=== PATIENT | male | born 1955 | race African-American/Black ===

== ENCOUNTER 2016-11-29 01:31 | Emergency (ER) | payer SELFPAY ==
[~2016-11-29] VITALS: Ht 175.3 cm; Wt 59.0 kg
[2016-11-29 01:35] VITALS: BP 128/75; PULSE 72; RESP 14; TEMP 97.7; O2SAT 96
[2016-11-29] MEDS ORDERED: PRED-503 PO (02:37)
[2016-11-29] MEDS ORDERED: ALBU6.7H INH (02:37)
[2016-11-29] MEDS ORDERED: predniSONE 20 MG TAB PO ONE (02:45)
--- NOTE | 2016-11-29 02:49 | PD ---
HPI Chief Complaint: Respiratory Symptoms Time Seen by Provider: 02:43 Travel History International Travel<30 days: No Contact w/Intl Traveler<30days: No Traveled to known affect area: No History of Present Illness HPI 61-year-old black male presents to emergency Department with complaints of cough and shortness of breath. He states that he's had difficulty breathing for over a year now. He was given medication prior occasion but cannot recall what it was. He states that he also has arthritic pains in his hands. He is currently unemployed. He quit smoking 3 months ago. He drank alcohol tonight to help the pain. He denies any fever or chills. No sputum production. No chest pain. No nausea vomiting. Patient does admit to dyspnea with exertion. PFSH Past Medical History Narrative Medical [facility] COPD Tetanus Vaccination: > 5 Years Past Surgical History Surgical History: No Previous Surgery Social History Alcohol Use: Yes Tobacco Use: No (quit 3 months ago) Allergies-Medications (Allergen,Severity, Reaction): Coded Allergies: Maribel (Verified Allergy, Mild, HIVES, 11/29/16) Review of Systems Except as stated in HPI: all other systems reviewed are Neg Physical Exam Narrative GENERAL: Well-developed, well-nourished in no acute distress. Nontoxic appearing. HEAD: Normocephalic, atraumatic. EYES: Pupils equal round and reactive. Extraocular motions intact. No scleral icterus. No injection or drainage. ENT: TMs clear without erythema. The external auditory canals clear. Nose: clear . Posterior pharynx is pink and moist. No tonsillar edema or exudate. Uvula midline. Airway patent. NECK: Trachea midline.Supple, nontender, moves head freely. No central bony tenderness or spasm. CARDIOVASCULAR: Regular rate and rhythm without murmurs, gallops, or rubs. RESPIRATORY: Few faint wheezes. Prolonged expiratory phase. No Rales. No rhonchi. GASTROINTESTINAL: Abdomen soft, non-tender, nondistended. No hepato-splenomegaly , or palpable masses. No guarding. EXTREMITIES: No clubbing, cyanosis, or edema. No joint tenderness, effusion, or edema noted. Chronic arthritic appearing hands. BACK: Nontender without deformity or crepitance. No flank tenderness. Data Data Last Documented VS Vital Signs Date Time Temp Pulse Resp B/P Pulse Ox O2 Delivery O2 Flow Rate FiO2 3/2/17 01:35 97.7 72 14 128/75 96 Room Air Orders Prednisone (Deltasone) (11/29/16 02:45) MDM Medical Decision Making Medical Screen Exam Complete: Yes Emergency Medical Condition: Yes Medical Record Reviewed: Yes Differential Diagnosis MDM: High Differential diagnoses: Pneumonia, bronchitis, URI, asthma, COPD, arthritis Narrative Course Patient is given prednisone 40 mg by mouth. This is COPD, arthritis Diagnosis Primary Impression: COPD (chronic obstructive pulmonary disease) Qualified Code: J44.9 - Chronic obstructive pulmonary disease, unspecified COPD type Additional Impression: Arthritis Patient Instructions: General Instructions Additional Instructions: Rest. Increase fluids. 1 Aleve twice daily. prednisone, and albuterol. Followup with your Dr. in one week. Return to the ER for any problems. Med/Other Pt SpecificInfo: Prescription(s) given Scripts Albuterol 6.7 GM Inh (Proventil Hfa 6.7 GM Inh)90 Mcg/Act Aer2 Puff INH Q4-6H PRN (SHORTNESS OF BREATH) #1 INHALER Prov:Marylin Peña MD 11/29/16 Prednisone (Deltasone)20 Mg Tab20 Mg PO BID #10 TAB Prov:Marylin Peña MD 11/29/16 Disposition: 01 DISCHARGE HOME Condition: Stable Abel Garber Nov 29, 2016 02:49
== END 2016-11-29 03:10 | disposition home or self-care (01) ==
LOC: NEPB 01:31
DX: J44.9 Chronic obstructive pulmonary disease, unspecified (principal); M19.90 Unspecified osteoarthritis, unspecified site; R05 Cough
CPT/HCPCS: 99283; J7512

== ENCOUNTER 2017-09-02 12:06 | Emergency (ER) | payer SELFPAY ==
[~2017-09-02 12:06] MED LIST: ALBU6.7H INH; PRED-503 PO
[2017-09-02 12:07] VITALS: BP 152/80; PULSE 85; RESP 16; TEMP 98.9; O2SAT 100
[2017-09-02] MEDS ORDERED: RESP: ALBUTEROL 2.5 MG/3 ML NEB (SCH) NEB ONE (13:15)
--- NOTE | 2017-09-02 13:15 | PD ---
HPI . Right lower leg pain Chief Complaint: Skin Problem Time Seen by Provider: 12:53 Travel History International Travel<30 days: No Contact w/Intl Traveler<30days: No Traveled to known affect area: No History of Present Illness HPI 62 year old male patient presents to the emergency department for evaluation of right lower leg wound and ecchymosis. Patient states the symptoms have been present for 3 days and he is unsure how he injured it. Patient has been ambulatory since his symptoms have been present. Patient denies any fever, chills, malaise, chest pain, abdominal pain, nausea, vomiting, diarrhea. Patient states he gets short of breath with activity. Patient is a currently half pack smoker a day. Patient denies any history of diabetes. Patient denies any paresthesias or numbness and tingling in his right foot. PFSH Past Medical History Diminished Hearing: No Immunizations Current: Yes Social History Alcohol Use: Yes Tobacco Use: No (quit 3 months ago) Substance Use: No Allergies-Medications (Allergen,Severity, Reaction): Coded Allergies: poornima (Unverified Allergy, Mild, HIVES, 05/14/17) Reported Meds & Prescriptions Reported Meds & Active Scripts Active Proventil Hfa 6.7 GM Inh (Albuterol Sulfate) 90 Mcg/Act Aer 2 Puff INH Q4-6H PRN Proventil Hfa 6.7 GM Inh (Albuterol Sulfate) 90 Mcg/Act Aer 2 Puff INH Q4-6H PRN Deltasone (Prednisone) 20 Mg Tab 20 Mg PO BID Review of Systems Except as stated in HPI: all other systems reviewed are Neg Physical Exam Narrative GENERAL: Well-nourished, well-developed 62-year-old male patient in no acute distress. Nontoxic appearing. SKIN: 2cm in diameter wound to right lower leg over distal portion of raza draining serosanguineous fluid. Mild erythema and edema noted surround the wound. HEAD: Normocephalic. Atraumatic. EYES: No scleral icterus. No injection or drainage. NECK: Supple, trachea midline. No JVD or lymphadenopathy. CARDIOVASCULAR: Regular rate and rhythm without murmurs, gallops, or rubs. RESPIRATORY: Inspiratory and expiratory wheezing noted throughout. No accessory muscle use. GASTROINTESTINAL: Abdomen soft, non-tender, nondistended. MUSCULOSKELETAL: Right lower leg ecchymosis with wound draining serosanguineous fluid noted. No obvious deformity noted. Data Data Last Documented VS Vital Signs Date Time Temp Pulse Resp B/P (MAP) Pulse Ox O2 Delivery O2 Flow Rate FiO2 09/02/17 12:07 98.9 85 16 152/80 (104) 100 Orders Orders Ankle, Complete ([id number]) (09/02/17 ) Tibia/Fibula (Ap/Lat) (09/02/17 ) Albuterol Neb (Albuterol Neb) (09/02/17 13:15) Chest, Pa & Lat (09/02/17 13:00) Ed Discharge Order (09/02/17 14:01) Wound Care (09/02/17 14:01) Splint Or Brace Apply/Monitor (09/02/17 14:28) Crutches (09/02/17 14:28) MDM Medical Decision Making Medical Screen Exam Complete: Yes Emergency Medical Condition: Yes Differential Diagnosis Differential diagnoses include but not limited to cellulitis, contusion, fracture, COPD, wheezing Narrative Course 62-year-old male patient presents to emergency room for evaluation of right lower leg wound and ecchymosis. Patient states the symptoms of present for 3 days but is unsure of the mechanism of injury. X-ray of the right tib-fib and ankle ordered and pending. Upon assessment is noted that the patient has inspiratory and expiratory wheezing throughout. Patient is currently half a pack-a-day smoker. Chest x-ray ordered and pending. Albuterol nebulizer ordered. Chest x-ray shows findings consistent with COPD, nothing acute. X- ray of the right ankle shows diffuse soft tissue swelling with no fracture. X- ray of the tib-fib is negative. Patient is discharged home with prescription for bactrim, instructions to perform wound care, and rice therapy to the right lower leg into the symptoms resolve. Right lower leg Howie wrap and patient given crutches. Patient instructed to return the emergency Department with any worsening condition but otherwise follow up with primary care. Patient given a prescription for albuterol inhaler. Diagnosis Primary Impression: Contusion of right lower leg Qualified Codes: S80.11XA - Contusion of right lower leg, initial encounter Additional Impression: Wound of right lower extremity Qualified Codes: S81.801A - Unspecified open wound, right lower leg, initial encounter Referrals: Primary Care Physician Patient Instructions: Acute Wound Care (GEN), Acute Wounds (ED), Contusion in Adults (ED), General Instructions Additional Instructions: Please return to emergency department if your symptoms return or worsen. Follow up with your primary care provider. Take medications as prescribed. Perform daily wound care to the right lower extremity. May apply antibiotic ointment. Rice therapy to the right lower leg, rest, ice, elevated when resting Med/Other Pt SpecificInfo: Prescription(s) given Scripts Sulfamethoxazole-Trimethoprim (Bactrim DS) 800-160 Mg Tab 1 TAB PO BID for Infection for 10 Days, #20 TAB 0 Refills Prov: Cecy Dailey 09/02/17 Albuterol 6.7 GM Inh (Proventil Hfa 6.7 GM Inh) 90 Mcg/Act Aer 2 PUFF INH Q4-6H Y for SHORTNESS OF BREATH, #1 INHALER 0 Refills Prov: Cecy Dailey 09/02/17 Disposition: 01 DISCHARGE HOME Condition: Stable Cecy Dailey Sep 02, 2017 13:15
--- NOTE | 2017-09-02 13:35 | RADRPT ---
EXAM DATE/TIME: 09/02/2017 12:48 [facility] COMPARISON: No previous studies available for comparison. INDICATIONS : Pain and swelling with no known injury. MEDICAL HISTORY : None. SURGICAL HISTORY : None. ENCOUNTER: Initial ACUITY: 1 week PAIN SCORE: 10/10 LOCATION: Right Lower leg FINDINGS: Two view examination of the right tibia demonstrates no evidence of fracture or dislocation. Bony mi neralization is normal. The soft tissue structures are intact. A posterior calcaneal spur is present . CONCLUSION: Negative examination of the tibia and fibula. Trey Grubbs MD on September 02, 2017 at 13:32 Board Certified Radiologist. This report was verified electronically.
--- NOTE | 2017-09-02 13:36 | RADRPT ---
EXAM DATE/TIME: 09/02/2017 12:51 [facility] COMPARISON: No previous studies available for comparison. INDICATIONS : Pain and swelling with no known injury. MEDICAL HISTORY : None. SURGICAL HISTORY : None. ENCOUNTER: Initial ACUITY: 1 week PAIN SCORE: 10/10 LOCATION: Right Ankle FINDINGS: Soft tissue swelling is present in a diffuse fashion. The ankle mortise is intact. There is no eviden ce of acute fracture. Bony mineralization is normal. A posterior calcaneal spur is present. CONCLUSION: 1. Diffuse swelling without fracture Trey Grubbs MD on September 02, 2017 at 13:33 Board Certified Radiologist. This report was verified electronically.
--- NOTE | 2017-09-02 13:38 | RADRPT ---
EXAM DATE/TIME: 09/02/2017 13:08 [facility] COMPARISON: No previous studies available for comparison. INDICATIONS : Patient states cough. MEDICAL HISTORY : None. SURGICAL HISTORY : None. ENCOUNTER: Initial ACUITY: 1 year PAIN SCORE: 0/10 LOCATION: Bilateral chest FINDINGS: The cardiac silhouette is enlarged in transverse diameter. The lungs are hyperinflated but clear. No effusions are identified. There is mild multilevel degenerative change throughout the spine. CONCLUSION: 1. Findings of COPD. No acute cardiopulmonary disease. Trey Grubbs MD on September 02, 2017 at 13:35 Board Certified Radiologist. This report was verified electronically.
[2017-09-02] MEDS ORDERED: ALBU6.7H INH (14:00)
[2017-09-02] MEDS ORDERED: BACT800T5 PO (14:29)
== END 2017-09-02 14:41 | disposition home or self-care (01) ==
LOC: NEPK 12:06
DX: S80.11XA Contusion of right lower leg, initial encounter (principal); S81.801A Unspecified open wound, right lower leg, initial encounter; X58.XXXA Exposure to other specified factors, initial encounter; Z79.899 Other long term (current) drug therapy
CPT/HCPCS: 71020; 73590; 73610; 94664; 99285; E0113; J7613

== ENCOUNTER 2017-09-21 16:28 | Emergency (ER) | payer SELFPAY ==
[~2017-09-21] VITALS: Ht 175.3 cm; Wt 55.0 kg
[~2017-09-21 16:28] MED LIST changes: +BACT800T5 PO
[2017-09-21 16:31] VITALS: BP 133/70; PULSE 89; RESP 14; TEMP 98.1; O2SAT 98
[2017-09-21 17:39] VITALS: BP 132/78; PULSE 89; RESP 18; O2SAT 96
[2017-09-21] MEDS ORDERED: NYSTATIN SUSP 500,000 U/5 ML CUP SWISH-SWAL ONE (17:45)
[2017-09-21] MEDS ORDERED: SODIUM CHLORIDE 0.9% FLUSH 10 ML FLUSH IV FLUSH PRN (17:45)
--- NOTE | 2017-09-21 17:45 | PD ---
HPI Chief Complaint: ENT Complaint Time Seen by Provider: 17:38 Travel History International Travel<30 days: No Contact w/Intl Traveler<30days: No Traveled to known affect area: No History of Present Illness HPI 62-year-old male here for evaluation of tongue pain, throat pain, and difficulty swallowing. Symptoms have been going on for last 2 days. Pain is moderate to severe, constant. He denies fevers or chills. No respiratory difficulty. PFSH Past Medical History Asthma: Yes Diminished Hearing: No Hypertension: Yes Immunizations Current: Yes Tetanus Vaccination: Unknown Influenza Vaccination: No Past Surgical History Surgical History: No Previous Surgery Social History Alcohol Use: Yes ([facility]) Tobacco Use: Yes (ONCE OR TWICE A WEEK) Substance Use: Yes ([facility]) Allergies-Medications (Allergen,Severity, Reaction): Coded Allergies: poornima (Unverified Allergy, Mild, HIVES, 09/21/17) Reported Meds & Prescriptions Reported Meds & Active Scripts Active Bactrim DS (Sulfamethoxazole-Trimethoprim) 800-160 Mg Tab 1 Tab PO BID 10 Days Proventil Hfa 6.7 GM Inh (Albuterol Sulfate) 90 Mcg/Act Aer 2 Puff INH Q4-6H PRN Proventil Hfa 6.7 GM Inh (Albuterol Sulfate) 90 Mcg/Act Aer 2 Puff INH Q4-6H PRN Deltasone (Prednisone) 20 Mg Tab 20 Mg PO BID Review of Systems Except as stated in HPI: all other systems reviewed are Neg Physical Exam Narrative GENERAL: Well-developed, thin, awake, alert, comfortable, no apparent distress. SKIN: Focused skin assessment warm/dry. No rash. HEAD: Atraumatic. Normocephalic. EYES: Pupils equal and round. No scleral icterus. No injection or drainage. ENT: Mucous membranes pink and moist. White patches throughout entire tongue and pharynx consistent with candidiasis. There is also pharyngeal erythema without exudate. Normal phonation. No drooling or stridor. NECK: Trachea midline. No JVD. CARDIOVASCULAR: Regular rate and rhythm. RESPIRATORY: No accessory muscle use. Clear to auscultation. Breath sounds equal bilaterally. GASTROINTESTINAL: Abdomen soft, non-tender, nondistended. MUSCULOSKELETAL: No obvious deformities. No clubbing. No cyanosis. No edema. NEUROLOGICAL: Awake and alert. No obvious cranial nerve deficits. Motor grossly within normal limits. Normal speech. PSYCHIATRIC: Appropriate mood and affect; insight and judgment normal. Data Data Last Documented VS Vital Signs Date Time Temp Pulse Resp B/P (MAP) Pulse Ox O2 Delivery O2 Flow Rate FiO2 09/21/17 19:00 69 18 110/55 (73) 95 Room Air 09/21/17 16:31 98.1 Orders Orders Complete Blood Count With Diff (09/21/17 17:41) Comprehensive Metabolic Panel (09/21/17 17:41) Prothrombin Time / Inr (Pt) (09/21/17 17:41) Act Partial Throm Time (Ptt) (09/21/17 17:41) Iv Access Insert/Monitor (09/21/17 17:41) Ecg Monitoring (09/21/17 17:41) Oximetry (09/21/17 17:41) Sodium Chloride 0.9% Flush (Ns Flush) (09/21/17 17:45) Group A Rapid Strep Screen (09/21/17 17:41) Nystatin Liq (Mycostatin Liq) (09/21/17 17:45) Soft Tissue Neck (09/21/17 ) Ct Soft Tiss Neck W Iv Cont (09/21/17 ) Ketorolac Inj (Toradol Inj) (09/21/17 19:30) Penicillin G Benzathine Inj (Bicillin L- (09/21/17 19:30) Iohexol 350 Inj (Omnipaque 350 Inj) (09/21/17 19:50) Labs Laboratory Tests Test 09/21/17 17:45 White Blood Count 5.6 TH/MM3 Red Blood Count 3.57 MIL/MM3 Hemoglobin 10.5 GM/DL Hematocrit 31.5 % Mean Corpuscular Volume 88.1 FL Mean Corpuscular Hemoglobin 29.4 PG Mean Corpuscular Hemoglobin Concent 33.4 % Red Cell Distribution Width 14.4 % Platelet Count 186 TH/MM3 Mean Platelet Volume 8.0 FL Neutrophils (%) (Auto) 63.4 % Lymphocytes (%) (Auto) 13.4 % Monocytes (%) (Auto) 7.8 % Eosinophils (%) (Auto) 15.1 % Basophils (%) (Auto) 0.3 % Neutrophils # (Auto) 3.6 TH/MM3 Lymphocytes # (Auto) 0.8 TH/MM3 Monocytes # (Auto) 0.4 TH/MM3 Eosinophils # (Auto) 0.8 TH/MM3 Basophils # (Auto) 0.0 TH/MM3 CBC Comment DIFF FINAL Differential Comment Prothrombin Time 10.8 SEC Prothromb Time International Ratio 1.1 RATIO Activated Partial Thromboplast Time 29.2 SEC Blood Urea Nitrogen 26 MG/DL Creatinine 1.17 MG/DL Random Glucose 93 MG/DL Total Protein 8.6 GM/DL Albumin 3.0 GM/DL Calcium Level 8.3 MG/DL Alkaline Phosphatase 54 U/L Aspartate Amino Transf (AST/SGOT) 32 U/L Alanine Aminotransferase (ALT/SGPT) 29 U/L Total Bilirubin 0.4 MG/DL Sodium Level 140 MEQ/L Potassium Level 4.1 MEQ/L Chloride Level 108 MEQ/L Carbon Dioxide Level 24.6 MEQ/L Anion Gap 7 MEQ/L Estimat Glomerular Filtration Rate 77 ML/MIN [facility] Medical Decision Making Medical Screen Exam Complete: Yes Emergency Medical Condition: Yes Differential Diagnosis Thrush, candidal esophagitis, strep pharyngitis, mono, peritonsillar abscess, retropharyngeal abscess, epiglottitis Narrative Course Patient's physical exam is consistent with thrush and likely esophagitis. He denies known history of HIV. He does not have a primary care physician. Vital signs show heart rate 89, blood pressure 133/70, pulse ox 98% on room air , tympanic temp of 98.1F. CBC: WBC 5.6, hemoglobin 10.5, hematocrit 31.5, platelets 186. CMP is remarkable for albumin 3.0, BUN 26, creatinine 1.17, GFR 77. Throat swab is positive for group A strep. Soft tissue neck x-ray: CONCLUSION: 1. Epiglottic shadow is somewhat thickened. Maybe a tube motion or liquid he verses true epiglottic thickening. Airway is grossly patent. Prevertebral/ retropharyngeal soft tissues within normal limits. 2. Moderate severity bony degenerative findings of the cervical spine. Because of the above reading on the soft tissue neck x-ray, CT of the neck was ordered to rule out epiglottitis. CT soft tissue neck: CONCLUSION: 1. Mildly prominent jugular chain lymph nodes, likely reactive. 2. Mild bilateral maxillary sinus disease. 3. Epiglottis is within normal limits. 4. No evidence of abscess. Airway in the neck is within normal limits in diameter. The patient was given 1.2 million units of penicillin G IM for strep pharyngitis. He was also given nystatin swish and swallow for what appeared to be thrush. Patient has slight anemia which is likely chronic. Patient denies melena or hematochezia. No hematemesis or hematuria. Patient was made aware of all findings. He is tolerating clear liquids in the emergency department. Patient does have thrush and I highly recommended that he follow-up as an outpatient to be tested for HIV. He can either do this at the health department or with a primary care physician. Although he was given penicillin G for strep pharyngitis, he does have sinusitis as well given a prescription for Augmentin. I will give him a prescription for nystatin swish and swallow. He was advised to take Tylenol/ibuprofen for pain. He was informed on when to return to the emergency department. He verbalizes understanding and agreement with plan. Diagnosis Primary Impression: Strep pharyngitis Additional Impressions: Thrush Sinusitis Qualified Codes: J01.90 - Acute sinusitis, unspecified Referrals: [facility] 3 days Primary Care Physician 3 days Additional Instructions: Follow-up with a primary care physician this week. Take antibiotics as prescribed. Return to the emergency department for worsening symptoms or any other concerns. Scripts Nystatin Liq (Nystatin Liq) 100,000 unit/ml Susp 5 ML SWISH-SWAL QID for Infection for 5 Days, ML 0 Refills Prov: Willis Persaud MD 09/21/17 Amoxicillin-Clavulanate (Augmentin) 875-125 Mg Tab 1 TAB PO BID for Infection for 7 Days, #14 TAB 0 Refills Prov: Willis Persadu MD 09/21/17 Disposition: 01 DISCHARGE HOME Condition: Stable Willis Persaud MD Sep 21, 2017 17:45
[2017-09-21 17:57] VITALS: BP 132/78; PULSE 89; RESP 18; O2SAT 96
[2017-09-21 18:16] LABS: AUTOMATED NEUTROPHIL # 3.6 TH/MM3 (1.8-7.7); BASOPHIL % 0.3 % (0.0-2.0); EOSINOPHIL # 0.8 TH/MM3 (0-0.4); EOSINOPHIL % 15.1 % (0.0-4.0); HEMATOCRIT 31.5 % (39.0-51.0); HEMOGLOBIN 10.5 GM/DL (13.0-17.0); LYMPH % 13.4 % (9.0-44.0); LYMPHOCYTE # 0.8 TH/MM3 (1.0-4.8); MEAN CELL VOLUME 88.1 FL (80.0-100.0); MEAN CORPUSCULAR HEMOGLOBIN 29.4 PG (27.0-34.0); MEAN CORPUSCULAR HGB CONC 33.4 % (32.0-36.0); MONO % 7.8 % (0.0-8.0); MONOCYTE # 0.4 TH/MM3 (0-0.9); NEUT % 63.4 % (16.0-70.0); PLATELET COUNT 186 TH/MM3 (150-450); RED BLOOD COUNT 3.57 MIL/MM3 (4.50-5.90); RED CELL DISTRIBUTION WIDTH 14.4 % (11.6-17.2); WHITE BLOOD COUNT 5.6 TH/MM3 (4.0-11.0)
[2017-09-21 18:24] LABS: INTERNATIONAL NORMALIZED RATIO 1.1 RATIO; PROTHROMBIN TIME - PATIENT 10.8 SEC (9.8-11.6)
[2017-09-21 18:38] LABS: ALT (GPT) 29 U/L (12-78); AST (GOT) 32 U/L (15-37); BICARBONATE 24.6 MEQ/L (21.0-32.0); BLOOD UREA NITROGEN 26 MG/DL (7-18); CALCIUM 8.3 MG/DL (8.5-10.1); CHLORIDE 108 MEQ/L (98-107); CREATININE 1.17 MG/DL (0.60-1.30); GLOMERULAR FILTRATION RATE 77 ML/MIN (>89); GLUCOSE,RANDOM 93 MG/DL (74-106); SODIUM (NA) 140 MEQ/L (136-145)
[2017-09-21 18:39] LABS: ALKALINE PHOSPHATASE 54 U/L (45-117); TOTAL BILIRUBIN ADULT 0.4 MG/DL (0.2-1.0); TOTAL PROTEIN 8.6 GM/DL (6.4-8.2)
--- NOTE | 2017-09-21 18:54 | RADRPT ---
EXAM DATE/TIME: 09/21/2017 17:51 [facility] COMPARISON: No previous studies available for comparison. INDICATIONS : Throat pain and swelling. MEDICAL HISTORY : None. SURGICAL HISTORY : None. ENCOUNTER: Initial ACUITY: 2 days PAIN SCORE: 10/10 LOCATION: Neck. FINDINGS: 2 views soft tissue neck. Prevertebral soft tissues within normal limits. The epiglottis shadow appears somewhat prominent in t hickness. Airway is grossly patent. Large endplate osteophytes bridging anteriorly at C5-6 and C6-7. Alignment within normal limits. No e vidence of fracture. Moderate severity left-sided facet arthrosis at C3-4, C4-5, C5-6. CONCLUSION: 1. Epiglottic shadow is somewhat thickened. Maybe a tube motion or liquid he verses true epiglottic t hickening. Airway is grossly patent. Prevertebral/retropharyngeal soft tissues within normal limits. 2. Moderate severity bony degenerative findings of the cervical spine. Jean Sanchez MD on September 21, 2017 at 18:50 Board Certified Radiologist. This report was verified electronically.
[2017-09-21 19:00] VITALS: BP 110/55; PULSE 69; RESP 18; O2SAT 95
[2017-09-21] MEDS ORDERED: PENICILLIN G BENZATHINE 1,200,000 UNITS/2 ML SYRINGE IM ONE (19:30)
[2017-09-21] MEDS ORDERED: KETOROLAC TROMETHAMINE 30 MG/ML (IVP) VIAL IV PUSH ONE (19:30)
[2017-09-21] MEDS ORDERED: IOHEXOL 350 MG/ML 10 ML VIAL (for RAD DIAG) IVCONTRAST ONE (19:50)
--- NOTE | 2017-09-21 20:43 | RADRPT ---
EXAM DATE/TIME: 09/21/2017 19:42 [facility] COMPARISON: No previous studies available for comparison. INDICATIONS : Sore throat; difficulty swallowing. IV CONTRAST: 66 cc Omnipaque 350 (iohexol) IV RADIATION DOSE: 16.15 CTDIvol (mGy) MEDICAL HISTORY : Hypertension. SURGICAL HISTORY : None. ENCOUNTER: Initial ACUITY: 1 day PAIN SCALE: 7/10 LOCATION: neck TECHNIQUE: Volumetric scanning of the neck was performed. Using automated exposure control and adjustment of th e mA and/or kV according to patient size, radiation dose was kept as low as reasonably achievable to obtain optimal diagnostic quality images. DICOM format image data is available electronically for r eview and comparison. FINDINGS: NASOPHARYNX: The nasopharyngeal airway has a normal configuration. No mucosal thickening or mass is seen. OROPHARYNX: The intrinsic muscles of the tongue are symmetric. The tonsillar pillars are intact. The prevertebr al soft tissues are not thickened. LARYNX: The supraglottic, glottic, and infraglottic structures are intact. PARAPHARYNGEAL: The parapharyngeal space is intact. SALIVARY GLANDS: The parotid and submandibular glands are intact. LYMPH NODES: Multiple mildly prominent jugular chain lymph nodes bilaterally with the largest measuring 2.0 x 0.8 cm on the right on image #37. These findings are likely reactive. No new chronic lymph nodes identifi ed. THYROID: Homogeneous enhancement without evidence of nodule. BONES: Unremarkable. Mild mucosal thickening of the maxillary sinuses. Multilevel degenerative findings of t he cervical spine mild central canal narrowing at C4-5. CONCLUSION: 1. Mildly prominent jugular chain lymph nodes, likely reactive. 2. Mild bilateral maxillary sinus disease. 3. Epiglottis is within normal limits. 4. No evidence of abscess. Airway in the neck is within normal limits in diameter. Jean Sanchez MD on September 21, 2017 at 20:37 Board Certified Radiologist. This report was verified electronically.
[2017-09-21] MEDS ORDERED: NYST1000 SWISH-SWAL (20:53)
[2017-09-21] MEDS ORDERED: AUGM875T3 PO (20:53)
== END 2017-09-21 21:08 | disposition home or self-care (01) ==
LOC: NEPD 16:28
DX: J02.0 Streptococcal pharyngitis (principal); B37.9 Candidiasis, unspecified; J32.9 Chronic sinusitis, unspecified; D64.9 Anemia, unspecified; M50.30 Other cervical disc degeneration, unspecified cervical region; J45.909 Unspecified asthma, uncomplicated; I10 Essential (primary) hypertension; Z72.0 Tobacco use
CPT/HCPCS: 70360; 70491; 80053; 85025; 85610; 85730; 87880; 96372; 96374; 99285; J0561; J1885; Q9967

== ENCOUNTER 2018-01-13 11:58 | Emergency (ER) | payer SELFPAY ==
[~2018-01-13 11:58] MED LIST changes: +AUGM875T3 PO; +NYST1000 SWISH-SWAL
[2018-01-13 12:08] VITALS: BP 112/74; PULSE 83; RESP 16; TEMP 98.1; O2SAT 95
--- NOTE | 2018-01-13 12:32 | PD ---
HPI Chief Complaint: Skin Problem Time Seen by Provider: 12:29 Travel History International Travel<30 days: No Contact w/Intl Traveler<30days: No Traveled to known affect area: No History of Present Illness HPI 62-year-old homeless -[place] male presents to the emergency department with 1 month history of dry itchy rash to both forearms and dorsal hands, as well as around the perineum of the rectum, which garcia with defecation. He denies itching anywhere else. He denies exposure to anything new. Patient is unsure if he has any medical problems. He denies history of eczema. He states it has been worse over the past month. He denies fever, chills, open wounds, sores, or drainage. He is allergic to mangoes but no medication allergies. PFSH Past Medical History Asthma: Yes Diminished Hearing: No Hypertension: Yes Immunizations Current: Yes Social History Alcohol Use: Yes (OCC) Tobacco Use: Yes (ONCE OR TWICE A WEEK) Substance Use: Yes (OCC MARIJUANA) Allergies-Medications (Allergen,Severity, Reaction): Coded Allergies: poornima (Unverified Allergy, Mild, HIVES, 01/13/18) Reported Meds & Prescriptions Reported Meds & Active Scripts Active Nystatin Liq 100,000 unit/ml Susp 5 Ml SWISH-SWAL QID 5 Days Augmentin (Amoxicillin-Clavulanate) 875-125 Mg Tab 1 Tab PO BID 7 Days Bactrim DS (Sulfamethoxazole-Trimethoprim) 800-160 Mg Tab 1 Tab PO BID 10 Days Proventil Hfa 6.7 GM Inh (Albuterol Sulfate) 90 Mcg/Act Aer 2 Puff INH Q4-6H PRN Proventil Hfa 6.7 GM Inh (Albuterol Sulfate) 90 Mcg/Act Aer 2 Puff INH Q4-6H PRN Deltasone (Prednisone) 20 Mg Tab 20 Mg PO BID Review of Systems Except as stated in HPI: all other systems reviewed are Neg General / Constitutional: No: Fever Eyes: No: Visual changes HENT: No: Headaches Cardiovascular: No: Chest Pain or Discomfort Respiratory: No: Shortness of Breath Gastrointestinal: No: Abdominal Pain Genitourinary: No: Dysuria Musculoskeletal: No: Pain Skin: Positive Rash, Positive Itching, Positive Other Neurologic: No: Weakness Psychiatric: No: Depression Endocrine: No: Polydipsia Hematologic/Lymphatic: No: Easy Bruising Physical Exam Narrative GENERAL: Patient appears somewhat cachectic but otherwise in no obvious distress. SKIN: Warm and dry. Normal color. Decreased turgor throughout. Patient has plaque-like scaly rash to both dorsal forearms and hands, as well as a circumscribed plaque-like rash around the perineum of the rectum and buttocks. There is no increased warmth or erythema. Consistent with dermatophytosis,/ eczema/atrophic skin. There are no lesions suggestive of scabies or other skin condition. HEAD: Atraumatic. Normocephalic. EYES: Pupils equal and round. No scleral icterus. No injection or drainage. ENT: No nasal bleeding or discharge. Mucous membranes pink and moist. Pharynx is clear. Airways patent NECK: Trachea midline. Supple and nontender. CARDIOVASCULAR: Regular rate and rhythm. No murmurs gallops rubs per RESPIRATORY: No accessory muscle use. Clear to auscultation. Breath sounds equal bilaterally. MUSCULOSKELETAL: Extremities without clubbing, cyanosis, or edema. No obvious deformities. Full strength and range of motion throughout. NEUROLOGICAL: Awake and alert. No obvious cranial nerve deficits. Motor grossly within normal limits. Five out of 5 muscle strength in the arms and legs. Normal speech. PSYCHIATRIC: Appropriate mood and affect; insight and judgment normal. Data Data Last Documented VS Vital Signs Date Time Temp Pulse Resp B/P (MAP) Pulse Ox O2 Delivery O2 Flow Rate FiO2 01/13/18 12:08 98.1 83 16 112/74 (87) 95 Orders Orders Blood Glucose (01/13/18 12:32) [facility] Medical Decision Making Medical Screen Exam Complete: Yes Emergency Medical Condition: Yes Medical Record Reviewed: Yes Differential Diagnosis Rash. Dermatophytosis. Dermatitis. Narrative Course Fingerstick blood sugar is checked and found to be 76 Patient will be treated with Lotrisone ointment twice daily for 2 weeks. Patient to follow-up if symptoms do not improve in the next 2 weeks. Diagnosis Primary Impression: Dermatophytosis of body Additional Impression: Dermatophytosis of groin and perianal area Referrals: [facility] Patient Instructions: General Instructions, Jeremiah Dunaway (ED) Additional Instructions: Fingerstick blood sugar is checked and found to be 76 Patient will be treated with Lotrisone ointment twice daily for 2 weeks. Patient to follow-up if symptoms do not improve in the next 2 weeks. Med/Other Pt SpecificInfo: Prescription(s) given Disposition: 01 DISCHARGE HOME Condition: Joseph Espana Jan 13, 2018 12:32
[2018-01-13] MEDS ORDERED: LOTR15T TOPICAL (12:57)
== END 2018-01-13 13:35 | disposition home or self-care (01) ==
LOC: NEPK 11:58
DX: B35.4 Tinea corporis (principal); B35.6 Tinea cruris; J45.909 Unspecified asthma, uncomplicated; I10 Essential (primary) hypertension; F12.90 Cannabis use, unspecified, uncomplicated; Z72.0 Tobacco use; Z59.0 Homelessness
CPT/HCPCS: 99283

== ENCOUNTER 2018-03-12 17:32 | Observation (INO) | payer SELFPAY ==
[~2018-03-12] VITALS: Ht 175.3 cm; Wt 60.0 kg
[~2018-03-12 17:32] MED LIST changes: +LOTR15T TOPICAL
[2018-03-12 17:35] VITALS: BP 160/76; PULSE 80; RESP 16; TEMP 97.7; O2SAT 98
--- NOTE | 2018-03-12 17:42 | PD ---
HPI Chief Complaint: Pain: Acute or Chronic Time Seen by Provider: 17:41 Travel History International Travel<30 days: No Contact w/Intl Traveler<30days: No Traveled to known affect area: No History of Present Illness HPI 62-year-old male came to the emergency room with history of chest discomfort on and off for past 5 months. Patient points to his substernal area and describes the pain as burning sensation. Pain starts from the epigastric region and radiates up to the mid sternum. Patient is currently chest pain-free. No aggravating factors identified. Patient says by drinking cold water sometimes the pain is relieved. Patient used to be a smoker but quit 5 months ago. He also has history of hypertension but he does not have healthcare insurance or any money to buy any medications or fill prescriptions and hence he has not taken his medications for many months now. Patient also says that he has a generalized rash which is extremely itchy. He was seen in the emergency room couple months ago and was given a prescription but once again due to lack of having money patient was unable to fill the prescription. He also has history of COPD and occasionally suffers from COPD exacerbation. Once again he has not taken any of his inhalers since he does not have the medications or means to fill the prescription. No known coronary artery disease history. Patient has not been formally tested for coronary artery disease either. [facility] Past Medical History Narrative Medical List of his past medical, surgical, social and family history is reviewed from the nursing note. Asthma: Yes Diminished Hearing: No Hypertension: Yes Immunizations Current: Yes Social History Alcohol Use: Yes ([facility]) Tobacco Use: Yes (ONCE OR TWICE A WEEK) Substance Use: Yes ([facility] MARIJUANA) Allergies-Medications (Allergen,Severity, Reaction): Coded Allergies: poornima (Unverified Allergy, Mild, HIVES, 03/12/18) Comments List of his allergies reviewed from the nursing note. Reported Meds & Prescriptions Reported Meds & Active Scripts Active No Active Prescriptions or Reported Medications Narrative Medication List of his home medications reviewed from the nursing note. Review of Systems Except as stated in HPI: all other systems reviewed are Neg Cardiovascular: Positive: Chest Pain or Discomfort Skin: Positive Rash Physical Exam Narrative GENERAL: Awake, alert, mass seated, mild distress SKIN: Focused skin assessment warm/dry. Generalized dry skin that looks like eczema HEAD: Atraumatic. Normocephalic. EYES: Pupils equal and round. No scleral icterus. No injection or drainage. ENT: No nasal bleeding or discharge. Mucous membranes pink and moist. NECK: Trachea midline. No JVD. CARDIOVASCULAR: Regular rate and rhythm. No murmur appreciated. RESPIRATORY: No accessory muscle use. End expiratory wheeze bilateral GASTROINTESTINAL: Abdomen soft, non-tender, nondistended. Hepatic and splenic margins not palpable. MUSCULOSKELETAL: No obvious deformities. No clubbing. No cyanosis. No edema. NEUROLOGICAL: Awake and alert. No obvious cranial nerve deficits. Motor grossly within normal limits. Normal speech. PSYCHIATRIC: Appropriate mood and affect; insight and judgment normal. Data Data Last Documented VS Vital Signs Date Time Temp Pulse Resp B/P (MAP) Pulse Ox O2 Delivery O2 Flow Rate FiO2 03/12/18 19:23 96 21 03/12/18 19:23 84 16 114/64 (81) Room Air 03/12/18 17:35 97.7 Orders Orders Prednisone (Deltasone) (03/12/18 18:15) Albuterol-Ipratropium Neb (Duoneb Neb) (03/12/18 18:15) Electrocardiogram (03/12/18 18:19) Basic Metabolic Panel (Bmp) (03/12/18 18:19) Ckmb (Isoenzyme) Profile (03/12/18 18:19) Complete Blood Count With Diff (03/12/18 18:19) Magnesium (Mg) (03/12/18 18:19) Prothrombin Time / Inr (Pt) (03/12/18 18:19) Troponin I (03/12/18 18:19) Ecg Monitoring (03/12/18 18:19) Bilateral Bp Monitoring (03/12/18 18:19) Iv Access Insert/Monitor (03/12/18 18:19) Oximetry (03/12/18 18:19) Oxygen Administration (03/12/18 18:19) Sodium Chloride 0.9% Flush (Ns Flush) (03/12/18 18:30) Chest, Pa & Lat (03/12/18 18:19) Admit Order (Ed Use Only) (03/12/18 20:11) Activity Bed Rest With Brp (03/12/18 20:11) Vital Signs (Adult) Q4H (03/12/18 20:11) Cardiac Rhythm .As Directed (03/12/18 20:11) Notify Dr: Other .PRN (03/12/18 20:11) Notify . Parameters (03/12/18 20:11) Resp Oxygen Nasal Cannula (03/12/18 ) Ckmb (Isoenzyme) Profile (03/12/18 20:11) Ckmb (Isoenzyme) Profile (03/12/18 23:11) Troponin I (03/12/18 20:11) Troponin I (03/12/18 23:11) Electrocardiogram (03/12/18 20:11) Electrocardiogram (03/12/18 23:11) ^ Obtain (03/12/18 20:11) Sodium Chloride 0.9% Flush (Ns Flush) (03/12/18 20:15) Sodium Chloride 0.9% Flush (Ns Flush) (03/12/18 21:00) Acetaminophen (Tylenol) (03/12/18 20:15) Nitroglycerin Sl (Nitrostat Sl) (03/12/18 20:15) Film Washer / Telemetry TRISTAN.Q8H (03/12/18 20:11) Labs Laboratory Tests Test 03/12/18 18:45 White Blood Count 4.1 TH/MM3 Red Blood Count 3.80 MIL/MM3 Hemoglobin 10.5 GM/DL Hematocrit 32.7 % Mean Corpuscular Volume 86.1 FL Mean Corpuscular Hemoglobin 27.7 PG Mean Corpuscular Hemoglobin Concent 32.1 % Red Cell Distribution Width 16.2 % Platelet Count 249 TH/MM3 Mean Platelet Volume 7.8 FL Neutrophils (%) (Auto) 48.0 % Lymphocytes (%) (Auto) 11.3 % Monocytes (%) (Auto) 8.3 % Eosinophils (%) (Auto) 31.9 % Basophils (%) (Auto) 0.5 % Neutrophils # (Auto) 2.0 TH/MM3 Lymphocytes # (Auto) 0.5 TH/MM3 Monocytes # (Auto) 0.3 TH/MM3 Eosinophils # (Auto) 1.3 TH/MM3 Basophils # (Auto) 0.0 TH/MM3 CBC Comment AUTO DIFF Differential Comment AUTO DIFF CONFIRMED Platelet Estimate NORMAL Platelet Morphology Comment NORMAL Ovalocytes 1+ Prothrombin Time 10.3 SEC Prothromb Time International Ratio 1.0 RATIO Blood Urea Nitrogen 13 MG/DL Creatinine 0.78 MG/DL Random Glucose 70 MG/DL Calcium Level 8.7 MG/DL Magnesium Level 2.3 MG/DL Sodium Level 140 MEQ/L Potassium Level 3.6 MEQ/L Chloride Level 107 MEQ/L Carbon Dioxide Level 20.1 MEQ/L Anion Gap 13 MEQ/L Estimat Glomerular Filtration Rate 123 ML/MIN Total Creatine Kinase 65 U/L Troponin I LESS THAN 0.02 NG/ML MDM Medical Decision Making Medical Screen Exam Complete: Yes Emergency Medical Condition: Yes Medical Record Reviewed: Yes Interpretation(s) Twelve-lead EKG was reviewed by me. Normal sinus rhythm, normal axis, multiple PVCs. Heart rate of 66 bpm. Differential Diagnosis ACS, non-STEMI, GERD, COPD exacerbation, eczema Narrative Course 8:17 PM patient was given 2 DuoNeb's and p.o. prednisone which was meant for both COPD exacerbation as well as eczema. Blood test results are back and within acceptable limits. However given the fact that patient is - [place], 62 years old and noncompliant hypertensive with history of chest pain and no past workup done I would like to admit this patient to the chest pain center so that he can be ruled out for ACS. Patient has told me not to bother giving him any prescriptions since he will not be able to fill them. Procedures EKG Prior to Arrival: No Diagnosis Primary Impression: Chest pain Qualified Codes: R07.9 - Chest pain, unspecified Additional Impression: Eczema Qualified Codes: L30.9 - Dermatitis, unspecified Admitting Information Admitting Physician Requests: Observation Scripts No Active Prescriptions or Reported Meds Pilo Small MD Mar 12, 2018 17:42
[2018-03-12] MEDS: RESP: ALBUTEROL 2.5 MG/IPRATROPIUM 0.5 MG NEB (SCH) INH ×2 (18:14→18:15)
[2018-03-12] MEDS ORDERED: predniSONE 20 MG TAB PO ONE (18:15)
[2018-03-12] MEDS ORDERED: SODIUM CHLORIDE 0.9% FLUSH 10 ML FLUSH IVF PRN (18:30)
[2018-03-12 19:07] LABS: BASOPHIL % 0.5 % (0.0-2.0); EOSINOPHIL # 1.3 TH/MM3 (0-0.4); EOSINOPHIL % 31.9 % (0.0-4.0); HEMATOCRIT 32.7 % (39.0-51.0); HEMOGLOBIN 10.5 GM/DL (13.0-17.0); LYMPH % 11.3 % (9.0-44.0); LYMPHOCYTE # 0.5 TH/MM3 (1.0-4.8); MEAN CELL VOLUME 86.1 FL (80.0-100.0); MEAN CORPUSCULAR HEMOGLOBIN 27.7 PG (27.0-34.0); MEAN CORPUSCULAR HGB CONC 32.1 % (32.0-36.0); MEAN PLATELET VOLUME 7.8 FL (7.0-11.0); MONO % 8.3 % (0.0-8.0); MONOCYTE # 0.3 TH/MM3 (0-0.9); PLATELET COUNT 249 TH/MM3 (150-450); RED CELL DISTRIBUTION WIDTH 16.2 % (11.6-17.2); WHITE BLOOD COUNT 4.1 TH/MM3 (4.0-11.0)
--- NOTE | 2018-03-12 19:08 | RADRPT ---
EXAM DATE: 03/12/2018 6:54 PM EDT AGE/SEX: 62 years / Male INDICATIONS: Chest pain. CLINICAL DATA: This is the patient's initial encounter. Patient reports that signs and symptoms have been present for 2 days and indicates a pain score of 2/10. MEDICAL/SURGICAL HISTORY: None. None. COMPARISON: [facility] [place], CHEST PA & LAT, 09/02/2017. . FINDINGS: PA and lateral views of the chest demonstrate the lungs to be symmetrically aerated without evidence of mass, infiltrate or effusion. The cardiomediastinal contours are unremarkable. Osseous structures are intact. CONCLUSION: Negative examination. Electronically signed by: Jeremy Lara MD 03/12/2018 7:07 PM EDT
[2018-03-12 19:19] LABS: PROTHROMBIN TIME - PATIENT 10.3 SEC (9.8-11.6)
[2018-03-12 19:23] VITALS: BP 114/64; PULSE 84; RESP 16; O2SAT 96
[2018-03-12 19:37] LABS: BICARBONATE 20.1 MEQ/L (21.0-32.0); BLOOD UREA NITROGEN 13 MG/DL (7-18); CALCIUM 8.7 MG/DL (8.5-10.1); CHLORIDE 107 MEQ/L (98-107); CREATININE 0.78 MG/DL (0.60-1.30); GLOMERULAR FILTRATION RATE 123 ML/MIN (>89); GLUCOSE,RANDOM 70 MG/DL (74-106); MAGNESIUM 2.3 MG/DL (1.5-2.5); SODIUM (NA) 140 MEQ/L (136-145)
[2018-03-12 19:38] LABS: OVALOCYTES 1+ (NORMAL)
[2018-03-12 19:42] LABS: TROPONIN I LESS THAN 0.02 NG/ML (0.02-0.05)
[2018-03-12] MEDS ORDERED: NITROGLYCERIN 0.4 MG SL 25 TABS/BTL SL PRN (20:15)
[2018-03-12] MEDS ORDERED: ACETAMINOPHEN 500 MG CPLT PO PRN (20:15)
[2018-03-12] MEDS ORDERED: SODIUM CHLORIDE 0.9% FLUSH 10 ML FLUSH IV FLUSH PRN (20:15)
[2018-03-12] MEDS: SODIUM CHLORIDE 0.9% FLUSH 10 ML FLUSH IV FLUSH SCH (21:00)
[2018-03-12 21:42] VITALS: BP 126/64; PULSE 72; RESP 17; TEMP 98.1; O2SAT 95
[2018-03-12 22:00] LABS: TROPONIN I LESS THAN 0.02 NG/ML (0.02-0.05)
[2018-03-13 00:07] VITALS: BP 117/56; PULSE 51; RESP 16; TEMP 98.5; O2SAT 99
[2018-03-13 00:18] VITALS: PULSE 64
[2018-03-13 01:03] LABS: TROPONIN I LESS THAN 0.02 NG/ML (0.02-0.05)
[2018-03-13 04:15] VITALS: BP 102/58; PULSE 52; RESP 17; TEMP 98.6; O2SAT 98
[2018-03-13 07:52] VITALS: BP 103/56; PULSE 49; RESP 18; TEMP 97.8; O2SAT 97
[2018-03-13 08:05] VITALS: PULSE 50
[2018-03-13] MEDS: SODIUM CHLORIDE 0.9% FLUSH 10 ML FLUSH IV FLUSH SCH (08:57)
--- NOTE | 2018-03-13 09:24 | HHI.HP ---
HPI Primary Care Physician No Primary Care Physician Chief Complaint Chest pain History of Present Illness This is a 62-year-old male the presents to ED with a complaint of chest discomfort that has been intermittent for 5 months. States may happen a few times a month. Nothing in particular any different yesterday that brought him to the ED other than the fact he was tired of dealing with it. Describes as a burning discomfort and points to epigastric region to where it begins but that radiates up into the chest. Nothing in particular seems to bring on but states that sometimes drinking cold water will help. Is not tried [id number] knees. At times short of breath but states he has COPD and is not unusual for him. Denies nausea or diaphoresis. Also complains of a rash all over his body but when asked to point to where the rashes that he does not see at this time but states he is itching. Cannot recall prior stress testing. Review of Systems General: Patient denies fevers, chills, and recent travel. HEENT: Patient denies headache, sore throat, difficulty swallowing. Cardiovascular: Has the chest discomfort as mentioned above. Denies sensation of heart beating rapidly or irregularly. No syncope. Denies diaphoresis. Respiratory: He has been short of breath. Denies inspirational chest discomfort. Denies coughing wheezing or hemoptysis. GI: Patient denies nausea, vomiting, diarrhea, abdominal pain, bloody stools. Musculoskeletal: Patient denies joint pain or edema. Denies calf pain or edema. Neurovascular: Patient denies numbness, tingling, weakness in extremities. Denies headache. Endocrine: Denies polyuria and polydipsia. Hematologic: Denies easy bruising. Skin: Complains of a generalized rash with itching but cannot locate the rash at this time but states his arms are itching at this moment. Past Family Social History Allergies: Coded Allergies: poornima (Unverified Allergy, Mild, HIVES, 03/12/18) Past Medical History Hypertension without medication. COPD and continues to smoke cigarettes. Denies knowledge of hyperlipidemia diabetes or CAD. Past Surgical History Noncontributory. Reported Medications Reported Meds & Active Scripts Active Active Ordered Medications Current Medications Medications (Trade) Dose Ordered Sig/Sheldon Route Start Time Stop Time Status Last Admin (NS Flush) 2 ml UNSCH PRN IVF 03/12/18 18:30 (NS Flush) 2 ml UNSCH PRN IV FLUSH 03/12/18 20:15 (NS Flush) 2 ml BID IV FLUSH 03/12/18 21:00 03/12/18 21:00 (Tylenol) 500 mg Q4H PRN PO 03/12/18 20:15 (Nitrostat Sl) 0.4 mg Q5M PRN SL 03/12/18 20:15 Family History States there he has heard of family history of CAD but does not knowledge of any other specifics Social History Continues to smoke about a half pack of cigars per week. Occasional marijuana. Occasional alcohol. Physical Exam Vital Signs Vital Signs Date Time Temp Pulse Resp B/P (MAP) Pulse Ox O2 Delivery O2 Flow Rate FiO2 03/13/18 07:52 97.8 49 18 103/56 (72) 97 03/13/18 04:15 98.6 52 17 102/58 (73) 98 03/13/18 00:18 64 03/13/18 00:07 98.5 51 16 117/56 (76) 99 03/12/18 21:42 98.1 72 17 126/64 (84) 95 03/12/18 20:53 03/12/18 19:23 96 21 03/12/18 19:23 84 16 114/64 (81) 96 Room Air 03/12/18 18:32 99 Room Air 03/12/18 17:35 97.7 80 16 160/76 (104) 98 Physical Exam GENERAL: This is a well-nourished, well-developed patient, in no apparent distress. Patient speaks in clear complete sentences. Patient is pleasant. HEENT: Head is atraumatic and normocephalic. Neck is supple without lymphadenopathy and trachea is midline. No JVD or carotid bruits. CARDIOVASCULAR: Regular rate and rhythm without murmurs, gallops, or rubs. RESPIRATORY: Clear to auscultation. Breath sounds equal bilaterally. No wheezes , rales, or rhonchi. Chest wall is nontender. No use of accessory muscles. GASTROINTESTINAL: Abdomen is nontender, nondistended. Abdomen soft. No obvious pulsatile mass or bruit. No CVA tenderness. Strong femoral pulses bilaterally. Normal bowel sounds in all quadrants. MUSCULOSKELETAL: Patient is moving upper and lower extremities freely. No calf tenderness or edema, no Homans sign. Strong pulses in upper and lower extremities. NEUROLOGICAL: Patient is alert and oriented. Cranial nerves 2-12 are grossly intact. No focal deficits and speech is clear. SKIN: No rash and turgor is normal. Laboratory Laboratory Tests Test 03/12/18 18:45 03/12/18 21:24 03/13/18 00:05 White Blood Count 4.1 Red Blood Count 3.80 Hemoglobin 10.5 Hematocrit 32.7 Mean Corpuscular Volume 86.1 Mean Corpuscular Hemoglobin 27.7 Mean Corpuscular Hemoglobin Concent 32.1 Red Cell Distribution Width 16.2 Platelet Count 249 Mean Platelet Volume 7.8 Neutrophils (%) (Auto) 48.0 Lymphocytes (%) (Auto) 11.3 Monocytes (%) (Auto) 8.3 Eosinophils (%) (Auto) 31.9 Basophils (%) (Auto) 0.5 Neutrophils # (Auto) 2.0 Lymphocytes # (Auto) 0.5 Monocytes # (Auto) 0.3 Eosinophils # (Auto) 1.3 Basophils # (Auto) 0.0 CBC Comment AUTO DIFF Differential Comment AUTO DIFF CONFIRMED Platelet Estimate NORMAL Platelet Morphology Comment NORMAL Ovalocytes 1+ Prothrombin Time 10.3 Prothromb Time International Ratio 1.0 Blood Urea Nitrogen 13 Creatinine 0.78 Random Glucose 70 Calcium Level 8.7 Magnesium Level 2.3 Sodium Level 140 Potassium Level 3.6 Chloride Level 107 Carbon Dioxide Level 20.1 Anion Gap 13 Estimat Glomerular Filtration Rate 123 Total Creatine Kinase 65 100 57 Troponin I LESS THAN 0.02 LESS THAN 0.02 LESS THAN 0.02 Result Diagram: 03/12/18 1845 03/12/18 1845 Imaging Last 48 hours Impressions Chest X-Ray 03/12/18 1819 Signed Impressions: CONCLUSION: Negative examination. Course EKGs are sinus rhythm with frequent PVCs. Caprini VTE Risk Assessment Caprini VTE Risk Assessment: Mod/High Risk (score >= 2) Caprini Risk Assessment Model Point Value = 1 Point Value = 2 Point Value = 3 Point Value = 5 Age 41-60 Minor surgery BMI > 25 kg/m2 Swollen legs Varicose veins or History of unexplained or recurrent spontaneous Oral contraceptives or hormone replacement Sepsis (< 1 month) Serious lung disease, including pneumonia (< 1 month) Abnormal pulmonary function Acute myocardial infarction Congestive heart failure (< 1 month) History of inflammatory bowel disease Medical patient at bed rest Age 61-74 Arthroscopic surgery Major open surgery (> 45 min) Laparoscopic surgery (> 45 min) Malignancy Confined to bed (> 72 hours) Immobilizing plaster cast Central venous access Age >= 75 History of VTE Family history of VTE Factor V Leiden Prothrombin [id number] Lupus anticoagulant Anticardiolipin antibodies Elevated serum homocysteine Heparin-induced thrombocytopenia Other congenital or acquired thrombophilia Stroke (< 1 month) Elective arthroplasty Hip, pelvis, or leg fracture Acute spinal cord injury (< 1 month) Prophylaxis Regimen Total Risk Factor Score Risk Level Prophylaxis Regimen 0-1 Low Early ambulation 2 Moderate Order ONE of the following: *Sequential Compression Device (SCD) *Heparin 5000 units SQ BID 3-4 Higher Order ONE of the following medications: *Heparin 5000 units SQ TID *Enoxaparin/Lovenox 40 mg SQ daily (WT < 150 kg, CrCl > 30 mL/min) *Enoxaparin/Lovenox 30 mg SQ daily (WT < 150 kg, CrCl > 10-29 mL/min) *Enoxaparin/Lovenox 30 mg SQ BID (WT < 150 kg, CrCl > 30 mL/min) AND/OR *Sequential Compression Device (SCD) 5 or more Highest Order ONE of the following medications: *Heparin 5000 units SQ TID (Preferred with Epidurals) *Enoxaparin/Lovenox 40 mg SQ daily (WT < 150 kg, CrCl > 30 mL/min) *Enoxaparin/Lovenox 30 mg SQ daily (WT < 150 kg, CrCl > 10-29 mL/min) *Enoxaparin/Lovenox 30 mg SQ BID (WT < 150 kg, CrCl > 30 mL/min) AND *Sequential Compression Device (SCD) Assessment and Plan Assessment and Plan * Chest pain: Patient had serial cardiac enzymes and EKGs for ruling out purposes. He was seen by Dr. Rose of cardiology in the chest pain center and will undergo a Lexiscan. Patient will be discharged home with a stress test is nonischemic with instructions to follow-up with PCP. Return to ED for interval issues. * Anemia: Patient is found to be anemic in the admission labs. This was discussed with the patient. Importance of outpatient follow-up to determine the cause of his anemia including colonoscopy was discussed with the patient. He voiced understanding of the importance of this follow-up. * Tobacco abuse: Patient counseled on importance of smoking cessation. Patient is stable at this time. He is agreeable to this plan. Sebastián Londono Mar 13, 2018 09:24
[2018-03-13] MEDS ORDERED: REGADENOSON INJ 0.4 MG/5 ML SYR ONE (10:11)
--- NOTE | 2018-03-13 11:54 | RADRPT ---
EXAM DATE: 03/13/2018 11:45 AM EDT AGE/SEX: 62 years / Male INDICATIONS:Angina. . Mid chest pain for five months. CLINICAL DATA: This is the patient's initial encounter. Patient reports that signs and symptoms have been present for 4 - 6 months and indicates a pain score of 0/10. MEDICAL/SURGICAL HISTORY: Hypertension. Chronic obstructive pulmonary disease. Non-responsive. COMPARISON: No prior exams available for comparison. No external comparison. DOSE: 26.3 mCi Tc 99m Myoview at rest 8.4 mCi [id number] at stress 0.4 mg Lexiscan STRESS SYMPTOMS: None. EJECTION FRACTION: 49 % TECHNIQUE: The patient underwent pharmacologic stress with infusion of prescribed dose. Continuous ECG tracing was monitored during stress. Gated SPECT imaging was performed after stress and conventi onal SPECT imaging was performed at rest. The examination was performed on a SPECT/CT scanner, both attenuation and non-corrected datasets were reviewed. FINDINGS: Distribution: The maximum perfused segment at stress is in the anterolateral wall. Perfusion Study: The pattern of perfusion at stress is within normal limits. Gated Study: Mild generalized hypokinesia with 49% ejection fraction. Focal wall motion abnormality w as noted. RISK CATEGORY: Low (<1% Annual Motality Rate) CONCLUSION: 1. No evidence of stressed induced or resting perfusion abnormality. 2. Mild hypokinesia and decreased ejection fraction. Electronically signed by: Gurdeep Roman MD 03/13/2018 11:52 AM EDT
[2018-03-13 12:00] VITALS: BP 128/67; PULSE 48; RESP 16; TEMP 97.4; O2SAT 98
--- NOTE | 2018-03-13 12:00 | HHI.DCPOC ---
Discharge Care Plan Diagnosis: (1) Chest pain (2) Anemia (3) Eczema Goals to Promote Your Health YOU NEED TO HAVE YOUR ANEMIA FURTHER EVALUATED WITH LOCAL OUTPATIENT DOCTOR INCLUDING A COLONOSCOPY. * To prevent worsening of your condition and complications * To maintain your health at the optimal level Directions to Meet Your Goals Take your medications as prescribed Follow your dietary instruction Follow activity as directed Keep your appointments as scheduled Take your immunizations and boosters as scheduled If your symptoms worsen call your PCP, if no PCP go to Urgent Care Center or Emergency Room Smoking is Dangerous to Your Health. Avoid second hand smoke Call the 24-hour hour crisis hotline for domestic abuse at Sebastián Londono Mar 13, 2018 12:00
--- NOTE | 2018-03-13 12:19 | TR ---
Date Performed: 03/13/2018 Time Performed: 10:29:24 DOCTOR: Melody Rose DRUG LIST: CLINICAL HISTORY: REASON FOR TEST: REASON FOR ENDING: OBSERVATION: CONCLUSION: Lexiscan stress test was performed under standard four minute protocol. Radionuclid e was injected one minute prior to ending the test. No electrocardiographic abormalities were present to suggest ischemia. Nuclear imaging and interpretation are pending. COMMENTS: no ischemia
--- NOTE | 2018-03-13 12:21 | EKG ---
Date Performed: 03/12/2018 Time Performed: 18:09:17 PTAGE: 62 years EKG: Sinus rhythm WITH OCCASIONAL VENTRICULAR PREMATURE COMPLEXES SEPTAL MYOCARDIAL INFARCTION ABNORMAL ECG NO PREVIOUS TRACING DOCTOR: Melody Rose Interpretating Date/Time 03/13/2018 12:19:49
--- NOTE | 2018-03-13 12:22 | EKG ---
Date Performed: 03/12/2018 Time Performed: 21:47:20 PTAGE: 62 years EKG: Sinus rhythm WITH FREQUENT VENTRICULAR PREMATURE COMPLEXES ST DEVIATION AND MODERATE T-WAVE ABNORMALITY, CONSIDER LATERAL ISCHEMIA ABNORMAL ECG Artifact Since PREVIOUS TRACING , no significant change noted PREVIOUS TRACIN03/12/2018 18.09 DOCTOR: Melody Rose Interpretating Date/Time 03/13/2018 12:20:24
--- NOTE | 2018-03-13 12:27 | EKG ---
Date Performed: 03/13/2018 Time Performed: 00:10:18 PTAGE: 62 years EKG: Sinus rhythm WITH FREQUENT VENTRICULAR PREMATURE COMPLEXES ABNORMAL RHYTHM ECG Since PREVIOUS TRACING , no significant change noted PREVIOUS TRACIN03/12/2018 21.47 DOCTOR: Melody Rose Interpretating Date/Time 03/13/2018 12:26:25
== END 2018-03-13 17:15 | disposition home or self-care (01) ==
LOC: NEPD 17:32 → NEDA 20:13 → NEPGCP 20:58
PROVIDERS: ADMIT Internal Medicine Cardiovascular Disease; ATTEND Internal Medicine Cardiovascular Disease
DX: R07.89 Other chest pain (principal); I10 Essential (primary) hypertension; D64.9 Anemia, unspecified; F12.90 Cannabis use, unspecified, uncomplicated; J44.1 Chronic obstructive pulmonary disease with (acute) exacerbation; R94.31 Abnormal electrocardiogram [ECG] [EKG]; L30.9 Dermatitis, unspecified; F17.200 Nicotine dependence, unspecified, uncomplicated; Z82.49 Family history of ischemic heart disease and other diseases of the circulatory system
CPT/HCPCS: 71046; 78452; 80048; 82550; 83735; 84484; 85025; 85610; 93005; 93017; 94640; 94664; 99285; A9502; G0378; J2785; J7512

== ENCOUNTER 2018-04-19 11:40 | Inpatient (IN) ==
--- NOTE | 2018-04-19 12:18 | ED ---
HPI General Chief complaint: Weakness Stated complaint: weakness Time Seen by Provider: 04/19/18 11:50 Source: EMS History of Present Illness HPI narrative: Patient presents to the emergency department via [facility] secondary to generalized weakness for 9 month. Apparently his neighbor's called EMS for transport to the ER. Difficult to get history from patient as he states that there is nothing wrong/altered mental status. Related Data Allergies Allergy/AdvReac Type Severity Reaction Status Date / Time poornima Allergy Mild HIVES Unverified 03/12/18 18:11 Review of Systems ROS Unobtainable unobtainable due to mental status [facility] Medical History Medical History Patient denies medical problems (Acute) Surgical history unknown (Acute) Social History Social History Smoking Status: Current every day smoker Tobacco Type: Cigarettes How Often Do You Have a Drink Containing Alcohol: Never Recent Travel in [facility] within the Last 8 Weeks: No Recent Out of Country Travel within the Last 8 Weeks: No Immunization History Tetanus Immunization: Unsure Hx Influenza Vaccine This Season: Unable to Assess Exam Narrative Exam Narrative: GENERAL: No acute distress. Thin appearing. SKIN: Focused skin assessment warm/dry. Diffusely ashen scan. HEAD: Atraumatic. Normocephalic. EYES: Pupils equal and round. No scleral icterus. No injection or drainage. ENT: No nasal bleeding or discharge. Mucous membranes pink and moist. NECK: Trachea midline. No JVD. CARDIOVASCULAR: Regular rate and rhythm. No murmur appreciated. RESPIRATORY: No accessory muscle use. Clear to auscultation. Breath sounds equal bilaterally. GASTROINTESTINAL: Abdomen soft, non-tender, nondistended. Hepatic and splenic margins not palpable. MUSCULOSKELETAL: No obvious deformities. No clubbing. No cyanosis. No edema. NEUROLOGICAL: Awake and alert. No obvious cranial nerve deficits. Motor grossly within normal limits. Normal speech. PSYCHIATRIC: Appropriate mood and affect; insight and judgment normal. Course Initial Documented Vital Signs Temperature 98.5 F 04/19/18 11:57 Pulse Rate 86 04/19/18 11:57 Respiratory Rate 14 04/19/18 11:57 Blood Pressure 117/82 04/19/18 11:57 Pulse Oximetry 96 04/19/18 11:57 Last Documented Vital Signs Temperature 98.5 F 04/19/18 11:57 Pulse Rate 78 04/19/18 15:05 Respiratory Rate 16 04/19/18 15:05 Blood Pressure 154/78 H 04/19/18 15:05 Pulse Oximetry 95 04/19/18 15:05 Medical Decision Making MDM Narrative Medical decision making narrative: Patient presents to the emergency department for generalized weakness 9 months. Patient placed on a front desk monitor, continuous pulse ox, and IV access obtained. Chest x-ray, head CT, EKG, and labs ordered. Slight decrease in hemoglobin hematocrit, normal coags, UA positive for proteins, chest x-ray shows no acute process. Head CT: CONCLUSION: 1. 2 cm low-density masslike lesion in the left frontal region causing obscuration of the frontal horn and with less than 2 mm midline shift towards the right. Recommend further characterization of this abnormality with MRI of the brain with and without contrast.. CXR-No acute process. Slight decrease in Hgb/ HCT; chem-no acute process. 1345: MRI ordered. [facility] consulted (Dr. Bell): keppra 500mg BID, decadron 4 mg IV q6hrs, needs metastatic workup. Keppra and decadron ordered in ER. MRI pending at time of admission, admit MD will followup on results. Differential Diagnosis Differential Diagnosis: ACS, UTI, electrolyte imbalance, anemia, pneumonia, Lab Data Result diagrams: 04/19/18 12:00 04/19/18 12:00 Lab Results 04/19/18 04/19/18 04/19/18 Range/Units 12:00 12:00 12:00 WBC 4.7 (4.0-11.0) th/mm3 RBC 4.13 L (4.50-5.90) mil/mm3 Hgb 11.7 L (13.0-17.0) gm/dL Hct 35.8 L (39.0-51.0) % MCV 86.7 (80.0-100.0) fL MCH 28.5 (27.0-34.0) pg MCHC 32.8 (32.0-36.0) % RDW 16.7 (11.6-17.2) % Plt Count 284 (150-450) th/mm3 MPV 8.4 (7.0-11.0) fL Prelim Diff (Auto) Manual diff required WBC Differential Manual diff final Seg Neuts % (Manual) 36 (16-70) % Band Neuts % (Manual) 2 (0-6) % Lymphocytes % (Manual) 15 (9-44) % Monocytes % (Manual) 7 (0-8) % Eosinophils % (Manual) 39 H (0-4) % Myelocytes % (Man) 1 H (0-0) % Abs Neuts (Manual) 1.8 (1.8-7.7) th/mm3 Differential Comment . Platelet Estimate Normal (Normal) Platelet Morphology Normal (Normal) Ovalocytes 1+ H (None) Acanthocytes (Spur) Occ H (None) PT 10.3 (9.8-11.6) sec INR 1.0 Ratio APTT 27.8 (24.3-30.1) sec Sodium 140 (136-145) meq/L Potassium 3.8 (3.5-5.1) meq/L Chloride 105 (98-107) meq/L Carbon Dioxide 28.1 (21.0-32.0) meq/L Anion Gap 7 (5-15) meq/L BUN 12 (7-18) mg/dL Creatinine 0.89 (0.60-1.30) mg/dL Estimated GFR Greater than 89 (>89) mL/min Random Glucose 83 (74-106) mg/dL Calcium 8.8 (8.5-10.1) mg/dL Magnesium 2.2 (1.5-2.5) mg/dL Total Bilirubin 0.6 (0.2-1.0) mg/dL AST 28 (15-37) U/L ALT 27 (12-78) U/L Alkaline Phosphatase 101 (45-117) U/L Total Creatine Kinase (39-308) U/L Troponin I (0.02-0.05) ng/mL Total Protein 8.5 H (6.4-8.2) g/dL Albumin 3.3 L (3.4-5.0) g/dL Urine Color (Yellw/Straw) Urine Clarity (Clear) Urine pH (5.0-8.5) Ur Specific [place] (1.002-1.035) Urine Protein (Neg-Trace) mg/dL Urine Glucose (UA) (Negative) mg/dL Urine Ketones (Negative) mg/dL Urine Occult Blood (Negative) Urine Nitrate (Negative) Urine Bilirubin (Negative) Urine Urobilinogen (Less than 2) mg/dL Ur Leukocyte Esterase (Negative) Urine RBC (0-3) /hpf Urine WBC (0-5) /hpf Ur Squamous Epith Cells (0-5) /hpf Amorphous Sediment (None) /hpf Hyaline Casts (0-3) /lpf Urine Mucus (Occasional) /lpf Micro UA Comment Urine Culture Comments 04/19/18 04/19/18 Range/Units 12:00 12:00 WBC (4.0-11.0) th/mm3 RBC (4.50-5.90) mil/mm3 Hgb (13.0-17.0) gm/dL Hct (39.0-51.0) % MCV (80.0-100.0) fL MCH (27.0-34.0) pg MCHC (32.0-36.0) % RDW (11.6-17.2) % Plt Count (150-450) th/mm3 MPV (7.0-11.0) fL Prelim Diff (Auto) WBC Differential Seg Neuts % (Manual) (16-70) % Band Neuts % (Manual) (0-6) % Lymphocytes % (Manual) (9-44) % Monocytes % (Manual) (0-8) % Eosinophils % (Manual) (0-4) % Myelocytes % (Man) (0-0) % Abs Neuts (Manual) (1.8-7.7) th/mm3 Differential Comment Platelet Estimate (Normal) Platelet Morphology (Normal) Ovalocytes (None) Acanthocytes (Spur) (None) PT (9.8-11.6) sec INR Ratio APTT (24.3-30.1) sec Sodium (136-145) meq/L Potassium (3.5-5.1) meq/L Chloride (98-107) meq/L Carbon Dioxide (21.0-32.0) meq/L Anion Gap (5-15) meq/L BUN (7-18) mg/dL Creatinine (0.60-1.30) mg/dL Estimated GFR (>89) mL/min Random Glucose (74-106) mg/dL Calcium (8.5-10.1) mg/dL Magnesium (1.5-2.5) mg/dL Total Bilirubin (0.2-1.0) mg/dL AST (15-37) U/L ALT (12-78) U/L Alkaline Phosphatase (45-117) U/L Total Creatine Kinase 33 L (39-308) U/L Troponin I Less than 0.02 L (0.02-0.05) ng/mL Total Protein (6.4-8.2) g/dL Albumin (3.4-5.0) g/dL Urine Color Laura (Yellw/Straw) Urine Clarity Cloudy H (Clear) Urine pH 5.0 (5.0-8.5) Ur Specific [place] 1.024 (1.002-1.035) Urine Protein 100 H (Neg-Trace) mg/dL Urine Glucose (UA) Negative (Negative) mg/dL Urine Ketones Negative (Negative) mg/dL Urine Occult Blood Negative (Negative) Urine Nitrate Negative (Negative) Urine Bilirubin Negative (Negative) Urine Urobilinogen 4 or greater (Less than 2) mg/dL Ur Leukocyte Esterase Negative (Negative) Urine RBC 1 (0-3) /hpf Urine WBC 5 (0-5) /hpf Ur Squamous Epith Cells 1 (0-5) /hpf Amorphous Sediment Rare H (None) /hpf Hyaline Casts 1 (0-3) /lpf Urine Mucus Many H (Occasional) /lpf Micro UA Comment Culture not ind Urine Culture Comments Culture not ind Imaging Data Radiologist's impression: Chest X-Ray 04/19/18 11:56 CONCLUSION: No acute cardiopulmonary disease Head CT 04/19/18 11:56 CONCLUSION: 1. 2 cm low-density masslike lesion in the left frontal region causing obscuration of the frontal horn and with less than 2 mm midline shift towards the right. Recommend further characterization of this abnormality with MRI of the brain with and without contrast. . ECG Data Attestation: I personally reviewed and interpreted this ECG as follows: Discharge Plan Discharge Disposition Patient Disposition: 30 Still Patient Discharge Condition Condition: Stable Discharge Details Diagnosis: Brain mass Physicians Team ED Provider: Amanda Lyon Primary Care Provider: Primary Care Shakeel,Kallie Status ED Status: With Doctor
--- NOTE | 2018-04-19 12:25 | XR ---
EXAM DATE: 04/19/2018 12:21 PM EDT AGE/SEX: 62 years / Male INDICATIONS: Cough and shortness of breath. CLINICAL DATA: This is the patient's initial encounter. Patient reports that signs and symptoms have been present for 1 day and indicates a pain score of 0/10. MEDICAL/SURGICAL HISTORY: None. None. COMPARISON: [facility] – [place], CHEST PA & LAT, 03/12/2018. . FINDINGS: A single AP view of the chest demonstrates the lungs to be symmetrically aerated without evidence of mass, infiltrate or effusion. The cardiomediastinal contours are unremarkable. Osseous structures a re intact. CONCLUSION: No acute cardiopulmonary disease Electronically signed by: Marcus Pierson MD 04/19/2018 12:23 PM EDT
[2018-04-19 12:45] LABS: Hematocrit 35.8 % (39.0-51.0); Hemoglobin 11.7 gm/dL (13.0-17.0); Mean Corpuscular HGB Conc 32.8 % (32.0-36.0); Mean Corpuscular Hemoglobin 28.5 pg (27.0-34.0); Mean Corpuscular Volume 86.7 fL (80.0-100.0); Mean Platelet Volume 8.4 fL (7.0-11.0); Platelet Count 284 th/mm3 (150-450); Red Blood Count 4.13 mil/mm3 (4.50-5.90); Red Cell Distribution Width 16.7 % (11.6-17.2); White Blood Count 4.7 th/mm3 (4.0-11.0)
[2018-04-19 12:54] LABS: Amorphous Sediment,Urine Rare /hpf; Bilirubin,Urine Negative (Negative); Clarity,Urine Cloudy (Clear); Color,Urine Amber (Yellw/Straw); Glucose,Urine (UA) Negative (Negative); Hyaline Casts,Urine 1 /lpf (0-3); Leukocyte Esterase,Urine Negative (Negative); Mucus,Urine Many /lpf (Occasional); Nitrite,Urine Negative (Negative); Specific Gravity,Urine 1.024 (1.002-1.035); Squamous Epithelial Cell,Urine 1 /hpf (0-5); Urobilinogen,Urine 4 or Greater mg/dL (Less than 2)
[2018-04-19 12:57] LABS: Activated Partial Thrombo Time 27.8 sec (24.3-30.1); Prothrombin Time 10.3 sec (9.8-11.6)
[2018-04-19 13:19] LABS: Alanine Aminotransferase 27 U/L (12-78); Albumin 3.3 g/dL (3.4-5.0); Anion Gap 7 meq/L (5-15); Aspartate Aminotransferase 28 U/L (15-37); Blood Urea Nitrogen 12 mg/dL (7-18); Calcium 8.8 mg/dL (8.5-10.1); Carbon Dioxide 28.1 meq/L (21.0-32.0); Chloride 105 meq/L (98-107); Glomerular Filtration Rate Greater Than 89 mL/min (>89); Glucose,Random 83 mg/dL (74-106); Magnesium 2.2 mg/dL (1.5-2.5); Potassium 3.8 meq/L (3.5-5.1); Sodium 140 meq/L (136-145)
--- NOTE | 2018-04-19 13:20 | CT ---
EXAM DATE: 04/19/2018 1:11 PM EDT AGE/SEX: 62 years / Male INDICATIONS: General weakness for nine months. CLINICAL DATA: This is the patient's initial encounter. Patient reports that signs and symptoms have been present for 1 day and indicates a pain score of Nonresponsive. MEDICAL/SURGICAL HISTORY: Non-responsive. Non-responsive. RADIATION DOSE: 33.10 CTDI (mGy) COMPARISON: No prior exams available for comparison. TECHNIQUE: CT of the head without contrast. Using automated exposure control and adjustment of the mA and/or kV according to patient size, radiation dose was kept as low as reasonably achievable to ob tain optimal diagnostic quality images. DICOM format image data is available electronically for revi ew and comparison. FINDINGS: Cerebrum: Abnormal. There is a 2.1 cm low-density masslike lesion which causes effacement of the lef t frontal horn and less than 2 mm midline shift towards the right in the anterior subfalcine region. No evidence of blood products. The third ventricle is midline. There is good ramirez-white matter differ entiation throughout the remainder of the supratentorial brain. Posterior Fossa: The cerebellum and brainstem are intact. The 4th ventricle is midline. The cerebe llopontine angle is unremarkable. Extracranial: The visualized portion of the orbits is intact. Skull: The calvaria is intact. No evidence of skull fracture. CONCLUSION: 1. 2 cm low-density masslike lesion in the left frontal region causing obscuration of the frontal ho rn and with less than 2 mm midline shift towards the right. Recommend further characterization of thi s abnormality with MRI of the brain with and without contrast. . Electronically signed by: Wojciech Santo MD 04/19/2018 1:18 PM EDT
[2018-04-19 13:22] LABS: Alkaline Phosphatase 101 U/L (45-117); Total Protein 8.5 g/dL (6.4-8.2)
[2018-04-19 13:41] LABS: Creatine Kinase 33 U/L (39-308)
[2018-04-19 14:12] LABS: Eosinophils 39 % (0-4); Lymphocytes 15 % (9-44); Monocytes 7 % (0-8); Myelocytes 1 % (0-0)
[2018-04-19 14:13] LABS: Acanthocytes Occ; Ovalocytes 1+; Platelet Estimate Normal (Normal); Platelet Morphology Normal (Normal)
[2018-04-19] MEDS ORDERED: levETIRAcetam 500 MG Tablet PO ONE (14:43)
[2018-04-19] MEDS ORDERED: Acetaminophen 325 MG Tablet PO PRN (15:23)
[2018-04-19] MEDS ORDERED: Bisacodyl 10 MG Supp RECTAL PRN (15:23)
[2018-04-19] MEDS: Sod Chloride 0.9% Inj 1,000 ML IV.CONT SCH (15:32)
[2018-04-19] MEDS ORDERED: Morphine Sulfate Inj 2 MG/ML Vial IV.PUSH PRN (15:36)
[2018-04-19] MEDS ORDERED: Naloxone Inj 0.4 MG/ML Vial IV.PUSH PRN (15:36)
[2018-04-19] MEDS ORDERED: Morphine Inj 4 MG/ML Vial IV.PUSH PRN ×2 (15:36)
[2018-04-19] MEDS ORDERED: oxyCODONE/Acetaminophen 10/325 Tablet PO PRN (15:36)
[2018-04-19] MEDS ORDERED: Gadobutrol PF 7.5 MMOL/7.5 ML Vial (for RAD) IV.SIG ONE (16:17)
[2018-04-19] MEDS ORDERED: Diatrizoate Meglum/Diatrizoate Sod Liq 9 ML UDC PO ONE (16:50)
--- NOTE | 2018-04-19 16:52 | MR ---
EXAM DATE: 04/19/2018 4:18 PM EDT AGE/SEX: 62 years / Male INDICATIONS: Altered mental status. Abnormal CT. CLINICAL DATA: This is the patient's initial encounter. Patient reports that signs and symptoms have been present for 1 day and indicates a pain score of 0/10. MEDICAL/SURGICAL HISTORY: None. None. COMPARISON: [facility] [place], CT HEAD W/O CONTRAST, 04/19/2018. . TECHNIQUE: Multiplanar, multisequence examination of the brain was performed without and with 5cc ml Gadavist (gadobutrol) contrast as a single exam dose. FINDINGS: Cerebrum: Abnormal. There is a mass in the body of the caudate nucleus which measures 2.7 x 2.8 cm c ausing mass effect and effacement on the frontal horn of the lateral ventricle and less than 2 mm mid line shift towards the right. There is some peripheral and heterogeneous enhancement within the mass. Moderate surrounding edema. No additional enhancing lesions in the supratentorial brain stop White Matter: No significant signal abnormalities are seen in the white matter. Posterior Fossa: The cerebellum and brainstem are intact. The 4th ventricle is midline. The cerebel lopontine angle is unremarkable. The cerebellar tonsils are normal in position. Diffusion Imaging: No focal areas of restricted diffusion are seen. No evidence of acute infarction . Extracranial: The visualized portions of the orbits and paranasal sinuses are unremarkable. Post Contrast: No abnormal areas of parenchymal or dural enhancement. No evidence of blood-brain ba rrier breakdown. CONCLUSION: 1. Irregularly enhancing mass with epicenter in the head of the left caudate nucleus causing mild mi dline shift and with mild surrounding edema. Malignant tumors and neuroepithelial tumors are differen tial considerations. Electronically signed by: Wojciech Santo MD 04/19/2018 4:50 PM EDT
--- NOTE | 2018-04-19 17:44 | P.HPIM ---
History of Present Illness Service: [facility] Primary Care Physician: No Primary Care Physician Chief Complaint: WEAKNESS History of Present Illness: Patient is a 62-year-old -[place] gentleman. Who presented to the emergency room unsure how he got here but he did come by [facility]. For weakness and questionable altered mental status. Supposedly some neighbors called EMS for transport to the ER. Patient states he is homeless at this time and sometimes lives in shelters. Per chart review has an history of tobacco/COPD and high blood pressure. Patient states that this time he is not taking any medications at all. Patient denies any other medical issues that he knows about Had a CAT scan which shows a tumor/Mass in his brain therefore will be admitted will get MRIs will consult neurosurgery will start on [facility] Inpatient Certification: I certify that the inpatient services were ordered in accordance with Medicare regulations governing the order. This includes certification that hospital inpatient services are reasonable and necessary and in the case of services not specified as inpatient-only under 42 CFR 419.22(n), that they are appropriately provided as inpatient services in accordance to with the 2-midnight benchmark under 43 CFR 412.3(e) Estimated Total Length of Stay (Days): 4 Plans for Post Hospital Care: Not yet determined Review of Systems All other systems reviewed negative except as stated in HPI, unobtainable due to mental status Constitutional: Reports lack of energy, Reports weakness, Reports weight loss Eyes: Denies blind spots, Denies discharge, Denies pain, Denies requires corrective lenses Ears, Nose, Mouth, and Throat: Denies abnormal hearing, Denies ringing in the ears, Denies throat swelling Cardiovascular: Denies chest pain, Denies excessive sweating, Denies generalized swelling Respiratory: Denies change in phlegm color, Denies excessive phlegm production, Denies shortness of breath, Denies wheezing Gastrointestinal: Denies abdominal pain, Denies bright, red blood in stools, Denies constant urge to pass stool, Denies constipation, Denies feeling full early Genitourinary: Denies urinary urgency Musculoskeletal: Reports muscle weakness, Denies deformity, Denies loss of height Skin/Breast: Reports dry skin Neurologic: Reports localized weakness, Reports unsteadiness, Reports weakness, Denies abnormal hearing, Denies abnormal walking Psychiatric: Denies seeing things others do not see, Denies tactile hallucinations Endocrine: Denies cold intolerance, Denies increased hunger, Denies rapid, pounding, or irregular heartbeat Hematologic/Lymphatic: Denies easy bleeding Allergic/Immunologic: Denies GI upset with certain foods, Denies seasonal runny nose PMFSH - History History Provided By: Patient (Limited history and chart review), Hospice Rn / EMT - Medical History Medical History: Medical History (Last Updated 04/19/18 @ 17:37 by Gilmer Batres DO) Homeless Hypertension Patient denies medical problems Surgical history unknown Tobacco abuse Weakness Weight loss - Tobacco History Tobacco Use In Past 30 Days: Yes Smoking Status: Current every day smoker Tobacco Type: Cigarettes - Alcohol History How Often Do You Have a Drink Containing Alcohol: Never - Travel History Recent Travel in the [place] Within the Last 8 Weeks: No Recent Travel Out of the Country Within the Last 8 Weeks: No - Immunization History Tetanus Immunization: Unsure Hx Influenza Vaccine This Season: Unable to Assess Medications and Allergies Active Medications: Active Medications Acetaminophen (Tylenol) 650 mg PO Q4H PRN PRN Reason: Temp > 100.4 Al Hydroxide/Mg Hydroxide (Milk Of Magnesia Liq) 30 ml PO Q12H PRN PRN Reason: Mild Constipation Bisacodyl (Dulcolax Supp) 10 mg RECTAL DAILY PRN PRN Reason: SEVERE CONSITIPATION Clonidine HCl (Catapres) 0.1 mg PO Q6H PRN PRN Reason: HYPERTENSION Dexamethasone Sodium Phosphate (Decadron Inj) 4 mg IV.PUSH Q6HR HAN Famotidine (Pepcid Pf Inj) 20 mg IV.PUSH Q12HR HAN Sodium Chloride (Ns Inj) 1,000 mls @ 100 mls/hr IV.CONT .Q10H HAN Last Admin: 04/19/18 15:32 Dose: 100 mls/hr Levetiracetam (Keppra 500 Mg/100 Ml Premix) 100 mls @ 400 mls/hr IV.SIG Q12H HAN Lactulose (Lactulose Liq) 30 ml PO DAILY PRN PRN Reason: SEVERE CONSITIPATION Morphine Sulfate (Morphine Inj) 4 mg IV.PUSH Q3H PRN PRN Reason: PAIN 6-10;IF UNABLE TO TAKE PO Morphine Sulfate (Morphine Inj) 2 mg IV.PUSH Q3H PRN PRN Reason: PAIN 3-5; IF UABLE TO TAKE PO Morphine Sulfate (Morphine Inj) 4 mg IV.PUSH Q3H PRN PRN Reason: BREAKTHROUGH PAIN Naloxone HCl (Narcan Inj) 0.4 mg IV.PUSH UNSCH PRN PRN Reason: SEE LABEL COMMENTS Ondansetron HCl (Zofran Inj) 4 mg IV.PUSH Q6H PRN PRN Reason: NAUSEA OR VOMITING Oxycodone/Acetaminophen (Percocet 10/325 Mg) 1 tab PO Q6H PRN PRN Reason: PAIN SCALE 6 TO 10 Oxycodone/Acetaminophen (Percocet 5/325 Mg) 1 tab PO Q6H PRN PRN Reason: PAIN SCALE 3 TO 5 Senna/Docusate Sodium (Cheyenne-Colace) 1 tab PO BID HAN Sennosides (Senokot) 17.2 mg PO Q12H PRN PRN Reason: Moderate Constipation Allergies Allergy/AdvReac Type Severity Reaction Status Date / Time poornima Allergy Mild HIVES Verified 04/19/18 15:26 Exam Vital signs: Vital Signs 04/19/18 11:57 04/19/18 15:05 Temperature 98.5 F Pulse Rate 86 78 Respiratory Rate 14 16 Blood Pressure 117/82 154/78 H Pulse Oximetry 96 95 Intake & Output 04/18/18 04/19/18 04/19/18 18:59 06:59 18:59 Weight 50 kg Narrative: GENERAL: Awake alert and talkative and cooperative oriented 2-3 very thin appearing male almost cachectic and very pale appearing SKIN: Warm and dry. Has very ashy skin all HEAD: Atraumatic. Normocephalic. EYES: Pupils equal and round. No scleral icterus. No injection or drainage. Extraocular muscles are intact ENT: No nasal bleeding or discharge. Mucous membranes pink and moist. Tongue is midline NECK: Trachea midline. No JVD. Supple CARDIOVASCULAR: Regular rate and rhythm. S1-S2 no S3 or S4 RESPIRATORY: No accessory muscle use. Clear to auscultation. Breath sounds equal bilaterally. GASTROINTESTINAL: Abdomen soft, non-tender, nondistended. Hepatic and splenic margins not palpable. MUSCULOSKELETAL: Extremities without clubbing, cyanosis, or edema. No obvious deformities. NEUROLOGICAL: Awake and alert. No obvious cranial nerve deficits. Motor grossly within normal limits. 4 out of 5 muscle strength in the arms and legs. Normal speech. PSYCHIATRIC: INAppropriate mood and affect; insight and judgment ABnormal. Results - Labs CBC & Chem 7: 04/19/18 12:00 04/19/18 12:00 Labs: Short CBC 04/19/18 Range/Units 12:00 WBC 4.7 (4.0-11.0) th/mm3 Hgb 11.7 L (13.0-17.0) gm/dL Hct 35.8 L (39.0-51.0) % Plt Count 284 (150-450) th/mm3 BMP 04/19/18 12:00 Sodium 140 Potassium 3.8 Chloride 105 Carbon Dioxide 28.1 BUN 12 Creatinine 0.89 Calcium 8.8 Cardiac Enzymes 04/19/18 Range/Units 12:00 Total Creatine Kinase 33 L (39-308) U/L Troponin I Less than 0.02 L (0.02-0.05) ng/mL Liver Function 04/19/18 Range/Units 12:00 Total Bilirubin 0.6 (0.2-1.0) mg/dL AST 28 (15-37) U/L ALT 27 (12-78) U/L Alkaline Phosphatase 101 (45-117) U/L Albumin 3.3 L (3.4-5.0) g/dL Urine 04/19/18 Range/Units 12:00 Urine Color Laura (Yellw/Straw) Urine Clarity Cloudy H (Clear) Urine pH 5.0 (5.0-8.5) Ur Specific [place] 1.024 (1.002-1.035) Urine Protein 100 H (Neg-Trace) mg/dL Urine Glucose (UA) Negative (Negative) mg/dL - Imaging Impressions Chest X-Ray 04/19/18 11:56 CONCLUSION: No acute cardiopulmonary disease Head CT 04/19/18 11:56 CONCLUSION: 1. 2 cm low-density masslike lesion in the left frontal region causing obscuration of the frontal horn and with less than 2 mm midline shift towards the right. Recommend further characterization of this abnormality with MRI of the brain with and without contrast. . Head MRI 04/19/18 13:41 CONCLUSION: 1. Irregularly enhancing mass with epicenter in the head of the left caudate nucleus causing mild midline shift and with mild surrounding edema. Malignant tumors and neuroepithelial tumors are differential considerations. Caprini VTE Risk Assessment Caprini VTE Risk Assessment: Moderate/High Risk (score >= 2) Caprini Risk Assessment Model: Point Value = 1 Point Value = 2 Point Value = 3 Point Value = 5 Age 41-60 Minor surgery BMI > 25 kg/m2 Swollen legs Varicose veins or History of unexplained or recurrent spontaneous Oral contraceptives or hormone replacement Sepsis (< 1 month) Serious lung disease, including pneumonia (< 1 month) Abnormal pulmonary function Acute myocardial infarction Congestive heart failure (< 1 month) History of inflammatory bowel disease Medical patient at bed rest Age 61-74 Arthroscopic surgery Major open surgery (> 45 min) Laparoscopic surgery (> 45 min) Malignancy Confined to bed (> 72 hours) Immobilizing plaster cast Central venous access Age >= 75 History of VTE Family history of VTE Factor V Leiden Prothrombin [id number] Lupus anticoagulant Anticardiolipin antibodies Elevated serum homocysteine Heparin-induced thrombocytopenia Other congenital or acquired thrombophilia Stroke (< 1 month) Elective arthroplasty Hip, pelvis, or leg fracture Acute spinal cord injury (< 1 month) Prophylaxis Regimen: Total Risk Factor Score Risk Level Prophylaxis Regimen 0-1 Low Early ambulation 2 Moderate Order ONE of the following: *Sequential Compression Device (SCD) *Heparin 5000 units SQ BID 3-4 Higher Order ONE of the following medications: *Heparin 5000 units SQ TID *Enoxaparin/Lovenox 40 mg SQ daily (WT < 150 kg, CrCl > 30 mL/min) *Enoxaparin/Lovenox 30 mg SQ daily (WT < 150 kg, CrCl > 10-29 mL/min) *Enoxaparin/Lovenox 30 mg SQ BID (WT < 150 kg, CrCl > 30 mL/min) AND/OR *Sequential Compression Device (SCD) 5 or more Highest Order ONE of the following medications: *Heparin 5000 units SQ TID (Preferred with Epidurals) *Enoxaparin/Lovenox 40 mg SQ daily (WT < 150 kg, CrCl > 30 mL/min) *Enoxaparin/Lovenox 30 mg SQ daily (WT < 150 kg, CrCl > 10-29 mL/min) *Enoxaparin/Lovenox 30 mg SQ BID (WT < 150 kg, CrCl > 30 mL/min) AND *Sequential Compression Device (SCD) Assessment and Plan - Plan Patient is noted to have a masslike density in the left frontal region of the brain with 2 mm midline shift Neurosurgery has been consulted. We will get MRIs and CAT scans of the chest and abdomen Has been started on Keppra 500 mg IV every 12 Started on Decadron 4 mg IV every 6 We will make Catapres available for blood pressure We will get a.m. labs We will need to see what the CAT scans of the abdomen and chest come back as Await evaluation by neurosurgery We will ask physical therapy and occupational therapy to eval and treat Continue on GI prophylaxis and DVT prophylaxis with SCDs and RAZA hose no heparin due to the brain mass Has mild anemia but this may be chronic Has protein calorie malnourishment but this may be secondary to chronically being homeless Urinalysis was negative at this time Nehemias for tobacco abuse Code Status: Full code at this time Discussed Condition With: RN and patient and emergency room physician Discharge Planning: Will probably need palliative care and possibly oncology input depending on what the CAT scan show
[2018-04-19] MEDS: Famotidine PF Inj 20 MG/2 ML Vial IV.PUSH SCH (21:27)
[2018-04-19] MEDS: Senna/Docusate Sodium 8.6/50 MG Tablet PO SCH (21:28)
--- NOTE | 2018-04-20 00:50 | CT ---
EXAM DATE: 04/20/2018 12:39 AM EDT AGE/SEX: 62 years / Male INDICATIONS: Evaluate for metastatic disease. Brain mass. CLINICAL DATA: This is the patient's initial encounter. Patient reports that signs and symptoms have been present for 1 day and indicates a pain score of 0/10. MEDICAL/SURGICAL HISTORY: Hypertension. None. RADIATION DOSE: 5.10 CTDI (mGy) ; Combined studies COMPARISON: No prior exams available for comparison. TECHNIQUE: Multiple contiguous axial images were obtained through the chest during bolus infusion of 95 ml Omnipaque 350 (iohexol) nonionic water-soluble contrast as a cumulative dose for multiple exa ms. Images were obtained in suspended respiration using multiple row detector helical technique. U sing automated exposure control and adjustment of the mA and/or kV according to patient size, radiati on dose was kept as low as reasonably achievable to obtain optimal diagnostic quality images. DICOM format image data is available electronically for review and comparison. FINDINGS: Lungs: Tree-in-bud opacity is identified in the posterior right lower lobe. Mild associated bronchie ctasis of the posterior right lower lobe along with bronchial plugging. The lungs are otherwise clear . No focal masses identified. Mediastinum: No enlarged lymph nodes. Aorta within normal limits. Pleurae: No evidence of pleural effusion or pneumothorax. Axillae: Surgical clips in the right axilla. Enlarged right axillary lymph node measuring 2.0 x 1.0 cm and 2.3 x 1.2 cm. Enlarged left axillary lymph nodes with the largest measuring 3.0 x 1.1 cm.. Bony Structures: Unremarkable. Miscellaneous: Upper abdomen will be fully described on abdomen CT report. CONCLUSION: 1. Tree in bud opacity in the left lower lobe along with bronchiectasis and bronchial plugging likel y representing inflammatory process such as atypical mycobacterial infection. 2. Enlarged bilateral axillary lymph nodes. Right axillary surgical clips. Electronically signed by: Jean Sanchez MD 04/20/2018 12:48 AM EDT
--- NOTE | 2018-04-20 00:55 | CT ---
EXAM DATE: 04/20/2018 12:39 AM EDT AGE/SEX: 62 years / Male INDICATIONS: Evaluate for metastatic disease. Brain mass. CLINICAL DATA: This is the patient's initial encounter. Patient reports that signs and symptoms have been present for 1 day and indicates a pain score of 0/10. MEDICAL/SURGICAL HISTORY: Hypertension. None. ORAL CONTRAST: Partial prescribed oral contrast ingested. RADIATION DOSE: 5.10 CTDI (mGy) ; Combined studies COMPARISON: [facility] [place], CT CHEST W CONTRAST, 04/20/2018. . TECHNIQUE: Multiple contiguous axial images were obtained through the abdomen and pelvis following b olus infusion of 95 ml Omnipaque 350 (iohexol) nonionic water-soluble contrast as a cumulative dose for multiple exams. Partial prescribed oral contrast ingested. Using automated exposure control and adjustment of the mA and/or kV according to patient size, radiation dose was kept as low as reasonab ly achievable to obtain optimal diagnostic quality images. DICOM format image data is available elec tronically for review and comparison. FINDINGS: Lower Lungs: Fully described on chest CT report. Liver: 2.4 cm rounded hypodensity in the posterior segment of the right lobe of the liver on image #1 7. There is some discontinuous peripheral nodular enhancement. Finding likely represents a hemangioma . Nonspecific 1.1 cm rounded hypodensity in the central left lobe of the liver on image #12. Liver is otherwise within normal limits. Gallbladder is within normal limits. Spleen: Homogeneous density without enlargement. Pancreas: Unremarkable without mass or calcification. Kidneys: Normal in size and shape. No evidence of mass or hydronephrosis. Adrenal Glands: Unremarkable. Aorta: The aorta and proximal iliac vessels are grossly unremarkable without aneurysmal dilation. Bowel/Mesentery: No evidence of bowel dilatation or focal bowel wall thickening. Appendix within nor mal limits. Small amount of free fluid in the dependent portion of the pelvis. No evidence of free ai r. Abdominal Wall: Intact. Retroperitoneum: No enlarged lymph nodes. Bladder: Contours are smooth. Reproductive Organs: No abnormal masses or calcifications seen. Inguinal: Multiple lymph nodes identified bilaterally, all measuring less than 1 cm in short axis di mension. Bony Structures: Degenerative findings of lower lumbar spine facet joints. Bridging osteophytes at t he sacroiliac joints. CONCLUSION: 1. 2 rounded hypodensities in the liver. The largest hypodensity likely represents a hemangioma. The second is too small to definitively characterize but is most likely to represent a cyst or hemangiom a.. 2. Degenerative findings of the lower lumbar spine and sacroiliac joints. 3. Small amount of free fluid in the pelvis. 4. No enlarged lymph nodes in the abdomen and pelvis. Electronically signed by: Jean Sanchez MD 04/20/2018 12:54 AM EDT
[2018-04-20] MEDS ORDERED: levETIRAcetam 500mg/100mL Inj 100 ML IV.SIG SCH (03:00)
[2018-04-20] MEDS: Sod Chloride 0.9% Inj 1,000 ML IV.CONT SCH ×2 (08:37→23:07)
[2018-04-20] MEDS: Famotidine PF Inj 20 MG/2 ML Vial IV.PUSH SCH ×2 (08:37→23:04)
[2018-04-20] MEDS: Senna/Docusate Sodium 8.6/50 MG Tablet PO SCH ×2 (08:39→23:05)
--- NOTE | 2018-04-20 08:45 | P.PN ---
Subjective Interval history: Follow up for acute encephalopathy, brain mass. Patient was not talking much in the morning. However, per RN, later in the morning he became more conversational. No fever, chills. Denies any chest pain, SOB. Physical Exam Vital signs: Vital Signs 04/19/18 11:57 04/19/18 15:05 04/19/18 16:00 Temperature 98.5 F 97.2 F L Pulse Rate 86 78 63 Respiratory Rate 14 16 14 Blood Pressure 117/82 154/78 H 137/71 Pulse Oximetry 96 95 97 04/19/18 20:00 04/19/18 23:56 04/20/18 04:00 Temperature 98.2 F 98.1 F 97.6 F Pulse Rate 65 63 49 L Respiratory Rate 19 17 14 Blood Pressure 96/78 L 100/76 124/69 Pulse Oximetry 96 96 98 Intake & Output 04/19/18 04/20/18 04/20/18 18:59 06:59 18:59 Intake Total 1000 / 1000 Balance 1000 / 1000 Weight 50 kg 49.9 kg Intake: IV 1000 / 1000 NS Inj 1,000 ML @ 100 mls/hr IV 1000 / 1000 .CONT .Q10H HAN Rx#:[id number] Narrative: GENERAL: Alert, NAD. SKIN: Warm and dry. HEAD: Normocephalic. EYES: No scleral icterus. No injection or drainage. NECK: Supple, trachea midline. No JVD or lymphadenopathy. CARDIOVASCULAR: Regular rate and rhythm without murmurs, gallops, or rubs. RESPIRATORY: Breath sounds equal bilaterally. No accessory muscle use. GASTROINTESTINAL: Abdomen soft, non-tender, nondistended. MUSCULOSKELETAL: No cyanosis, or edema. BACK: Nontender without obvious deformity. No CVA tenderness. Results - Labs CBC & Chem 7: 04/20/18 08:41 04/20/18 08:41 Laboratory Results - last 24 hr 04/19/18 04/19/18 04/19/18 12:00 12:00 12:00 WBC 4.7 RBC 4.13 L Hgb 11.7 L Hct 35.8 L MCV 86.7 MCH 28.5 MCHC 32.8 RDW 16.7 Plt Count 284 MPV 8.4 Prelim Diff (Auto) Manual diff required WBC Differential Manual diff final Seg Neuts % (Manual) 36 Band Neuts % (Manual) 2 Lymphocytes % (Manual) 15 Monocytes % (Manual) 7 Eosinophils % (Manual) 39 H Myelocytes % (Man) 1 H Abs Neuts (Manual) 1.8 Differential Comment . Platelet Estimate Normal Platelet Morphology Normal Ovalocytes 1+ H Acanthocytes (Spur) Occ H PT 10.3 INR 1.0 APTT 27.8 Sodium 140 Potassium 3.8 Chloride 105 Carbon Dioxide 28.1 Anion Gap 7 BUN 12 Creatinine 0.89 Estimated GFR Greater than 89 Random Glucose 83 Calcium 8.8 Magnesium 2.2 Total Bilirubin 0.6 AST 28 ALT 27 Alkaline Phosphatase 101 Total Creatine Kinase Troponin I Total Protein 8.5 H Albumin 3.3 L Urine Color Urine Clarity Urine pH Ur Specific [place] Urine Protein Urine Glucose (UA) Urine Ketones Urine Occult Blood Urine Nitrate Urine Bilirubin Urine Urobilinogen Ur Leukocyte Esterase Urine RBC Urine WBC Ur Squamous Epith Cells Amorphous Sediment Hyaline Casts Urine Mucus Micro UA Comment Urine Culture Comments 04/19/18 04/19/18 12:00 12:00 WBC RBC Hgb Hct MCV MCH MCHC RDW Plt Count MPV Prelim Diff (Auto) WBC Differential Seg Neuts % (Manual) Band Neuts % (Manual) Lymphocytes % (Manual) Monocytes % (Manual) Eosinophils % (Manual) Myelocytes % (Man) Abs Neuts (Manual) Differential Comment Platelet Estimate Platelet Morphology Ovalocytes Acanthocytes (Spur) PT INR APTT Sodium Potassium Chloride Carbon Dioxide Anion Gap BUN Creatinine Estimated GFR Random Glucose Calcium Magnesium Total Bilirubin AST ALT Alkaline Phosphatase Total Creatine Kinase 33 L Troponin I Less than 0.02 L Total Protein Albumin Urine Color Laura Urine Clarity Cloudy H Urine pH 5.0 Ur Specific [place] 1.024 Urine Protein 100 H Urine Glucose (UA) Negative Urine Ketones Negative Urine Occult Blood Negative Urine Nitrate Negative Urine Bilirubin Negative Urine Urobilinogen 4 or greater Ur Leukocyte Esterase Negative Urine RBC 1 Urine WBC 5 Ur Squamous Epith Cells 1 Amorphous Sediment Rare H Hyaline Casts 1 Urine Mucus Many H Micro UA Comment Culture not ind Urine Culture Comments Culture not ind - Imaging Impressions Chest X-Ray 04/19/18 11:56 CONCLUSION: No acute cardiopulmonary disease Head CT 04/19/18 11:56 CONCLUSION: 1. 2 cm low-density masslike lesion in the left frontal region causing obscuration of the frontal horn and with less than 2 mm midline shift towards the right. Recommend further characterization of this abnormality with MRI of the brain with and without contrast. . Head MRI 04/19/18 13:41 CONCLUSION: 1. Irregularly enhancing mass with epicenter in the head of the left caudate nucleus causing mild midline shift and with mild surrounding edema. Malignant tumors and neuroepithelial tumors are differential considerations. Abdomen/Pelvis CT 04/20/18 00:00 CONCLUSION: 1. 2 rounded hypodensities in the liver. The largest hypodensity likely represents a hemangioma. The second is too small to definitively characterize but is most likely to represent a cyst or hemangioma.. 2. Degenerative findings of the lower lumbar spine and sacroiliac joints. 3. Small amount of free fluid in the pelvis. 4. No enlarged lymph nodes in the abdomen and pelvis. Chest CT 04/20/18 00:00 CONCLUSION: 1. Tree in bud opacity in the left lower lobe along with bronchiectasis and bronchial plugging likely representing inflammatory process such as atypical mycobacterial infection. 2. Enlarged bilateral axillary lymph nodes. Right axillary surgical clips. Assessment and Plan - Plan Mr. Yancey is a 82-year-old -[place] male who was admitted to the hospital on 04/19/2018 due to altered mental status as well as generalized weakness. ED workup indicated a left frontal mass. Left frontal brain mass -Reviewed MRI images on 04/20/2018. Irregular mass with mild midline shift as well as mild surrounding edema. -Neurosurgery consulted. Patient is currently on Decadron 4 mg IV every 6 hours. -Continue Keppra 500 mg every 12 hours Possible atypical pneumonia -CT chest indicated possibility of atypical mycobacterial infection. -We will start patient on Levaquin 750 mg p.o. daily. D/C Telemetry. Full code. SCDs.
[2018-04-20 09:32] LABS: Hematocrit 32.3 % (39.0-51.0); Hemoglobin 10.5 gm/dL (13.0-17.0); Mean Corpuscular HGB Conc 32.4 % (32.0-36.0); Mean Corpuscular Hemoglobin 28.2 pg (27.0-34.0); Platelet Count 254 th/mm3 (150-450); Red Blood Count 3.71 mil/mm3 (4.50-5.90); Red Cell Distribution Width 16.7 % (11.6-17.2); White Blood Count 3.4 th/mm3 (4.0-11.0)
[2018-04-20 09:36] LABS: Prothrombin Time 10.4 sec (9.8-11.6)
[2018-04-20 09:57] LABS: Albumin 2.7 g/dL (3.4-5.0); Anion Gap 7 meq/L (5-15); Aspartate Aminotransferase 24 U/L (15-37); Blood Urea Nitrogen 12 mg/dL (7-18); Calcium 8.4 mg/dL (8.5-10.1); Carbon Dioxide 26.6 meq/L (21.0-32.0); Chloride 105 meq/L (98-107); Glomerular Filtration Rate Greater Than 89 mL/min (>89); Glucose,Random 94 mg/dL (74-106); Potassium 4.5 meq/L (3.5-5.1); Sodium 139 meq/L (136-145)
[2018-04-20 09:59] LABS: Alanine Aminotransferase 22 U/L (12-78)
[2018-04-20 10:01] LABS: Alkaline Phosphatase 88 U/L (45-117); Total Protein 7.4 g/dL (6.4-8.2)
[2018-04-20 11:23] LABS: Eosinophils 11 % (0-4); Lymphocytes 9 % (9-44); Monocytes 5 % (0-8)
[2018-04-20 11:24] LABS: Ovalocytes 1+; Platelet Estimate Normal (Normal); Platelet Morphology Normal (Normal); Toxic Granulation 2+
[2018-04-20] MEDS: levoFLOXacin 750 MG Tablet PO SCH (12:16)
--- NOTE | 2018-04-20 14:07 | P.CON ---
History of Present Illness Service: Neurosurgery Consult date: 04/20/18 Reason for Consult: Left frontal caudate mass Primary Care Provider: No Primary Care Physician Chief Complaint: WEAKNESS History of Present Illness: 62-year-old -[place] gentleman who is a very disheveled and cachectic appearance admitted to [facility] generalized weakness and change in mental status. Patient denies any headaches or any numbness or paresthesias and complains of weakness and unsteadiness for the past week or so. He is not a very good historian. His main complaint is just generalized weakness and complains of pruritus in the upper extremities forearm. Workup included CT scan of the head and subsequent MRI scan of the brain which shows a partially necrotic and enhancing with mass with irregular margins in the left frontal subcortical caudate area adjacent to the ventricle measuring about 2.7 cm. There is no associated hydrocephalus. Systemic workup with CT of the chest and abdomen is also been undertaken. He denies any history of cancer or tumors. Denies any recent infections or pneumonia and according to the medical records reportedly is homeless also. Review of Systems All other systems reviewed negative except as stated in HPI Constitutional: Reports anorexia, Reports fatigue, Reports lack of energy, Reports weakness, Reports weight loss, Denies body ache(s), Denies chills, Denies daytime sleepiness, Denies excessive sweating, Denies fever(s), Denies headache(s), Denies increased appetite, Denies malaise, Denies night sweats, Denies weight gain, Denies other Eyes: Denies blind spots, Denies blurry vision, Denies bulging eyes, Denies change in vision, Denies double vision, Denies discharge, Denies dry eyes, Denies floaters, Denies irritation, Denies itchy eyes, Denies loss of vision, Denies pain, Denies requires corrective lenses, Denies sensitivity to light, Denies other Ears, Nose, Mouth, and Throat: Denies abnormal hearing, Denies bleeding gums, Denies bad breath, Denies change in voice, Denies dental pain, Denies difficulty swallowing, Denies dizziness, Denies dry mouth, Denies ear discharge , Denies ear pain, Denies facial pain, Denies headache(s), Denies hearing loss, Denies hoarseness, Denies lip swelling, Denies nosebleed, Denies mouth lesions, Denies mouth pain, Denies nasal congestion, Denies nasal discharge, Denies nasal obstruction, Denies nasal trauma, Denies neck lump, Denies neck pain, Denies nose pain, Denies pain with swallowing, Denies poor balance, Denies post nasal drip, Denies ringing in the ears, Denies sinus pain, Denies sinus pressure , Denies sore throat, Denies throat swelling, Denies tongue swelling, Denies other Cardiovascular: Denies chest pain, Denies chest pain at rest, Denies chest pain with activity, Denies excessive sweating, Denies fainting, Denies fast heart rate, Denies foot swelling, Denies generalized swelling, Denies irregular heart rhythm, Denies leg pain with activity, Denies leg sores, Denies leg swelling, Denies lightheadedness, Denies radiating jaw, neck or arm pain, Denies rapid, pounding, or irregular heartbeat, Denies shortness of breath, Denies shortness of breath with activity, Denies shortness of breath when lying down, Denies shortness of breath causing sudden awakening, Denies slow heart rate, Denies other Respiratory: Denies change in phlegm color, Denies chest congestion, Denies cough, Denies coughing up blood, Denies excessive phlegm production, Denies pain on inspiration, Denies pain with cough, Denies shortness of breath, Denies shortness of breath with activity, Denies snoring, Denies stridor, Denies wheezing, Denies other Gastrointestinal: Denies abdominal pain, Denies belching, Denies black, tarry stools, Denies bloating, Denies bright, red blood in stools, Denies change in bowel habits, Denies constant urge to pass stool, Denies change in stools, Denies coffee ground vomit, Denies constipation, Denies cramping, Denies difficulty swallowing, Denies excessive passing of gas, Denies feeling full early, Denies heartburn, Denies incontinent of stools, Denies loose stools, Denies nausea, Denies pain with swallowing, Denies vomiting, Denies vomiting blood, Denies other Genitourinary: Denies blood in semen, Denies blood in urine, Denies decreased urination, Denies difficulty urinating, Denies difficulty with ejaculations, Denies erectile dysfunction, Denies genital lesions, Denies genital pain, Denies painful urination, Denies side pain, Denies frequent nighttime urination , Denies painful ejaculations, Denies penile discharge, Denies scrotal swelling , Denies testicle lump, Denies testicle pain, Denies urinary frequency, Denies urinary hesitancy, Denies urinary incontinence, Denies urinary urgency, Denies other Musculoskeletal: Reports muscle weakness, Denies abnormal walking, Denies back pain, Denies body aches, Denies decreased muscle mass, Denies deformity, Denies joint pain, Denies joint swelling, Denies limited joint movement, Denies loss of height, Denies muscle cramps, Denies neck pain, Denies numbness, Denies radiating pain into limb, Denies stiffness, Denies tingling, Denies other Skin/Breast: Reports dry skin, Reports itching, Denies acne, Denies bleeding lesions, Denies boil, Denies breast swelling, Denies breast skin changes, Denies breast pain, Denies breast lump, Denies change in breast shape, Denies change in hair, Denies change in skin color, Denies changing lesions, Denies excessive hair growth, Denies hair loss, Denies lesions, Denies nail changes, Denies new lesions, Denies nipple discharge, Denies non-healing lesions, Denies redness, Denies sensitivity to light, Denies rash, Denies skin pain, Denies skin ulcer, Denies sores, Denies stretch mcwilliams, Denies unusual bruising, Denies wounds, Denies yellowing of the skin, Denies other Neurologic: Reports unsteadiness, Reports weakness, Denies abnormal hearing, Denies abnormal movements, Denies abnormal speech, Denies abnormal walking, Denies behavioral changes, Denies burning sensations, Denies confusion, Denies dizziness, Denies fainting, Denies frequent falls, Denies headache(s), Denies lack of coordination, Denies localized weakness, Denies loss of vision, Denies memory loss, Denies numbness, Denies other visual disturbances, Denies radiating pain, Denies restless legs, Denies convulsions, Denies seizure-like activity, Denies sensory deficit, Denies tingling, Denies tingling/numbness/ burning sensations, Denies tremor(s), Denies other Psychiatric: Denies abnormal sleep pattern, Denies anxiety, Denies behavioral changes, Denies change in appetite, Denies change in sex drive, Denies confusion , Denies depression, Denies difficulty concentrating, Denies hearing things others do not hear, Denies hopelessness, Denies irritability, Denies lack of enjoyment, Denies memory loss, Denies mood swings, Denies panic attacks, Denies paranoia, Denies seeing things others do not see, Denies sensing things others do not sense, Denies tactile hallucinations, Denies thoughts of hurting/killing others, Denies thoughts of hurting/killing yourself, Denies other Endocrine: Denies cold intolerance, Denies excessive sweating, Denies flushing, Denies heat intolerance, Denies increased hunger, Denies increased thirst, Denies increased urination, Denies rapid, pounding, or irregular heartbeat, Denies other Hematologic/Lymphatic: Denies easy bleeding, Denies easy bruising, Denies enlarged lymph nodes, Denies other Allergic/Immunologic: Denies GI upset with certain foods, Denies hives, Denies itchy eyes, Denies lip swelling, Denies seasonal runny nose, Denies throat swelling, Denies tongue swelling, Denies wheezing, Denies other PMFSH - History History Provided By: Medical Record - Medical History Medical History: Medical History (Last Reviewed 04/20/18 @ 08:50 by Jaimie Cardenas) Homeless Hypertension Patient denies medical problems Surgical history unknown Tobacco abuse Weakness Weight loss - Tobacco History Tobacco Use In Past 30 Days: Yes Smoking Status: Current every day smoker Tobacco Type: Cigarettes - Alcohol History How Often Do You Have a Drink Containing Alcohol: Unable to Obtain - Substance Use History Substance History: Unable to Obtain - Travel History Recent Travel in the [facility] Within the Last 8 Weeks: No Recent Travel Out of the Country Within the Last 8 Weeks: No - Immunization History Tetanus Immunization: Unsure Hx Influenza Vaccine This Season: Unable to Assess Medications and Allergies Active Medications: Active Medications Acetaminophen (Tylenol) 650 mg PO Q4H PRN PRN Reason: Temp > 100.4 Al Hydroxide/Mg Hydroxide (Milk Of Magnesia Liq) 30 ml PO Q12H PRN PRN Reason: Mild Constipation Albuterol (Duoneb Neb (Prn)) 1 ampul NEB Q6HR NEB PRN PRN Reason: DYSPNEA Artificial Tears (Eucerin Cream) 1 applicatio TOPICAL QID PRN PRN Reason: Dry skin. Bisacodyl (Dulcolax Supp) 10 mg RECTAL DAILY PRN PRN Reason: SEVERE CONSITIPATION Clonidine HCl (Catapres) 0.1 mg PO Q6H PRN PRN Reason: HYPERTENSION Dexamethasone Sodium Phosphate (Decadron Inj) 4 mg IV.PUSH Q6HR [facility] Last Admin: 04/20/18 12:16 Dose: 4 mg Famotidine (Pepcid Pf Inj) 20 mg IV.PUSH Q12HR [facility] Last Admin: 04/20/18 08:37 Dose: 20 mg Sodium Chloride (Ns Inj) 1,000 mls @ 100 mls/hr IV.CONT .Q10H [facility] Last Admin: 04/20/18 08:37 Dose: 100 mls/hr Levetiracetam 500 mg/ Sodium (Chloride) 105 mls @ 420 mls/hr IV.SIG Q12H [facility] Lactulose (Lactulose Liq) 30 ml PO DAILY PRN PRN Reason: SEVERE CONSITIPATION Levofloxacin (Levaquin) 750 mg PO DAILY [facility] Stop: 04/27/18 08:59 Last Admin: 04/20/18 12:16 Dose: 750 mg Morphine Sulfate (Morphine Inj) 4 mg IV.PUSH Q3H PRN PRN Reason: PAIN 6-10;IF UNABLE TO TAKE PO Morphine Sulfate (Morphine Inj) 2 mg IV.PUSH Q3H PRN PRN Reason: PAIN 3-5; IF UABLE TO TAKE PO Morphine Sulfate (Morphine Inj) 4 mg IV.PUSH Q3H PRN PRN Reason: BREAKTHROUGH PAIN Naloxone HCl (Narcan Inj) 0.4 mg IV.PUSH UNSCH PRN PRN Reason: SEE LABEL COMMENTS Nicotine (Habitrol 14 Mg Patch.24 Hr) 1 patch T-DERMAL DAILY [facility] Last Admin: 04/20/18 08:37 Dose: 1 patch Ondansetron HCl (Zofran Inj) 4 mg IV.PUSH Q6H PRN PRN Reason: NAUSEA OR VOMITING Oxycodone/Acetaminophen (Percocet 10/325 Mg) 1 tab PO Q6H PRN PRN Reason: PAIN SCALE 6 TO 10 Oxycodone/Acetaminophen (Percocet 5/325 Mg) 1 tab PO Q6H PRN PRN Reason: PAIN SCALE 3 TO 5 Patch Removal (Remove Old Patch) 1 each T-DERMAL DAILY [facility] Last Admin: 04/20/18 08:40 Dose: Not Given Senna/Docusate Sodium ([place]-Colace) 1 tab PO BID [facility] Last Admin: 04/20/18 08:39 Dose: Not Given Sennosides (Senokot) 17.2 mg PO Q12H PRN PRN Reason: Moderate Constipation Allergies Allergy/AdvReac Type Severity Reaction Status Date / Time poornima Allergy Mild HIVES Verified 04/19/18 15:26 Physical Exam Vital signs: Vital Signs 04/19/18 15:05 04/19/18 16:00 04/19/18 20:00 Temperature 97.2 F L 98.2 F Pulse Rate 78 63 65 Respiratory Rate 16 14 19 Blood Pressure 154/78 H 137/71 96/78 L Pulse Oximetry 95 97 96 04/19/18 23:56 04/20/18 04:00 04/20/18 08:00 Temperature 98.1 F 97.6 F 97.8 F Pulse Rate 63 49 L 53 L Respiratory Rate 17 14 16 Blood Pressure 100/76 124/69 122/69 Pulse Oximetry 96 98 94 L Intake & Output 04/19/18 04/20/18 04/20/18 18:59 06:59 18:59 Intake Total 1000 / 1000 Balance 1000 / 1000 Weight 50 kg 49.9 kg Intake: IV 1000 / 1000 NS Inj 1,000 ML @ 100 mls/hr IV 1000 / 1000 .CONT .Q10H [facility] Rx#:[id number] Other: # Voids 1 - Constitutional no acute distress, thin, cachectic - Routine HEENT Exam Head: Present: normocephalic, atraumatic Eye: Present: EOMI, PERRL ENT: Present: mucous membranes moist, nares patent, external ear normal - Routine Neck Exam Present: supple, full ROM - Routine Respiratory Exam Present: CTA bilaterally - Routine Cardiovascular Exam Present: RRR, S1, S2 - Routine Abdominal Exam Present: soft, normoactive bowel sounds - Routine Extremities Exam Present: full ROM, normal capillary refill - Routine Skin Exam Present: dry, cracked - Routine Neurological Exam Present: alert, CN II-XII intact, normal speech - Detailed Neurological Exam Comments: He is awake and alert but not fully oriented, face is symmetric, extraocular muscles are intact, tongue is midline with poor dentition, moves upper and lower extremities although with generalized weakness, appreciates light touch sensation, negative Babinski, speech is fluent although not a very good historian Assessment and Plan - Assessment (1) Brain mass Code(s): G93.9 - Disorder of brain, unspecified Status: Acute - Plan 62-year-old gentleman with 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 Differential diagnosis includes a primary brain mass including high-grade glioma, metastasis, infection/abscess as well as other possibilities. We will review systemic metastatic workup with CT of the chest and abdomen pelvis. If no obvious masses are found on extracranially then we may need to entertain stereotactic brain mass biopsy. Resection of this subcortical deep mass will not be feasible and if malignancy is confirmed and would recommend radiation/chemotherapy although given his very cachectic appearance and malnourishment I am not sure how well he will be able to tolerate any adjuvant treatment. Continue with Decadron for the cerebral swelling and Keppra for seizure prophylaxis. He will need a healthcare proxy also to help with medical decision process during his hospitalization and treatment.
--- NOTE | 2018-04-20 15:28 | ECG ---
Date Performed: 04/19/2018 Time Performed: 12:01:21 PTAGE: 62 years EKG: Sinus rhythm SLIGHT RIGHT VENTRICULAR CONDUCTION DELAY POOR INITIAL ANTERIOR FORCES, WHICH MAY BE NORMAL VARIANT Compared to previous tracing, PVCs have resolved. The R force was slightly better in lead V3 on previ ous tracing, but poor initial anterior forces also present on that tracing. ABNORMAL ECG PREVIOUS TRACING : 03/13/2018 00.10 DOCTOR: Jayden Campos Interpretating Date/Time 04/20/2018 15:26:33
[2018-04-21] MEDS: levoFLOXacin 750 MG Tablet PO SCH (10:12)
[2018-04-21] MEDS: Sod Chloride 0.9% Inj 1,000 ML IV.CONT SCH ×4 (10:12→20:56)
[2018-04-21] MEDS: Senna/Docusate Sodium 8.6/50 MG Tablet PO SCH ×2 (10:12→21:13)
[2018-04-21] MEDS: Famotidine PF Inj 20 MG/2 ML Vial IV.PUSH SCH ×2 (10:12→21:13)
--- NOTE | 2018-04-21 12:39 | P.PNIM ---
Subjective Interval history: No acute distress today. Patient complains of no headaches. No nausea or vomiting. Physical Exam Vital signs: Vital Signs 04/20/18 16:00 04/20/18 20:00 04/21/18 00:00 Temperature 98.0 F 97.6 F 97.6 F Pulse Rate 59 L 72 51 L Respiratory Rate 16 15 15 Blood Pressure 113/69 128/70 134/76 Pulse Oximetry 98 98 98 04/21/18 04:00 04/21/18 07:49 04/21/18 09:45 Temperature 98.2 F 97.8 F Pulse Rate 70 59 L Respiratory Rate 15 16 Blood Pressure 159/88 H 102/58 L Pulse Oximetry 98 100 100 Intake & Output 04/20/18 04/21/18 04/21/18 18:59 06:59 18:59 Intake Total 1825 / 1825 1000 / 1000 Output Total 300 / 300 50 / 50 Balance 1825 / 1825 -300 / -300 950 / 950 Weight 50 kg Intake: IV 1105 / 1105 1000 / 1000 NS Inj 1,000 ML @ 100 mls/hr IV 1000 / 1000 1000 / 1000 .CONT .Q10H [facility] Rx#:[id number] Keppra Inj 500 MG In NS Inj 100 105 / 105 ML @ 420 mls/hr IV.SIG Q12H [facility] Rx#:[id number] Oral 720 / 720 Output: Urine 300 / 300 50 / 50 Other: # Voids 0 Narrative: GENERAL: NAD, A&Ox3 HEAD: Normocephalic. NECK: Supple, trachea midline. No lymphadenopathy. EYES: No scleral icterus. No injection or drainage. CARDIOVASCULAR: Regular rate and rhythm without murmurs, gallops, or rubs. RESPIRATORY: Breath sounds equal bilaterally. No accessory muscle use. GASTROINTESTINAL: Abdomen soft, non-tender, nondistended. MUSCULOSKELETAL: No cyanosis, or edema. SKIN: Warm and dry. NEURO: No focal neurological deficits. Results - Labs CBC & Chem 7: 04/20/18 08:41 04/20/18 08:41 Assessment and Plan - Plan 82-year-old -Citizen Of [place] male who was admitted to the hospital on 04/19/2018 due to altered mental status as well as generalized weakness. ED workup indicated a left frontal mass. Left frontal brain mass Neurosurgery following Continue Decadron Continue Keppra Atypical chest mass, possible pneumonia Continue Levaquin No clinical signs of pneumonia No leukocytosis DVT prophylaxis SCDs
--- NOTE | 2018-04-21 12:46 | P.CONPAL ---
Consult Service: Palliative Care Requesting Physician: Yael Chamorro Reason for Consult: a. To assist with evaluation and management of symptoms including: b. To assist medical decision maker(s) with: better understanding of current medical conditions; weighing benefits/burdens of medical treatment options; making medical treatment decisions. Primary Care Provider: No Primary Care Physician History of Present Illness History of Present Illness: This 62-year-old man presented to the ED on 04/19/18 with reports of generalized weakness for 9 months. Apparently neighbors called EMS to have patient evaluated. Patient did not provide any additional history reported nothing was wrong, + questionable altered mental status/poor historian . Patient apparently reporting homeless at times at times lives in shelters. Per chart review history of tobacco use, COPD, hypertension. Patient at presentation reports not taking any medications. * CXR: No acute process. Head CT:1. 2 cm low-density masslike lesion in the left frontal region causing obscuration of the frontal horn and with less than 2 mm midline shift towards the right. Recommend further characterization of this abnormality with MRI of the brain with and without contrast. Neurosurgery consulted started patient on Keppra, Decadron, requested metastatic workup. MRI ordered, pending. UA positive for protein. Troponin negative. Patient admitted for further evaluation and management * MRI:. Irregularly enhancing mass with epicenter in the head of the left caudate nucleus causing mild midline shift and with mild surrounding edema. Malignant tumors and neuroepithelial tumors are differential considerations. ------- further imaging ordered to rule out metastatic process ------- * CT abdomen pelvis: 1. 2 rounded hypodensities in the liver. The largest hypodensity likely represents a hemangioma. The second is too small to definitively characterize but is most likely to represent a cyst or hemangioma. 2. Degenerative findings of the lower lumbar spine and sacroiliac joints. 3. Small amount of free fluid in the pelvis. 4. No enlarged lymph nodes in the abdomen and pelvis. * Chest CT:1. Tree in bud opacity in the left lower lobe along with bronchiectasis and bronchial plugging likely representing inflammatory process such as atypical mycobacterial infection.2. Enlarged bilateral axillary lymph nodes. Right axillary surgical clips. -------- started on Levaquin 750 mg p.o. daily.------- * ST evaluated: Patient noted with moderate to severe cognitive impairments. No dysphasia recommended for regular diet with thin liquids. * PT evaluation: Requires minimum assistance for sitting to standing however moderate assistance due to gait unsteadiness and impaired balance. 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 * 04/20 neurosurgery consultation:Differential diagnosis includes a primary brain mass including high-grade glioma, metastasis, infection/abscess as well as other possibilities. We will review systemic metastatic workup with CT of the chest and abdomen pelvis. If no obvious masses are found on extracranially then we may need to entertain stereotactic brain mass biopsy. Resection of this subcortical deep mass will not be feasible and if malignancy is confirmed and would recommend radiation/chemotherapy although given his very cachectic appearance and malnourishment I am not sure how well he will be able to tolerate any adjuvant treatment. Continue with Decadron for the cerebral swelling and Keppra for seizure prophylaxis. He will need a healthcare proxy also to help with medical decision process during his hospitalization and treatment. Patient seen in room no visitors present. He is initially walking around the room without any clothing on his IV is very stretched guided patient back to bedside and notified nursing that patient may need assistance. Nursing arrived we assisted patient back to bed and back into appropriate linens. IV site secured by nursing. Nursing informs that patient has been mildly confused and impulsive, with no safety awareness. He has been generally cooperative, not agitated. To my exam patient is alert, partially oriented, quite forgetful at times. Able to state the year is 2018 or 2019. Knows he is in [facility] in [place]. Tells me he is here because he was having speech problems. Names the president as Dallin. Tells me he has lived in [place] all of his life. He is able to tell me his birthdate and informs that he is 52 (he is 62). He is cooperative, he follows commands. He tells me he quit smoking 5 8 months ago. He formerly smoked 1 PPD. He tells me he drinks a little alcohol who cannot further quantify. Tells me he uses a little bit of marijuana but cannot further quantify. He denies any other substances. When asked to identify family he tells me he has 1 daughter, 3 boys. He also tells me he has a brother. States not . Asked me to call his brother Taj he provides me with a #[phone]. (This does not match the number listed for brother in the chart) Following exam call to patient brother Taj per patient's request spoke with him at length. General overview of current hospitalization, diagnoses, treatments in place thus far and need for additional workup of brain mass etc. Additional psychosocial history obtained from brother. Patient brother detailed they are the last 2 brothers of several siblings, still have a few sisters living. Patient is . He has 2 daughters and 1 son he believes they are in their 30s, they are local to the [place] area he believes. He indicates patient has been intermittently homeless, year or so ago was living with a sister who is keeping him well fed and caring for him and helping him "stay out of trouble ". However in the past year moved back to [place] and was essentially homeless though began renting a room from a lady. Brother indicates he does not see him all that often he last saw him about 2 weeks ago. He feels his brother has lost a lot of weight over the past couple of years may be 100 pounds. He indicates in the past he did use crack however not aware of his current habits. He specifically asked me if his brother has AIDS. he informs me that about 6 years ago his brother told him that he had intimate relations with a mutual friend of theirs who was known to have AIDS, and in the following years she from it. He will be in to see patient sometime later today or tomorrow when he can make transportation arrangements. Review with him that his brother stated he should be his emergency contact, Sebastián is in agreement to serve in this nature. Palliative will attempt to assist patient Sebastián to complete healthcare surrogate designation. Function/Cognitive Trajectory: Lives at home reported independent with ADLs though not clear how well he was functioning. Stayed in a rented room, otherwise previously homeless. Patient self reports some cognitive changes in the past 6 months worsening memory speech problems and weakness. . Review of Systems other (Of note patient partially oriented, at times confused and a poor historian,) Constitutional: Reports anorexia (Decreased appetite per patient), Reports weakness, Reports weight loss (100 pounds over a year or 2 per brother), Denies headache(s) Eyes: Denies change in vision, Denies double vision Ears, Nose, Mouth, and Throat: Denies headache(s), Denies mouth lesions, Denies mouth pain, Denies sore throat Cardiovascular: Denies chest pain, Denies leg swelling Respiratory: Denies cough Gastrointestinal: Denies abdominal pain, Denies constipation, Denies difficulty swallowing, Denies nausea, Denies vomiting Genitourinary: Denies painful urination, Denies urinary urgency Musculoskeletal: Denies back pain, Denies joint swelling Skin/Breast: Reports rash (Reports ongoing itching rash intermittently) Neurologic: Reports abnormal speech (Patient reports speech difficulties), Reports confusion (Per EMS ), Reports weakness (Per patient), Denies dizziness, Denies frequent falls, Denies headache(s), Denies loss of vision Psychiatric: Reports change in appetite (Decrease per patient), Reports confusion, Reports memory loss PMFSH - History History Provided By: Medical Record - Medical History Medical History: Medical History (Last Reviewed 04/21/18 @ 10:25 by Dianne Francis) Homeless Hypertension Patient denies medical problems Surgical history unknown Tobacco abuse Weakness Weight loss - Family History Family History: Family History (Last Updated 04/21/18 @ 14:00 by OMAYRA Loving) Mother Heart attack Sister Brain bleed - Tobacco History Tobacco Use In Past 30 Days: Yes Smoking Status: Current every day smoker Tobacco Type: Cigarettes Packs Per Day: 1 - Alcohol History How Often Do You Have a Drink Containing Alcohol: 2 to 4 times a month (Few times/small amt per pt) - Substance Use History Substance History: Past History (Occasional marijuana per pt, crack per brother ) - Travel History Recent Travel in the [place] Within the Last 8 Weeks: No Recent Travel Out of the Country Within the Last 8 Weeks: No - Immunization History Tetanus Immunization: Unsure Hx Influenza Vaccine This Season: No Medications and Allergies Active Medications: Active Medications Acetaminophen (Tylenol) 650 mg PO Q4H PRN PRN Reason: Temp > 100.4 Al Hydroxide/Mg Hydroxide (Milk Of Magnesia Liq) 30 ml PO Q12H PRN PRN Reason: Mild Constipation Albuterol (Duoneb Neb (Prn)) 1 ampul NEB Q6HR NEB PRN PRN Reason: DYSPNEA Artificial Tears (Eucerin Cream) 1 applicatio TOPICAL QID PRN PRN Reason: Dry skin. Bisacodyl (Dulcolax Supp) 10 mg RECTAL DAILY PRN PRN Reason: SEVERE CONSITIPATION Clonidine HCl (Catapres) 0.1 mg PO Q6H PRN PRN Reason: HYPERTENSION Dexamethasone Sodium Phosphate (Decadron Inj) 4 mg IV.PUSH Q6HR [facility] Last Admin: 04/21/18 12:11 Dose: 4 mg Famotidine (Pepcid Pf Inj) 20 mg IV.PUSH Q12HR [facility] Last Admin: 04/21/18 10:12 Dose: 20 mg Sodium Chloride (Ns Inj) 1,000 mls @ 100 mls/hr IV.CONT .Q10H [facility] Last Admin: 04/21/18 10:12 Dose: 100 mls/hr Levetiracetam 500 mg/ Sodium (Chloride) 105 mls @ 420 mls/hr IV.SIG Q12H [facility] Last Admin: 04/21/18 03:50 Dose: 420 mls/hr Lactulose (Lactulose Liq) 30 ml PO DAILY PRN PRN Reason: SEVERE CONSITIPATION Levofloxacin (Levaquin) 750 mg PO DAILY [facility] Stop: 04/27/18 08:59 Last Admin: 04/21/18 10:12 Dose: 750 mg Morphine Sulfate (Morphine Inj) 4 mg IV.PUSH Q3H PRN PRN Reason: PAIN 6-10;IF UNABLE TO TAKE PO Morphine Sulfate (Morphine Inj) 2 mg IV.PUSH Q3H PRN PRN Reason: PAIN 3-5; IF UABLE TO TAKE PO Morphine Sulfate (Morphine Inj) 4 mg IV.PUSH Q3H PRN PRN Reason: BREAKTHROUGH PAIN Naloxone HCl (Narcan Inj) 0.4 mg IV.PUSH UNSCH PRN PRN Reason: SEE LABEL COMMENTS Nicotine (Habitrol 14 Mg Patch.24 Hr) 1 patch T-DERMAL DAILY [facility] Last Admin: 04/21/18 10:12 Dose: 1 patch Ondansetron HCl (Zofran Inj) 4 mg IV.PUSH Q6H PRN PRN Reason: NAUSEA OR VOMITING Oxycodone/Acetaminophen (Percocet 10/325 Mg) 1 tab PO Q6H PRN PRN Reason: PAIN SCALE 6 TO 10 Oxycodone/Acetaminophen (Percocet 5/325 Mg) 1 tab PO Q6H PRN PRN Reason: PAIN SCALE 3 TO 5 Patch Removal (Remove Old Patch) 1 each T-DERMAL DAILY [facility] Last Admin: 04/21/18 10:13 Dose: 1 each Senna/Docusate Sodium ([place]-Colace) 1 tab PO BID [facility] Last Admin: 04/21/18 10:12 Dose: 1 tab Sennosides (Senokot) 17.2 mg PO Q12H PRN PRN Reason: Moderate Constipation Allergies Allergy/AdvReac Type Severity Reaction Status Date / Time poornima Allergy Mild HIVES Verified 04/19/18 15:26 Advance Directives Living Will: No Healthcare Surrogate: No Power of Cordwood Cutter: No Ethical and Legal Issues: Patient currently with mild confusion and forgetfulness. He is cooperative. He is not capacitated and able to make informed decisions at this time. Not clear if or when he will regain ability to make decisions. He is able to name his brother. He indicates he would want his brother called in an emergency. Physical Exam Vital Signs: Vital Signs - 24 hr 04/20/18 16:00 04/20/18 20:00 04/21/18 00:00 Temperature 98.0 F 97.6 F 97.6 F Pulse Rate 59 L 72 51 L Respiratory Rate 16 15 15 Blood Pressure 113/69 128/70 134/76 Pulse Oximetry 98 98 98 04/21/18 04:00 04/21/18 07:49 04/21/18 09:45 Temperature 98.2 F 97.8 F Pulse Rate 70 59 L Respiratory Rate 15 16 Blood Pressure 159/88 H 102/58 L Pulse Oximetry 98 100 100 I&O: Intake & Output 04/19/18 04/20/18 04/21/18 04/22/18 06:59 06:59 06:59 06:59 Intake Total 1100 / 1100 1825 / 1825 1000 / 1000 Output Total 300 / 300 50 / 50 Balance 1100 / 1100 1525 / 1525 950 / 950 Weight 49.9 kg 50 kg Physical Exam: CONSTITUTIONAL/GENERAL: This is a very thin, frail-appearing male. TUBES/LINES/DRAINS: Peripheral IV left upper extremity SKIN: No jaundice. No visible lesions. Skin is very dry, flaking in areas of body. No wounds seen anteriorly. Skin warm and dry. HEAD: Atraumatic. Normocephalic. EYES: Pupils equal and round and reactive. Extraocular motions intact. No scleral icterus. No injection or drainage. Fundi not examined. ENT: Hearing grossly normal. Nose without bleeding or purulent drainage. Throat without visible erythema, exudates, masses. Few scattered white patches to posterior tongue, not clear if this is food residue or possible tomas, ongoing evaluations needed. NECK: Trachea midline. Supple, nontender. No palpable thyroid enlargement or nodularity. CARDIOVASCULAR: Regular rate and rhythm without murmur. No JVD. Peripheral pulses symmetric. RESPIRATORY/CHEST: Symmetric, unlabored respirations. On room air. Clear to auscultation. Breath sounds equal bilaterally. GASTROINTESTINAL: Abdomen soft, flat, non-tender, nondistended. No hepato- splenomegaly, or palpable masses. No guarding. Bowel sounds present. GENITOURINARY: Without palpable bladder distension. MUSCULOSKELETAL: Extremities without clubbing, cyanosis, or edema. No joint tenderness or effusion noted. Extremities very thin with muscle atrophy evident. LYMPHATICS: No palpable cervical or supraclavicular adenopathy. NEUROLOGICAL: Awake and alert. Oriented 2. Forgetful. Cooperative and pleasant. Limited to poor insight. Moves all extremities. PSYCHIATRIC: No obvious anxiety/depression. no apparent hallucinations or other psychotic thought process. Diagnostic Tests Laboratory: Laboratory Results - last 72 hr 04/19/18 04/19/18 04/19/18 12:00 12:00 12:00 WBC 4.7 RBC 4.13 L Hgb 11.7 L Hct 35.8 L MCV 86.7 MCH 28.5 MCHC 32.8 RDW 16.7 Plt Count 284 MPV 8.4 Prelim Diff (Auto) Manual diff required WBC Differential Manual diff final Seg Neuts % (Manual) 36 Band Neuts % (Manual) 2 Lymphocytes % (Manual) 15 Monocytes % (Manual) 7 Eosinophils % (Manual) 39 H Myelocytes % (Man) 1 H Abs Neuts (Manual) 1.8 Differential Comment . Toxic Granulation Platelet Estimate Normal Platelet Morphology Normal Ovalocytes 1+ H Acanthocytes (Spur) Occ H PT 10.3 INR 1.0 APTT 27.8 Sodium 140 Potassium 3.8 Chloride 105 Carbon Dioxide 28.1 Anion Gap 7 BUN 12 Creatinine 0.89 Estimated GFR Greater than 89 Random Glucose 83 Calcium 8.8 Magnesium 2.2 Total Bilirubin 0.6 AST 28 ALT 27 Alkaline Phosphatase 101 Total Creatine Kinase Troponin I Total Protein 8.5 H Albumin 3.3 L Urine Color Urine Clarity Urine pH Ur Specific [place] Urine Protein Urine Glucose (UA) Urine Ketones Urine Occult Blood Urine Nitrate Urine Bilirubin Urine Urobilinogen Ur Leukocyte Esterase Urine RBC Urine WBC Ur Squamous Epith Cells Amorphous Sediment Hyaline Casts Urine Mucus Micro UA Comment Urine Culture Comments 04/19/18 04/19/18 04/20/18 12:00 12:00 08:41 WBC 3.4 L RBC 3.71 L Hgb 10.5 L Hct 32.3 L MCV 87.0 MCH 28.2 MCHC 32.4 RDW 16.7 Plt Count 254 MPV 8.0 Prelim Diff (Auto) Manual diff required WBC Differential Manual diff final Seg Neuts % (Manual) 58 Band Neuts % (Manual) 17 H Lymphocytes % (Manual) 9 Monocytes % (Manual) 5 Eosinophils % (Manual) 11 H Myelocytes % (Man) Abs Neuts (Manual) 2.6 Differential Comment . Toxic Granulation 2+ H Platelet Estimate Normal Platelet Morphology Normal Ovalocytes 1+ H Acanthocytes (Spur) PT INR APTT Sodium Potassium Chloride Carbon Dioxide Anion Gap BUN Creatinine Estimated GFR Random Glucose Calcium Magnesium Total Bilirubin AST ALT Alkaline Phosphatase Total Creatine Kinase 33 L Troponin I Less than 0.02 L Total Protein Albumin Urine Color Laura Urine Clarity Cloudy H Urine pH 5.0 Ur Specific [place] 1.024 Urine Protein 100 H Urine Glucose (UA) Negative Urine Ketones Negative Urine Occult Blood Negative Urine Nitrate Negative Urine Bilirubin Negative Urine Urobilinogen 4 or greater Ur Leukocyte Esterase Negative Urine RBC 1 Urine WBC 5 Ur Squamous Epith Cells 1 Amorphous Sediment Rare H Hyaline Casts 1 Urine Mucus Many H Micro UA Comment Culture not ind Urine Culture Comments Culture not ind 04/20/18 04/20/18 08:41 08:41 WBC RBC Hgb Hct MCV MCH MCHC RDW Plt Count MPV Prelim Diff (Auto) WBC Differential Seg Neuts % (Manual) Band Neuts % (Manual) Lymphocytes % (Manual) Monocytes % (Manual) Eosinophils % (Manual) Myelocytes % (Man) Abs Neuts (Manual) Differential Comment Toxic Granulation Platelet Estimate Platelet Morphology Ovalocytes Acanthocytes (Spur) PT 10.4 INR 1.0 APTT Sodium 139 Potassium 4.5 Chloride 105 Carbon Dioxide 26.6 Anion Gap 7 BUN 12 Creatinine 0.61 Estimated GFR Greater than 89 Random Glucose 94 Calcium 8.4 L Magnesium Total Bilirubin 0.5 AST 24 ALT 22 Alkaline Phosphatase 88 Total Creatine Kinase Troponin I Total Protein 7.4 D Albumin 2.7 L D Urine Color Urine Clarity Urine pH Ur Specific [place] Urine Protein Urine Glucose (UA) Urine Ketones Urine Occult Blood Urine Nitrate Urine Bilirubin Urine Urobilinogen Ur Leukocyte Esterase Urine RBC Urine WBC Ur Squamous Epith Cells Amorphous Sediment Hyaline Casts Urine Mucus Micro UA Comment Urine Culture Comments Result Diagrams: 04/20/18 08:41 04/20/18 08:41 Imaging: Impressions Head MRI 04/19/18 13:41 CONCLUSION: 1. Irregularly enhancing mass with epicenter in the head of the left caudate nucleus causing mild midline shift and with mild surrounding edema. Malignant tumors and neuroepithelial tumors are differential considerations. Abdomen/Pelvis CT 04/20/18 00:00 CONCLUSION: 1. 2 rounded hypodensities in the liver. The largest hypodensity likely represents a hemangioma. The second is too small to definitively characterize but is most likely to represent a cyst or hemangioma.. 2. Degenerative findings of the lower lumbar spine and sacroiliac joints. 3. Small amount of free fluid in the pelvis. 4. No enlarged lymph nodes in the abdomen and pelvis. Chest CT 04/20/18 00:00 CONCLUSION: 1. Tree in bud opacity in the left lower lobe along with bronchiectasis and bronchial plugging likely representing inflammatory process such as atypical mycobacterial infection. 2. Enlarged bilateral axillary lymph nodes. Right axillary surgical clips. Patient/Family Conference Family Conference Time: 50 Family Conference Location: Bedside, Telephone Issues Discussed: Limited discussion with patient at bedside, as he is mildly confused and somewhat forgetful. Following discussion with patient call to patient brother Taj per patient's request, discussion with him included the following: * Palliative care role, purpose, approach * Additional medical, psychosocial, history * Patients general health, functional status, and cognitive changes in the months leading up to the current hospitalization * Patient/family understanding of the current medical problems * Patient/family understanding of prognosis * Goals of treatment currently * Questions answered to the best of my ability * Palliative care contact information provided Patient cooperative though mildly confused and forgetful. He is somewhat of a poor historian. He does answer some questions as per ROS. He has difficulty further qualifying, quantifying. Following discussion with patient call to patient brother and discuss with him at length, as noted in HPI. Assessment and Plan - Disease Oriented Problem List (1) Asthma (2) COPD (chronic obstructive pulmonary disease) (3) Hypertension (4) Brain mass Pertinent Non-Medical Issues: Psychosocial: Patient born and raised in [place]. Has lived in [facility] for most of his life. Intermittently homeless. Has 3 adult children 2 daughters, one son who are local. Has several siblings himself his brothers except for Taj are and 2 of his sisters are . His parents are . He is . He has not been working for some time. He previously worked as a cook at a local restaurant. He is supported by his brother Taj locally, and a sister in [place] who he lived with about a year ago. Spiritual: Legal:Patient currently with mild confusion and forgetfulness. He is cooperative. He is not capacitated and able to make informed decisions at this time. Not clear if or when he will regain ability to make decisions. He is able to name his brother. He indicates he would want his brother called in an emergency. Ethical issues impacting care: No ethical issues identified Important Contacts: Brother Taj Yancey [phone] home number, cell number [phone] . Prognosis: This patient was admitted for weakness and altered mental status. This is apparently been ongoing he has had some weight loss. There is concern for underlying lung infection such as Mycobacterium. He has findings of possible brain mass etiology not clear at this time malignancy versus possible infectious process. Concern for possibility of underlying immune deficiency, infectious process causing current issues. He is currently frail, malnourished and high risk for ongoing complications and continued physical decline due to this. . Code Status: Full Code Plan: * Legal decision maker:Patient currently with mild confusion and forgetfulness. He is cooperative. He is not capacitated and able to make informed decisions at this time. Not clear if or when he will regain ability to make decisions. He is able to name his brother. He indicates he would want his brother called in an emergency. * Goals: Pending further discussions with patient, appropriate decision-maker/ family. Palliative was able to reach brother today whom patient requested be called. Brother was just learning of current condition and status. Ongoing diagnostics and additional information pending. Further discussions pending additional information. Goals at this time aggressive to pursue obtaining additional information to help further guide treatment options and medical decision-making going forward. * CODE STATUS: Full code * SYMPTOMS: --Anorexia/poor appetite-patient denies GI complaints however does endorse poor appetite may be for a few months. He also endorses poor access to food he gives someone some of his food stamps to provide him with food though he indicates he does not always get enough to eat. Brother endorses in the past year or 2 it looks like he might of lost about 100 pounds. Not clear how much of this may be related to underlying disease process versus poor access to nutrition. Cleared for regular diet by ST, appears to be eating well as of today. -- No dysphasia or oral pain reported. + Possible some oral thrush though difficult to fully assess today, will monitor. --Confusion-patient self endorses some memory. Appears this is been going on for a period of months. He also endorses weakness. Findings this admission of brain mass concerning for malignancy versus infectious etiology. Brother expresses concern that patient may have AIDS related to history. * Recommend consider ID consultation for HIV workup; reported intimate exposure to individual with AIDS who later , this exposure possibly 6 years ago +/- Palliative care will continue to follow during hospital course as condition evolves, to assist patient/decision-maker with understanding of medical conditions, weighing benefits/burdens of treatment options, for clarification of goals of treatment. Additionally will assist with any symptoms of palliative concern Time Spent Total Floor Time (mins): 70 (Chart review, PE, discussion with nursing, discussion with patient, family) Appreciation Thank you for the opportunity to participate in the care of Sebastián Yancey. Attestation Attestation: To help prompt me to consider important information that might be impacting today's encounter and assessment, information from prior notes written by myself or my colleagues may have been "brought forward" into today's note. My signature on this note, however, is an attestation that I personally performed the exam, history, and/or decision-making noted today, and, unless otherwise indicated, the interactions with patient, family, and staff as well as the review of records all occurred today. I also attest that the listed assessment and stated plan reflect my best clinical judgment today based on the combination of historical information, prior notes, and today's exam/ interactions. When time spent is documented, it refers only to time spent today by the signer, or if indicated, combined time spent today by collaborating physician/nurse practitioner.
--- NOTE | 2018-04-21 16:42 | P.PNNS ---
Subjective Interval history: History of Present Illness: 62-year-old -[place] gentleman who is a very disheveled and cachectic appearance admitted to [facility] generalized weakness and change in mental status. Patient denies any headaches or any numbness or paresthesias and complains of weakness and unsteadiness for the past week or so. He is not a very good historian. His main complaint is just generalized weakness and complains of pruritus in the upper extremities forearm. Workup included CT scan of the head and subsequent MRI scan of the brain which shows a partially necrotic and enhancing with mass with irregular margins in the left frontal subcortical caudate area adjacent to the ventricle measuring about 2.7 cm. There is no associated hydrocephalus. Systemic workup with CT of the chest and abdomen is also been undertaken. He denies any history of cancer or tumors. Denies any recent infections or pneumonia and according to the medical records reportedly is homeless also. 04/21/18: Pt awake and alert. Denies headaches. Complains of unsteadiness with ambulation and generalized weakness. Poor appetite with weight loss, pt states over last few months. <Marcus Corbin - Last Filed: 04/21/18 16:44> Physical Exam Vital signs: Vital Signs 04/20/18 20:00 04/21/18 00:00 04/21/18 04:00 Temperature 97.6 F 97.6 F 98.2 F Pulse Rate 72 51 L 70 Respiratory Rate 15 15 15 Blood Pressure 128/70 134/76 159/88 H Pulse Oximetry 98 98 98 04/21/18 07:49 04/21/18 09:45 04/21/18 12:00 Temperature 97.8 F 97.4 F L Pulse Rate 59 L 56 L Respiratory Rate 16 16 Blood Pressure 102/58 L 122/60 Pulse Oximetry 100 100 96 04/21/18 15:34 Temperature 97.2 F L Pulse Rate 56 L Respiratory Rate 16 Blood Pressure 128/66 Pulse Oximetry 95 Intake & Output 04/20/18 04/21/18 04/21/18 18:59 06:59 18:59 Intake Total 1824 / 182 105 / 105 1000 / 1000 Output Total 300 / 300 50 / 50 Balance 182 / 182 -195 / -195 950 / 950 Weight 50 kg Intake: IV 1105 / 1105 105 / 105 1000 / 1000 NS Inj 1,000 ML @ 100 mls/hr IV 1000 / 1000 1000 / 1000 .CONT .Q10H HAN Rx#:[id number] Keppra Inj 500 MG In NS Inj 100 105 / 105 105 / 105 ML @ 420 mls/hr IV.SIG Q12H HAN Rx#:[id number] Oral 720 / 720 Output: Urine 300 / 300 50 / 50 Other: # Voids 0 Date of Last Bowel Movement 04/18/18 - Constitutional cachectic, cooperative - Routine HEENT Exam Head: Present: normocephalic, atraumatic Eye: Present: PERRL (Pupils 3mm bilaterally, reactive bilaterally.). Absent: conjunctival icterus - Routine Neck Exam Present: trachea midline - Routine Respiratory Exam Present: CTA bilaterally. Absent: respiratory distress, rhonchi, wheezes - Routine Cardiovascular Exam Present: RRR, S1, S2. Absent: murmur - Routine Abdominal Exam Present: soft, normoactive bowel sounds. Absent: tenderness, distended - Routine Extremities Exam Absent: cyanosis - Routine Skin Exam Present: dry, lesions (small sore like lesions on forearms.). Absent: cyanosis , erythema - Routine Neurological Exam Present: alert, altered mental status (mild.), moving all extremities ( Generalized weakness.), normal speech. Absent: sensory deficit, motor deficit - Detailed Neurological Exam: Coma Scale Eye Opening: Spontaneous Verbal Response: Oriented Motor Response: Obey commands [place] Coma Scale Total: 15 - Routine Psychiatric Exam Present: normal affect, cooperative. Absent: anxious, agitated <Marcus Corbin - Last Filed: 04/21/18 16:44> Vital signs: Vital Signs 04/21/18 09:45 04/21/18 12:00 04/21/18 15:34 Temperature 97.4 F L 97.2 F L Pulse Rate 56 L 56 L Respiratory Rate 16 16 Blood Pressure 122/60 128/66 Pulse Oximetry 100 96 95 04/21/18 20:00 04/21/18 22:40 04/22/18 00:45 Temperature 97.9 F 97.4 F L Pulse Rate 69 67 Respiratory Rate 16 17 Blood Pressure 115/65 118/68 Pulse Oximetry 99 99 99 04/22/18 06:10 Temperature 97.7 F Pulse Rate 67 Respiratory Rate 17 Blood Pressure 117/67 Pulse Oximetry 97 Intake & Output 04/21/18 04/22/18 04/22/18 18:59 06:59 18:59 Intake Total 1000 / 1000 2810 / 2810 400 / 400 Output Total 50 / 50 1000 / 1000 1200 / 1200 Balance 950 / 950 1810 / 1810 -800 / -800 Weight 29.4 kg 29.5 kg Intake: IV 1000 / 1000 1210 / 1210 NS Inj 1,000 ML @ 100 mls/hr IV 1000 / 1000 1000 / 1000 .CONT .Q10H HAN Rx#:[id number] Keppra Inj 500 MG In NS Inj 100 210 / 210 ML @ 420 mls/hr IV.SIG Q12H HAN Rx#:[id number] Oral 500 / 500 400 / 400 Other 1100 / 1100 Output: Urine 50 / 50 1000 / 1000 1200 / 1200 Other: Other Intake Source Saline Solution Date of Last Bowel Movement 04/18/18 04/18/18 # Bowel Movements 0 0 <Wyatt Bell - Last Filed: 04/22/18 09:21> Assessment and Plan - Assessment (1) Brain mass Code(s): G93.9 - Disorder of brain, unspecified Status: Acute (2) Asthma Code(s): J45.909 - Unspecified asthma, uncomplicated Status: Acute (3) COPD (chronic obstructive pulmonary disease) Code(s): J44.9 - Chronic obstructive pulmonary disease, unspecified Status: Acute (4) Hypertension Code(s): I10 - Essential (primary) hypertension Status: Acute - Plan Brother was in earlier and reportedly is going to help pt make medical decisions. 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 CT of chest, abdomen, pelvis did not reveal any primary sites. I discussed with pt current treatment plan of continuing IV Decadron, rehab efforts, Keppra for seizure prophylaxis, Pepcid for GI prophylaxis, and possibly biopsy of the lesion at the end of the week if the pt and his brother agree. His brother is currently not at the bedside to discuss with him but we will when he is available. <Mracus Corbin - Last Filed: 04/21/18 16:44> - Assessment (1) Brain mass Code(s): G93.9 - Disorder of brain, unspecified Status: Acute - Attending Attestation The exam, history, and the medical decision-making described in the above note were completed with the assistance of the mid-level provider. I reviewed and agree with the findings presented. I attest that I had a [id number] encounter with the patient on the same day, and personally performed and documented my assessment and findings in the medical record. <Wyatt Bell - Last Filed: 04/22/18 09:21>
--- NOTE | 2018-04-21 23:05 | MB ---
cc: Simi Israel MD DATE: 04/21/2018 REASON FOR CONSULTATION: Consult requested by Dr. Bell for evaluation of a brain mass. HISTORY OF PRESENT ILLNESS: Sebastián is a 62-year-old male. He is a very poor historian. According to the records, he is homeless and paramedics brought him to the emergency room for further evaluation. The records indicated that the patient's neighbor had called the EMS. On arrival, he had a chest x-ray which came back negative. The head CT showed a 2 cm low density mass-like lesion in the left frontal region causing obstruction of the frontal horn and with less than 2 mm midline shift towards the right. He subsequently had an MRI of the brain, which showed an irregularly enhancing mass with epicenter in the head of the left caudate nucleus causing mild midline shift and with mild surrounding edema. Malignant tumors and neural epithelial tumors are differential considerations. The patient is admitted to the hospital. Neurosurgery was consulted. Dr. Bell saw the patient. He is requesting Oncology consult for evaluation of the brain mass. I have been asked to see him for further evaluation. The patient is a very poor historian. He appears to be confused. I am unable to get any history from him. History is obtained through review of the records. It is reported the patient has had significant weight loss and he had intimate relation with a person who had from AIDS. PAST MEDICAL HISTORY: Hypertension. PAST SURGICAL HISTORY: Unknown. FAMILY HISTORY: None for malignancy. ALLERGIES: NONE. MEDICATIONS: Prior to coming to the hospital, none. SOCIAL HISTORY: The patient smoked cigarettes. PHYSICAL EXAMINATION: GENERAL: This is a well-developed, male in no apparent distress. VITAL SIGNS: Temperature 97.2, heart rate is 56, blood pressure 128/66. HEAD, EYES, EARS, NOSE, AND THROAT: Pupils equal, round, reactive to light and accommodation, extraocular movements intact. Anicteric. No oral lesions noted. No thrush noted. NECK: Supple. No JVD. No masses noted. LUNGS: Clear. No wheezing, rhonchi, or rales. HEART: Regular rate and rhythm. No murmur heard. ABDOMEN: Soft and nontender. No hepatosplenomegaly. No abnormal bowel sounds. No guarding or rigidity noted. EXTREMITIES: No pedal edema. No cyanosis, no clubbing. NEUROLOGIC: Awake, alert, oriented x 2. Sensory and motor seem to be intact. SKIN: No bruises or petechiae noted. LYMPH NODES: No cervical, supraclavicular, or axillary lymphadenopathy noted. BACK: There is no spinal tenderness noted. VASCULAR: Please insert my exam. NEUROLOGIC: The patient is awake, alert, oriented x2. ASSESSMENT: 1. Brain mass. The differential is primary brain tumor versus toxoplasmosis versus a benign tumor. 2. High risk for human immunodeficiency virus. The patient had a long-term relation with his partner who from acquired immune deficiency syndrome, according to the patient's brother. PLAN: I have reviewed his available records. The CAT scan of the chest, abdomen and pelvis does not show any primary lesion or primary tumor. He has enlarged bilateral axillary lymph nodes. There are surgical clips noted in the right axilla. I do not know why he has surgical clips in the right axilla, may have had a lymph node biopsy. Also, there is a tree-in-bud opacity in the left lower lobe along with bronchiectasis and bronchial plugging, likely representing an inflammatory process such as atypical mycobacterial infection. A CT of the abdomen and pelvis showed 2 rounded hypodensities in the liver. The largest hypodensity likely represents a hemangioma. The second is too small to definitely characterize but this most likely represents a cyst or hemangioma. There are no enlarged lymph nodes noted in the abdomen and pelvis. I will order the HIV test for further evaluation. If the HIV test comes back positive, then the lesion in the brain could be toxoplasmosis or some other infectious etiology. If the HIV test comes back positive, then the brain lesion could be primary brain tumor. Dr. Bell is on the case and he will discuss with the patient's brother, who supposedly has power of research attorney, and we will make a decision for the biopsy. Further recommendations based on his hospital stay. Thank you for asking my opinion. MD SHERINE Elmore/BRENNEN , 09:09 PM , 11:02 PM
[2018-04-22] MEDS: Sod Chloride 0.9% Inj 1,000 ML IV.CONT SCH ×3 (03:03→23:45)
[2018-04-22] MEDS: Senna/Docusate Sodium 8.6/50 MG Tablet PO SCH ×2 (09:13→23:45)
[2018-04-22] MEDS: levoFLOXacin 750 MG Tablet PO SCH (09:13)
[2018-04-22] MEDS: Famotidine PF Inj 20 MG/2 ML Vial IV.PUSH SCH ×2 (09:13→23:45)
--- NOTE | 2018-04-22 11:25 | P.PNNS ---
Subjective Interval history: Pt awake and alert. Denies headaches. Had some nausea earlier. States unsteadiness and generalized weakness unchanged. <HakeemtoshiaMarcus guthrie - Last Filed: 04/22/18 11:15> Physical Exam Vital signs: Vital Signs 04/21/18 12:00 04/21/18 15:34 04/21/18 20:00 Temperature 97.4 F L 97.2 F L Pulse Rate 56 L 56 L Respiratory Rate 16 16 Blood Pressure 122/60 128/66 Pulse Oximetry 96 95 99 04/21/18 22:40 04/22/18 00:45 04/22/18 06:10 Temperature 97.9 F 97.4 F L 97.7 F Pulse Rate 69 67 67 Respiratory Rate 16 17 17 Blood Pressure 115/65 118/68 117/67 Pulse Oximetry 99 99 97 04/22/18 08:00 Temperature 97.7 F Pulse Rate 44 L Respiratory Rate 20 Blood Pressure 143/87 H Pulse Oximetry 98 Intake & Output 04/21/18 04/22/18 04/22/18 18:59 06:59 18:59 Intake Total 1000 / 1000 2810 / 2810 400 / 400 Output Total 50 / 50 1000 / 1000 1200 / 1200 Balance 950 / 950 1810 / 1810 -800 / -800 Weight 29.4 kg 29.5 kg Intake: IV 1000 / 1000 1210 / 1210 NS Inj 1,000 ML @ 100 mls/hr IV 1000 / 1000 1000 / 1000 .CONT .Q10H HAN Rx#:[id number] Keppra Inj 500 MG In NS Inj 100 210 / 210 ML @ 420 mls/hr IV.SIG Q12H HAN Rx#:[id number] Oral 500 / 500 400 / 400 Other 1100 / 1100 Output: Urine 50 / 50 1000 / 1000 1200 / 1200 Other: Other Intake Source Saline Solution Date of Last Bowel Movement 04/18/18 04/18/18 # Bowel Movements 0 0 - Constitutional no acute distress, thin, cachectic, cooperative, somnolent - Routine HEENT Exam Head: Present: normocephalic, atraumatic Eye: Present: PERRL. Absent: conjunctival icterus - Routine Respiratory Exam Present: CTA bilaterally. Absent: respiratory distress, rhonchi, wheezes - Routine Cardiovascular Exam Present: RRR, S1, S2. Absent: murmur - Routine Abdominal Exam Present: soft, normoactive bowel sounds. Absent: tenderness, distended, rigid - Routine Skin Exam Present: dry, lesions (Pt with small sore like wounds on forearms without drainage or signs of infection and skin appears dry and thin.). Absent: cyanosis, erythema - Routine Neurological Exam Present: alert, abnormal gait (Pt states feels unsteady with ambulation.), moving all extremities (with generalized weakness.). Absent: motor deficit - Routine Psychiatric Exam Present: cooperative. Absent: normal affect (flat affect), good insight, anxious, agitated <Marcus Corbin - Last Filed: 04/22/18 11:15> Vital signs: Vital Signs 04/21/18 15:34 04/21/18 20:00 04/21/18 22:40 Temperature 97.2 F L 97.9 F Pulse Rate 56 L 69 Respiratory Rate 16 16 Blood Pressure 128/66 115/65 Pulse Oximetry 95 99 99 04/22/18 00:45 04/22/18 06:10 04/22/18 08:00 Temperature 97.4 F L 97.7 F 97.7 F Pulse Rate 67 67 44 L Respiratory Rate 17 17 20 Blood Pressure 118/68 117/67 143/87 H Pulse Oximetry 99 97 98 Intake & Output 04/21/18 04/22/18 04/22/18 18:59 06:59 18:59 Intake Total 1000 / 1000 2810 / 2810 400 / 400 Output Total 50 / 50 1000 / 1000 1200 / 1200 Balance 950 / 950 1810 / 1810 -800 / -800 Weight 29.4 kg 29.5 kg Intake: IV 1000 / 1000 1210 / 1210 NS Inj 1,000 ML @ 100 mls/hr IV 1000 / 1000 1000 / 1000 .CONT .Q10H HAN Rx#:[id number] Keppra Inj 500 MG In NS Inj 100 210 / 210 ML @ 420 mls/hr IV.SIG Q12H HAN Rx#:[id number] Oral 500 / 500 400 / 400 Other 1100 / 1100 Output: Urine 50 / 50 1000 / 1000 1200 / 1200 Other: Other Intake Source Saline Solution Date of Last Bowel Movement 04/18/18 04/18/18 # Bowel Movements 0 0 <Wyatt Bell - Last Filed: 04/22/18 12:10> Assessment and Plan - Assessment (1) Brain mass Code(s): G93.9 - Disorder of brain, unspecified Status: Acute (2) Asthma Code(s): J45.909 - Unspecified asthma, uncomplicated Status: Acute (3) COPD (chronic obstructive pulmonary disease) Code(s): J44.9 - Chronic obstructive pulmonary disease, unspecified Status: Acute (4) Hypertension Code(s): I10 - Essential (primary) hypertension Status: Acute - Plan 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 CT of chest, abdomen, pelvis did not reveal any primary sites. I discussed with pt current treatment plan of continuing IV Decadron, rehab efforts, Keppra for seizure prophylaxis, Pepcid for GI prophylaxis, and possibly biopsy of the lesion at the end of the week if the pt and his brother agree. His brother is currently not at the bedside to discuss with him but we will when he is available. <Marcus Corbin - Last Filed: 04/22/18 11:15> - Assessment (1) Brain mass Code(s): G93.9 - Disorder of brain, unspecified Status: Acute - Attending Attestation The exam, history, and the medical decision-making described in the above note were completed with the assistance of the mid-level provider. I reviewed and agree with the findings presented. I attest that I had a [id number] encounter with the patient on the same day, and personally performed and documented my assessment and findings in the medical record. Currently undergoing workup for HIV and if this is positive with an concern would be given the brain and lung findings that this could be toxoplasma. In that case recommendation will be to consult infectious disease and empirically treat for toxoplasmosis for 2 weeks and assess treatment response with follow-up MRI scan. Discussed with the oncologist Dr. Israel. <Wyatt Bell - Last Filed: 04/22/18 12:10>
--- NOTE | 2018-04-22 11:55 | P.PNPAL ---
Reason for Visit Reason for visit: a. To assist with evaluation and management of symptoms including: oral pain b. To assist medical decision maker(s) with: better understanding of current medical conditions; weighing benefits/burdens of medical treatment options; making medical treatment decisions. Subjective Subjective/Interval History: Pt seen today to follow up on discomfort, goals, and possible designation of HCS. Pt stable overnight. S/p oncology consultation, Dr. Israel has evaluated patient : HIV serology pending. If the HIV test comes back positive, then the lesion in the brain could be toxoplasmosis or some other infectious etiology. If the HIV test comes back positive, then the brain lesion could be primary brain tumor. HIV 1, 2 reflex high, additional serology pending. Neurosurgery notes possibility of brain biopsy later this week discussed with patient. Patient seen in room no visitors present. He is calm in bed watching television. He seems a bit clearer than my interaction with him yesterday. He is oriented to year, location, hospital name. He tells me neurosurgery was in to see him and he discussed the possibility of a brain biopsy. He further detail that they "needed to take a small sample out to send to the lab to find out if it is cancer ". Ask him if he understood some of the other possibilities that they may evaluate for, he was not aware of others review with him possibility of infectious process gently explore HIV/AIDS. He indicates he understands with those diseases R. Ask him if he is aware of any intimate exposure to someone with those disease processes he tells me yes but it was 5 years ago and has not had exposure recently. He tells me his brother was in to see him last night. Again review with him family support and whom he would want contacted and the case of emergency or if he could not make his wishes known he tells me that would be his brother Taj, he is in agreement with designating him as healthcare surrogate. Form completed , primary nurse witnessed. Explore with him resuscitation status that in the hospital setting if his heart her breathing stopped CPR would commence and a breathing tube would be put in his throat and he would be connected to a ventilator. He tells me that he would not want "none of that stuff "and if that happens it is his time to go. Explore with him spiritual preferences he indicates he has no particular alevism but believes, would want a control valve mechanic to visit him. He denies general pain however does complain of pain to his throat, upper epigastric region with eating, pain to the throat even when swallowing water. Oral exam again indicates white plaques on tongue, palate and posterior pharynx likely tomas. He denies shortness of breath. He denies headache or dizziness. Endorses continued feeling generalized weakness and like he cannot get up as well as he would like to especially in the morning. Denies any GI complaints. Says his appetite is okay. Family/Friend Interactions: after Exam call to patient brother spoke with him regarding current assessment, patient more clear today. He indicates he was in to see the patient later last evening and that the patient just told him that he was sick but did not seem to remember much of what was going on medically. Update him that additional labs are still pending, and that neurosurgery is proposing possible brain biopsy this week to better identify etiology. Review with him my conversations regarding resuscitation and CPR and that the patient requested DNR status, he is supportive of this if this is the patient's wishes. Taj seems to have a very simple understanding of things. He asked me if the patient " is going to be okay". Review with him that any of the potential findings have very serious implications and could potentially be significantly life limiting and cause additional complications though additional evaluation and diagnostics are pending at this time. All questions answered he has palliative contact information. He will continue to come see the patient. He indicates he is trying to locate patient's 2 daughters as they may want to see him while he is in the hospital but they must have moved because he cannot find them. Advance Directives Health Care Surrogate: Copy in medical record Advance Directives Date on File: 04/22/18 Health Care Surrogate Name and Number: Brother Taj Yancey Objective Vital Signs: Vital Signs 04/21/18 12:00 04/21/18 15:34 04/21/18 20:00 Temperature 97.4 F L 97.2 F L Pulse Rate 56 L 56 L Respiratory Rate 16 16 Blood Pressure 122/60 128/66 Pulse Oximetry 96 95 99 04/21/18 22:40 04/22/18 00:45 04/22/18 06:10 Temperature 97.9 F 97.4 F L 97.7 F Pulse Rate 69 67 67 Respiratory Rate 16 17 17 Blood Pressure 115/65 118/68 117/67 Pulse Oximetry 99 99 97 04/22/18 08:00 Temperature 97.7 F Pulse Rate 44 L Respiratory Rate 20 Blood Pressure 143/87 H Pulse Oximetry 98 Intake & Output 04/21/18 04/22/18 04/22/18 18:59 06:59 18:59 Intake Total 1000 / 1000 2810 / 2810 400 / 400 Output Total 50 / 50 1000 / 1000 1200 / 1200 Balance 950 / 950 1810 / 1810 -800 / -800 Weight 29.4 kg 29.5 kg Intake: IV 1000 / 1000 1210 / 1210 NS Inj 1,000 ML @ 100 mls/hr IV 1000 / 1000 1000 / 1000 .CONT .Q10H HAN Rx#:[id number] Keppra Inj 500 MG In NS Inj 100 210 / 210 ML @ 420 mls/hr IV.SIG Q12H HAN Rx#:[id number] Oral 500 / 500 400 / 400 Other 1100 / 1100 Output: Urine 50 / 50 1000 / 1000 1200 / 1200 Other: Other Intake Source Saline Solution Date of Last Bowel Movement 04/18/18 04/18/18 # Bowel Movements 0 0 Physical Exam: CONSTITUTIONAL/GENERAL: This is a very thin, frail-appearing male. TUBES/LINES/DRAINS: Peripheral IV left upper extremity SKIN: No jaundice. No visible lesions. Skin is very dry, flaking in areas of body. No wounds seen anteriorly. Skin warm and dry. ENT: Hearing grossly normal. Nose without bleeding or purulent drainage. Throat without visible erythema, exudates, masses. scattered white plaques to posterior tongue, upper palate, posterior pharynx ; tomsa NECK: Trachea midline. Supple, nontender. No palpable thyroid enlargement or nodularity. CARDIOVASCULAR: Regular rate and rhythm without murmur. No JVD. Peripheral pulses symmetric. RESPIRATORY/CHEST: Symmetric, unlabored respirations. On room air. Clear to auscultation, faint expiratory wheezes left. Breath sounds equal bilaterally. GASTROINTESTINAL: Abdomen soft, flat, non-tender, nondistended. No hepato- splenomegaly, or palpable masses. No guarding. Bowel sounds present. MUSCULOSKELETAL: Extremities without clubbing, cyanosis, or edema. No joint tenderness or effusion noted. Extremities very thin with muscle atrophy evident. NEUROLOGICAL: Awake and alert. Oriented 3. Forgetful at times. Cooperative and pleasant. Some insight. Moves all extremities. PSYCHIATRIC: No obvious anxiety/depression. no apparent hallucinations or other psychotic thought process. Diagnostic Tests Laboratory: Laboratory Results - last 72 hr 04/19/18 04/19/18 04/19/18 12:00 12:00 12:00 WBC 4.7 RBC 4.13 L Hgb 11.7 L Hct 35.8 L MCV 86.7 MCH 28.5 MCHC 32.8 RDW 16.7 Plt Count 284 MPV 8.4 Prelim Diff (Auto) Manual diff required WBC Differential Manual diff final Seg Neuts % (Manual) 36 Band Neuts % (Manual) 2 Lymphocytes % (Manual) 15 Monocytes % (Manual) 7 Eosinophils % (Manual) 39 H Myelocytes % (Man) 1 H Abs Neuts (Manual) 1.8 Differential Comment . Toxic Granulation Platelet Estimate Normal Platelet Morphology Normal Ovalocytes 1+ H Acanthocytes (Spur) Occ H PT 10.3 INR 1.0 APTT 27.8 Sodium 140 Potassium 3.8 Chloride 105 Carbon Dioxide 28.1 Anion Gap 7 BUN 12 Creatinine 0.89 Estimated GFR Greater than 89 Random Glucose 83 Calcium 8.8 Magnesium 2.2 Total Bilirubin 0.6 AST 28 ALT 27 Alkaline Phosphatase 101 Total Creatine Kinase Troponin I Total Protein 8.5 H Albumin 3.3 L Urine Color Urine Clarity Urine pH Ur Specific Lane Urine Protein Urine Glucose (UA) Urine Ketones Urine Occult Blood Urine Nitrate Urine Bilirubin Urine Urobilinogen Ur Leukocyte Esterase Urine RBC Urine WBC Ur Squamous Epith Cells Amorphous Sediment Hyaline Casts Urine Mucus Micro UA Comment Urine Culture Comments HIV 1&2 Ab/P24 Ag 4thGn 04/19/18 04/19/18 04/20/18 12:00 12:00 08:41 WBC 3.4 L RBC 3.71 L Hgb 10.5 L Hct 32.3 L MCV 87.0 MCH 28.2 MCHC 32.4 RDW 16.7 Plt Count 254 MPV 8.0 Prelim Diff (Auto) Manual diff required WBC Differential Manual diff final Seg Neuts % (Manual) 58 Band Neuts % (Manual) 17 H Lymphocytes % (Manual) 9 Monocytes % (Manual) 5 Eosinophils % (Manual) 11 H Myelocytes % (Man) Abs Neuts (Manual) 2.6 Differential Comment . Toxic Granulation 2+ H Platelet Estimate Normal Platelet Morphology Normal Ovalocytes 1+ H Acanthocytes (Spur) PT INR APTT Sodium Potassium Chloride Carbon Dioxide Anion Gap BUN Creatinine Estimated GFR Random Glucose Calcium Magnesium Total Bilirubin AST ALT Alkaline Phosphatase Total Creatine Kinase 33 L Troponin I Less than 0.02 L Total Protein Albumin Urine Color Laura Urine Clarity Cloudy H Urine pH 5.[address] 1.024 Urine Protein 100 H Urine Glucose (UA) Negative Urine Ketones Negative Urine Occult Blood Negative Urine Nitrate Negative Urine Bilirubin Negative Urine Urobilinogen 4 or greater Ur Leukocyte Esterase Negative Urine RBC 1 Urine WBC 5 Ur Squamous Epith Cells 1 Amorphous Sediment Rare H Hyaline Casts 1 Urine Mucus Many H Micro UA Comment Culture not ind Urine Culture Comments Culture not ind HIV 1&2 Ab/P24 Ag 4thGn 04/20/18 04/20/18 04/21/18 08:41 08:41 19:17 WBC RBC Hgb Hct MCV MCH MCHC RDW Plt Count MPV Prelim Diff (Auto) WBC Differential Seg Neuts % (Manual) Band Neuts % (Manual) Lymphocytes % (Manual) Monocytes % (Manual) Eosinophils % (Manual) Myelocytes % (Man) Abs Neuts (Manual) Differential Comment Toxic Granulation Platelet Estimate Platelet Morphology Ovalocytes Acanthocytes (Spur) PT 10.4 INR 1.0 APTT Sodium 139 Potassium 4.5 Chloride 105 Carbon Dioxide 26.6 Anion Gap 7 BUN 12 Creatinine 0.61 Estimated GFR Greater than 89 Random Glucose 94 Calcium 8.4 L Magnesium Total Bilirubin 0.5 AST 24 ALT 22 Alkaline Phosphatase 88 Total Creatine Kinase Troponin I Total Protein 7.4 D Albumin 2.7 L D Urine Color Urine Clarity Urine pH Ur Specific Lane Urine Protein Urine Glucose (UA) Urine Ketones Urine Occult Blood Urine Nitrate Urine Bilirubin Urine Urobilinogen Ur Leukocyte Esterase Urine RBC Urine WBC Ur Squamous Epith Cells Amorphous Sediment Hyaline Casts Urine Mucus Micro UA Comment Urine Culture Comments HIV 1&2 Ab/P24 Ag 4thGn Reflex H Result Diagrams: 04/20/18 08:41 04/20/18 08:41 Imaging: Chest X-Ray 04/19/18 11:56 CONCLUSION: No acute cardiopulmonary disease Head CT 04/19/18 11:56 CONCLUSION: 1. 2 cm low-density masslike lesion in the left frontal region causing obscuration of the frontal horn and with less than 2 mm midline shift towards the right. Recommend further characterization of this abnormality with MRI of the brain with and without contrast. . Head MRI 04/19/18 13:41 CONCLUSION: 1. Irregularly enhancing mass with epicenter in the head of the left caudate nucleus causing mild midline shift and with mild surrounding edema. Malignant tumors and neuroepithelial tumors are differential considerations. Abdomen/Pelvis CT 04/20/18 00:00 CONCLUSION: 1. 2 rounded hypodensities in the liver. The largest hypodensity likely represents a hemangioma. The second is too small to definitively characterize but is most likely to represent a cyst or hemangioma.. 2. Degenerative findings of the lower lumbar spine and sacroiliac joints. 3. Small amount of free fluid in the pelvis. 4. No enlarged lymph nodes in the abdomen and pelvis. Chest CT 04/20/18 00:00 CONCLUSION: 1. Tree in bud opacity in the left lower lobe along with bronchiectasis and bronchial plugging likely representing inflammatory process such as atypical mycobacterial infection. 2. Enlarged bilateral axillary lymph nodes. Right axillary surgical clips. Assessment and Plan - Disease Oriented Problem List (1) Asthma (2) COPD (chronic obstructive pulmonary disease) (3) Hypertension (4) Brain mass Pertinent Non-Medical Issues: Psychosocial: Patient born and raised in [place]. Has lived in [facility] for most of his life. Intermittently homeless. Has 3 adult children 2 daughters, one son who are local. Has several siblings himself his brothers except for Taj are and 2 of his sisters are . His parents are . He is . He has not been working for some time. He previously worked as a cook at a local restaurant. He is supported by his brother Taj locally, and a sister in [place] who he lived with about a year ago. Spiritual: Legal:Patient currently with mild confusion and forgetfulness. He is cooperative. He is not capacitated and able to make informed decisions at this time. Not clear if or when he will regain ability to make decisions. He is able to name his brother. He indicates he would want his brother called in an emergency. Ethical issues impacting care: No ethical issues identified Important Contacts: Brother / HEALTH CARE SURROGATE Taj Yancey [phone] home number, cell number [phone] . Prognosis: This patient was admitted for weakness and altered mental status. This is apparently been ongoing he has had some weight loss. There is concern for underlying lung infection such as Mycobacterium. He has findings of possible brain mass etiology not clear at this time malignancy versus possible infectious process. Concern for possibility of underlying immune deficiency, infectious process causing current issues. He is currently frail, malnourished and high risk for ongoing complications and continued physical decline due to this. . Code Status: No Code DNR Plan: * Legal decision maker:Patient currently with mild confusion and forgetfulness. He is cooperative. Mentation appears to be improving some though waxes and wanes, his capacity likely also fluctuates. Best to utilize shared decision making with his designated healthcare surrogate given these fluctuations. He has indicated he would want his brother to serve as healthcare surrogate and emergency contact for him. Healthcare surrogate completed 04/22/18 naming brother Taj Yancey as healthcare surrogate * Goals: Ongoing diagnostics and additional information pending. Further discussions pending additional information. Goals at this time aggressive to pursue obtaining additional information, including proceed with brain biopsy, To help further guide treatment options and medical decision-making going forward. Patient does request no resuscitation or life support, DNR status. Brother is supportive of DNR if that is patient's wishes, he indicates he would be supportive of proceeding with brain biopsy if we will give additional information * CODE STATUS: Full code * SYMPTOMS: --Anorexia/poor appetite-patient denies GI complaints however does endorse poor appetite may be for a few months. He also endorses poor access to food he gives someone some of his food stamps to provide him with food though he indicates he does not always get enough to eat. Brother endorses in the past year or 2 it looks like he might of lost about 100 pounds. Not clear how much of this may be related to underlying disease process versus poor access to nutrition. Cleared for regular diet by ST, appears to be eating well -- + oral , throat pain reported. + Oral Tomas, recommend add nystatin swish and swallow or could consider Diflucan --Confusion-patient self endorses some memory. Appears this is been going on for a period of months. He also endorses weakness. Findings this admission of brain mass concerning for malignancy versus infectious etiology. Brother expresses concern that patient may have AIDS related to history. Patient also endorses history of intimate exposure to person with HIV or AIDS about 5 years ago. * consider ID consultation for HIV workup; reported intimate exposure to individual with AIDS who later , this exposure possibly 6 years ago +/-. Not likely he would be a candidate for HAART treatment at this time. Palliative care will continue to follow during hospital course as condition evolves, to assist patient/decision-maker with understanding of medical conditions, weighing benefits/burdens of treatment options, for clarification of goals of treatment. Additionally will assist with any symptoms of palliative concern Time Spent Total Floor Time (mins): 25 (Chart review, PE, discussion with nursing, discussion with healthcare surrogate/family) Attestation Attestation: To help prompt me to consider important information that might be impacting today's encounter and assessment, information from prior notes written by myself or my colleagues may have been "brought forward" into today's note. My signature on this note, however, is an attestation that I personally performed the exam, history, and/or decision-making noted today, and, unless otherwise indicated, the interactions with patient, family, and staff as well as the review of records all occurred today. I also attest that the listed assessment and stated plan reflect my best clinical judgment today based on the combination of historical information, prior notes, and today's exam/ interactions. When time spent is documented, it refers only to time spent today by the signer, or if indicated, combined time spent today by collaborating physician/nurse practitioner.
--- NOTE | 2018-04-22 14:16 | P.PNIM ---
Subjective Interval history: No significant changes in symptoms. No complaints form patient. HIV testing shows some positivity, but is not yet fully resulted. Physical Exam Vital signs: Vital Signs 04/21/18 15:34 04/21/18 20:00 04/21/18 22:40 Temperature 97.2 F L 97.9 F Pulse Rate 56 L 69 Respiratory Rate 16 16 Blood Pressure 128/66 115/65 Pulse Oximetry 95 99 99 04/22/18 00:45 04/22/18 06:10 04/22/18 08:00 Temperature 97.4 F L 97.7 F 97.7 F Pulse Rate 67 67 44 L Respiratory Rate 17 17 20 Blood Pressure 118/68 117/67 143/87 H Pulse Oximetry 99 97 98 04/22/18 12:00 Temperature 97.7 F Pulse Rate 47 L Respiratory Rate 20 Blood Pressure 137/80 Pulse Oximetry 95 Intake & Output 04/21/18 04/22/18 04/22/18 18:59 06:59 18:59 Intake Total 1000 / 1000 2810 / 2810 760 / 760 Output Total 50 / 50 1000 / 1000 1600 / 1600 Balance 950 / 950 1810 / 1810 -840 / -840 Weight 29.4 kg 29.5 kg Intake: IV 1000 / 1000 1210 / 1210 NS Inj 1,000 ML @ 100 mls/hr IV 1000 / 1000 1000 / 1000 .CONT .Q10H HAN Rx#:[id number] Keppra Inj 500 MG In NS Inj 100 210 / 210 ML @ 420 mls/hr IV.SIG Q12H HAN Rx#:[id number] Oral 500 / 500 760 / 760 Other 1100 / 1100 Output: Urine 50 / 50 1000 / 1000 1600 / 1600 Other: Other Intake Source Saline Solution Date of Last Bowel Movement 04/18/18 04/18/18 # Bowel Movements 0 0 Narrative: GENERAL: NAD, A&Ox3 HEAD: Normocephalic. NECK: Supple, trachea midline. No lymphadenopathy. EYES: No scleral icterus. No injection or drainage. CARDIOVASCULAR: Regular rate and rhythm without murmurs, gallops, or rubs. RESPIRATORY: Breath sounds equal bilaterally. No accessory muscle use. GASTROINTESTINAL: Abdomen soft, non-tender, nondistended. MUSCULOSKELETAL: No cyanosis, or edema. SKIN: Warm and dry. NEURO: No focal neurological deficits. Results - Labs CBC & Chem 7: 04/20/18 08:41 04/20/18 08:41 Laboratory Results - last 24 hr 04/21/18 19:17 HIV 1&2 Ab/P24 Ag 4thGn Reflex H Assessment and Plan - Plan 82-year-old -British male who was admitted to the hospital on 04/19/2018 due to altered mental status as well as generalized weakness. ED workup indicated a left frontal mass. HIV testing is suggesting positivity, follow for final results. May be toxoplasmosis rather than cancer, in setting of HIV. Bactrim added. ID consult. Left frontal brain mass Neurosurgery following Continue Decadron Continue Keppra Atypical chest mass, possible pneumonia Continue Levaquin Bactrim added. No clinical signs of pneumonia No leukocytosis DVT prophylaxis SCDs
--- NOTE | 2018-04-22 15:22 | P.PNONC ---
Subjective Interval history: no new c/o Objective Vital Signs/Intake & Output: Vital Signs 04/21/18 15:34 04/21/18 20:00 04/21/18 22:40 Temperature 97.2 F L 97.9 F Pulse Rate 56 L 69 Respiratory Rate 16 16 Blood Pressure 128/66 115/65 Pulse Oximetry 95 99 99 04/22/18 00:45 04/22/18 06:10 04/22/18 08:00 Temperature 97.4 F L 97.7 F 97.7 F Pulse Rate 67 67 44 L Respiratory Rate 17 17 20 Blood Pressure 118/68 117/67 143/87 H Pulse Oximetry 99 97 98 04/22/18 12:00 Temperature 97.7 F Pulse Rate 47 L Respiratory Rate 20 Blood Pressure 137/80 Pulse Oximetry 95 Intake & Output 04/21/18 04/22/18 04/22/18 18:59 06:59 18:59 Intake Total 1000 / 1000 2810 / 2810 760 / 760 Output Total 50 / 50 1000 / 1000 1600 / 1600 Balance 950 / 950 1810 / 1810 -840 / -840 Weight 29.4 kg 29.5 kg Intake: IV 1000 / 1000 1210 / 1210 NS Inj 1,000 ML @ 100 mls/hr IV 1000 / 1000 1000 / 1000 .CONT .Q10H HAN Rx#:[id number] Keppra Inj 500 MG In NS Inj 100 210 / 210 ML @ 420 mls/hr IV.SIG Q12H HAN Rx#:[id number] Oral 500 / 500 760 / 760 Other 1100 / 1100 Output: Urine 50 / 50 1000 / 1000 1600 / 1600 Other: Other Intake Source Saline Solution Date of Last Bowel Movement 04/18/18 04/18/18 # Bowel Movements 0 0 Result Diagrams: 04/20/18 08:41 04/20/18 08:41 Laboratory Results: Laboratory Results - last 24 hr 04/21/18 19:17 HIV 1&2 Ab/P24 Ag 4thGn Reflex H Medications: Active Medications Generic Name Dose Route Start Last Admin Trade Name Freq PRN Reason Stop Dose Admin Dexamethasone Sodium Phosphate 4 mg 04/19/18 21:00 04/22/18 12:59 Decadron Inj IV.PUSH 4 mg Q6HR HAN Administration Famotidine 20 mg 04/19/18 21:00 04/22/18 09:13 Pepcid Pf Inj IV.PUSH 20 mg Q12HR HAN Administration Sodium Chloride 1,000 mls @ 100 mls/hr 04/19/18 15:30 04/22/18 03:03 Ns Inj IV.CONT 100 mls/hr .Q10H HAN Administration Levetiracetam 500 mg/ Sodium 105 mls @ 420 mls/hr 04/20/18 15:00 04/22/18 03: 20 Chloride IV.SIG Infused Q12H HAN Infusion Levofloxacin 750 mg 04/20/18 09:00 04/22/18 09:13 Levaquin PO 04/27/18 08:59 750 mg DAILY HAN Administration Nicotine 1 patch 04/19/18 17:45 04/22/18 09:14 Habitrol 14 Mg Patch.24 Hr T-DERMAL 1 patch DAILY HAN Administration Patch Removal 1 each 04/20/18 09:00 04/22/18 09:14 Remove Old Patch T-DERMAL 1 each DAILY HAN Administration Senna/Docusate Sodium 1 tab 04/19/18 21:00 04/22/18 09:13 [place]-Colace PO 1 tab BID HAN Administration Objective Remarks: GENERAL: cachectic patient. SKIN: Warm and dry. HEAD: Normocephalic. EYES: No scleral icterus. No injection or drainage. NECK: Supple, trachea midline. No JVD or lymphadenopathy. LYMPHATIC: No adenopathy. CARDIOVASCULAR: Regular rate and rhythm without murmurs. RESPIRATORY: Breath sounds equal bilaterally. No accessory muscle use. GASTROINTESTINAL: Abdomen soft, non-tender, nondistended. EXTREMITIES: No cyanosis, or edema. MUSCULOSKELETAL: Adequate muscle tone. NEUROLOGICAL: confused Assessment/Plan - Plan HIV prelim is positive , confirm test is pending. D/W Dr Bell. Mat be toxo or lymphoma in the brain. Recommend ID consult. Will follow peripherally.
--- NOTE | 2018-04-22 18:00 | P.PNADD ---
Addendum to Inpatient Note Additional information: pt seen and chart reviewed full note to follow HIV and red terminal AIDS Her with MS change Mass lesion on MR cw cerebral toxo Oral thrush Sulfadiazine 1000 mg QID Pyrimethamine 200 mg loading dose followed by 50 mg daily Leucovorin 10 to 25 mg daily Fluconazol toxo serologies
[2018-04-22] MEDS ORDERED: SULFADIAZINE 500 MG PO SCH (21:00)
--- NOTE | 2018-04-22 23:50 | P.CONID ---
History of Present Illness Service: ID Consult date: 04/22/18 Requesting Physician: Jose M Rubin Reason for Consult: ? toxo Primary Care Provider: No Primary Care Physician Chief Complaint: WEAKNESS History of Present Illness: Pt unable to provide historuy History from the chart review 62 yo male never diagnosed with HIV dz prior to his presentation with chief complaint of weakness Pt presented confused cachectic and very weak Brain MRI showed mass HIV test positive, CD4 count unknown, but severe lymphopenia on CBC is consistent with advanced AIDS No fever Review of Systems unobtainable due to mental condition PMFSH - History History Provided By: Medical Record - Medical History Medical History: Medical History (Last Reviewed 06/19/18 @ 11:14 by Farrah Dimas MD) Homeless Hypertension Patient denies medical problems Surgical history unknown Tobacco abuse Weakness Weight loss - Family History Family History: Family History (Last Reviewed 06/19/18 @ 11:14 by Farrah Dimas MD) Mother Heart attack Sister Brain bleed - Social History I have reviewed the patient's Social History: Yes - Tobacco History Tobacco Use In Past 30 Days: Yes Smoking Status: Current every day smoker Tobacco Type: Cigarettes Packs Per Day: 1 - Alcohol History How Often Do You Have a Drink Containing Alcohol: 2 to 4 times a month (Few times/small amt per pt) - Substance Use History Substance History: Past History (Occasional marijuana per pt, crack per brother ) - Travel History Recent Travel in the [place] Within the Last 8 Weeks: No Recent Travel Out of the Country Within the Last 8 Weeks: No - Immunization History Tetanus Immunization: Unsure Hx Influenza Vaccine This Season: No Medications and Allergies Active Medications: Active Medications Acetaminophen (Tylenol) 650 mg PO Q4H PRN PRN Reason: Temp > 100.4 Al Hydroxide/Mg Hydroxide (Milk Of Magnesia Liq) 30 ml PO Q12H PRN PRN Reason: Mild Constipation Albuterol (Duoneb Neb (Prn)) 1 ampul NEB Q6HR NEB PRN PRN Reason: DYSPNEA Artificial Tears (Eucerin Cream) 1 applicatio TOPICAL QID PRN PRN Reason: Dry skin. Bisacodyl (Dulcolax Supp) 10 mg RECTAL DAILY PRN PRN Reason: SEVERE CONSITIPATION Clonidine HCl (Catapres) 0.1 mg PO Q6H PRN PRN Reason: HYPERTENSION Dexamethasone Sodium Phosphate (Decadron Inj) 4 mg IV.PUSH Q6HR [facility] Last Admin: 04/22/18 23:44 Dose: 4 mg Famotidine (Pepcid Pf Inj) 20 mg IV.PUSH Q12HR [facility] Last Admin: 04/22/18 23:45 Dose: 20 mg Fluconazole (Diflucan) 200 mg PO DAILY@2000 [facility] Last Admin: 04/22/18 23:44 Dose: 200 mg Sodium Chloride (Ns Inj) 1,000 mls @ 100 mls/hr IV.CONT .Q10H [facility] Last Admin: 04/22/18 23:45 Dose: 100 mls/hr Levetiracetam 500 mg/ Sodium (Chloride) 105 mls @ 420 mls/hr IV.SIG Q12H [facility] Last Infusion: 04/22/18 20:04 Dose: Infused Lactulose (Lactulose Liq) 30 ml PO DAILY PRN PRN Reason: SEVERE CONSITIPATION Leucovorin Calcium (Wellcovorin) 25 mg PO DAILY [facility] Levofloxacin (Levaquin) 750 mg PO DAILY [facility] Stop: 04/27/18 08:59 Last Admin: 04/22/18 09:13 Dose: 750 mg Morphine Sulfate (Morphine Inj) 4 mg IV.PUSH Q3H PRN PRN Reason: PAIN 6-10;IF UNABLE TO TAKE PO Morphine Sulfate (Morphine Inj) 2 mg IV.PUSH Q3H PRN PRN Reason: PAIN 3-5; IF UABLE TO TAKE PO Morphine Sulfate (Morphine Inj) 4 mg IV.PUSH Q3H PRN PRN Reason: BREAKTHROUGH PAIN Naloxone HCl (Narcan Inj) 0.4 mg IV.PUSH UNSCH PRN PRN Reason: SEE LABEL COMMENTS Nicotine (Habitrol 14 Mg Patch.24 Hr) 1 patch T-DERMAL DAILY [facility] Last Admin: 04/22/18 09:14 Dose: 1 patch Nf:Sulfadiazine 500 (Mg) 0 each PO QID [facility] Ondansetron HCl (Zofran Inj) 4 mg IV.PUSH Q6H PRN PRN Reason: NAUSEA OR VOMITING Oxycodone/Acetaminophen (Percocet 10/325 Mg) 1 tab PO Q6H PRN PRN Reason: PAIN SCALE 6 TO 10 Oxycodone/Acetaminophen (Percocet 5/325 Mg) 1 tab PO Q6H PRN PRN Reason: PAIN SCALE 3 TO 5 Patch Removal (Remove Old Patch) 1 each T-DERMAL DAILY [facility] Last Admin: 04/22/18 09:14 Dose: 1 each Pyrimethamine (Daraprim) 200 mg PO ONCE ONE Stop: 04/23/18 09:01 Pyrimethamine (Daraprim) 50 mg PO DAILY [facility] Senna/Docusate Sodium (Cheyenne-Colace) 1 tab PO BID [facility] Last Admin: 04/22/18 23:45 Dose: 1 tab Sennosides (Senokot) 17.2 mg PO Q12H PRN PRN Reason: Moderate Constipation Trimethoprim/Sulfamethoxazole (Bactrim Ds) 1 tab PO Q12HR [facility] Last Admin: 04/22/18 23:45 Dose: 1 tab Allergies Allergy/AdvReac Type Severity Reaction Status Date / Time poornima Allergy Mild HIVES Verified 04/19/18 15:26 Exam Vital signs: Vital Signs 04/22/18 00:45 04/22/18 06:10 04/22/18 08:00 Temperature 97.4 F L 97.7 F 97.7 F Pulse Rate 67 67 44 L Respiratory Rate 17 17 20 Blood Pressure 118/68 117/67 143/87 H Pulse Oximetry 99 97 98 04/22/18 12:00 04/22/18 16:00 Temperature 97.7 F 97.7 F Pulse Rate 47 L 52 L Respiratory Rate 20 20 Blood Pressure 137/80 131/76 Pulse Oximetry 95 96 Intake & Output 04/22/18 04/22/18 04/23/18 06:59 18:59 06:59 Intake Total 2810 / 2810 3680 / 3680 105 / 105 Output Total 1000 / 1000 2500 / 2500 Balance 1810 / 1810 1180 / 1180 105 / 105 Weight 29.4 kg 29.5 kg Intake: IV 1210 / 1210 1000 / 1000 105 / 105 NS Inj 1,000 ML @ 100 mls/hr IV 1000 / 1000 1000 / 1000 .CONT .Q10H [facility] Rx#:[id number] Keppra Inj 500 MG In NS Inj 100 210 / 210 105 / 105 ML @ 420 mls/hr IV.SIG Q12H [facility] Rx#:[id number] Oral 500 / 500 1480 / 1480 Other 1100 / 1100 1200 / 1200 Output: Urine 1000 / 1000 2500 / 2500 Other: Other Intake Source Saline Solution Saline Solution # Voids 4 Date of Last Bowel Movement 04/18/18 # Bowel Movements 0 0 - Constitutional no acute distress, cachectic - Routine HEENT Exam Head: Present: normocephalic, atraumatic Eye: Present: EOMI, PERRL ENT: Present: mucous membranes dry Comments: oral thrush - Routine Neck Exam Present: supple, full ROM - Routine Respiratory Exam Present: CTA bilaterally Comments: no accesory muyscle use - Routine Cardiovascular Exam Present: RRR, S1, S2 - Routine Abdominal Exam Present: soft, normoactive bowel sounds Comments: no organomegaly no masses - Routine Extremities Exam Present: full ROM Comments: no cyanosis, no clubbing , no edema severe loss of muscle bulk - Routine Skin Exam Present: intact, dry, alopecia, cracked - Routine Neurological Exam Present: alert, CN II-XII intact, altered mental status, moving all extremities confused, oriented x 1 only - Routine Psychiatric Exam Comments: flat affect Results - Labs CBC & Chem 7: 05/05/18 06:01 05/06/18 07:40 - Imaging Chest X-Ray 04/19/18 11:56 CONCLUSION: No acute cardiopulmonary disease Head CT 04/19/18 11:56 CONCLUSION: 1. 2 cm low-density masslike lesion in the left frontal region causing obscuration of the frontal horn and with less than 2 mm midline shift towards the right. Recommend further characterization of this abnormality with MRI of the brain with and without contrast. . Head MRI 04/19/18 13:41 CONCLUSION: 1. Irregularly enhancing mass with epicenter in the head of the left caudate nucleus causing mild midline shift and with mild surrounding edema. Malignant tumors and neuroepithelial tumors are differential considerations. Abdomen/Pelvis CT 04/20/18 00:00 CONCLUSION: 1. 2 rounded hypodensities in the liver. The largest hypodensity likely represents a hemangioma. The second is too small to definitively characterize but is most likely to represent a cyst or hemangioma.. 2. Degenerative findings of the lower lumbar spine and sacroiliac joints. 3. Small amount of free fluid in the pelvis. 4. No enlarged lymph nodes in the abdomen and pelvis. Chest CT 04/20/18 00:00 CONCLUSION: 1. Tree in bud opacity in the left lower lobe along with bronchiectasis and bronchial plugging likely representing inflammatory process such as atypical mycobacterial infection. 2. Enlarged bilateral axillary lymph nodes. Right axillary surgical clips. Assessment and Plan - Plan Newly diahgnosed HIV dz with clinically apparent end stage AIDS, wihout no prior HAART Cerebral mass in the setting of AIDS. MRI dw radiologist: rhianna toxo, and also can be malignancy Atypical mycobacteremial pulmonary infection ? Will treat empirically toxo with repeating MRI dw pharmacists none of the 1st line agents (pyremethamine, sulfadiazine) are not available cont bactrim for now toxo serologies Fluconazole for oral thrush Overall prognosis seems to be extremely poor will recommend palliative care consultation CD4 count
[2018-04-23] MEDS: levoFLOXacin 750 MG Tablet PO SCH (08:50)
[2018-04-23] MEDS: Famotidine PF Inj 20 MG/2 ML Vial IV.PUSH SCH ×2 (08:50→21:40)
[2018-04-23] MEDS: Senna/Docusate Sodium 8.6/50 MG Tablet PO SCH ×2 (08:51→21:41)
[2018-04-23] MEDS ORDERED: Leucovorin 5 MG Tablet PO SCH (09:00)
--- NOTE | 2018-04-23 11:58 | P.PNIM ---
Subjective Interval history: No new complaints from the patient today. Toxoplasmosis labs have been added and are pending. Patient is resting comfortably, no pain. Physical Exam Vital signs: Vital Signs 04/22/18 12:00 04/22/18 16:00 04/22/18 21:50 Temperature 97.7 F 97.7 F 98 F Pulse Rate 47 L 52 L 67 Respiratory Rate 20 20 16 Blood Pressure 137/80 131/76 110/80 Pulse Oximetry 95 96 98 04/23/18 00:10 04/23/18 03:00 Temperature 98.5 F 97.9 F Pulse Rate 66 62 Respiratory Rate 16 16 Blood Pressure 115/86 Pulse Oximetry 98 99 Intake & Output 04/22/18 04/23/18 04/23/18 18:59 06:59 18:59 Intake Total 3680 / 3680 1130 / 1130 Output Total 2500 / 2500 950 / 950 Balance 1180 / 1180 180 / 180 Weight 29.5 kg 29.8 kg Intake: IV 1000 / 1000 105 / 105 NS Inj 1,000 ML @ 100 mls/hr IV 1000 / 1000 .CONT .Q10H [facility] Rx#:[id number] Keppra Inj 500 MG In NS Inj 100 105 / 105 ML @ 420 mls/hr IV.SIG Q12H [facility] Rx#:[id number] Oral 1480 / 1480 1025 / 1025 Other 1200 / 1200 Output: Urine 2500 / 2500 950 / 950 Other: Other Intake Source Saline Solution # Voids 4 Date of Last Bowel Movement 04/23/18 # Bowel Movements 0 0 Narrative: GENERAL: NAD, A&Ox3 HEAD: Normocephalic. NECK: Supple, trachea midline. No lymphadenopathy. EYES: No scleral icterus. No injection or drainage. CARDIOVASCULAR: Regular rate and rhythm without murmurs, gallops, or rubs. RESPIRATORY: Breath sounds equal bilaterally. No accessory muscle use. GASTROINTESTINAL: Abdomen soft, non-tender, nondistended. MUSCULOSKELETAL: No cyanosis, or edema. SKIN: Warm and dry. NEURO: No focal neurological deficits. Results - Labs CBC & Chem 7: 04/20/18 08:41 04/20/18 08:41 Assessment and Plan - Plan 82-year-old -[place] male who was admitted to the hospital on 04/19/2018 due to altered mental status as well as generalized weakness. ED workup indicated a left frontal mass. HIV testing is suggesting positivity, follow for final results. May be toxoplasmosis rather than cancer, in setting of HIV. Toxoplasmosis screen ordered. ID following. Left frontal brain mass Neurosurgery following Continue Decadron Continue Keppra Atypical chest mass, possible pneumonia Continue Levaquin Bactrim added. No clinical signs of pneumonia No leukocytosis DVT prophylaxis SCDs
[2018-04-23 12:35] LABS: Hematocrit 32.2 % (39.0-51.0); Hemoglobin 10.5 gm/dL (13.0-17.0); Mean Corpuscular HGB Conc 32.7 % (32.0-36.0); Mean Corpuscular Hemoglobin 28.4 pg (27.0-34.0); Mean Corpuscular Volume 86.8 fL (80.0-100.0); Mean Platelet Volume 8.2 fL (7.0-11.0); Platelet Count 239 th/mm3 (150-450); Red Blood Count 3.71 mil/mm3 (4.50-5.90); Red Cell Distribution Width 16.7 % (11.6-17.2)
[2018-04-23 13:13] LABS: Anion Gap 9 meq/L (5-15); Blood Urea Nitrogen 12 mg/dL (7-18); Carbon Dioxide 25.4 meq/L (21.0-32.0); Chloride 105 meq/L (98-107); Glomerular Filtration Rate Greater Than 89 mL/min (>89); Glucose,Random 105 mg/dL (74-106); Potassium 4.1 meq/L (3.5-5.1); Sodium 139 meq/L (136-145)
[2018-04-23 13:14] LABS: Alanine Aminotransferase 18 U/L (12-78); Albumin 2.5 g/dL (3.4-5.0); Alkaline Phosphatase 76 U/L (45-117); Aspartate Aminotransferase 12 U/L (15-37); Calcium 8.3 mg/dL (8.5-10.1); Total Protein 7.1 g/dL (6.4-8.2)
[2018-04-23 13:24] LABS: Lymphocytes 3 % (9-44); Monocytes 14 % (0-8); Ovalocytes 1+
[2018-04-23 13:25] LABS: Acanthocytes Occ; Platelet Estimate Normal (Normal); Platelet Morphology Normal (Normal)
--- NOTE | 2018-04-23 13:45 | P.PNPAL ---
Reason for Visit Reason for visit: a. To assist with evaluation and management of symptoms including: oral pain b. To assist medical decision maker(s) with: better understanding of current medical conditions; weighing benefits/burdens of medical treatment options; making medical treatment decisions. Subjective Subjective/Interval History: Pt seen today to follow up on discomfort,confusion/pt ability to participate in goals. S/p ID consultation per oncology for further evaluation possible toxoplasmosis. Oncology will follow as needed. Additional HIV serology pending, initial reflex positive. CD4 counts per ID. Has been started on Bactrim, Diflucan. Based on current diagnostics and assessments patient likely advanced AIDS per ID. Toxoplasmosis serology pending. Eating well, 50-100% of meals per nursing. No complaints per nursing. Nursing indicates mental status continues to fluctuate. Vital signs within normal limits. CBC unremarkable today. Patient seen in room no visitors. He is alert, finishing lunch. He indicates fair appetite. Denies any nausea or vomiting. Asked about his sore throat complaint from yesterday he endorses that it is about the same not really better or worse. Explore with him that Diflucan has been added to help with throat infection. He is partially oriented to hospital, city, family. Confused to date. Limited insight. endorses he is in the hospital "to have something cut in his brain". Ask him if he is aware or recalls discussing possible infections he tells me he "might have AIDS, he might not ". Gently explore with him that is one of the workup is being pursued, further gently explore that he may have very limited treatment options if in fact he has AIDS; as disease is likely very advanced. Ask him if he would want us to discuss this with his brother whom he has designated as his healthcare surrogate. He tells me that he would want him to know, "but he does not think he will be able to help me with it". Advised that we may have very limited medications to help treat him however he would have options to keep him comfortable and minimize any potential pain or suffering from the disease process. Denies any GI complaints. States appetite Ok. Denies any dyspnea or cough. He endorses he feels weak. Tells me when he tries to get up sometimes he has double vision, though he does not currently have double vision. I will wait to call brother for additional updates, pending additional diagnostics. Patient would likely be appropriate for hospice and comfort measures only, with diagnosis end-stage AIDS, if goals comfort oriented. Advance Directives Health Care Surrogate: Copy in medical record Advance Directives Date on File: 04/22/18 Health Care Surrogate Name and Number: Brother Taj Yancey Objective Vital Signs: Vital Signs 04/22/18 16:00 04/22/18 21:50 04/23/18 00:10 Temperature 97.7 F 98 F 98.5 F Pulse Rate 52 L 67 66 Respiratory Rate 20 16 16 Blood Pressure 131/76 110/80 115/86 Pulse Oximetry 96 98 98 04/23/18 03:00 04/23/18 08:00 04/23/18 12:00 Temperature 97.9 F 97.6 F 97.7 F Pulse Rate 62 55 L 60 Respiratory Rate 16 22 20 Blood Pressure 106/75 111/80 Pulse Oximetry 99 96 98 Intake & Output 04/22/18 04/23/18 04/23/18 18:59 06:59 18:59 Intake Total 3680 / 3680 1130 / 1130 Output Total 2500 / 2500 950 / 950 Balance 1180 / 1180 180 / 180 Weight 29.5 kg 29.8 kg Intake: IV 1000 / 1000 105 / 105 NS Inj 1,000 ML @ 100 mls/hr IV 1000 / 1000 .CONT .Q10H [facility] Rx#:[id number] Keppra Inj 500 MG In NS Inj 100 105 / 105 ML @ 420 mls/hr IV.SIG Q12H [facility] Rx#:[id number] Oral 1480 / 1480 1025 / 1025 Other 1200 / 1200 Output: Urine 2500 / 2500 950 / 950 Other: Other Intake Source Saline Solution # Voids 4 Date of Last Bowel Movement 04/23/18 # Bowel Movements 0 0 Physical Exam: CONSTITUTIONAL/GENERAL: This is a very thin, frail-appearing male. TUBES/LINES/DRAINS: Peripheral IV left upper extremity SKIN: No jaundice. No visible lesions. Skin is very dry, flaking in areas of body. No wounds seen anteriorly. Skin warm and dry. ENT: Hearing grossly normal. Nose without bleeding or purulent drainage. Throat without visible erythema, exudates, masses. scattered white plaques to posterior tongue, upper palate, posterior pharynx ; niki NECK: Trachea midline. Supple, nontender. No palpable thyroid enlargement or nodularity. CARDIOVASCULAR: Regular rate and rhythm without murmur. No JVD. Peripheral pulses symmetric. RESPIRATORY/CHEST: Symmetric, unlabored respirations. On room air. Clear to auscultation, faint expiratory wheezes left. Breath sounds equal bilaterally. GASTROINTESTINAL: Abdomen soft, flat, non-tender, nondistended. No hepato- splenomegaly, or palpable masses. No guarding. Bowel sounds present. MUSCULOSKELETAL: Extremities without clubbing, cyanosis, or edema. No joint tenderness or effusion noted. Extremities very thin with muscle atrophy evident. NEUROLOGICAL: Awake and alert. Oriented 3. Forgetful at times. Cooperative and pleasant. Some insight. Moves all extremities. PSYCHIATRIC: No obvious anxiety/depression. no apparent hallucinations or other psychotic thought process. Diagnostic Tests Laboratory: Laboratory Results - last 72 hr 04/21/18 04/23/18 04/23/18 19:17 11:29 11:29 WBC 5.0 RBC 3.71 L Hgb 10.5 L Hct 32.2 L MCV 86.8 MCH 28.4 MCHC 32.7 RDW 16.7 Plt Count 239 MPV 8.2 Prelim Diff (Auto) Manual diff required WBC Differential Manual diff final Seg Neuts % (Manual) 66 Band Neuts % (Manual) 17 H Lymphocytes % (Manual) 3 L Monocytes % (Manual) 14 H Abs Neuts (Manual) 4.2 Differential Comment . Platelet Estimate Normal Platelet Morphology Normal Ovalocytes 1+ H Acanthocytes (Spur) Occ H Sodium 139 Potassium 4.1 Chloride 105 Carbon Dioxide 25.4 Anion Gap 9 BUN 12 Creatinine 0.60 Estimated GFR Greater than 89 Random Glucose 105 Calcium 8.3 L Total Bilirubin 0.2 AST 12 L ALT 18 Alkaline Phosphatase 76 Total Protein 7.1 Albumin 2.5 L HIV 1&2 Ab/P24 Ag 4thGn Reflex H Result Diagrams: 04/23/18 11:29 04/23/18 11:29 Assessment and Plan - Disease Oriented Problem List (1) Asthma (2) COPD (chronic obstructive pulmonary disease) (3) Hypertension (4) Brain mass - Symptom Scale (1) Throat pain 0-10 Scale: Unable to quantify (2) Anorexia 0-10 Scale: Unable to quantify (3) Confusion 0-10 Scale: Unable to quantify Pertinent Non-Medical Issues: Psychosocial: Patient born and raised in [place]. Has lived in [facility] for most of his life. Intermittently homeless. Has 3 adult children 2 daughters, one son who are local. Has several siblings himself his brothers except for Taj are and 2 of his sisters are . His parents are . He is . He has not been working for some time. He previously worked as a cook at a local restaurant. He is supported by his brother Taj locally, and a sister in [place] who he lived with about a year ago. Spiritual: Legal:Patient currently with mild confusion and forgetfulness. He is cooperative. He is not capacitated and able to make informed decisions at this time. Not clear if or when he will regain ability to make decisions. He is able to name his brother. He indicates he would want his brother called in an emergency. Ethical issues impacting care: No ethical issues identified Important Contacts: Brother / HEALTH CARE SURROGATE Taj Yancey [phone] home number, cell number [phone] . Prognosis: This patient was admitted for weakness and altered mental status. This is apparently been ongoing he has had some weight loss. There is concern for underlying lung infection such as Mycobacterium. He has findings of possible brain mass etiology not clear at this time malignancy versus possible infectious process. Concern for possibility of underlying immune deficiency, infectious process causing current issues. He is currently frail, malnourished and high risk for ongoing complications and continued physical decline due to this. Serology pending for possible toxoplasmosis. Prophylactic treatments begun. Full HIV serology still pending. Given available information, diagnostics patient with likely advanced AIDS per ID. Would be appropriate for hospice and comfort treatment only if goals compatible. . Code Status: No Code DNR Plan: * Legal decision maker:Patient currently with mild confusion and forgetfulness. He is cooperative. Mentation appears to be improving some though waxes and wanes, his capacity likely also fluctuates. Best to utilize shared decision making with his designated healthcare surrogate given these fluctuations. He has indicated he would want his brother to serve as healthcare surrogate and emergency contact for him. Healthcare surrogate completed 04/22/18 naming brother Taj Yancey as healthcare surrogate * Goals: Ongoing diagnostics and additional information pending. Further discussions pending additional information. Goals at this time aggressive to pursue obtaining additional information, including proceed with brain biopsy, To help further guide treatment options and medical decision-making going forward. Patient does request no resuscitation or life support, DNR status. Brother is supportive of DNR if that is patient's wishes, he indicates he would be supportive of proceeding with brain biopsy if we will give additional information * CODE STATUS:DNR * SYMPTOMS: --Anorexia/poor appetite-patient denies GI complaints however does endorse poor appetite may be for a few months. He also endorses poor access to food he gives someone some of his food stamps to provide him with food though he indicates he does not always get enough to eat. Brother endorses in the past year or 2 it looks like he might of lost about 100 pounds. Not clear how much of this may be related to underlying disease process versus poor access to nutrition. Cleared for regular diet by ST, appears to be eating well . Probable advanced AIDS, ID following. -- + oral , throat pain reported. + Oral Niki, Diflucan has been added by ID --Confusion-patient self endorses some memory. Appears this is been going on for a period of months. He also endorses weakness. Findings this admission of brain mass concerning for malignancy versus infectious etiology. Brother expresses concern that patient may have AIDS related to history. Patient also endorses history of intimate exposure to person with HIV or AIDS about 5 years ago. Oncology, ID following. Concern for toxoplasmosis, 2/2 HIV/AIDs, serology pending. * ID now following. reported intimate exposure to individual with AIDS who later , this exposure possibly 6 years ago +/-. Serology pending for possible toxoplasmosis. Prophylactic treatments begun. Full HIV serology still pending. Given available information, diagnostics patient with likely advanced AIDS per ID. Palliative care will continue to follow during hospital course as condition evolves, to assist patient/decision-maker with understanding of medical conditions, weighing benefits/burdens of treatment options, for clarification of goals of treatment. Additionally will assist with any symptoms of palliative concern Time Spent Total Floor Time (mins): 20 (chart review , PE, d/w nurse, d/w pt)
[2018-04-23] MEDS: SULFADIAZINE 500 MG PO SCH ×3 (14:01→21:40)
[2018-04-23] MEDS: Sod Chloride 0.9% Inj 1,000 ML IV.CONT SCH ×2 (15:38→21:41)
--- NOTE | 2018-04-23 18:41 | P.PNID ---
Subjective Remarks: appears more awake sitting at b/s and eating his snack talks approprietely endorsed some cough with expectoration MRI was dw Dr Gruber: 2nd enchancing lesion is present in cerebellum ASfebrile correct weight is 44 kg Antibiotics: bactrim levaquine Allergies/Adverse Reactions: Allergies poornima Allergy (Mild, Verified 04/19/18 15:26) HIVES Objective Vital Signs 04/22/18 21:50 04/23/18 00:10 04/23/18 03:00 Temperature 98 F 98.5 F 97.9 F Pulse Rate 67 66 62 Respiratory Rate 16 16 16 Blood Pressure 110/80 115/86 Pulse Oximetry 98 98 99 04/23/18 08:00 04/23/18 12:00 Temperature 97.6 F 97.7 F Pulse Rate 55 L 60 Respiratory Rate 22 20 Blood Pressure 106/75 111/80 Pulse Oximetry 96 98 Intake & Output 04/22/18 04/23/18 04/23/18 18:59 06:59 18:59 Intake Total 3680 / 3680 1235 / 1235 1000 / 1000 Output Total 2500 / 2500 950 / 950 Balance 1180 / 1180 285 / 285 1000 / 1000 Weight 29.5 kg 29.8 kg Intake: IV 1000 / 1000 210 / 210 1000 / 1000 NS Inj 1,000 ML @ 100 mls/hr IV 1000 / 1000 1000 / 1000 .CONT .Q10H HAN Rx#:[id number] Keppra Inj 500 MG In NS Inj 100 210 / 210 ML @ 420 mls/hr IV.SIG Q12H HAN Rx#:[id number] Oral 1480 / 1480 1025 / 1025 Other 1200 / 1200 Output: Urine 2500 / 2500 950 / 950 Other: Other Intake Source Saline Solution # Voids 4 Date of Last Bowel Movement 04/23/18 # Bowel Movements 0 0 Lab - Hematology Results 04/23/18 11:29 WBC 5.0 RBC 3.71 L Hgb 10.5 L Hct 32.2 L MCV 86.8 MCH 28.4 MCHC 32.7 RDW 16.7 Plt Count 239 MPV 8.2 Prelim Diff (Auto) Manual diff required WBC Differential Manual diff final Seg Neuts % (Manual) 66 Band Neuts % (Manual) 17 H Lymphocytes % (Manual) 3 L Monocytes % (Manual) 14 H Abs Neuts (Manual) 4.2 Differential Comment . Platelet Estimate Normal Platelet Morphology Normal Ovalocytes 1+ H Acanthocytes (Spur) Occ H Lab - Chemistry Results 04/23/18 11:29 Sodium 139 Potassium 4.1 Chloride 105 Carbon Dioxide 25.4 Anion Gap 9 BUN 12 Creatinine 0.60 Estimated GFR Greater than 89 Random Glucose 105 Calcium 8.3 L Total Bilirubin 0.2 AST 12 L ALT 18 Alkaline Phosphatase 76 Total Protein 7.1 Albumin 2.5 L Imaging: ITS Impressions Chest X-Ray 04/19/18 11:56 CONCLUSION: No acute cardiopulmonary disease Head CT 04/19/18 11:56 CONCLUSION: 1. 2 cm low-density masslike lesion in the left frontal region causing obscuration of the frontal horn and with less than 2 mm midline shift towards the right. Recommend further characterization of this abnormality with MRI of the brain with and without contrast. . Head MRI 04/19/18 13:41 CONCLUSION: 1. Irregularly enhancing mass with epicenter in the head of the left caudate nucleus causing mild midline shift and with mild surrounding edema. Malignant tumors and neuroepithelial tumors are differential considerations. Abdomen/Pelvis CT 04/20/18 00:00 CONCLUSION: 1. 2 rounded hypodensities in the liver. The largest hypodensity likely represents a hemangioma. The second is too small to definitively characterize but is most likely to represent a cyst or hemangioma.. 2. Degenerative findings of the lower lumbar spine and sacroiliac joints. 3. Small amount of free fluid in the pelvis. 4. No enlarged lymph nodes in the abdomen and pelvis. Chest CT 04/20/18 00:00 CONCLUSION: 1. Tree in bud opacity in the left lower lobe along with bronchiectasis and bronchial plugging likely representing inflammatory process such as atypical mycobacterial infection. 2. Enlarged bilateral axillary lymph nodes. Right axillary surgical clips. Physical Exam: GENERAL: NAD SKIN: Warm and dry. Very dry with extensive excoriations HEAD: Atraumatic. Normocephalic. Alopecia EYES: Pupils equal and round. No scleral icterus. No injection or drainage. ENT: No nasal bleeding or discharge. Mucous membranes pink and moist. NECK: Trachea midline. No JVD. CARDIOVASCULAR: Regular rate and rhythm. RESPIRATORY: No accessory muscle use. Clear to auscultation. Breath sounds equal bilaterally. GASTROINTESTINAL: Abdomen soft, non-tender, nondistended. Hepatic and splenic margins not palpable. MUSCULOSKELETAL: Extremities without clubbing, cyanosis, or edema. No obvious deformities. marked loss of muscle bulk NEUROLOGICAL: Awake and alert. No obvious cranial nerve deficits. Motor grossly within normal limits. Five out of 5 muscle strength in the arms and legs. Normal speech. 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 MRI dw radiologist: cw toxo, and also can be malignancy - 2 masses Atypical mycobacteremial pulmonary infection ? L axillae mases/ Lymphadenopathy Will treat empirically toxo with repeating MRI in 2 weeks dw pharmacists none of the 1st line agents (pyremethamine, sulfadiazine) are not available cont bactrim for now, max out the dose while awating for 1st line drugs toxo serologies Fluconazole for oral thrush sputum/bnlood mycobacterial clx Overall prognosis seems to be extremely poor will recommend palliative care consultation CD4 count
[2018-04-24] MEDS: Sod Chloride 0.9% Inj 1,000 ML IV.CONT SCH ×2 (07:25→15:12)
[2018-04-24 08:03] LABS: Baso % (Auto) 0.2 % (0.0-2.0); Hematocrit 32.3 % (39.0-51.0); Hemoglobin 10.5 gm/dL (13.0-17.0); Lymph # (Auto) 0.5 th/mm3 (1.0-4.8); Lymph % (Auto) 8.8 % (9.0-44.0); Mean Corpuscular HGB Conc 32.4 % (32.0-36.0); Mean Corpuscular Hemoglobin 27.8 pg (27.0-34.0); Mean Corpuscular Volume 85.9 fL (80.0-100.0); Mono # (Auto) 0.2 th/mm3 (0.0-0.9); Neut # (Auto) 4.9 th/mm3 (1.8-7.7); Platelet Count 280 th/mm3 (150-450); Red Blood Count 3.77 mil/mm3 (4.50-5.90); Red Cell Distribution Width 16.6 % (11.6-17.2); White Blood Count 5.6 th/mm3 (4.0-11.0)
[2018-04-24 08:31] LABS: Albumin 2.8 g/dL (3.4-5.0); Anion Gap 8 meq/L (5-15); Aspartate Aminotransferase 16 U/L (15-37); Blood Urea Nitrogen 12 mg/dL (7-18); Calcium 8.6 mg/dL (8.5-10.1); Carbon Dioxide 23.9 meq/L (21.0-32.0); Chloride 104 meq/L (98-107); Glomerular Filtration Rate Greater Than 89 mL/min (>89); Glucose,Random 94 mg/dL (74-106); Potassium 4.1 meq/L (3.5-5.1); Sodium 136 meq/L (136-145)
[2018-04-24 08:36] LABS: Alanine Aminotransferase 20 U/L (12-78); Alkaline Phosphatase 78 U/L (45-117); Total Protein 7.6 g/dL (6.4-8.2)
[2018-04-24 08:51] LABS: Lymphocytes 9 % (9-44); Metamyelocytes 2 % (0-1); Monocytes 4 % (0-8)
[2018-04-24 08:52] LABS: Ovalocytes 1+; Platelet Estimate Normal (Normal); Platelet Morphology Normal (Normal)
[2018-04-24] MEDS: Famotidine PF Inj 20 MG/2 ML Vial IV.PUSH SCH ×2 (08:52→21:55)
[2018-04-24] MEDS: levoFLOXacin 750 MG Tablet PO SCH (08:52)
[2018-04-24] MEDS: SULFADIAZINE 500 MG PO SCH ×4 (08:52→21:54)
[2018-04-24] MEDS: Senna/Docusate Sodium 8.6/50 MG Tablet PO SCH ×2 (08:52→21:54)
[2018-04-24 08:53] LABS: Acanthocytes Occ; Toxic Granulation 1+
--- NOTE | 2018-04-24 11:43 | P.PNIM ---
Subjective Interval history: Patient resting comfortably in bed. No new complaints. HIV and toxoplasmosis workup pending. Physical Exam Vital signs: Vital Signs 04/23/18 12:00 04/23/18 16:00 04/23/18 20:00 Temperature 97.7 F 98 F 97.5 F L Pulse Rate 60 52 L 60 Respiratory Rate 20 20 17 Blood Pressure 111/80 154/79 H 140/91 H Pulse Oximetry 98 99 98 04/24/18 00:00 04/24/18 04:00 04/24/18 08:00 Temperature 97.7 F 97.6 F 98.0 F Pulse Rate 45 L 44 L 50 L Respiratory Rate 16 16 16 Blood Pressure 123/71 132/79 164/120 H Pulse Oximetry 98 97 98 Intake & Output 04/23/18 04/24/18 04/24/18 18:59 06:59 18:59 Intake Total 2185 / 2185 1000 / 1000 1105 / 1105 Output Total 1300 / 1300 Balance 2185 / 2185 -300 / -300 1105 / 1105 Weight 45.4 kg Intake: IV 1105 / 1105 1000 / 1000 1105 / 1105 NS Inj 1,000 ML @ 100 mls/hr IV 1000 / 1000 1000 / 1000 1000 / 1000 .CONT .Q10H HAN Rx#:[id number] Keppra Inj 500 MG In NS Inj 100 105 / 105 105 / 105 ML @ 420 mls/hr IV.SIG Q12H HAN Rx#:[id number] Oral 1080 / 1080 Output: Urine 1300 / 1300 Other: # Voids 500 Date of Last Bowel Movement 04/23/18 04/24/18 # Bowel Movements 2 Narrative: GENERAL: NAD, A&Ox3 HEAD: Normocephalic. NECK: Supple, trachea midline. No lymphadenopathy. EYES: No scleral icterus. No injection or drainage. CARDIOVASCULAR: Regular rate and rhythm without murmurs, gallops, or rubs. RESPIRATORY: Breath sounds equal bilaterally. No accessory muscle use. GASTROINTESTINAL: Abdomen soft, non-tender, nondistended. MUSCULOSKELETAL: No cyanosis, or edema. SKIN: Warm and dry. NEURO: No focal neurological deficits. Results - Labs CBC & Chem 7: 04/24/18 07:18 04/24/18 07:18 Laboratory Results - last 24 hr 04/23/18 04/23/18 04/24/18 11:29 11:29 07:18 WBC 5.0 5.6 RBC 3.71 L 3.77 L Hgb 10.5 L 10.5 L Hct 32.2 L 32.3 L MCV 86.8 85.9 MCH 28.4 27.8 MCHC 32.7 32.4 RDW 16.7 16.6 Plt Count 239 280 MPV 8.2 8.0 Prelim Diff (Auto) Manual diff required Slide review pending Neut % (Auto) 87.0 H Lymph % (Auto) 8.8 L Mckinley % (Auto) 4.0 Eos % (Auto) 0.0 Baso % (Auto) 0.2 Neut # (Auto) 4.9 Lymph # (Auto) 0.5 L Mck[place]ley # (Auto) 0.2 Eos # (Auto) 0.0 Baso # (Auto) 0.0 WBC Differential Manual diff final Manual diff final Seg Neuts % (Manual) 66 74 H Band Neuts % (Manual) 17 H 11 H Lymphocytes % (Manual) 3 L 9 Monocytes % (Manual) 14 H 4 Metamyelocytes % (Man) 2 H Abs Neuts (Manual) 4.2 4.9 Differential Comment . . Toxic Granulation 1+ H Platelet Estimate Normal Normal Platelet Morphology Normal Normal Ovalocytes 1+ H 1+ H Acanthocytes (Spur) Occ H Occ H Sodium 139 Potassium 4.1 Chloride 105 Carbon Dioxide 25.4 Anion Gap 9 BUN 12 Creatinine 0.60 Estimated GFR Greater than 89 Random Glucose 105 Calcium 8.3 L Total Bilirubin 0.2 AST 12 L ALT 18 Alkaline Phosphatase 76 Total Protein 7.1 Albumin 2.5 L 04/24/18 07:18 WBC RBC Hgb Hct MCV MCH MCHC RDW Plt Count MPV Prelim Diff (Auto) Neut % (Auto) Lymph % (Auto) Mckinley % (Auto) Eos % (Auto) Baso % (Auto) Neut # (Auto) Lymph # (Auto) Mck[place]ley # (Auto) Eos # (Auto) Baso # (Auto) WBC Differential Seg Neuts % (Manual) Band Neuts % (Manual) Lymphocytes % (Manual) Monocytes % (Manual) Metamyelocytes % (Man) Abs Neuts (Manual) Differential Comment Toxic Granulation Platelet Estimate Platelet Morphology Ovalocytes Acanthocytes (Spur) Sodium 136 Potassium 4.1 Chloride 104 Carbon Dioxide 23.9 Anion Gap 8 BUN 12 Creatinine 0.53 L Estimated GFR Greater than 89 Random Glucose 94 Calcium 8.6 Total Bilirubin 0.3 AST 16 ALT 20 Alkaline Phosphatase 78 Total Protein 7.6 Albumin 2.8 L Assessment and Plan - Plan 82-year-old -[place] male who was admitted to the hospital on 04/19/2018 due to altered mental status as well as generalized weakness. ED workup indicated a left frontal mass. HIV testing and toxoplasmosis testing are pending. No significant changes compared to yesterday. HIV testing is suggesting positivity, follow for final results. May be toxoplasmosis rather than cancer, in setting of HIV. Toxoplasmosis screen ordered. ID following. Left frontal brain mass Neurosurgery following Continue Decadron Continue Keppra Atypical chest mass, possible pneumonia Continue Levaquin Bactrim added. No clinical signs of pneumonia No leukocytosis DVT prophylaxis SCDs
[2018-04-24 12:38] LABS: HIV 1 Antibody Positive (Negative); HIV 2 Antibody Negative (Negative)
[2018-04-24 15:06] LABS: Toxoplasma Ab, IgM Negative (Negative)
[2018-04-25] MEDS: Sod Chloride 0.9% Inj 1,000 ML IV.CONT SCH ×3 (06:38→22:32)
[2018-04-25] MEDS: Famotidine PF Inj 20 MG/2 ML Vial IV.PUSH SCH ×2 (08:06→21:34)
[2018-04-25] MEDS: Senna/Docusate Sodium 8.6/50 MG Tablet PO SCH ×2 (08:06→21:34)
[2018-04-25] MEDS: levoFLOXacin 750 MG Tablet PO SCH (08:06)
[2018-04-25] MEDS: SULFADIAZINE 500 MG PO SCH ×4 (08:06→21:38)
--- NOTE | 2018-04-25 10:04 | P.PNIM ---
Subjective Interval history: Final serology pending. Labs may be available within 1-2 days per laboratory. Patient has no new complaints. No fevers. Physical Exam Vital signs: Vital Signs 04/24/18 12:00 04/24/18 16:00 04/24/18 19:12 Temperature 98.0 F 97.7 F 98.4 F Pulse Rate 55 L 50 L 55 L Respiratory Rate 16 12 16 Blood Pressure 131/68 126/69 163/72 H Pulse Oximetry 100 100 98 04/25/18 00:00 04/25/18 04:00 04/25/18 08:00 Temperature 97.6 F 97.5 F L 97.7 F Pulse Rate 47 L 45 L 45 L Respiratory Rate 16 16 16 Blood Pressure 140/92 H 166/74 H 159/80 H Pulse Oximetry 98 98 100 Intake & Output 04/24/18 04/25/18 04/25/18 18:59 06:59 18:59 Intake Total 1210 / 1210 1000 / 1000 105 / 105 Output Total 820 / 820 Balance 1210 / 1210 180 / 180 105 / 105 Weight 45.5 kg Intake: IV 1210 / 1210 1000 / 1000 105 / 105 NS Inj 1,000 ML @ 100 mls/hr IV 1000 / 1000 1000 / 1000 .CONT .Q10H HAN Rx#:[id number] Keppra Inj 500 MG In NS Inj 100 210 / 210 105 / 105 ML @ 420 mls/hr IV.SIG Q12H HAN Rx#:[id number] Output: Urine 820 / 820 Other: # Voids 2 Date of Last Bowel Movement 04/24/18 04/24/18 # Bowel Movements 1 Narrative: GENERAL: NAD, A&Ox3 HEAD: Normocephalic. NECK: Supple, trachea midline. No lymphadenopathy. EYES: No scleral icterus. No injection or drainage. CARDIOVASCULAR: Regular rate and rhythm without murmurs, gallops, or rubs. RESPIRATORY: Breath sounds equal bilaterally. No accessory muscle use. GASTROINTESTINAL: Abdomen soft, non-tender, nondistended. MUSCULOSKELETAL: No cyanosis, or edema. SKIN: Warm and dry. NEURO: No focal neurological deficits. Results - Labs CBC & Chem 7: 04/24/18 07:18 04/24/18 07:18 Laboratory Results - last 24 hr 04/21/18 04/22/18 19:17 21:26 HIV-1 Antibody Positive HIV-2 Antibody Negative HIV (1&2) Ag & Ab Refer Reactive Toxoplasma IgM Ab Negative Assessment and Plan - Plan 82-year-old -[place] male who was admitted to the hospital on 04/19/2018 due to altered mental status as well as generalized weakness. ED workup indicated a left frontal mass. HIV testing and toxoplasmosis testing are pending. Awaiting determination of toxoplasmosis prior to initiating therapy. Awaiting to determine if patient is AIDS status. Patient is stable compared to yesterday. May be toxoplasmosis rather than cancer, in setting of HIV. ID following. Left frontal brain mass Neurosurgery following Continue Decadron Continue Keppra Atypical chest mass, possible pneumonia Continue Levaquin Bactrim added. No clinical signs of pneumonia No leukocytosis DVT prophylaxis SCDs
[2018-04-26] MEDS: levoFLOXacin 750 MG Tablet PO SCH (08:57)
[2018-04-26] MEDS: Senna/Docusate Sodium 8.6/50 MG Tablet PO SCH ×2 (08:57→21:00)
[2018-04-26] MEDS: Famotidine PF Inj 20 MG/2 ML Vial IV.PUSH SCH ×2 (08:57→20:57)
[2018-04-26] MEDS: SULFADIAZINE 500 MG PO SCH ×4 (10:08→21:01)
--- NOTE | 2018-04-26 10:54 | P.PNADD ---
Addendum to Inpatient Note Additional information: Pt was seen and examined Full note to follow
--- NOTE | 2018-04-26 12:17 | P.PNIM ---
Subjective Interval history: NO NEW COMPLAINTS DW DR RAMIRES OF ID PROBABLE HIV AND FULL BLOWN AIDS AWAIT CONFIRMATION POSSIBLE TOXOPLASMOSIS Physical Exam Vital signs: Vital Signs 04/25/18 16:00 04/25/18 20:40 04/26/18 00:00 Temperature 98.1 F 97.7 F 98 F Pulse Rate 55 L 53 L 51 L Respiratory Rate 16 20 20 Blood Pressure 132/77 95/58 L 177/82 H Pulse Oximetry 100 93 L 98 04/26/18 00:35 04/26/18 04:00 04/26/18 08:00 Temperature 97.4 F L 97.4 F L 97.4 F L Pulse Rate 56 L 53 L 53 L Respiratory Rate 18 16 12 Blood Pressure 154/82 H 153/75 H 136/72 Pulse Oximetry 96 99 95 Intake & Output 04/25/18 04/26/18 04/26/18 18:59 06:59 18:59 Intake Total 1210 / 1210 1105 / 1105 Output Total 1700 / 1700 650 / 650 Balance -490 / -490 455 / 455 Weight 45 kg Intake: IV 1210 / 1210 1105 / 1105 NS Inj 1,000 ML @ 100 mls/hr IV 1000 / 1000 1000 / 1000 .CONT .Q10H HAN Rx#:[id number] Keppra Inj 500 MG In NS Inj 100 210 / 210 105 / 105 ML @ 420 mls/hr IV.SIG Q12H HAN Rx#:[id number] Output: Urine 1700 / 1700 650 / 650 Other: Date of Last Bowel Movement 04/25/18 04/25/18 Narrative: GENERAL: NAD, A&Ox2 VERY THIN CACHECTIC MALE HEAD: Normocephalic. NECK: Supple, trachea midline. No lymphadenopathy. EYES: No scleral icterus. No injection or drainage. CARDIOVASCULAR: Regular rate and rhythm without murmurs, gallops, or rubs. S1, S2 NO S3 OR S4 RESPIRATORY: Breath sounds equal bilaterally. No accessory muscle use. GASTROINTESTINAL: Abdomen soft, non-tender, nondistended. MUSCULOSKELETAL: No cyanosis, or edema. SKIN: Warm and dry. NEURO: No focal neurological deficits. Results - Labs CBC & Chem 7: 04/24/18 07:18 04/24/18 07:18 Laboratory Tests 04/19/18 04/19/18 04/19/18 12:00 12:00 12:00 WBC 4.7 RBC 4.13 L Hgb 11.7 L Hct 35.8 L MCV 86.7 MCH 28.5 MCHC 32.8 RDW 16.7 Plt Count 284 MPV 8.4 Prelim Diff (Auto) Manual diff required Neut % (Auto) Lymph % (Auto) Teller % (Auto) Eos % (Auto) Baso % (Auto) Neut # (Auto) Lymph # (Auto) Teller # (Auto) Eos # (Auto) Baso # (Auto) WBC Differential Manual diff final Seg Neuts % (Manual) 36 Band Neuts % (Manual) 2 Lymphocytes % (Manual) 15 Monocytes % (Manual) 7 Eosinophils % (Manual) 39 H Metamyelocytes % (Man) Myelocytes % (Man) 1 H Abs Neuts (Manual) 1.8 Differential Comment . Toxic Granulation Platelet Estimate Normal Platelet Morphology Normal Ovalocytes 1+ H Acanthocytes (Spur) Occ H PT 10.3 INR 1.0 APTT 27.8 Sodium 140 Potassium 3.8 Chloride 105 Carbon Dioxide 28.1 Anion Gap 7 BUN 12 Creatinine 0.89 Estimated GFR Greater than 89 Random Glucose 83 Calcium 8.8 Magnesium 2.2 Total Bilirubin 0.6 AST 28 ALT 27 Alkaline Phosphatase 101 Total Creatine Kinase Troponin I Total Protein 8.5 H Albumin 3.3 L Urine Color Urine Clarity Urine pH Ur Specific [place] Urine Protein Urine Glucose (UA) Urine Ketones Urine Occult Blood Urine Nitrate Urine Bilirubin Urine Urobilinogen Ur Leukocyte Esterase Urine RBC Urine WBC Ur Squamous Epith Cells Amorphous Sediment Hyaline Casts Urine Mucus Micro UA Comment Urine Culture Comments HIV-1 Antibody HIV-2 Antibody HIV (1&2) Ag & Ab Refer HIV 1&2 Ab/P24 Ag 4thGn Toxoplasma IgM Ab 04/19/18 04/19/18 04/20/18 12:00 12:00 08:41 WBC 3.4 L RBC 3.71 L Hgb 10.5 L Hct 32.3 L MCV 87.0 MCH 28.2 MCHC 32.4 RDW 16.7 Plt Count 254 MPV 8.0 Prelim Diff (Auto) Manual diff required Neut % (Auto) Lymph % (Auto) Teller % (Auto) Eos % (Auto) Baso % (Auto) Neut # (Auto) Lymph # (Auto) Teller # (Auto) Eos # (Auto) Baso # (Auto) WBC Differential Manual diff final Seg Neuts % (Manual) 58 Band Neuts % (Manual) 17 H Lymphocytes % (Manual) 9 Monocytes % (Manual) 5 Eosinophils % (Manual) 11 H Metamyelocytes % (Man) Myelocytes % (Man) Abs Neuts (Manual) 2.6 Differential Comment . Toxic Granulation 2+ H Platelet Estimate Normal Platelet Morphology Normal Ovalocytes 1+ H Acanthocytes (Spur) PT INR APTT Sodium Potassium Chloride Carbon Dioxide Anion Gap BUN Creatinine Estimated GFR Random Glucose Calcium Magnesium Total Bilirubin AST ALT Alkaline Phosphatase Total Creatine Kinase 33 L Troponin I Less than 0.02 L Total Protein Albumin Urine Color Laura Urine Clarity Cloudy H Urine pH 5.0 Ur Specific [place] 1.024 Urine Protein 100 H Urine Glucose (UA) Negative Urine Ketones Negative Urine Occult Blood Negative Urine Nitrate Negative Urine Bilirubin Negative Urine Urobilinogen 4 or greater Ur Leukocyte Esterase Negative Urine RBC 1 Urine WBC 5 Ur Squamous Epith Cells 1 Amorphous Sediment Rare H Hyaline Casts 1 Urine Mucus Many H Micro UA Comment Culture not ind Urine Culture Comments Culture not ind HIV-1 Antibody HIV-2 Antibody HIV (1&2) Ag & Ab Refer HIV 1&2 Ab/P24 Ag 4thGn Toxoplasma IgM Ab 04/20/18 04/20/18 04/21/18 08:41 08:41 19:17 WBC RBC Hgb Hct MCV MCH MCHC RDW Plt Count MPV Prelim Diff (Auto) Neut % (Auto) Lymph % (Auto) Teller % (Auto) Eos % (Auto) Baso % (Auto) Neut # (Auto) Lymph # (Auto) Teller # (Auto) Eos # (Auto) Baso # (Auto) WBC Differential Seg Neuts % (Manual) Band Neuts % (Manual) Lymphocytes % (Manual) Monocytes % (Manual) Eosinophils % (Manual) Metamyelocytes % (Man) Myelocytes % (Man) Abs Neuts (Manual) Differential Comment Toxic Granulation Platelet Estimate Platelet Morphology Ovalocytes Acanthocytes (Spur) PT 10.4 INR 1.0 APTT Sodium 139 Potassium 4.5 Chloride 105 Carbon Dioxide 26.6 Anion Gap 7 BUN 12 Creatinine 0.61 Estimated GFR Greater than 89 Random Glucose 94 Calcium 8.4 L Magnesium Total Bilirubin 0.5 AST 24 ALT 22 Alkaline Phosphatase 88 Total Creatine Kinase Troponin I Total Protein 7.4 D Albumin 2.7 L D Urine Color Urine Clarity Urine pH Ur Specific [place] Urine Protein Urine Glucose (UA) Urine Ketones Urine Occult Blood Urine Nitrate Urine Bilirubin Urine Urobilinogen Ur Leukocyte Esterase Urine RBC Urine WBC Ur Squamous Epith Cells Amorphous Sediment Hyaline Casts Urine Mucus Micro UA Comment Urine Culture Comments HIV-1 Antibody HIV-2 Antibody HIV (1&2) Ag & Ab Refer HIV 1&2 Ab/P24 Ag 4thGn Reflex H Toxoplasma IgM Ab 04/21/18 04/22/18 04/23/18 19:17 21:26 11:29 WBC 5.0 RBC 3.71 L Hgb 10.5 L Hct 32.2 L MCV 86.8 MCH 28.4 MCHC 32.7 RDW 16.7 Plt Count 239 MPV 8.2 Prelim Diff (Auto) Manual diff required Neut % (Auto) Lymph % (Auto) Teller % (Auto) Eos % (Auto) Baso % (Auto) Neut # (Auto) Lymph # (Auto) Teller # (Auto) Eos # (Auto) Baso # (Auto) WBC Differential Manual diff final Seg Neuts % (Manual) 66 Band Neuts % (Manual) 17 H Lymphocytes % (Manual) 3 L Monocytes % (Manual) 14 H Eosinophils % (Manual) Metamyelocytes % (Man) Myelocytes % (Man) Abs Neuts (Manual) 4.2 Differential Comment . Toxic Granulation Platelet Estimate Normal Platelet Morphology Normal Ovalocytes 1+ H Acanthocytes (Spur) Occ H PT INR APTT Sodium Potassium Chloride Carbon Dioxide Anion Gap BUN Creatinine Estimated GFR Random Glucose Calcium Magnesium Total Bilirubin AST ALT Alkaline Phosphatase Total Creatine Kinase Troponin I Total Protein Albumin Urine Color Urine Clarity Urine pH Ur Specific [place] Urine Protein Urine Glucose (UA) Urine Ketones Urine Occult Blood Urine Nitrate Urine Bilirubin Urine Urobilinogen Ur Leukocyte Esterase Urine RBC Urine WBC Ur Squamous Epith Cells Amorphous Sediment Hyaline Casts Urine Mucus Micro UA Comment Urine Culture Comments HIV-1 Antibody Positive HIV-2 Antibody Negative HIV (1&2) Ag & Ab Refer Reactive HIV 1&2 Ab/P24 Ag 4thGn Toxoplasma IgM Ab Negative 04/23/18 04/24/18 04/24/18 11:29 07:18 07:18 WBC 5.6 RBC 3.77 L Hgb 10.5 L Hct 32.3 L MCV 85.9 MCH 27.8 MCHC 32.4 RDW 16.6 Plt Count 280 MPV 8.0 Prelim Diff (Auto) Slide review pending Neut % (Auto) 87.0 H Lymph % (Auto) 8.8 L Teller % (Auto) 4.0 Eos % (Auto) 0.0 Baso % (Auto) 0.2 Neut # (Auto) 4.9 Lymph # (Auto) 0.5 L Teller # (Auto) 0.2 Eos # (Auto) 0.0 Baso # (Auto) 0.0 WBC Differential Manual diff final Seg Neuts % (Manual) 74 H Band Neuts % (Manual) 11 H Lymphocytes % (Manual) 9 Monocytes % (Manual) 4 Eosinophils % (Manual) Metamyelocytes % (Man) 2 H Myelocytes % (Man) Abs Neuts (Manual) 4.9 Differential Comment . Toxic Granulation 1+ H Platelet Estimate Normal Platelet Morphology Normal Ovalocytes 1+ H Acanthocytes (Spur) Occ H PT INR APTT Sodium 139 136 Potassium 4.1 4.1 Chloride 105 104 Carbon Dioxide 25.4 23.9 Anion Gap 9 8 BUN 12 12 Creatinine 0.60 0.53 L Estimated GFR Greater than 89 Greater than 89 Random Glucose 105 94 Calcium 8.3 L 8.6 Magnesium Total Bilirubin 0.2 0.3 AST 12 L 16 ALT 18 20 Alkaline Phosphatase 76 78 Total Creatine Kinase Troponin I Total Protein 7.1 7.6 Albumin 2.5 L 2.8 L Urine Color Urine Clarity Urine pH Ur Specific [place] Urine Protein Urine Glucose (UA) Urine Ketones Urine Occult Blood Urine Nitrate Urine Bilirubin Urine Urobilinogen Ur Leukocyte Esterase Urine RBC Urine WBC Ur Squamous Epith Cells Amorphous Sediment Hyaline Casts Urine Mucus Micro UA Comment Urine Culture Comments HIV-1 Antibody HIV-2 Antibody HIV (1&2) Ag & Ab Refer HIV 1&2 Ab/P24 Ag 4thGn Toxoplasma IgM Ab - Imaging Chest X-Ray 04/19/18 11:56 CONCLUSION: No acute cardiopulmonary disease Head CT 04/19/18 11:56 CONCLUSION: 1. 2 cm low-density masslike lesion in the left frontal region causing obscuration of the frontal horn and with less than 2 mm midline shift towards the right. Recommend further characterization of this abnormality with MRI of the brain with and without contrast. . Head MRI 04/19/18 13:41 CONCLUSION: 1. Irregularly enhancing mass with epicenter in the head of the left caudate nucleus causing mild midline shift and with mild surrounding edema. Malignant tumors and neuroepithelial tumors are differential considerations. Abdomen/Pelvis CT 04/20/18 00:00 CONCLUSION: 1. 2 rounded hypodensities in the liver. The largest hypodensity likely represents a hemangioma. The second is too small to definitively characterize but is most likely to represent a cyst or hemangioma.. 2. Degenerative findings of the lower lumbar spine and sacroiliac joints. 3. Small amount of free fluid in the pelvis. 4. No enlarged lymph nodes in the abdomen and pelvis. Chest CT 04/20/18 00:00 CONCLUSION: 1. Tree in bud opacity in the left lower lobe along with bronchiectasis and bronchial plugging likely representing inflammatory process such as atypical mycobacterial infection. 2. Enlarged bilateral axillary lymph nodes. Right axillary surgical clips. Assessment and Plan - Plan 82-year-old -[place] male who was admitted to the hospital on 04/19/2018 due to altered mental status as well as generalized weakness. ED workup indicated a left frontal mass. HIV testing and toxoplasmosis testing are pending. Awaiting determination of toxoplasmosis prior to initiating therapy. Awaiting to determine if patient is AIDS status- SUSPECTED FULL BLOWN AIDS. Patient is stable compared to yesterday. May be toxoplasmosis rather than cancer, in setting of HIV. ID following. Left frontal brain mass Neurosurgery following Continue Decadron Continue Keppra Atypical chest mass, possible pneumonia Continue Levaquin Bactrim added. No clinical signs of pneumonia No leukocytosis HOMELESS AND QUITE3 CACHECTIC DVT prophylaxis SCDs Code Status: DNR Discussed Condition With: RN AND PT AND CM Discharge Planning: Will probably need palliative care and POSSIBLY HOSPICE
[2018-04-26] MEDS: Sod Chloride 0.9% Inj 1,000 ML IV.CONT SCH ×2 (13:44→18:02)
--- NOTE | 2018-04-26 18:08 | P.PNID ---
Subjective Remarks: appears awake talks approprietely MRI was dw Dr Gruber: 2nd enchancing lesion is present in cerebellum ASfebrile correct weight is 44 kg Antibiotics: bactrim levaquine Allergies/Adverse Reactions: Allergies poornima Allergy (Mild, Verified 04/19/18 15:26) HIVES Objective Vital Signs 04/25/18 20:40 04/26/18 00:00 04/26/18 00:35 Temperature 97.7 F 98 F 97.4 F L Pulse Rate 53 L 51 L 56 L Respiratory Rate 20 20 18 Blood Pressure 95/58 L 177/82 H 154/82 H Pulse Oximetry 93 L 98 96 04/26/18 04:00 04/26/18 08:00 04/26/18 12:00 Temperature 97.4 F L 97.4 F L 97.7 F Pulse Rate 53 L 53 L 110 H Respiratory Rate 16 12 14 Blood Pressure 153/75 H 136/72 134/72 Pulse Oximetry 99 95 97 04/26/18 16:00 Temperature 97.4 F L Pulse Rate 56 L Respiratory Rate 16 Blood Pressure 141/65 H Pulse Oximetry 100 Intake & Output 04/25/18 04/26/18 04/26/18 18:59 06:59 18:59 Intake Total 1210 / 1210 1105 / 1105 2200 / 2200 Output Total 1700 / 1700 650 / 650 Balance -490 / -490 455 / 455 2200 / 2200 Weight 45 kg Intake: IV 1210 / 1210 1105 / 1105 1000 / 1000 NS Inj 1,000 ML @ 100 mls/hr IV 1000 / 1000 1000 / 1000 1000 / 1000 .CONT .Q10H HAN Rx#:[id number] Keppra Inj 500 MG In NS Inj 100 210 / 210 105 / 105 ML @ 420 mls/hr IV.SIG Q12H HAN Rx#:[id number] Oral 1200 / 1200 Output: Urine 1700 / 1700 650 / 650 Other: Post Void Residual 700 Date of Last Bowel Movement 04/25/18 04/25/18 Imaging: ITS Impressions Chest X-Ray 04/19/18 11:56 CONCLUSION: No acute cardiopulmonary disease Head CT 04/19/18 11:56 CONCLUSION: 1. 2 cm low-density masslike lesion in the left frontal region causing obscuration of the frontal horn and with less than 2 mm midline shift towards the right. Recommend further characterization of this abnormality with MRI of the brain with and without contrast. . Head MRI 04/19/18 13:41 CONCLUSION: 1. Irregularly enhancing mass with epicenter in the head of the left caudate nucleus causing mild midline shift and with mild surrounding edema. Malignant tumors and neuroepithelial tumors are differential considerations. Abdomen/Pelvis CT 04/20/18 00:00 CONCLUSION: 1. 2 rounded hypodensities in the liver. The largest hypodensity likely represents a hemangioma. The second is too small to definitively characterize but is most likely to represent a cyst or hemangioma.. 2. Degenerative findings of the lower lumbar spine and sacroiliac joints. 3. Small amount of free fluid in the pelvis. 4. No enlarged lymph nodes in the abdomen and pelvis. Chest CT 04/20/18 00:00 CONCLUSION: 1. Tree in bud opacity in the left lower lobe along with bronchiectasis and bronchial plugging likely representing inflammatory process such as atypical mycobacterial infection. 2. Enlarged bilateral axillary lymph nodes. Right axillary surgical clips. Physical Exam: GENERAL: NAD SKIN: Warm and dry. Very dry with extensive excoriations HEAD: Atraumatic. Normocephalic. Alopecia EYES: Pupils equal and round. No scleral icterus. No injection or drainage. ENT: No nasal bleeding or discharge. Mucous membranes pink and moist. NECK: Trachea midline. No JVD. CARDIOVASCULAR: Regular rate and rhythm. RESPIRATORY: No accessory muscle use. Clear to auscultation. Breath sounds equal bilaterally. GASTROINTESTINAL: Abdomen soft, non-tender, nondistended. Hepatic and splenic margins not palpable. MUSCULOSKELETAL: Extremities without clubbing, cyanosis, or edema. No obvious deformities. marked loss of muscle bulk NEUROLOGICAL: Awake and alert. No obvious cranial nerve deficits. Motor grossly within normal limits. Five out of 5 muscle strength in the arms and legs. Normal speech. 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 MRI dw radiologist: cw toxo, and also can be malignancy - 2 masses Atypical mycobacteremial pulmonary infection ? L axillae mases/ Lymphadenopathy Will treat empirically toxo with repeating MRI in 2 weeks dw pharmacists none of the 1st line agents (pyremethamine, sulfadiazine) are not available cont bactrim for now, max out the dose while awating for 1st line drugs toxo serologies Fluconazole for oral thrush sputum/bnlood mycobacterial clx Overall prognosis seems to be extremely poor will recommend palliative care consultation CD4 count If toxo IgG negative will need bx to establish dx With positive serologies will Rx empiricallyu ABF sputum and blood clx adrián Batres
[2018-04-27] MEDS: Sod Chloride 0.9% Inj 1,000 ML IV.CONT SCH ×2 (05:15→16:24)
[2018-04-27 07:16] LABS: Baso % (Auto) 0.1 % (0.0-2.0); Lymph # (Auto) 0.5 th/mm3 (1.0-4.8); Lymph % (Auto) 7.8 % (9.0-44.0); Mean Corpuscular HGB Conc 33.2 % (32.0-36.0); Mean Corpuscular Hemoglobin 28.2 pg (27.0-34.0); Mean Corpuscular Volume 84.8 fL (80.0-100.0); Mean Platelet Volume 7.5 fL (7.0-11.0); Mono # (Auto) 0.4 th/mm3 (0.0-0.9); Mono % (Auto) 6.8 % (0.0-8.0); Neut # (Auto) 5.1 th/mm3 (1.8-7.7); Neut % (Auto) 85.3 % (16.0-70.0); Platelet Count 318 th/mm3 (150-450); Red Cell Distribution Width 16.2 % (11.6-17.2)
[2018-04-27 07:29] LABS: Albumin 2.7 g/dL (3.4-5.0); Anion Gap 8 meq/L (5-15); Aspartate Aminotransferase 12 U/L (15-37); Blood Urea Nitrogen 16 mg/dL (7-18); Calcium 8.6 mg/dL (8.5-10.1); Carbon Dioxide 24.3 meq/L (21.0-32.0); Chloride 103 meq/L (98-107); Glomerular Filtration Rate Greater Than 89 mL/min (>89); Glucose,Random 84 mg/dL (74-106); Magnesium 2.3 mg/dL (1.5-2.5); Potassium 4.3 meq/L (3.5-5.1); Sodium 135 meq/L (136-145)
[2018-04-27 07:33] LABS: Alanine Aminotransferase 19 U/L (12-78); Alkaline Phosphatase 70 U/L (45-117); Phosphorus 3.7 mg/dL (2.5-4.9)
[2018-04-27 08:12] LABS: Ovalocytes 2+; Platelet Estimate Normal (Normal); Platelet Morphology Normal (Normal)
[2018-04-27] MEDS: Senna/Docusate Sodium 8.6/50 MG Tablet PO SCH ×2 (09:20→22:11)
[2018-04-27] MEDS: SULFADIAZINE 500 MG PO SCH ×4 (09:21→22:16)
[2018-04-27] MEDS: Famotidine PF Inj 20 MG/2 ML Vial IV.PUSH SCH ×2 (09:21→22:11)
--- NOTE | 2018-04-27 13:23 | P.PNADD ---
Addendum to Inpatient Note Additional information: TOxo serologies are neg both IgM and IgG making dx of cerebral toxo less likely and empiric pre-bx treatment is not recommended in this case - will repeat MRI - will consult neurosurgery after repeat MR cont TS high dose at this point will not start Sulfadiazin/daraprim/leukovorin at this point MAC profilaxis
[2018-04-27] MEDS ORDERED: Custom Consult Pharmacy 1 EACH OTHER SCH (14:00)
--- NOTE | 2018-04-27 14:17 | P.PN ---
Subjective Interval history: Follow-up on patient with HIV, brain mass, concern for toxoplasmosis, likely full blown AIDS. Patient seen and examined. Patient denies any acute medical complaints. He is somewhat confused and is oriented x 2. Discussed with nursing staff, no acute issues noted. Physical Exam Vital signs: Vital Signs 04/26/18 16:00 04/26/18 20:00 04/27/18 00:00 Temperature 97.4 F L 98.1 F 97.6 F Pulse Rate 56 L 96 H 53 L Respiratory Rate 16 18 18 Blood Pressure 141/65 H 104/70 159/70 H Pulse Oximetry 100 98 92 L 04/27/18 04:00 04/27/18 08:00 04/27/18 12:00 Temperature 97 F L 97.4 F L 98.6 F Pulse Rate 54 L 61 94 H Respiratory Rate 18 18 15 Blood Pressure 142/83 H 161/86 H 149/77 H Pulse Oximetry 100 98 95 Intake & Output 04/26/18 04/27/18 04/27/18 18:59 06:59 18:59 Intake Total 2305 / 2305 1105 / 1105 Balance 2305 / 2305 1105 / 1105 Weight 45.6 kg Intake: IV 1105 / 1105 1105 / 1105 NS Inj 1,000 ML @ 100 mls/hr IV 1000 / 1000 1000 / 1000 .CONT .Q10H HAN Rx#:[id number] Keppra Inj 500 MG In NS Inj 100 105 / 105 105 / 105 ML @ 420 mls/hr IV.SIG Q12H HAN Rx#:[id number] Oral 1200 / 1200 Other: Post Void Residual 700 Date of Last Bowel Movement 04/25/18 04/25/18 04/25/18 Narrative: GENERAL: This is a thin, frail, extremely cachectic appearing -[place] male patient, INAD. A&Ox2. SKIN: Warm and dry. No generalized rash. HEENT: Normocephalic. EOMI. No sclera icterus. No nasal drainage. Airway patent. MMM. NECK: Supple, trachea midline. No lymphadenopathy. CARDIOVASCULAR: Regular rate and rhythm without murmurs, gallops, or rubs. S1, S2 NO S3 OR S4 RESPIRATORY: Breath sounds equal bilaterally. No accessory muscle use. Clear to auscultation. GASTROINTESTINAL: Abdomen soft, non-tender, nondistended. +BS. MUSCULOSKELETAL: No cyanosis or edema. NEURO: Awake. Oriented 2. Able to move all extremities spontaneously. No focal neurological deficits. Clear speech. PSYCHIATRIC: Calm and cooperative. - Urinary Catheter Management Indwelling Urethral Catheter Cath placed during this visit: yes Reason for continuing: Chronic Urinary Retention Insertion date: 04/26/18 Results - Labs CBC & Chem 7: 04/27/18 06:41 04/27/18 06:41 Laboratory Results - last 24 hr 04/22/18 04/24/18 04/27/18 21:26 07:18 06:41 WBC 6.0 RBC 3.90 L Hgb 11.0 L Hct 33.0 L MCV 84.8 MCH 28.2 MCHC 33.2 RDW 16.2 Plt Count 318 MPV 7.5 Prelim Diff (Auto) Slide review pending Neut % (Auto) 85.3 H Lymph % (Auto) 7.8 L Gregg % (Auto) 6.8 Eos % (Auto) 0.0 Baso % (Auto) 0.1 Neut # (Auto) 5.1 Lymph # (Auto) 0.5 L Gregg # (Auto) 0.4 Eos # (Auto) 0.0 Baso # (Auto) 0.0 WBC Differential . Diff Scan Auto diff confirmed Differential Comment . Platelet Estimate Normal Platelet Morphology Normal Ovalocytes 2+ H Keratocytes Occ H Sodium Potassium Chloride Carbon Dioxide Anion Gap BUN Creatinine Estimated GFR Random Glucose Calcium Phosphorus Magnesium Total Bilirubin AST ALT Alkaline Phosphatase Total Protein Albumin Absolute Lymphocytes 494 L % CD3 Cells 78 Absolute CD3 Count 385 L % CD3-/CD16+/CD56+ 12 Abs CD3-/CD16+/CD56+ 62 L % CD4 Cells 3 L Absolute CD4 Count Less than 20 L T-Help/Suppress Ratio 0.10 L % CD8 Cells 77 H Absolute CD8 Count 359 % CD19 Cells 9 Absolute CD19 Count 46 L Toxoplasma IgG Ab <7.20 04/27/18 06:41 WBC RBC Hgb Hct MCV MCH MCHC RDW Plt Count MPV Prelim Diff (Auto) Neut % (Auto) Lymph % (Auto) Gregg % (Auto) Eos % (Auto) Baso % (Auto) Neut # (Auto) Lymph # (Auto) Gregg # (Auto) Eos # (Auto) Baso # (Auto) WBC Differential Diff Scan Differential Comment Platelet Estimate Platelet Morphology Ovalocytes Keratocytes Sodium 135 L Potassium 4.3 Chloride 103 Carbon Dioxide 24.3 Anion Gap 8 BUN 16 Creatinine 0.53 L Estimated GFR Greater than 89 Random Glucose 84 Calcium 8.6 Phosphorus 3.7 Magnesium 2.3 Total Bilirubin 0.2 AST 12 L ALT 19 Alkaline Phosphatase 70 Total Protein 7.0 D Albumin 2.7 L Absolute Lymphocytes % CD3 Cells Absolute CD3 Count % CD3-/CD16+/CD56+ Abs CD3-/CD16+/CD56+ % CD4 Cells Absolute CD4 Count T-Help/Suppress Ratio % CD8 Cells Absolute CD8 Count % CD19 Cells Absolute CD19 Count Toxoplasma IgG Ab Assessment and Plan - Plan 62-year-old -[place] male who was admitted to the hospital on 04/19/2018 due to altered mental status as well as generalized weakness. ED workup indicated a left frontal mass. Left frontal brain mass Concern for possible toxoplasmosis HIV/end stage AIDS, no prior HAART tx ID following -toxoplasmosis serologies negative, cerebral toxoplasmosis less likely. Repeat MRI ordered. Likely will undergo biopsy. Neurosurgery following Continue Decadron Continue Keppra MAC prophylaxis per ID Palliative care following, appreciate assistance Atypical chest mass, possible pneumonia ?atypical mycobacterial pulmonary infection Continue Bactrim per ID No clinical signs of pneumonia No leukocytosis Severe protein calorie malnutrition Deconditioned, generalized weakness Consult Appliance Line Assembler Add Ensure with meals Continue with PT DVT prophylaxis SCDs Discussed Condition With: Patient, nursing staff, case management, Dr. Myrick Discharge Planning: Not ready for discharge. Workup in progress. Discharge pending neurosurgery and ID clearance.
[2018-04-27] MEDS ORDERED: Gadobutrol PF 10 MMOL/10 ML Vial (for RAD) IV.SIG ONE ×2 (14:52→16:50)
--- NOTE | 2018-04-27 14:52 | MR ---
EXAM DATE: 04/27/2018 2:47 PM EDT AGE/SEX: 62 years / Male INDICATIONS: Stenosis. CLINICAL DATA: This is the patient's initial encounter. Patient reports that signs and symptoms have been present for 1 week and indicates a pain score of 0/10. MEDICAL/SURGICAL HISTORY: HIV. Hypertension. None. COMPARISON: [facility] – [place], MR HEAD W & W/O CONTRAST, 04/19/2018. . TECHNIQUE: MR cerebral venography is performed without and with 10 ml Gadavist (gadobutrol) contrast (single exam dose). Source images, 3D volume MIP, and sliding thin slab MIP reconstructions were re viewed. FINDINGS: The superior sagittal sinus, straight sinus, transverse sinuses, sigmoid sinuses are all patent. The inferior sagittal sinus is not clearly visualized most likely technical. CONCLUSION: 1. Unremarkable study. Electronically signed by: Kirstin Freitas MD 04/27/2018 2:51 PM EDT
[2018-04-27] MEDS: levETIRAcetam 500 MG Tablet PO SCH (22:11)
[2018-04-28] MEDS: Sod Chloride 0.9% Inj 1,000 ML IV.CONT SCH ×2 (04:04→19:41)
--- NOTE | 2018-04-28 09:41 | P.PN ---
Subjective Interval history: Follow-up on patient with HIV, brain mass, concern for toxoplasmosis, likely full blown AIDS. Patient seen and examined. Patient is sitting on side of bed eating breakfast. He denies any new medical complaints. He denies any headache , vision changes, new weakness, fever or chills. Denies any cough, chest pain or shortness of breath. He denies any nausea, vomiting or abdominal pain. Physical Exam Vital signs: Vital Signs 04/27/18 12:00 04/27/18 16:00 04/27/18 20:00 Temperature 98.6 F 98.3 F 98.1 F Pulse Rate 94 H 82 84 Respiratory Rate 15 15 18 Blood Pressure 149/77 H 114/66 126/74 Pulse Oximetry 95 98 95 04/28/18 00:00 04/28/18 04:00 Temperature 98.2 F 97.5 F L Pulse Rate 71 49 L Respiratory Rate 18 18 Blood Pressure 149/72 H 149/70 H Pulse Oximetry 98 98 Intake & Output 04/27/18 04/28/18 04/28/18 18:59 06:59 18:59 Intake Total 1000 / 1000 1105 / 1105 Balance 1000 / 1000 1105 / 1105 Weight 44.9 kg Intake: IV 1000 / 1000 1105 / 1105 NS Inj 1,000 ML @ 100 mls/hr IV 1000 / 1000 1000 / 1000 .CONT .Q10H HAN Rx#:[id number] Keppra Inj 500 MG In NS Inj 100 105 / 105 ML @ 420 mls/hr IV.SIG Q12H HAN Rx#:[id number] Other: # Voids 2 4 Date of Last Bowel Movement 04/25/18 04/28/18 # Bowel Movements 1 1 Narrative: GENERAL: This is a thin, frail, extremely cachectic appearing -[place] male patient, INAD. A&Ox2. Sitting on side of bed eating breakfast. SKIN: Warm and extremely dry. No generalized rash. HEENT: Normocephalic. EOMI. No sclera icterus. No nasal drainage. Airway patent. MMM. NECK: Supple, trachea midline. No lymphadenopathy. CARDIOVASCULAR: Regular rate and rhythm without murmurs, gallops, or rubs. RESPIRATORY: Breath sounds equal bilaterally. No accessory muscle use. Clear to auscultation. GASTROINTESTINAL: Abdomen soft, non-tender, nondistended. +BS. MUSCULOSKELETAL: No cyanosis or edema. NEURO: Awake. Oriented 2. Able to move all extremities spontaneously. No focal neurological deficits. Clear speech. PSYCHIATRIC: Calm and cooperative. - Urinary Catheter Management Indwelling Urethral Catheter Cath placed during this visit: yes Reason for continuing: Chronic Urinary Retention Insertion date: 04/26/18 Results - Labs CBC & Chem 7: 04/27/18 06:41 04/27/18 06:41 - Imaging Impressions Head/Brain Mag Res Venography 04/27/18 00:00 CONCLUSION: 1. Unremarkable study. ITS Impressions Chest X-Ray 04/19/18 11:56 CONCLUSION: No acute cardiopulmonary disease Head CT 04/19/18 11:56 CONCLUSION: 1. 2 cm low-density masslike lesion in the left frontal region causing obscuration of the frontal horn and with less than 2 mm midline shift towards the right. Recommend further characterization of this abnormality with MRI of the brain with and without contrast. . Head MRI 04/19/18 13:41 CONCLUSION: 1. Irregularly enhancing mass with epicenter in the head of the left caudate nucleus causing mild midline shift and with mild surrounding edema. Malignant tumors and neuroepithelial tumors are differential considerations. Abdomen/Pelvis CT 04/20/18 00:00 CONCLUSION: 1. 2 rounded hypodensities in the liver. The largest hypodensity likely represents a hemangioma. The second is too small to definitively characterize but is most likely to represent a cyst or hemangioma.. 2. Degenerative findings of the lower lumbar spine and sacroiliac joints. 3. Small amount of free fluid in the pelvis. 4. No enlarged lymph nodes in the abdomen and pelvis. Chest CT 04/20/18 00:00 CONCLUSION: 1. Tree in bud opacity in the left lower lobe along with bronchiectasis and bronchial plugging likely representing inflammatory process such as atypical mycobacterial infection. 2. Enlarged bilateral axillary lymph nodes. Right axillary surgical clips. Head/Brain Mag Res Venography 04/27/18 00:00 CONCLUSION: 1. Unremarkable study. Assessment and Plan - Plan 62-year-old -[place] male who was admitted to the hospital on 04/19/2018 due to altered mental status as well as generalized weakness. ED workup indicated a left frontal mass. Left frontal brain mass, per ID multiple lesions noted Concern for possible toxoplasmosis HIV/end stage AIDS, no prior HAART tx ID following -Discussed with Dr. Dimas - toxoplasmosis serologies negative, cerebral toxoplasmosis less likely. ?Multifocal lymphoma. Per ID, repeat MRI study ordered and based off results may reconsult NS for possible biopsy. MRV study unremarkable Continue Decadron Continue Keppra MAC prophylaxis per ID supportive care Palliative care following, appreciate assistance Atypical chest mass, possible pneumonia ?atypical mycobacterial pulmonary infection Continue Bactrim per ID No clinical signs of pneumonia No leukocytosis Oral candidiasis Diflucan started by ID Severe protein calorie malnutrition Deconditioned, generalized weakness Consult Service Establishment Attendant continue Ensure with meals Continue with PT DVT prophylaxis Heparin Discussed Condition With: Patient, nursing staff, Dr. Dimas, Dr. Myrick Discharge Planning: Not ready for discharge. Workup in progress. Discharge pending neurosurgery and ID clearance.
[2018-04-28] MEDS: Senna/Docusate Sodium 8.6/50 MG Tablet PO SCH ×2 (09:44→22:30)
[2018-04-28] MEDS: levETIRAcetam 500 MG Tablet PO SCH ×2 (09:44→22:30)
[2018-04-28] MEDS: SULFADIAZINE 500 MG PO SCH ×4 (09:44→22:36)
--- NOTE | 2018-04-28 13:01 | P.DIET ---
Nutritional Evaluation Type of nutrition evaluation: initial Nutrition screening: [facility] [place] ([place]) Subjective Subjective Comments: Eating 100%. Pt has reported weight loss and is homeless. There is no height in EMR. Objective - Diagnosis AMS - Objective Body Weight Used for Calculations: Actual (44.9 kg) Energy Needs - Lower Range (kCal/kg): 35 Energy Needs - Upper Range (kCal/kg): 40 Lower Limit kCal/kg (kCals): 1,572 Upper Limit kCal/kg (kCals): 1,796 Lower Limit Protein Factor (Grams per Kg): 1.5 Upper Limit Protein Factor (Grams per Kg): 2.0 Lower Protein Needs (Protein): 67 Upper Protein Needs (Protein): 90 Fluid Factor (ml/kg): 35 Estimated Fluid Needs (ml): 1,572 Dietitian Reviewed in Medical Record: Current diet, Curent medications, Intake & Output, Labs, Medical history Diet Order: Regular Oral Diet Intake Amount: Excellent 90%+ Speech Therapy Recommendations: Yes Objective Comments: Allergy: poornima Meds include decadron, pepcid, diflucan Assessment Assessment: Pt admitted with AMS and weakness and now with brain mass, HIV and possible toxoplasmosis. Consult for malnutrition acknowledged. He is at high nutrition risk 2' to dx, wt loss and low wt. No ht currently available to calculate a BMI. Will send Ensure Enlive tid: each 8 oz serving provides 350 kcals and 20 gms protein. PO intake is currently very good. Recommendations: 1. Continue regular diet 2. Ensure Enlive tid 3. Please oreder a MVI/min q day
[2018-04-28] MEDS ORDERED: Gadobutrol PF 7.5 MMOL/7.5 ML Vial (for RAD) IV.SIG ONE (13:57)
--- NOTE | 2018-04-28 14:24 | MR ---
EXAM DATE: 04/28/2018 2:13 PM EDT AGE/SEX: 62 years / Male INDICATIONS: Mass. Possible brain lesions. CLINICAL DATA: This is the patient's initial encounter. Patient reports that signs and symptoms have been present for 1 day and indicates a pain score of 7/10. MEDICAL/SURGICAL HISTORY: None. None. COMPARISON: [facility] – [place], MR HEAD W & W/O CONTRAST, 04/19/2018. . TECHNIQUE: Multiplanar, multisequence examination of the brain was performed without and with 4.50 ml Gadavist (gadobutrol) contrast as a single exam dose. FINDINGS: Problems specific findings: The examination demonstrates a heterogeneously enhancing mass measuring 2 .7 x 2.5 x 1.6 cm involving the left side of the thalamus. There is significant mass effect on the le ft lateral ventricle. There is a small amount of surrounding vasogenic edema. Of concern, on the alyssia nal postcontrast T1-weighted images there is abnormal contrast enhancement extending down to the uppe r most portion of the cerebral peduncle on the left. It is potential this represents some degree of v enous obstruction however, tumor involvement down to the cerebral peduncle is not excluded. No other enhancing mass lesions are seen within the brain parenchyma. The exam is compared to the previous mike ed 04/19/2018 and appears similar. There is only minimal diffusion signal within this. MRI source data: There is mass effect on the lateral horn of the ventricular system on the left. The ventricular system is otherwise normal in size. No extra-axial fluid collections are seen. The appear ance of the posterior fossa is unremarkable. The visualized portion of sinus and orbit are intact. CONCLUSION: 1. 2.7 x 2.5 x 1.6 cm heterogeneously enhancing mass involving the left side of the thalamus concern ing for malignancy. 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 This is similar in appeara nce compared to previous examination of 04/19/2018. Electronically signed by: Jose M Cortez MD 04/28/2018 2:23 PM EDT
--- NOTE | 2018-04-28 14:38 | P.PNADD ---
Addendum to Inpatient Note Additional information: MRI repeated: no change. Per radiolgist cw malignancy - consult neuro surgeron
[2018-04-28] MEDS: Famotidine PF Inj 20 MG/2 ML Vial IV.PUSH SCH (19:42)
[2018-04-28] MEDS: Heparin - SQ 10,000 UNITS/ML Vial SQ SCH (22:29)
[2018-04-28] MEDS: Famotidine 20 MG Tablet PO SCH (22:30)
[2018-04-29] MEDS: Senna/Docusate Sodium 8.6/50 MG Tablet PO SCH ×2 (09:12→21:23)
[2018-04-29] MEDS: Famotidine 20 MG Tablet PO SCH ×2 (09:12→21:23)
[2018-04-29] MEDS: levETIRAcetam 500 MG Tablet PO SCH ×2 (09:12→21:23)
[2018-04-29] MEDS: Heparin - SQ 10,000 UNITS/ML Vial SQ SCH ×2 (09:13→21:23)
[2018-04-29] MEDS: SULFADIAZINE 500 MG PO SCH ×4 (09:13→21:29)
--- NOTE | 2018-04-29 17:23 | P.PN ---
Subjective Interval history: Delayed entry - patient seen around 10am Follow-up on patient with HIV, brain mass, concern for toxoplasmosis, likely full blown AIDS. Patient seen and examined. Patient has no complaints at this time. Discussed with nursing staff, no acute issues noted Physical Exam Vital signs: Vital Signs 04/28/18 20:00 04/29/18 00:00 04/29/18 04:00 Temperature 98.1 F 98.1 F 98.1 F Pulse Rate 100 H 98 H 90 Respiratory Rate 18 Blood Pressure 130/80 135/81 140/83 Pulse Oximetry 99 100 100 04/29/18 08:00 04/29/18 12:00 04/29/18 16:00 Temperature 97.6 F 98.5 F 98.3 F Pulse Rate 80 93 H 91 H Respiratory Rate 18 Blood Pressure 124/75 113/61 108/64 Pulse Oximetry 99 97 96 Intake & Output 04/28/18 04/29/18 04/29/18 18:59 06:59 18:59 Intake Total 1000 / 1000 Output Total 500 / 500 200 / 200 Balance -500 / -500 800 / 800 Weight 44.9 kg Intake: IV 1000 / 1000 NS Inj 1,000 ML @ 100 mls/hr IV 1000 / 1000 .CONT .Q10H HAN Rx#:[id number] Output: Urine 500 / 500 200 / 200 Other: # Voids 6 # Incontinent Voids 2 Date of Last Bowel Movement 04/28/18 04/28/18 04/28/18 Narrative: GENERAL: This is a thin, frail, extremely cachectic appearing -[place] male patient, INAD. A&Ox2. Lying in bed awake, appears comfortable. SKIN: Warm and extremely dry. No generalized rash. HEENT: Normocephalic. EOMI. No sclera icterus. No nasal drainage. Airway patent. MMM. NECK: Supple, trachea midline. No lymphadenopathy. CARDIOVASCULAR: Regular rate and rhythm without murmurs, gallops, or rubs. RESPIRATORY: Breath sounds equal bilaterally. No accessory muscle use. Clear to auscultation. GASTROINTESTINAL: Abdomen soft, non-tender, nondistended. +BS. MUSCULOSKELETAL: No cyanosis or edema. NEURO: Awake. Oriented 2. Able to move all extremities spontaneously. No focal neurological deficits. Clear speech. PSYCHIATRIC: Calm and cooperative. - Urinary Catheter Management Indwelling Urethral Catheter Cath placed during this visit: yes Reason for continuing: Chronic Urinary Retention Insertion date: 04/26/18 Results - Labs CBC & Chem 7: 04/27/18 06:41 04/27/18 06:41 - Imaging ITS Impressions Chest X-Ray 04/19/18 11:56 CONCLUSION: No acute cardiopulmonary disease Head CT 04/19/18 11:56 CONCLUSION: 1. 2 cm low-density masslike lesion in the left frontal region causing obscuration of the frontal horn and with less than 2 mm midline shift towards the right. Recommend further characterization of this abnormality with MRI of the brain with and without contrast. . Abdomen/Pelvis CT 04/20/18 00:00 CONCLUSION: 1. 2 rounded hypodensities in the liver. The largest hypodensity likely represents a hemangioma. The second is too small to definitively characterize but is most likely to represent a cyst or hemangioma.. 2. Degenerative findings of the lower lumbar spine and sacroiliac joints. 3. Small amount of free fluid in the pelvis. 4. No enlarged lymph nodes in the abdomen and pelvis. Chest CT 04/20/18 00:00 CONCLUSION: 1. Tree in bud opacity in the left lower lobe along with bronchiectasis and bronchial plugging likely representing inflammatory process such as atypical mycobacterial infection. 2. Enlarged bilateral axillary lymph nodes. Right axillary surgical clips. Head/Brain Mag Res Venography 04/27/18 00:00 CONCLUSION: 1. Unremarkable study. Head MRI 04/28/18 00:00 CONCLUSION: 1. 2.7 x 2.5 x 1.6 cm heterogeneously enhancing mass involving the left side of the thalamus concerning for malignancy. 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 This is similar in appearance compared to previous examination of 04/19/2018. Assessment and Plan - Plan 62-year-old -[place] male who was admitted to the hospital on 04/19/2018 due to altered mental status as well as generalized weakness. ED workup indicated a left frontal mass. Left frontal brain mass, per ID multiple lesions noted Concern for possible toxoplasmosis HIV/end stage AIDS, no prior HAART tx ID following -Discussed with Dr. Dimas - toxoplasmosis serologies negative, cerebral toxoplasmosis less likely. Repeat MRI shows enhancing mass concerning for malignancy. Neurosurgery consulted. Continue Decadron Continue Keppra MAC prophylaxis per ID supportive care Palliative care following, appreciate assistance Atypical chest mass, possible pneumonia ?atypical mycobacterial pulmonary infection Continue Bactrim per ID No clinical signs of pneumonia No leukocytosis Oral candidiasis Diflucan started by ID Severe protein calorie malnutrition Deconditioned, generalized weakness Consult [employer] continue Ensure with meals Continue with PT DVT prophylaxis Heparin Discussed Condition With: patient, nursing staff, Dr. Hoang Discharge Planning: Not ready for discharge. Workup in progress. Discharge pending neurosurgery and ID clearance.
--- NOTE | 2018-04-30 07:45 | P.PN ---
Subjective Interval history: Follow-up on patient with HIV/AIDS, brain mass concerning for malignancy. Patient seen and examined. Patient requesting something for constipation. He reports cough with whitish sputum production. Denies any shortness of breath. He denies any fever or chills. Denies any complaints of chest pain. He denies any nausea, vomiting or abdominal pain. Physical Exam Vital signs: Vital Signs 04/29/18 08:00 04/29/18 12:00 04/29/18 16:00 Temperature 97.6 F 98.5 F 98.3 F Pulse Rate 80 93 H 91 H Respiratory Rate 18 18 Blood Pressure 124/75 113/61 108/64 Pulse Oximetry 99 97 96 04/29/18 20:00 04/30/18 00:00 04/30/18 01:58 Temperature 97.7 F 97.9 F Pulse Rate 85 71 Respiratory Rate 18 18 16 Blood Pressure 113/59 L 125/62 Pulse Oximetry 97 98 04/30/18 04:00 04/30/18 07:39 Temperature 97.6 F 98.0 F Pulse Rate 65 71 Respiratory Rate 18 12 Blood Pressure 140/82 131/74 Pulse Oximetry 98 99 Intake & Output 04/29/18 04/30/18 04/30/18 18:59 06:59 18:59 Output Total 100 / 100 Balance -100 / -100 Weight 44.9 kg Output: Urine 100 / 100 Other: # Voids 6 # Incontinent Voids 2 Date of Last Bowel Movement 04/28/18 04/28/18 Narrative: GENERAL: This is a thin, frail, extremely cachectic appearing -[place] male patient, INAD. A&Ox2. Lying in bed awake. SKIN: Warm and extremely dry. No generalized rash. HEENT: Normocephalic. EOMI. No sclera icterus. No nasal drainage. Airway patent. MMM. NECK: Supple, trachea midline. No lymphadenopathy. CARDIOVASCULAR: Regular rate and rhythm without murmurs, gallops, or rubs. RESPIRATORY: No accessory muscle use. Fair air entry. No wheezing noted. GASTROINTESTINAL: Abdomen soft, non-tender, nondistended. +BS. MUSCULOSKELETAL: No cyanosis or edema. NEURO: Awake. Oriented 2. Able to move all extremities spontaneously. No focal neurological deficits. Clear speech. PSYCHIATRIC: Calm and cooperative. Flat affect. - Urinary Catheter Management Indwelling Urethral Catheter Cath placed during this visit: yes Reason for continuing: Chronic Urinary Retention Insertion date: 04/26/18 Results - Labs CBC & Chem 7: 04/30/18 12:58 04/27/18 06:41 - Imaging ITS Impressions Chest X-Ray 04/19/18 11:56 CONCLUSION: No acute cardiopulmonary disease Head CT 04/19/18 11:56 CONCLUSION: 1. 2 cm low-density masslike lesion in the left frontal region causing obscuration of the frontal horn and with less than 2 mm midline shift towards the right. Recommend further characterization of this abnormality with MRI of the brain with and without contrast. . Abdomen/Pelvis CT 04/20/18 00:00 CONCLUSION: 1. 2 rounded hypodensities in the liver. The largest hypodensity likely represents a hemangioma. The second is too small to definitively characterize but is most likely to represent a cyst or hemangioma.. 2. Degenerative findings of the lower lumbar spine and sacroiliac joints. 3. Small amount of free fluid in the pelvis. 4. No enlarged lymph nodes in the abdomen and pelvis. Chest CT 04/20/18 00:00 CONCLUSION: 1. Tree in bud opacity in the left lower lobe along with bronchiectasis and bronchial plugging likely representing inflammatory process such as atypical mycobacterial infection. 2. Enlarged bilateral axillary lymph nodes. Right axillary surgical clips. Head/Brain Mag Res Venography 04/27/18 00:00 CONCLUSION: 1. Unremarkable study. Head MRI 04/28/18 00:00 CONCLUSION: 1. 2.7 x 2.5 x 1.6 cm heterogeneously enhancing mass involving the left side of the thalamus concerning for malignancy. 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 This is similar in appearance compared to previous examination of 04/19/2018. Assessment and Plan - Assessment (1) Brain mass Code(s): G93.9 - Disorder of brain, unspecified Status: Acute (2) Anorexia Code(s): R63.0 - Anorexia Status: Acute (3) HIV disease Code(s): B20 - Human immunodeficiency virus [HIV] disease Status: Acute (4) AIDS Code(s): B20 - Human immunodeficiency virus [HIV] disease Status: Acute - Plan 62-year-old -[place] male who was admitted to the hospital on 04/19/2018 due to altered mental status as well as generalized weakness. ED workup indicated a left frontal mass. Left frontal brain mass, per ID multiple lesions noted Concern for possible toxoplasmosis HIV/end stage AIDS, no prior HAART tx ID following -Discussed with Dr. Dimas - toxoplasmosis serologies negative, cerebral toxoplasmosis less likely. Repeat MRI shows enhancing mass concerning for malignancy. Neurosurgery consulted for biopsy. Discussed with Farhad Vazquez - likely will be done Saturday or Saturday. Continue Decadron Continue Keppra MAC prophylaxis per ID supportive care Palliative care following, appreciate assistance Atypical chest mass, possible pneumonia ?atypical mycobacterial pulmonary infection patient c/o cough with whitish sputum production this am No respiratory distress. Pulse Ox 99% on RA. Obtain CXR. Repeat CBC. Continue Bactrim per ID Oral candidiasis Diflucan started by ID Severe protein calorie malnutrition Deconditioned, generalized weakness [employer] following continue Ensure with meals Continue with PT Constipation continue scheduled PeriColace give dose of Miralax x 1 now monitor for BM DVT prophylaxis Heparin Discussed Condition With: patient, nursing staff, Dr. Hoang Discharge Planning: Not ready for discharge. Workup in progress. Discharge pending neurosurgery and ID clearance.
[2018-04-30] MEDS: Famotidine 20 MG Tablet PO SCH ×2 (08:03→22:21)
[2018-04-30] MEDS: Senna/Docusate Sodium 8.6/50 MG Tablet PO SCH ×2 (08:03→22:21)
[2018-04-30] MEDS: Multivitamin/Minerals Therapeutic Tablet PO SCH (08:03)
[2018-04-30] MEDS: levETIRAcetam 500 MG Tablet PO SCH ×2 (08:03→22:23)
[2018-04-30] MEDS: SULFADIAZINE 500 MG PO SCH ×4 (08:03→22:24)
[2018-04-30] MEDS: Heparin - SQ 10,000 UNITS/ML Vial SQ SCH ×2 (08:04→22:24)
--- NOTE | 2018-04-30 12:52 | P.PNNS ---
Subjective Interval history: 62-year-old -[place] gentleman who is found to have a left caudate/ basal ganglia mass with irregular enhancement margins and necrotic center during the current admission and also diagnosed with HIV/AIDS. He was started on toxoplasmosis treatment empirically and seen by infectious disease and medical oncology. His toxoplasma titers have come back negative and follow-up imaging scan the size of the mass is stable. He has been made a DNR and also being followed by palliative care. He complains of some right-sided weakness and tremors but otherwise no other new symptoms. Physical Exam Vital signs: Vital Signs 04/29/18 16:00 04/29/18 20:00 04/30/18 00:00 Temperature 98.3 F 97.7 F 97.9 F Pulse Rate 91 H 85 71 Respiratory Rate 18 18 18 Blood Pressure 108/64 113/59 L 125/62 Pulse Oximetry 96 97 98 04/30/18 01:58 04/30/18 04:00 04/30/18 07:39 Temperature 97.6 F 98.0 F Pulse Rate 65 71 Respiratory Rate 16 18 12 Blood Pressure 140/82 131/74 Pulse Oximetry 98 99 Intake & Output 04/29/18 04/30/18 04/30/18 18:59 06:59 18:59 Output Total 100 / 100 Balance -100 / -100 Weight 44.9 kg Output: Urine 100 / 100 Other: # Voids 6 # Incontinent Voids 2 Date of Last Bowel Movement 04/28/18 04/28/18 - Constitutional no acute distress, thin, cachectic, chronically ill appearing - Routine HEENT Exam Head: Present: normocephalic, atraumatic Eye: Present: EOMI, PERRL ENT: Present: mucous membranes moist, oropharynx clear, nares patent, external ear normal - Routine Neck Exam Present: supple, full ROM - Routine Respiratory Exam Present: CTA bilaterally - Routine Cardiovascular Exam Present: RRR, S1, S2 - Routine Abdominal Exam Present: soft, normoactive bowel sounds - Routine Extremities Exam Present: full ROM, pulses intact - Routine Skin Exam Present: intact, dry, cracked - Routine Neurological Exam Present: alert, CN II-XII intact, motor deficit (Right arm and leg weakness 4/5) , moving all extremities, hearing grossly intact, normal speech, tremors - Routine Psychiatric Exam Present: normal affect, cooperative - Urinary Catheter Management Indwelling Urethral Catheter Cath placed during this visit: yes Reason for continuing: Chronic Urinary Retention Insertion date: 04/26/18 Assessment and Plan - Assessment (1) Brain mass Code(s): G93.9 - Disorder of brain, unspecified Status: Acute - Plan 62-year-old gentleman with a diagnosis of HIV/AIDS with a left caudate/basal ganglia mass which remains stable on follow-up imaging studies. He was started on toxoplasma treatment empirically although titers have come back negative. The differential diagnosis of this brain mass at this point includes lymphoma as well as high-grade glioma among of the possibility. Overall he has a very frail and cachectic appearance and is unclear as to how well he will be able to tolerate any aggressive treatment. If medical oncology feels that he would be a candidate for chemotherapy/radiation treatment if a brain malignancy was confirmed then we could entertain a brain biopsy. Radiology Note Chest X-Ray 04/19/18 11:56 CONCLUSION: No acute cardiopulmonary disease Head CT 04/19/18 11:56 CONCLUSION: 1. 2 cm low-density masslike lesion in the left frontal region causing obscuration of the frontal horn and with less than 2 mm midline shift towards the right. Recommend further characterization of this abnormality with MRI of the brain with and without contrast. . Head MRI 04/19/18 13:41 CONCLUSION: 1. Irregularly enhancing mass with epicenter in the head of the left caudate nucleus causing mild midline shift and with mild surrounding edema. Malignant tumors and neuroepithelial tumors are differential considerations. Abdomen/Pelvis CT 04/20/18 00:00 CONCLUSION: 1. 2 rounded hypodensities in the liver. The largest hypodensity likely represents a hemangioma. The second is too small to definitively characterize but is most likely to represent a cyst or hemangioma.. 2. Degenerative findings of the lower lumbar spine and sacroiliac joints. 3. Small amount of free fluid in the pelvis. 4. No enlarged lymph nodes in the abdomen and pelvis. Chest CT 04/20/18 00:00 CONCLUSION: 1. Tree in bud opacity in the left lower lobe along with bronchiectasis and bronchial plugging likely representing inflammatory process such as atypical mycobacterial infection. 2. Enlarged bilateral axillary lymph nodes. Right axillary surgical clips. Head/Brain Mag Res Venography 04/27/18 00:00 CONCLUSION: 1. Unremarkable study. Head MRI 04/28/18 00:00 CONCLUSION: 1. 2.7 x 2.5 x 1.6 cm heterogeneously enhancing mass involving the left side of the thalamus concerning for malignancy. 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 This is similar in appearance compared to previous examination of 04/19/2018.
--- NOTE | 2018-04-30 13:57 | XR ---
EXAM DATE: 04/30/2018 1:55 PM EDT AGE/SEX: 62 years / Male INDICATIONS: Cough. CLINICAL DATA: This is the patient's initial encounter. Patient reports that signs and symptoms have been present for 1 day and indicates a pain score of 0/10. MEDICAL/SURGICAL HISTORY: HIV. Hypertension. None. COMPARISON: [facility] [place] CHEST W CONTRAST, 04/20/2018. . FINDINGS: A single AP view of the chest demonstrates the lungs to be symmetrically aerated without evidence of mass, infiltrate or effusion. The cardiomediastinal contours are unremarkable. Osseous structures a re intact. CONCLUSION: Negative examination. Electronically signed by: Kobi Spangler MD 04/30/2018 1:55 PM EDT
[2018-04-30 13:58] LABS: Baso % (Auto) 0.2 % (0.0-2.0); Hemoglobin 10.4 gm/dL (13.0-17.0); Lymph # (Auto) 0.4 th/mm3 (1.0-4.8); Lymph % (Auto) 3.8 % (9.0-44.0); Mean Corpuscular HGB Conc 33.4 % (32.0-36.0); Mean Corpuscular Hemoglobin 28.5 pg (27.0-34.0); Mean Corpuscular Volume 85.4 fL (80.0-100.0); Mean Platelet Volume 7.5 fL (7.0-11.0); Mono # (Auto) 0.4 th/mm3 (0.0-0.9); Neut # (Auto) 8.7 th/mm3 (1.8-7.7); Platelet Count 330 th/mm3 (150-450); Red Blood Count 3.63 mil/mm3 (4.50-5.90); Red Cell Distribution Width 16.5 % (11.6-17.2); White Blood Count 9.5 th/mm3 (4.0-11.0)
[2018-04-30 16:09] LABS: Lymphocytes 2 % (9-44); Monocytes 2 % (0-8); Myelocytes 1 % (0-0)
[2018-04-30 16:10] LABS: Ovalocytes 1+; Platelet Estimate Normal (Normal); Platelet Morphology Normal (Normal)
--- NOTE | 2018-04-30 16:22 | P.PNPAL ---
Reason for Visit Reason for visit: a. To assist with evaluation and management of symptoms including: oral pain b. To assist medical decision maker(s) with: better understanding of current medical conditions; weighing benefits/burdens of medical treatment options; making medical treatment decisions. Subjective Subjective/Interval History: Pt seen today to follow up on discomfort,confusion/pt ability to participate in goals. Pt's CD4 count is 3. Toxoplasma serology so far negative. MRI of head show heterogeneously enhancing mass involving left side of the thalamus concerning for malignancy. Primary consideration would be glial-based neoplasm. Neurosurgery following patient, no plan for biopsy, questioning weather pt could tolerate oncology treatment even if it was cancerous.. Patient frail, tired. He does remember physician coming by to talk about his brain mass. Really could not address goals of care, fatgued. Amenable to try to reach brother and have discussion together. Family/Friend Interactions: will cont attempt to reach brother. Advance Directives Health Care Surrogate: Copy in medical record Advance Directives Date on File: 04/22/18 Health Care Surrogate Name and Number: Brother Taj Yancey Objective Vital Signs: Vital Signs 04/29/18 16:00 04/29/18 20:00 04/30/18 00:00 Temperature 98.3 F 97.7 F 97.9 F Pulse Rate 91 H 85 71 Respiratory Rate 18 18 18 Blood Pressure 108/64 113/59 L 125/62 Pulse Oximetry 96 97 98 04/30/18 01:58 04/30/18 04:00 04/30/18 07:39 Temperature 97.6 F 98.0 F Pulse Rate 65 71 Respiratory Rate 16 18 12 Blood Pressure 140/82 131/74 Pulse Oximetry 98 99 04/30/18 12:00 Temperature 98.4 F Pulse Rate 81 Respiratory Rate 18 Blood Pressure 113/72 Pulse Oximetry 94 L Intake & Output 04/29/18 04/30/18 04/30/18 18:59 06:59 18:59 Output Total 100 / 100 Balance -100 / -100 Weight 44.9 kg Output: Urine 100 / 100 Other: # Voids 6 # Incontinent Voids 2 Date of Last Bowel Movement 04/28/18 04/28/18 Physical Exam: CONSTITUTIONAL/GENERAL: This is a very thin, frail-appearing male. TUBES/LINES/DRAINS: Peripheral IV left upper extremity SKIN: No jaundice. No visible lesions. Skin is very dry, flaking in areas of body. No wounds seen anteriorly. Skin warm and dry. ENT: Hearing grossly normal. Nose without bleeding or purulent drainage. Throat without visible erythema, exudates, masses. scattered white plaques to posterior tongue, upper palate, posterior pharynx ; niki NECK: Trachea midline. Supple, nontender. No palpable thyroid enlargement or nodularity. CARDIOVASCULAR: Regular rate and rhythm without murmur. No JVD. Peripheral pulses symmetric. RESPIRATORY/CHEST: Symmetric, unlabored respirations. On room air. Clear to auscultation, faint expiratory wheezes left. Breath sounds equal bilaterally. GASTROINTESTINAL: Abdomen soft, flat, non-tender, nondistended. No hepato- splenomegaly, or palpable masses. No guarding. Bowel sounds present. MUSCULOSKELETAL: Extremities without clubbing, cyanosis, or edema. No joint tenderness or effusion noted. Extremities very thin with muscle atrophy evident. NEUROLOGICAL: Awake and alert. Oriented 3. Forgetful at times. Cooperative and pleasant. Some insight. Moves all extremities. PSYCHIATRIC: No obvious anxiety/depression. no apparent hallucinations or other psychotic thought process. Diagnostic Tests Laboratory: Laboratory Results - last 72 hr 04/30/18 12:58 WBC 9.5 RBC 3.63 L Hgb 10.4 L Hct 31.0 L MCV 85.4 MCH 28.5 MCHC 33.4 RDW 16.5 Plt Count 330 MPV 7.5 Prelim Diff (Auto) Slide review pending Neut % (Auto) 92.0 H Lymph % (Auto) 3.8 L [place] % (Auto) 4.0 Eos % (Auto) 0.0 Baso % (Auto) 0.2 Neut # (Auto) 8.7 H Lymph # (Auto) 0.4 L [place] # (Auto) 0.4 Eos # (Auto) 0.0 Baso # (Auto) 0.0 Differential Comment . Result Diagrams: 04/30/18 12:58 04/27/18 06:41 Assessment and Plan - Disease Oriented Problem List (1) Asthma (2) COPD (chronic obstructive pulmonary disease) (3) Hypertension (4) Brain mass - Symptom Scale (1) Throat pain 0-10 Scale: Unable to quantify (2) Anorexia 0-10 Scale: Unable to quantify (3) Confusion 0-10 Scale: Unable to quantify Pertinent Non-Medical Issues: Psychosocial: Patient born and raised in [place]. Has lived in [facility] for most of his life. Intermittently homeless. Has 3 adult children 2 daughters, one son who are local. Has several siblings himself his brothers except for Taj are and 2 of his sisters are . His parents are . He is . He has not been working for some time. He previously worked as a cook at a local restaurant. He is supported by his brother Taj locally, and a sister in [place] who he lived with about a year ago. Spiritual: Legal:Patient currently with mild confusion and forgetfulness. He is cooperative. He is not capacitated and able to make informed decisions at this time. Not clear if or when he will regain ability to make decisions. He is able to name his brother. He indicates he would want his brother called in an emergency. Ethical issues impacting care: No ethical issues identified Important Contacts: Brother / HEALTH CARE SURROGATE Taj Yancey [phone] home number, cell number [phone] . Prognosis: Hospice criteria for HIV/AIDs is t the following: CD4 coung <25 cells/mcl or viral Load >100,000 and at least 1 ROADS SUPERVISOR lymphoma, untreated refractory wasting ( loss of 33% lean body mass), MAC, PMLE, lymphoma, cryptosporitium and PPS of 50% . This patient was admitted for weakness and altered mental status. This has had some weight loss. There is concern for underlying lung infection such as Mycobacterium. He has findings of possible brain mass etiology not clear at this time malignancy versus possible infectious process. Concern for possibility of underlying immune deficiency, infectious process causing current issues. He is currently frail, malnourished and high risk for ongoing complications and continued physical decline due to this. Prophylactic treatments begun. Although Toxoplasma serology is negative, he would be appropriate for hospice and comfort treatment only if goals compatible. . Code Status: No Code DNR Plan: * Legal decision maker:Patient currently with mild confusion and forgetfulness. He is cooperative. Mentation appears to be improving some though waxes and wanes, his capacity likely also fluctuates. Best to utilize shared decision making with his designated healthcare surrogate given these fluctuations. . Healthcare surrogate completed 04/22/18 naming brother Taj Yancey as healthcare surrogate * Goals: Patient does request no resuscitation or life support, DNR status. Brother is supportive of DNR if that is patient's wishes, he indicates he would be supportive of proceeding with brain biopsy it we will give additional information. However at this time there is no plan for biopsy. * Plan on getting family and pt together to readdress goals of care, hopeful can do so by tomorrow. He is tired today, could not review too much. He again he allows all discussion of his medical be discuss with brother including HIV status. * CODE STATUS:DNR * SYMPTOMS: --Anorexia/poor appetite-patient denies GI complaints however does endorse poor appetite may be for a few months. He also endorses poor access to food he gives someone some of his food stamps to provide him with food though he indicates he does not always get enough to eat. Brother endorses in the past year or 2 it looks like he might of lost about 100 pounds. Not clear how much of this may be related to underlying disease process versus poor access to nutrition. Cleared for regular diet by ST, appears to be eating well . Probable advanced AIDS, ID following. -- + oral , throat pain reported. + Oral Niki, Diflucan has been added by ID Appears this is been going on for a period of months. He also endorses weakness. Findings this admission of brain mass concerning for malignancy versus infectious etiology. Brother expresses concern that patient may have AIDS related to history. Patient also endorses history of intimate exposure to person with HIV or AIDS about 5 years ago. Oncology, ID following. Toxoplasmosis is negative * ID now following. reported intimate exposure to individual with AIDS who later , this exposure possibly 6 years ago +/-. Palliative care will continue to follow during hospital course as condition evolves, to assist patient/decision-maker with understanding of medical conditions, weighing benefits/burdens of treatment options, for clarification of goals of treatment. Additionally will assist with any symptoms of palliative concern Attestation Attestation: To help prompt me to consider important information that might be impacting today's encounter and assessment, information from prior notes written by myself or my colleagues may have been "brought forward" into today's note. My signature on this note, however, is an attestation that I personally performed the exam, history, and/or decision-making noted today, and, unless otherwise indicated, the interactions with patient, family, and staff as well as the review of records all occurred today. I also attest that the listed assessment and stated plan reflect my best clinical judgment today based on the combination of historical information, prior notes, and today's exam/ interactions. When time spent is documented, it refers only to time spent today by the signer, or if indicated, combined time spent today by collaborating physician/nurse practitioner.
--- NOTE | 2018-05-01 07:49 | P.PN ---
Subjective Interval history: Follow-up on patient with HIV/AIDS, brain mass concerning for malignancy. Patient seen and examined. Patient denies any medical complaints at this time. He denies any cough today. Denies any shortness of breath or chest pain. He denies any fever or chills. He denies any nausea, vomiting or abdominal pain. He denies any dysuria or diarrhea. Notes reviewed. Physical Exam Vital signs: Vital Signs 04/30/18 12:00 04/30/18 16:00 04/30/18 20:00 Temperature 98.4 F 98.7 F 98.1 F Pulse Rate 81 84 86 Respiratory Rate 18 18 16 Blood Pressure 113/72 154/72 H 121/69 Pulse Oximetry 94 L 95 98 05/01/18 00:00 05/01/18 04:00 Temperature 98.3 F 98.5 F Pulse Rate 82 75 Respiratory Rate 16 17 Blood Pressure 147/82 H 166/79 H Pulse Oximetry 99 99 Intake & Output 04/30/18 05/01/18 05/01/18 18:59 06:59 18:59 Intake Total 350 / 350 Output Total 200 / 200 Balance -200 / -200 350 / 350 Intake: Oral 350 / 350 Output: Urine 200 / 200 Other: # Incontinent Voids 2 Date of Last Bowel Movement 04/28/18 Narrative: GENERAL: This is a thin, frail, extremely cachectic appearing -Chinese male patient, INAD. A&Ox2. Lying in bed awake. Appears comfortable. SKIN: Warm and extremely dry. HEENT: Normocephalic. EOMI. No sclera icterus. No nasal drainage. Airway patent. MMM. NECK: Supple, trachea midline. No lymphadenopathy. CARDIOVASCULAR: Regular rate and rhythm without murmurs, gallops, or rubs. RESPIRATORY: No accessory muscle use. Fair air entry. No wheezing noted. GASTROINTESTINAL: Abdomen soft, non-tender, nondistended. +BS. MUSCULOSKELETAL: No cyanosis or edema. NEURO: Awake. Oriented 2. Able to move all extremities spontaneously. No focal neurological deficits. Clear speech. PSYCHIATRIC: Calm and cooperative. Flat affect. - Urinary Catheter Management Indwelling Urethral Catheter Cath placed during this visit: yes Reason for continuing: Chronic Urinary Retention Insertion date: 04/26/18 Results - Labs CBC & Chem 7: 05/01/18 08:23 05/01/18 08:23 Laboratory Results - last 24 hr 04/30/18 12:58 WBC 9.5 RBC 3.63 L Hgb 10.4 L Hct 31.0 L MCV 85.4 MCH 28.5 MCHC 33.4 RDW 16.5 Plt Count 330 MPV 7.5 Prelim Diff (Auto) Slide review pending Neut % (Auto) 92.0 H Lymph % (Auto) 3.8 L [place] % (Auto) 4.0 Eos % (Auto) 0.0 Baso % (Auto) 0.2 Neut # (Auto) 8.7 H Lymph # (Auto) 0.4 L [place] # (Auto) 0.4 Eos # (Auto) 0.0 Baso # (Auto) 0.0 WBC Differential Manual diff final Seg Neuts % (Manual) 76 H Band Neuts % (Manual) 19 H Lymphocytes % (Manual) 2 L Monocytes % (Manual) 2 Myelocytes % (Man) 1 H Abs Neuts (Manual) 9.1 H Differential Comment . Platelet Estimate Normal Platelet Morphology Normal Ovalocytes 1+ H - Imaging Impressions Chest X-Ray 04/30/18 00:00 CONCLUSION: Negative examination. - Procedures None Assessment and Plan - Assessment (1) Brain mass Code(s): G93.9 - Disorder of brain, unspecified Status: Acute (2) Anorexia Code(s): R63.0 - Anorexia Status: Acute (3) HIV disease Code(s): B20 - Human immunodeficiency virus [HIV] disease Status: Acute (4) AIDS Code(s): B20 - Human immunodeficiency virus [HIV] disease Status: Acute - Plan 62-year-old -Chinese male who was admitted to the hospital on 04/19/2018 due to altered mental status as well as generalized weakness. ED workup indicated a left frontal mass. Left frontal brain mass, per ID multiple lesions noted Concern for possible toxoplasmosis HIV/end stage AIDS, no prior HAART tx CD4 count less than 20 ID following -Discussed with Dr. Dimas - toxoplasmosis serologies negative, cerebral toxoplasmosis less likely. She is awaiting call back from neuroradiologist to see if any additional testing is available that would possibly assist with diagnosis. Repeat MRI shows enhancing mass concerning for malignancy. Neurosurgery consulted for biopsy - If medical oncology feels that he would be a candidate for chemotherapy/radiation treatment if a brain malignancy was confirmed then we could entertain a brain biopsy. Continue Decadron Continue Keppra MAC prophylaxis per ID supportive care Palliative care following, appreciate assistance. If POA does not consent for bx, patient would be a hospice candidate. Lactic acidosis Bandemia white count WNL. CXR unremarkable. UA ordered/pending Start gentle IVF hydration follow lactic acid sepsis protocol repeat CBC in am Hyponatremia Na 128 today IVF ordered repeat BMP in am Hyperglycemia patient is on Decadron accucheks with low dose ISS monitor Atypical chest mass, possible pneumonia ?atypical mycobacterial pulmonary infection patient c/o cough with whitish sputum production this am No respiratory distress. Pulse Ox 99% on RA. CXR unremarkable. Continue Bactrim per ID Oral candidiasis Diflucan started by ID Severe protein calorie malnutrition Deconditioned, generalized weakness Concrete Finisher Apprentice following continue Ensure with meals Continue with PT Constipation continue scheduled PeriColace monitor for BM DVT prophylaxis Heparin Discussed Condition With: patient, nursing staff, Dr. Hoang, Farhad Luis PAC Discharge Planning: Not ready for discharge. Workup in progress. Discharge pending neurosurgery and ID clearance.
[2018-05-01 09:20] LABS: Baso % (Auto) 0.3 % (0.0-2.0); Hematocrit 36.6 % (39.0-51.0); Hemoglobin 12.4 gm/dL (13.0-17.0); Lymph # (Auto) 0.4 th/mm3 (1.0-4.8); Lymph % (Auto) 3.8 % (9.0-44.0); Mean Corpuscular HGB Conc 33.8 % (32.0-36.0); Mean Corpuscular Volume 85.9 fL (80.0-100.0); Mean Platelet Volume 7.7 fL (7.0-11.0); Mono # (Auto) 0.1 th/mm3 (0.0-0.9); Mono % (Auto) 1.4 % (0.0-8.0); Neut # (Auto) 9.1 th/mm3 (1.8-7.7); Neut % (Auto) 94.5 % (16.0-70.0); Platelet Count 321 th/mm3 (150-450); Red Blood Count 4.26 mil/mm3 (4.50-5.90); Red Cell Distribution Width 16.4 % (11.6-17.2); White Blood Count 9.6 th/mm3 (4.0-11.0)
[2018-05-01] MEDS: Heparin - SQ 10,000 UNITS/ML Vial SQ SCH ×2 (09:23→21:59)
[2018-05-01] MEDS: Senna/Docusate Sodium 8.6/50 MG Tablet PO SCH ×2 (09:23→22:01)
[2018-05-01] MEDS: levETIRAcetam 500 MG Tablet PO SCH ×2 (09:24→21:59)
[2018-05-01] MEDS: Multivitamin/Minerals Therapeutic Tablet PO SCH (09:24)
[2018-05-01] MEDS: Famotidine 20 MG Tablet PO SCH ×2 (09:24→21:58)
[2018-05-01] MEDS: SULFADIAZINE 500 MG PO SCH ×5 (09:25→22:00)
[2018-05-01 09:37] LABS: Albumin 3.3 g/dL (3.4-5.0); Anion Gap 10 meq/L (5-15); Aspartate Aminotransferase 22 U/L (15-37); Blood Urea Nitrogen 17 mg/dL (7-18); Calcium 9.3 mg/dL (8.5-10.1); Carbon Dioxide 25.8 meq/L (21.0-32.0); Chloride 92 meq/L (98-107); Glomerular Filtration Rate Greater Than 89 mL/min (>89); Glucose,Random 162 mg/dL (74-106); Potassium 5.1 meq/L (3.5-5.1); Sodium 128 meq/L (136-145)
[2018-05-01 09:38] LABS: Alanine Aminotransferase 28 U/L (12-78)
[2018-05-01 09:40] LABS: Alkaline Phosphatase 72 U/L (45-117); Total Protein 7.9 g/dL (6.4-8.2)
[2018-05-01 10:09] LABS: Lymphocytes 4 % (9-44); Metamyelocytes 2 % (0-1); Monocytes 2 % (0-8); Myelocytes 2 % (0-0); Toxic Granulation 1+; Toxic Vacuolation Present
[2018-05-01 10:10] LABS: Ovalocytes 1+; Platelet Estimate Normal (Normal); Platelet Morphology Normal (Normal)
[2018-05-01] MEDS ORDERED: Butalbital/APAP/Caff 50/325/40 MG Tablet PO ONE (10:15)
--- NOTE | 2018-05-01 12:40 | P.PNPAL ---
Reason for Visit Reason for visit: a. To assist with evaluation and management of symptoms including: oral pain b. To assist medical decision maker(s) with: better understanding of current medical conditions; weighing benefits/burdens of medical treatment options; making medical treatment decisions. Subjective Subjective/Interval History: Pt seen today to follow up on discomfort, but remains fatigued. Fell this morning, deneis pain. He remains thin. Pt is alert and more interactive. He denies any discomfort. Discussed with him current clinical situation. At this point neurosurgery has said from progress note on 04/30/2018 "If medical oncology feels that he would be a candidate for chemotherapy/radiation treatment if a brain malignancy was confirmed then we could entertain a brain biopsy." Biopsy is on hold. I told him that radiology feels it is likely a mass. I have discussed with christiano. and there may be a possibility there someone else could do a biopsy of brain lesion mass. On my discussion with id. course of treatment and prognosis is difficult as Christiano. does not know what we are treating, when to start anti retro viral etc... I ask him if he wants the biopsy? I stated if he does not get it, or the medical team could not perform it, Hospice as an option is available for comfort measures.. At this time he is unsure, what he wants and is amenable for brother to get involve and help support and guide his decision. Family/Friend Interactions: I have left voicemail for brother and have ask him to call back. I am still awaiting for brother call. Advance Directives Health Care Surrogate: Copy in medical record Advance Directives Date on File: 04/22/18 Health Care Surrogate Name and Number: Brother Taj Yancey Objective Vital Signs: Vital Signs 04/30/18 16:00 04/30/18 20:00 05/01/18 00:00 Temperature 98.7 F 98.1 F 98.3 F Pulse Rate 84 86 82 Respiratory Rate 18 16 16 Blood Pressure 154/72 H 121/69 147/82 H Pulse Oximetry 95 98 99 05/01/18 04:00 Temperature 98.5 F Pulse Rate 75 Respiratory Rate 17 Blood Pressure 166/79 H Pulse Oximetry 99 Intake & Output 04/30/18 05/01/18 05/01/18 18:59 06:59 18:59 Intake Total 350 / 350 Output Total 200 / 200 Balance -200 / -200 350 / 350 Intake: Oral 350 / 350 Output: Urine 200 / 200 Other: # Incontinent Voids 2 Date of Last Bowel Movement 04/28/18 Physical Exam: CONSTITUTIONAL/GENERAL: This is a very thin, frail-appearing male. TUBES/LINES/DRAINS: Peripheral IV left upper extremity SKIN: No jaundice. No visible lesions. Skin is very dry, flaking in areas of body. No wounds seen anteriorly. Skin warm and dry. ENT: Hearing grossly normal. Nose without bleeding or purulent drainage. Throat without visible erythema, exudates, masses. scattered white plaques to posterior tongue, upper palate, posterior pharynx ; tomas NECK: Trachea midline. Supple, nontender. No palpable thyroid enlargement or nodularity. CARDIOVASCULAR: Regular rate and rhythm without murmur. No JVD. Peripheral pulses symmetric. RESPIRATORY/CHEST: Symmetric, unlabored respirations. On room air. Clear to auscultation, faint expiratory wheezes left. Breath sounds equal bilaterally. GASTROINTESTINAL: Abdomen soft, flat, non-tender, nondistended. No hepato- splenomegaly, or palpable masses. No guarding. Bowel sounds present. MUSCULOSKELETAL: Extremities without clubbing, cyanosis, or edema. No joint tenderness or effusion noted. Extremities very thin with muscle atrophy evident. NEUROLOGICAL: Awake and alert. Oriented 3. Forgetful at times. Cooperative and pleasant. Some insight. Moves all extremities. PSYCHIATRIC: No obvious anxiety/depression. no apparent hallucinations or other psychotic thought process. Diagnostic Tests Laboratory: Laboratory Results - last 72 hr 04/30/18 05/01/18 05/01/18 12:58 08:23 08:23 WBC 9.5 9.6 RBC 3.63 L 4.26 L Hgb 10.4 L 12.4 L D Hct 31.0 L 36.6 L MCV 85.4 85.9 MCH 28.5 29.0 MCHC 33.4 33.8 RDW 16.5 16.4 Plt Count 330 321 MPV 7.5 7.7 Prelim Diff (Auto) Slide review pending Slide review pending Neut % (Auto) 92.0 H 94.5 H Lymph % (Auto) 3.8 L 3.8 L Iron % (Auto) 4.0 1.4 Eos % (Auto) 0.0 0.0 Baso % (Auto) 0.2 0.3 Neut # (Auto) 8.7 H 9.1 H Lymph # (Auto) 0.4 L 0.4 L Iron # (Auto) 0.4 0.1 Eos # (Auto) 0.0 0.0 Baso # (Auto) 0.0 0.0 WBC Differential Manual diff final Manual diff final Seg Neuts % (Manual) 76 H 80 H Band Neuts % (Manual) 19 H 10 H Lymphocytes % (Manual) 2 L 4 L Monocytes % (Manual) 2 2 Metamyelocytes % (Man) 2 H Myelocytes % (Man) 1 H 2 H Abs Neuts (Manual) 9.1 H 9.0 H Differential Comment . . Toxic Granulation 1+ H Toxic Vacuolation Present H Platelet Estimate Normal Normal Platelet Morphology Normal Normal Ovalocytes 1+ H 1+ H Sodium 128 L Potassium 5.1 Chloride 92 L Carbon Dioxide 25.8 Anion Gap 10 BUN 17 Creatinine 0.74 Estimated GFR Greater than 89 Random Glucose 162 H Calcium 9.3 Total Bilirubin 0.2 AST 22 ALT 28 Alkaline Phosphatase 72 Total Protein 7.9 D Albumin 3.3 L Result Diagrams: 05/02/18 08:38 05/02/18 08:38 Imaging: Chest X-Ray 04/19/18 11:56 CONCLUSION: No acute cardiopulmonary disease Head CT 04/19/18 11:56 CONCLUSION: 1. 2 cm low-density masslike lesion in the left frontal region causing obscuration of the frontal horn and with less than 2 mm midline shift towards the right. Recommend further characterization of this abnormality with MRI of the brain with and without contrast. . Head MRI 04/19/18 13:41 CONCLUSION: 1. Irregularly enhancing mass with epicenter in the head of the left caudate nucleus causing mild midline shift and with mild surrounding edema. Malignant tumors and neuroepithelial tumors are differential considerations. Abdomen/Pelvis CT 04/20/18 00:00 CONCLUSION: 1. 2 rounded hypodensities in the liver. The largest hypodensity likely represents a hemangioma. The second is too small to definitively characterize but is most likely to represent a cyst or hemangioma.. 2. Degenerative findings of the lower lumbar spine and sacroiliac joints. 3. Small amount of free fluid in the pelvis. 4. No enlarged lymph nodes in the abdomen and pelvis. Chest CT 04/20/18 00:00 CONCLUSION: 1. Tree in bud opacity in the left lower lobe along with bronchiectasis and bronchial plugging likely representing inflammatory process such as atypical mycobacterial infection. 2. Enlarged bilateral axillary lymph nodes. Right axillary surgical clips. Head/Brain Mag Res Venography 04/27/18 00:00 CONCLUSION: 1. Unremarkable study. Head MRI 04/28/18 00:00 CONCLUSION: 1. 2.7 x 2.5 x 1.6 cm heterogeneously enhancing mass involving the left side of the thalamus concerning for malignancy. 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 This is similar in appearance compared to previous examination of 04/19/2018. Chest X-Ray 04/30/18 00:00 CONCLUSION: Negative examination. Assessment and Plan - Disease Oriented Problem List (1) Asthma (2) COPD (chronic obstructive pulmonary disease) (3) Hypertension (4) Brain mass - Symptom Scale (1) Anorexia 0-10 Scale: Unable to quantify (2) Fatigue 0-10 Scale: Unable to quantify Pertinent Non-Medical Issues: Psychosocial: Patient born and raised in [place]. Has lived in [facility] for most of his life. Intermittently homeless. Has 3 adult children 2 daughters, one son who are local. Has several siblings himself his brothers except for Taj are and 2 of his sisters are . His parents are . He is . He has not been working for some time. He previously worked as a cook at a local restaurant. He is supported by his brother Taj locally, and a sister in [place] who he lived with about a year ago. Spiritual: Legal:Patient currently with mild confusion and forgetfulness. He is cooperative. He is not capacitated and able to make informed decisions at this time. Not clear if or when he will regain ability to make decisions. He is able to name his brother. He indicates he would want his brother called in an emergency. Ethical issues impacting care: No ethical issues identified Important Contacts: Brother / HEALTH CARE SURROGATE Taj Yancey [phone] home number, cell number [phone] . Prognosis: Hospice criteria for HIV/AIDs is t the following: CD4 coung <25 cells/mcl or viral Load >100,000 and at least 1 GENERAL MAINTENANCE HELPER lymphoma, untreated refractory wasting ( loss of 33% lean body mass), MAC, PMLE, lymphoma, cryptosporitium and PPS of 50% . This patient was admitted for weakness and altered mental status. This has had some weight loss. There is concern for underlying lung infection such as Mycobacterium. He has findings of possible brain mass etiology not clear at this time malignancy versus possible infectious process. Concern for possibility of underlying immune deficiency, infectious process causing current issues. He is currently frail, malnourished and high risk for ongoing complications and continued physical decline due to this. Prophylactic treatments. Brain mass/lesion unknown what it is, on my discussion with Infectiouns disease , it makes prognositication/ course of treatment difficult. Radiology feels it is a mass, and id has indicate if it is cancer/tumor prognosis worsens. Pt would be appropriate for hospice and comfort treatment only if goals compatible. . Code Status: No Code DNR Plan: * Legal decision maker:Patient currently with mild confusion and forgetfulness. He is cooperative. Mentation appears to be improving some though waxes and wanes, his capacity likely also fluctuates. I do feel today he does have capacity at the very least participate in medical decision making. I still feel it is best to utilize shared decision making with his designated healthcare surrogate given these fluctuations. He also has endorse any and all information could be shared with his brother, and he also would like his brother support. Healthcare surrogate completed 04/22/18 naming brother Taj Yancey as healthcare surrogate * Goals: Discussed with him current clinical situation. At this point neurosurgery has said from progress note on 04/30/2018 "If medical oncology feels that he would be a candidate for chemotherapy/radiation treatment if a brain malignancy was confirmed then we could entertain a brain biopsy." Biopsy is on hold. I told him that radiology feels it is likely a mass. I have discussed with ilorena and there may be a possibility that someone else could do a biopsy of brain lesion mass. On my discussion with infectious disease; course of treatment and prognosis is difficult as I.D. does not know what we are treating, when to start anti retro viral etc... Radiology has said it is likely a tumor. I ask him if he wants the biopsy? I stated if he does not get it or the medical team is unable to perform the biopsy, Hospice is an option to provide comfort care. At this time he is unsure what he wants and is amenable for brother to get involve and help support and guide his decision. I am still awaiting for brother to call back. Brother from past palliative care discussion has stated (as documented in palliative care progress note 2017 "Brother is supportive of DNR if that is patient's wishes, he indicates he would be supportive of proceeding with brain biopsy if we will give additional information." * CODE STATUS:DNR * SYMPTOMS: --Anorexia/poor appetite-patient denies GI complaints however does endorse poor appetite may be for a few months. Appears this is been going on for a period of months. He also endorses weakness. Findings this admission of brain mass concerning for malignancy versus infectious etiology. Brother expresses concern that patient may have AIDS related to history. Patient also endorses history of intimate exposure to person with HIV or AIDS about 5 years ago. Oncology, ID following. Toxoplasmosis is negative * ID now following. Thank you for assistance in patient care. Palliative care will continue to follow during hospital course as condition evolves, to assist patient/decision-maker with understanding of medical conditions, weighing benefits/burdens of treatment options, for clarification of goals of treatment. Additionally will assist with any symptoms of palliative concern Attestation Attestation: To help prompt me to consider important information that might be impacting today's encounter and assessment, information from prior notes written by myself or my colleagues may have been "brought forward" into today's note. My signature on this note, however, is an attestation that I personally performed the exam, history, and/or decision-making noted today, and, unless otherwise indicated, the interactions with patient, family, and staff as well as the review of records all occurred today. I also attest that the listed assessment and stated plan reflect my best clinical judgment today based on the combination of historical information, prior notes, and today's exam/ interactions. When time spent is documented, it refers only to time spent today by the signer, or if indicated, combined time spent today by collaborating physician/nurse practitioner.
[2018-05-01] MEDS: Sod Chloride 0.9% Inj 1,000 ML IV.CONT SCH (14:40)
[2018-05-01] MEDS ORDERED: Dextrose 50% in Water 50 ML Vial IV.PUSH PRN (15:27)
[2018-05-01] MEDS ORDERED: Polyethylene Glycol 3350 17 GM Packet PO ONE (16:00)
--- NOTE | 2018-05-01 17:04 | P.PNID ---
Subjective Remarks: very weak unsteady gait apparently refusing biopsy dw Nicolasa - pt has no decision making capacity Stacie makes decisions on , but still no concent for bx yet afebrile Repeat MRI no change Antibiotics: bactrim levaquine Allergies/Adverse Reactions: Allergies poornima Allergy (Mild, Verified 04/19/18 15:26) HIVES Objective Vital Signs 04/30/18 20:00 05/01/18 00:00 05/01/18 04:00 Temperature 98.1 F 98.3 F 98.5 F Pulse Rate 86 82 75 Respiratory Rate 16 16 17 Blood Pressure 121/69 147/82 H 166/79 H Pulse Oximetry 98 99 99 05/01/18 12:45 05/01/18 14:37 Temperature 98.2 F Pulse Rate 90 Respiratory Rate 16 18 Blood Pressure 140/77 Pulse Oximetry 95 Intake & Output 04/30/18 05/01/18 05/01/18 18:59 06:59 18:59 Intake Total 350 / 350 Output Total 200 / 200 Balance -200 / -200 350 / 350 Intake: Oral 350 / 350 Output: Urine 200 / 200 Other: # Incontinent Voids 2 Date of Last Bowel Movement 04/28/18 Lab - Hematology Results 04/30/18 05/01/18 12:58 08:23 WBC 9.5 9.6 RBC 3.63 L 4.26 L Hgb 10.4 L 12.4 L D Hct 31.0 L 36.6 L MCV 85.4 85.9 MCH 28.5 29.0 MCHC 33.4 33.8 RDW 16.5 16.4 Plt Count 330 321 MPV 7.5 7.7 Prelim Diff (Auto) Slide review pending Slide review pending Neut % (Auto) 92.0 H 94.5 H Lymph % (Auto) 3.8 L 3.8 L Linn % (Auto) 4.0 1.4 Eos % (Auto) 0.0 0.0 Baso % (Auto) 0.2 0.3 Neut # (Auto) 8.7 H 9.1 H Lymph # (Auto) 0.4 L 0.4 L Linn # (Auto) 0.4 0.1 Eos # (Auto) 0.0 0.0 Baso # (Auto) 0.0 0.0 WBC Differential Manual diff final Manual diff final Seg Neuts % (Manual) 76 H 80 H Band Neuts % (Manual) 19 H 10 H Lymphocytes % (Manual) 2 L 4 L Monocytes % (Manual) 2 2 Metamyelocytes % (Man) 2 H Myelocytes % (Man) 1 H 2 H Abs Neuts (Manual) 9.1 H 9.0 H Differential Comment . . Toxic Granulation 1+ H Toxic Vacuolation Present H Platelet Estimate Normal Normal Platelet Morphology Normal Normal Ovalocytes 1+ H 1+ H Lab - Chemistry Results 05/01/18 05/01/18 08:23 11:45 Sodium 128 L Potassium 5.1 Chloride 92 L Carbon Dioxide 25.8 Anion Gap 10 BUN 17 Creatinine 0.74 Estimated GFR Greater than 89 Random Glucose 162 H Lactic Acid 3.4 H Calcium 9.3 Total Bilirubin 0.2 AST 22 ALT 28 Alkaline Phosphatase 72 Total Protein 7.9 D Albumin 3.3 L Imaging: ITS Impressions Head CT 04/19/18 11:56 CONCLUSION: 1. 2 cm low-density masslike lesion in the left frontal region causing obscuration of the frontal horn and with less than 2 mm midline shift towards the right. Recommend further characterization of this abnormality with MRI of the brain with and without contrast. . Abdomen/Pelvis CT 04/20/18 00:00 CONCLUSION: 1. 2 rounded hypodensities in the liver. The largest hypodensity likely represents a hemangioma. The second is too small to definitively characterize but is most likely to represent a cyst or hemangioma.. 2. Degenerative findings of the lower lumbar spine and sacroiliac joints. 3. Small amount of free fluid in the pelvis. 4. No enlarged lymph nodes in the abdomen and pelvis. Chest CT 04/20/18 00:00 CONCLUSION: 1. Tree in bud opacity in the left lower lobe along with bronchiectasis and bronchial plugging likely representing inflammatory process such as atypical mycobacterial infection. 2. Enlarged bilateral axillary lymph nodes. Right axillary surgical clips. Head/Brain Mag Res Venography 04/27/18 00:00 CONCLUSION: 1. Unremarkable study. Head MRI 04/28/18 00:00 CONCLUSION: 1. 2.7 x 2.5 x 1.6 cm heterogeneously enhancing mass involving the left side of the thalamus concerning for malignancy. 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 This is similar in appearance compared to previous examination of 04/19/2018. Chest X-Ray 04/30/18 00:00 CONCLUSION: Negative examination. Physical Exam: GENERAL: NAD appears very weak and ill SKIN: Warm and dry. Very dry with extensive excoriations HEAD: Atraumatic. Normocephalic. Alopecia EYES: Pupils equal and round. No scleral icterus. No injection or drainage. ENT: No nasal bleeding or discharge. Mucous membranes pink and moist. NECK: Trachea midline. No JVD. CARDIOVASCULAR: Regular rate and rhythm. RESPIRATORY: No accessory muscle use. Crackles/rhonchi to auscultation mosltly R side . Breath sounds equal bilaterally. GASTROINTESTINAL: Abdomen soft, non-tender, nondistended. Hepatic and splenic margins not palpable. MUSCULOSKELETAL: Extremities without clubbing, cyanosis, or edema. No obvious deformities. marked loss of muscle bulk NEUROLOGICAL: Awake and alert. No obvious cranial nerve deficits. Motor grossly within normal limits. Five out of 5 muscle strength in the arms and legs. 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 MRI dw radiologist: cw toxo, and also can be malignancy - 2 masses - repeat MRI cw malignancy Atypical mycobacteremial pulmonary infection ? L axillae mases/ Lymphadenopathy Will treat empirically toxo with repeating MRI in 2 weeks dw pharmacists none of the 1st line agents (pyremethamine, sulfadiazine) are not available cont bactrim for now, max out the dose while awating for 1st line drugs toxo serologies negative Fluconazole for oral thrush sputum/bnlood mycobacterial clx Overall prognosis seems to be extremely poor palliative care ff CD4 count will need bx to establish dx With positive serologies will Rx empiricallyu ABF sputum and blood clx If guardian refuses biopsy will not recommend to Rx empirically cont 2 nd line toxo treatment untill bx obtained pati krueger radiologist Dr Cortez: MR spectroscopy recommended will postpone bx until MR spectroscopy results
[2018-05-01] MEDS: Insulin NovoLOG Aspart Correctional Sugar Inj SQ SCH (20:24)
[2018-05-02] MEDS: Insulin NovoLOG Aspart Correctional Sugar Inj SQ SCH ×4 (00:54→18:36)
--- NOTE | 2018-05-02 08:19 | P.PN ---
Subjective Interval history: Follow-up on patient with HIV/AIDS, brain mass concerning for malignancy. Patient seen and examined. Patient tells me today he wants the brain biopsy. He denies any acute medical complaints. Discussed with nursing staff, no acute issues noted. Physical Exam Vital signs: Vital Signs 05/01/18 12:45 05/01/18 14:37 05/01/18 17:01 Temperature 98.2 F 98.1 F Pulse Rate 90 89 Respiratory Rate 16 18 16 Blood Pressure 140/77 130/86 Pulse Oximetry 95 99 05/01/18 20:00 05/01/18 20:05 05/02/18 00:00 Temperature 98.3 F 97.3 F L Pulse Rate 87 94 H Respiratory Rate 17 18 18 Blood Pressure 140/89 152/99 H Pulse Oximetry 97 100 05/02/18 02:50 Temperature Pulse Rate Respiratory Rate Blood Pressure 148/86 H Pulse Oximetry Intake & Output 05/01/18 05/02/18 05/02/18 18:59 06:59 18:59 Weight 43.8 kg Other: Date of Last Bowel Movement 04/28/18 Narrative: GENERAL: This is a thin, frail, extremely cachectic appearing -Cypriot male patient, INAD. A&Ox2. Sitting up in bed eating breakfast. SKIN: Warm and extremely dry. HEENT: Normocephalic. EOMI. No sclera icterus. No nasal drainage. Airway patent. MMM. NECK: Supple, trachea midline. No lymphadenopathy. CARDIOVASCULAR: Regular rate and rhythm without murmurs, gallops, or rubs. RESPIRATORY: No accessory muscle use. Fair air entry. No wheezing noted. GASTROINTESTINAL: Abdomen soft, non-tender, nondistended. +BS. MUSCULOSKELETAL: No cyanosis or edema. NEURO: Awake. Oriented 2. Able to move all extremities spontaneously. No focal neurological deficits. Clear speech. PSYCHIATRIC: Calm and cooperative. Flat affect. - Urinary Catheter Management Indwelling Urethral Catheter Cath placed during this visit: yes Reason for continuing: Chronic Urinary Retention Insertion date: 04/26/18 Results - Labs CBC & Chem 7: 05/02/18 08:38 05/02/18 08:38 Laboratory Results - last 24 hr 05/01/18 05/01/18 05/01/18 08:23 08:23 11:45 WBC 9.6 RBC 4.26 L Hgb 12.4 L D Hct 36.6 L MCV 85.9 MCH 29.0 MCHC 33.8 RDW 16.4 Plt Count 321 MPV 7.7 Prelim Diff (Auto) Slide review pending Neut % (Auto) 94.5 H Lymph % (Auto) 3.8 L [place] % (Auto) 1.4 Eos % (Auto) 0.0 Baso % (Auto) 0.3 Neut # (Auto) 9.1 H Lymph # (Auto) 0.4 L [place] # (Auto) 0.1 Eos # (Auto) 0.0 Baso # (Auto) 0.0 WBC Differential Manual diff final Seg Neuts % (Manual) 80 H Band Neuts % (Manual) 10 H Lymphocytes % (Manual) 4 L Monocytes % (Manual) 2 Metamyelocytes % (Man) 2 H Myelocytes % (Man) 2 H Abs Neuts (Manual) 9.0 H Differential Comment . Toxic Granulation 1+ H Toxic Vacuolation Present H Platelet Estimate Normal Platelet Morphology Normal Ovalocytes 1+ H Sodium 128 L Potassium 5.1 Chloride 92 L Carbon Dioxide 25.8 Anion Gap 10 BUN 17 Creatinine 0.74 Estimated GFR Greater than 89 POC Glucose Random Glucose 162 H Lactic Acid 3.4 H Calcium 9.3 Total Bilirubin 0.2 AST 22 ALT 28 Alkaline Phosphatase 72 Total Protein 7.9 D Albumin 3.3 L 05/01/18 05/01/18 05/02/18 16:45 20:13 00:01 WBC RBC Hgb Hct MCV MCH MCHC RDW Plt Count MPV Prelim Diff (Auto) Neut % (Auto) Lymph % (Auto) [place] % (Auto) Eos % (Auto) Baso % (Auto) Neut # (Auto) Lymph # (Auto) [place] # (Auto) Eos # (Auto) Baso # (Auto) WBC Differential Seg Neuts % (Manual) Band Neuts % (Manual) Lymphocytes % (Manual) Monocytes % (Manual) Metamyelocytes % (Man) Myelocytes % (Man) Abs Neuts (Manual) Differential Comment Toxic Granulation Toxic Vacuolation Platelet Estimate Platelet Morphology Ovalocytes Sodium Potassium Chloride Carbon Dioxide Anion Gap BUN Creatinine Estimated GFR POC Glucose 143 H 113 H Random Glucose Lactic Acid 2.0 Calcium Total Bilirubin AST ALT Alkaline Phosphatase Total Protein Albumin 05/02/18 06:04 WBC RBC Hgb Hct MCV MCH MCHC RDW Plt Count MPV Prelim Diff (Auto) Neut % (Auto) Lymph % (Auto) [place] % (Auto) Eos % (Auto) Baso % (Auto) Neut # (Auto) Lymph # (Auto) [place] # (Auto) Eos # (Auto) Baso # (Auto) WBC Differential Seg Neuts % (Manual) Band Neuts % (Manual) Lymphocytes % (Manual) Monocytes % (Manual) Metamyelocytes % (Man) Myelocytes % (Man) Abs Neuts (Manual) Differential Comment Toxic Granulation Toxic Vacuolation Platelet Estimate Platelet Morphology Ovalocytes Sodium Potassium Chloride Carbon Dioxide Anion Gap BUN Creatinine Estimated GFR POC Glucose 128 H Random Glucose Lactic Acid Calcium Total Bilirubin AST ALT Alkaline Phosphatase Total Protein Albumin - Imaging Impressions Chest X-Ray 04/30/18 00:00 CONCLUSION: Negative examination. - Procedures None Assessment and Plan - Assessment (1) Brain mass Code(s): G93.9 - Disorder of brain, unspecified Status: Acute (2) Anorexia Code(s): R63.0 - Anorexia Status: Acute (3) HIV disease Code(s): B20 - Human immunodeficiency virus [HIV] disease Status: Acute (4) AIDS Code(s): B20 - Human immunodeficiency virus [HIV] disease Status: Acute - Plan 62-year-old -Cypriot male who was admitted to the hospital on 04/19/2018 due to altered mental status as well as generalized weakness. ED workup indicated a left frontal mass. Left frontal brain mass, per ID multiple lesions noted Concern for possible toxoplasmosis HIV/end stage AIDS, no prior HAART tx CD4 count less than 20 ID following -Discussed with Dr. Dimas - toxoplasmosis serologies negative, cerebral toxoplasmosis less likely. She is awaiting call back from neuroradiologist to see if any additional testing is available that would possibly assist with diagnosis. Repeat MRI shows enhancing mass concerning for malignancy. Neurosurgery consulted for biopsy - If medical oncology feels that he would be a candidate for chemotherapy/radiation treatment if a brain malignancy was confirmed then we could entertain a brain biopsy. Continue Decadron Continue Keppra MAC prophylaxis per ID supportive care Palliative care following, appreciate assistance. If POA does not consent for bx, patient would be a hospice candidate. Hyperkalemia Give dose of Kayexalate now Repeat K level Lactic acidosis Bandemia white count WNL. CXR unremarkable. UA ordered/pending Start gentle IVF hydration follow lactic acid sepsis protocol repeat CBC in am Hyponatremia Na 127 today D/C IVF fluid restriction repeat BMP in am Hyperglycemia patient is on Decadron accucheks with low dose ISS monitor Atypical chest mass, possible pneumonia ?atypical mycobacterial pulmonary infection patient c/o cough with whitish sputum production this am No respiratory distress. Pulse Ox 99% on RA. CXR unremarkable. Continue Bactrim per ID Oral candidiasis Diflucan started by ID Severe protein calorie malnutrition Deconditioned, generalized weakness Sandblaster Stone following continue Ensure with meals Continue with PT Constipation continue scheduled PeriColace monitor for BM DVT prophylaxis Heparin Discharge Planning: Not ready for discharge. Workup in progress. Discharge pending neurosurgery and ID clearance.
[2018-05-02] MEDS: Sod Chloride 0.9% Inj 1,000 ML IV.CONT SCH (08:55)
[2018-05-02] MEDS: Senna/Docusate Sodium 8.6/50 MG Tablet PO SCH ×2 (08:57→22:36)
[2018-05-02] MEDS: Famotidine 20 MG Tablet PO SCH ×2 (08:57→22:36)
[2018-05-02] MEDS: Multivitamin/Minerals Therapeutic Tablet PO SCH (08:57)
[2018-05-02] MEDS: Heparin - SQ 10,000 UNITS/ML Vial SQ SCH ×2 (08:58→22:37)
[2018-05-02] MEDS: levETIRAcetam 500 MG Tablet PO SCH ×2 (08:58→22:36)
[2018-05-02 09:04] LABS: Baso % (Auto) 0.1 % (0.0-2.0); Hematocrit 34.4 % (39.0-51.0); Hemoglobin 11.4 gm/dL (13.0-17.0); Lymph # (Auto) 0.4 th/mm3 (1.0-4.8); Lymph % (Auto) 4.4 % (9.0-44.0); Mean Corpuscular HGB Conc 33.1 % (32.0-36.0); Mean Corpuscular Hemoglobin 28.6 pg (27.0-34.0); Mean Corpuscular Volume 86.3 fL (80.0-100.0); Mean Platelet Volume 7.3 fL (7.0-11.0); Mono # (Auto) 0.2 th/mm3 (0.0-0.9); Mono % (Auto) 2.6 % (0.0-8.0); Neut # (Auto) 7.6 th/mm3 (1.8-7.7); Neut % (Auto) 92.9 % (16.0-70.0); Platelet Count 315 th/mm3 (150-450); Red Blood Count 3.98 mil/mm3 (4.50-5.90); Red Cell Distribution Width 16.7 % (11.6-17.2); White Blood Count 8.2 th/mm3 (4.0-11.0)
[2018-05-02 09:42] LABS: Lymphocytes 4 % (9-44); Metamyelocytes 3 % (0-1); Monocytes 3 % (0-8)
[2018-05-02 09:43] LABS: Ovalocytes 2+; Platelet Estimate Normal (Normal); Platelet Morphology Normal (Normal)
[2018-05-02 09:48] LABS: Anion Gap 10 meq/L (5-15); Blood Urea Nitrogen 21 mg/dL (7-18); Calcium 8.7 mg/dL (8.5-10.1); Chloride 92 meq/L (98-107); Glomerular Filtration Rate Greater Than 89 mL/min (>89); Glucose,Random 99 mg/dL (74-106); Potassium 6.2 meq/L (3.5-5.1); Sodium 127 meq/L (136-145)
--- NOTE | 2018-05-02 11:17 | P.PNPAL ---
Reason for Visit Reason for visit: a. To assist with evaluation and management of symptoms including: fatigue b. To assist medical decision maker(s) with: better understanding of current medical conditions; weighing benefits/burdens of medical treatment options; making medical treatment decisions. Subjective Subjective/Interval History: Pt seen today to follow up on discomfort, but remains fatigued. Fell this morning, deneis pain. He remains thin and endorse fatigue. Sleeps a lot of the times. Pt was sleeping but easily awakens. He is remember and recite his brother phone number, the year. He however has poor short term memory. Again I feel he can at the very least participate in health care decision, and should not be isolated from health care decision making, but he needs the help of his healthcare surrogate in medical decision making. Pt has also expressed he wants his brother involve. Patient a lot of times is not sure what to do. I have updated patient that I.D. has been talking with radiology in trying to distinguish if its tumor or infection since neurosurgery feels they could not perform biopsy at this point. I have called brother (home phone and cell ) this morning. At bedside of patient, again I have made another attempt to reach brother and do conference call. Each time it has been voicemail and brother has not called back. Family/Friend Interactions: Multiple attempts made to contact brother again today. Advance Directives Health Care Surrogate: Copy in medical record Advance Directives Date on File: 04/22/18 Health Care Surrogate Name and Number: Brother Taj Yancey Objective Vital Signs: Vital Signs 05/01/18 12:45 05/01/18 14:37 05/01/18 17:01 Temperature 98.2 F 98.1 F Pulse Rate 90 89 Respiratory Rate 16 18 16 Blood Pressure 140/77 130/86 Pulse Oximetry 95 99 05/01/18 20:00 05/01/18 20:05 05/02/18 00:00 Temperature 98.3 F 97.3 F L Pulse Rate 87 94 H Respiratory Rate 17 18 18 Blood Pressure 140/89 152/99 H Pulse Oximetry 97 100 05/02/18 02:50 05/02/18 09:11 Temperature 98.1 F Pulse Rate 72 Respiratory Rate 16 Blood Pressure 148/86 H 139/86 Pulse Oximetry 95 Intake & Output 05/01/18 05/02/18 05/02/18 18:59 06:59 18:59 Weight 43.8 kg Other: Date of Last Bowel Movement 04/28/18 Physical Exam: CONSTITUTIONAL/GENERAL: This is a very thin, frail-appearing male. TUBES/LINES/DRAINS: Peripheral IV left upper extremity SKIN: No jaundice. No visible lesions. Skin is very dry, flaking in areas of body. No wounds seen anteriorly. Skin warm and dry. ENT: Hearing grossly normal. Nose without bleeding or purulent drainage. Throat without visible erythema, exudates, masses. scattered white plaques to posterior tongue, upper palate, posterior pharynx ; tomas NECK: Trachea midline. Supple, nontender. No palpable thyroid enlargement or nodularity. CARDIOVASCULAR: Regular rate and rhythm without murmur. No JVD. Peripheral pulses symmetric. RESPIRATORY/CHEST: Symmetric, unlabored respirations. On room air. Clear to auscultation, faint expiratory wheezes left. Breath sounds equal bilaterally. GASTROINTESTINAL: Abdomen soft, flat, non-tender, nondistended. No hepato- splenomegaly, or palpable masses. No guarding. Bowel sounds present. MUSCULOSKELETAL: Extremities without clubbing, cyanosis, or edema. No joint tenderness or effusion noted. Extremities very thin with muscle atrophy evident. NEUROLOGICAL: Awake and alert. Oriented 2. Forgetful at times. Cooperative and pleasant. Some insight. Moves all extremities. PSYCHIATRIC: No obvious anxiety/depression. no apparent hallucinations or other psychotic thought process. Diagnostic Tests Laboratory: Laboratory Results - last 72 hr 04/30/18 05/01/18 05/01/18 12:58 08:23 08:23 WBC 9.5 9.6 RBC 3.63 L 4.26 L Hgb 10.4 L 12.4 L D Hct 31.0 L 36.6 L MCV 85.4 85.9 MCH 28.5 29.0 MCHC 33.4 33.8 RDW 16.5 16.4 Plt Count 330 321 MPV 7.5 7.7 Prelim Diff (Auto) Slide review pending Slide review pending Neut % (Auto) 92.0 H 94.5 H Lymph % (Auto) 3.8 L 3.8 L [place] % (Auto) 4.0 1.4 Eos % (Auto) 0.0 0.0 Baso % (Auto) 0.2 0.3 Neut # (Auto) 8.7 H 9.1 H Lymph # (Auto) 0.4 L 0.4 L [place] # (Auto) 0.4 0.1 Eos # (Auto) 0.0 0.0 Baso # (Auto) 0.0 0.0 WBC Differential Manual diff final Manual diff final Seg Neuts % (Manual) 76 H 80 H Band Neuts % (Manual) 19 H 10 H Lymphocytes % (Manual) 2 L 4 L Monocytes % (Manual) 2 2 Metamyelocytes % (Man) 2 H Myelocytes % (Man) 1 H 2 H Abs Neuts (Manual) 9.1 H 9.0 H Differential Comment . . Toxic Granulation 1+ H Toxic Vacuolation Present H Platelet Estimate Normal Normal Platelet Morphology Normal Normal Ovalocytes 1+ H 1+ H Sodium 128 L Potassium 5.1 Chloride 92 L Carbon Dioxide 25.8 Anion Gap 10 BUN 17 Creatinine 0.74 Estimated GFR Greater than 89 POC Glucose Random Glucose 162 H Lactic Acid Calcium 9.3 Total Bilirubin 0.2 AST 22 ALT 28 Alkaline Phosphatase 72 Total Protein 7.9 D Albumin 3.3 L 05/01/18 05/01/18 05/01/18 11:45 16:45 20:13 WBC RBC Hgb Hct MCV MCH MCHC RDW Plt Count MPV Prelim Diff (Auto) Neut % (Auto) Lymph % (Auto) [place] % (Auto) Eos % (Auto) Baso % (Auto) Neut # (Auto) Lymph # (Auto) [place] # (Auto) Eos # (Auto) Baso # (Auto) WBC Differential Seg Neuts % (Manual) Band Neuts % (Manual) Lymphocytes % (Manual) Monocytes % (Manual) Metamyelocytes % (Man) Myelocytes % (Man) Abs Neuts (Manual) Differential Comment Toxic Granulation Toxic Vacuolation Platelet Estimate Platelet Morphology Ovalocytes Sodium Potassium Chloride Carbon Dioxide Anion Gap BUN Creatinine Estimated GFR POC Glucose 143 H Random Glucose Lactic Acid 3.4 H 2.0 Calcium Total Bilirubin AST ALT Alkaline Phosphatase Total Protein Albumin 05/02/18 05/02/18 05/02/18 00:01 06:04 08:38 WBC 8.2 RBC 3.98 L Hgb 11.4 L Hct 34.4 L MCV 86.3 MCH 28.6 MCHC 33.1 RDW 16.7 Plt Count 315 MPV 7.3 Prelim Diff (Auto) Slide review pending Neut % (Auto) 92.9 H Lymph % (Auto) 4.4 L [place] % (Auto) 2.6 Eos % (Auto) 0.0 Baso % (Auto) 0.1 Neut # (Auto) 7.6 Lymph # (Auto) 0.4 L [place] # (Auto) 0.2 Eos # (Auto) 0.0 Baso # (Auto) 0.0 WBC Differential Manual diff final Seg Neuts % (Manual) 77 H Band Neuts % (Manual) 13 H Lymphocytes % (Manual) 4 L Monocytes % (Manual) 3 Metamyelocytes % (Man) 3 H Myelocytes % (Man) Abs Neuts (Manual) 7.6 Differential Comment . Toxic Granulation Toxic Vacuolation Platelet Estimate Normal Platelet Morphology Normal Ovalocytes 2+ H Sodium Potassium Chloride Carbon Dioxide Anion Gap BUN Creatinine Estimated GFR POC Glucose 113 H 128 H Random Glucose Lactic Acid Calcium Total Bilirubin AST ALT Alkaline Phosphatase Total Protein Albumin 05/02/18 08:38 WBC RBC Hgb Hct MCV MCH MCHC RDW Plt Count MPV Prelim Diff (Auto) Neut % (Auto) Lymph % (Auto) [place] % (Auto) Eos % (Auto) Baso % (Auto) Neut # (Auto) Lymph # (Auto) [place] # (Auto) Eos # (Auto) Baso # (Auto) WBC Differential Seg Neuts % (Manual) Band Neuts % (Manual) Lymphocytes % (Manual) Monocytes % (Manual) Metamyelocytes % (Man) Myelocytes % (Man) Abs Neuts (Manual) Differential Comment Toxic Granulation Toxic Vacuolation Platelet Estimate Platelet Morphology Ovalocytes Sodium 127 L Potassium 6.2 H D Chloride 92 L Carbon Dioxide 25.0 Anion Gap 10 BUN 21 H Creatinine 0.79 Estimated GFR Greater than 89 POC Glucose Random Glucose 99 Lactic Acid Calcium 8.7 Total Bilirubin AST ALT Alkaline Phosphatase Total Protein Albumin Result Diagrams: 05/02/18 08:38 05/02/18 08:38 Imaging: Chest X-Ray 04/19/18 11:56 CONCLUSION: No acute cardiopulmonary disease Head CT 04/19/18 11:56 CONCLUSION: 1. 2 cm low-density masslike lesion in the left frontal region causing obscuration of the frontal horn and with less than 2 mm midline shift towards the right. Recommend further characterization of this abnormality with MRI of the brain with and without contrast. . Head MRI 04/19/18 13:41 CONCLUSION: 1. Irregularly enhancing mass with epicenter in the head of the left caudate nucleus causing mild midline shift and with mild surrounding edema. Malignant tumors and neuroepithelial tumors are differential considerations. Abdomen/Pelvis CT 04/20/18 00:00 CONCLUSION: 1. 2 rounded hypodensities in the liver. The largest hypodensity likely represents a hemangioma. The second is too small to definitively characterize but is most likely to represent a cyst or hemangioma.. 2. Degenerative findings of the lower lumbar spine and sacroiliac joints. 3. Small amount of free fluid in the pelvis. 4. No enlarged lymph nodes in the abdomen and pelvis. Chest CT 04/20/18 00:00 CONCLUSION: 1. Tree in bud opacity in the left lower lobe along with bronchiectasis and bronchial plugging likely representing inflammatory process such as atypical mycobacterial infection. 2. Enlarged bilateral axillary lymph nodes. Right axillary surgical clips. Head/Brain Mag Res Venography 04/27/18 00:00 CONCLUSION: 1. Unremarkable study. Head MRI 04/28/18 00:00 CONCLUSION: 1. 2.7 x 2.5 x 1.6 cm heterogeneously enhancing mass involving the left side of the thalamus concerning for malignancy. 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 This is similar in appearance compared to previous examination of 04/19/2018. Chest X-Ray 04/30/18 00:00 CONCLUSION: Negative examination. Assessment and Plan - Disease Oriented Problem List (1) Asthma (2) COPD (chronic obstructive pulmonary disease) (3) Hypertension (4) Brain mass - Symptom Scale (1) Anorexia 0-10 Scale: 4 (2) Fatigue 0-10 Scale: 3 Pertinent Non-Medical Issues: Psychosocial: Patient born and raised in [place]. Has lived in [facility] for most of his life. Intermittently homeless. Has 3 adult children 2 daughters, one son who are local. Has several siblings himself his brothers except for Taj are and 2 of his sisters are . His parents are . He is . He has not been working for some time. He previously worked as a cook at a local restaurant. He is supported by his brother Taj locally, and a sister in [place] who he lived with about a year ago. Spiritual: Legal:Patient currently with mild confusion and forgetfulness. He is cooperative. He is not capacitated and able to make informed decisions at this time alone. Not clear if or when he will regain ability to make decisions. He is able to name his brother. He indicates he would want his brother called in an emergency. Ethical issues impacting care: No ethical issues identified Important Contacts: Brother / HEALTH CARE SURROGATE Taj Yancey [phone] home number, cell number [phone] . Prognosis: Hospice criteria for HIV/AIDs is t the following: CD4 coung <25 cells/mcl or viral Load >100,000 and at least 1 DEPARTMENT MGR lymphoma, untreated refractory wasting ( loss of 33% lean body mass), MAC, PMLE, lymphoma, cryptosporitium and PPS of 50% . This patient was admitted for weakness and altered mental status. This has had some weight loss. There is concern for underlying lung infection such as Mycobacterium. He has findings of possible brain mass etiology not clear at this time malignancy versus possible infectious process. Concern for possibility of underlying immune deficiency, infectious process causing current issues. He is currently frail, malnourished and high risk for ongoing complications and continued physical decline due to this. Prophylactic treatments. Brain mass/lesion unknown what it is, on my discussion with Infectious disease, it makes prognostications/ course of treatment difficult. Radiology feels it is a mass, and id has indicate if it is cancer/tumor prognosis worsens. Pt would be appropriate for hospice and comfort treatment only if goals compatible. . Code Status: No Code DNR Plan: * Legal decision maker:Pt was sleeping but easily awakens. He is remember and recite his brother phone number, the year. He however has poor short term memory. Again I feel he can at the very least can participate in health care decision, and should not be isolated from health care decision making, but he needs the help of his healthcare surrogate in medical decision making. Pt has also expressed he wants his brother involve. Patient a lot of times is not sure what to do. His brother is designated health care surrogate. Goals of care: has been difficult to reach brother this week. Today 05/02 I have called brother (home phone and cell ) this morning. At bedside of patient , again, I have made another attempt to reach brother and do conference call. Each time it has been voicemail and brother has not called back. Discussed again with patient about his situation: Discussed with him current clinical situation. At this point neurosurgery has said from progress note on 04/30/2018 "If medical oncology feels that he would be a candidate for chemotherapy/radiation treatment if a brain malignancy was confirmed then we could entertain a brain biopsy." Biopsy is on hold. I told him that radiology feels it is likely a mass. On my discussion with infectious disease; course of treatment and prognosis is difficult as I.D. does not know what we are treating, when to start anti retro viral etc... They have indicate overall p Radiology has said it is likely a tumor Pending MR spectroscopy to better define mass vs. infection. ID suggest if it shows most likely it is tumor, she feels prognositication is more at the hands at heme/onc. Hospice is an option to provide comfort care has been offered. At this time he is unsure what he wants and is amenable for brother to get involve and help support and guide his decision. Again as stated above, I am still awaiting for brother to call back. Brother from past palliative care discussion has stated (as documented in palliative care progress note 04/22/2018 "Brother is supportive of DNR if that is patient's wishes, he indicates he would be supportive of proceeding with brain biopsy if we will give additional information." * CODE STATUS:DNR * SYMPTOMS: --Anorexia/poor appetite-patient denies GI complaints however does endorse poor appetite may be for a few months. -- fatigue- general debility, hiv, infection vs mass. Appears this is been going on for a period of months. He also endorses weakness. Findings this admission of brain mass concerning for malignancy versus infectious etiology. Brother expresses concern that patient may have AIDS related to history. Patient also endorses history of intimate exposure to person with HIV or AIDS about 5 years ago. Oncology, ID following. Toxoplasmosis is negative * ID following. Thank you for assistance in patient care. Palliative care will continue to follow during hospital course as condition evolves, to assist patient/decision-maker with understanding of medical conditions, weighing benefits/burdens of treatment options, for clarification of goals of treatment. Additionally will assist with any symptoms of palliative concern d/w with ID.
--- NOTE | 2018-05-02 16:27 | P.DIET ---
Nutritional Evaluation Type of nutrition evaluation: follow-up Nutrition screening: MDC (Malnutrition) Subjective Subjective Comments: Pt says "I drink it" when asked about the Ensure. Partially eaten lunch tray on bedside table. Pt says his appetite is "so so". Pt has poor dentition w/missing teeth. Pt denies difficulty chewing. Objective - Diagnosis AMS - Objective Body Weight Used for Calculations: Actual (44.9 kg) Energy Needs - Lower Range (kCal/kg): 35 Energy Needs - Upper Range (kCal/kg): 40 Lower Limit kCal/kg (kCals): 1,572 Upper Limit kCal/kg (kCals): 1,796 Lower Limit Protein Factor (Grams per Kg): 1.5 Upper Limit Protein Factor (Grams per Kg): 2.0 Lower Protein Needs (Protein): 67 Upper Protein Needs (Protein): 90 Fluid Factor (ml/kg): 35 Estimated Fluid Needs (ml): 1,572 Dietitian Reviewed in Medical Record: Current diet, Curent medications, Intake & Output, Labs, Medical history Diet Order: Regular Oral Diet Intake Amount: Fair 50-75% Speech Therapy Recommendations: Yes Objective Comments: PMH: homeless, HTN, tobacco abuse, weakness, wt loss, HIV/End Stage Aids, CD 4 less than 20 Meds include decadron, pepcid, diflucan Feeding - Current PO Supplement Current Supplement: Ensure Enlive Current Frequency of Supplement: Three times a day Current kCals Provided by Supplement: 350 Current Protein Provided by Supplement: 20 Assessment Assessment: Pt continues at high nutrition risk r/t diagnosis, recent wt loss and low wt. No ht currently available to calculate a BMI. Please record percentage of meals in EMR. Continue Ensure Enlive tid. Agree w/Theragran M QD. Labs electrolytes reviewed. Dietitian following. Recommendations: 1. An ACTUAL Ht is needed 2. Please record percentage of meals in EMR 3. Continue Ensure Enlive tid Dietitian to Monitor: Lab values, Electrolytes, Supplement acceptance, Intake & Output, Diet tolerance, Weight change, PO Intake
--- NOTE | 2018-05-02 16:59 | MR ---
EXAM DATE: 05/01/2018 8:01 PM EDT AGE/SEX: 62 years / Male INDICATIONS: Mass. AIDS with brain lesion. CLINICAL DATA: This is the patient's initial encounter. Patient reports that signs and symptoms have been present for 1 day and indicates a pain score of 0/10. MEDICAL/SURGICAL HISTORY: None. None. COMPARISON: [facility] – [place] HEAD W/O CONTRAST, 04/19/2018. . TECHNIQUE: MR spectroscopy was performed with spectral analysis region of interest drawn around the p eripherally enhancing lesion in the left basal ganglia and a corresponding control region in the cont ralateral right hemisphere. FINDINGS: The area of interest in the left brain demonstrates elevated choline peak and a prominent lactate/lip id doublet. SANDRA is not significantly depleted however. Taken with the MRI appearance of the lesion, t his is felt most likely to represent a relatively high-grade neoplasm with areas of necrosis. CONCLUSION: MR spectroscopy appearance is not suggestive of FLOWER ARRANGER infection Electronically signed by: Jeremy Lara MD 05/02/2018 4:58 PM EDT
[2018-05-02] MEDS ORDERED: Sodium Polystyrene Sulfonate/Sorbitol Liq 15 GM/60 ML UDC PO ONE (17:09)
--- NOTE | 2018-05-02 17:18 | P.PNADD ---
Addendum to Inpatient Note Additional information: dw Dr Nasra Cortez: MR spectrometry cw lymphoma Treatment in this case will include chempo and HAART consult hemonc
[2018-05-02] MEDS: SULFADIAZINE 500 MG PO SCH ×3 (18:30→22:36)
--- NOTE | 2018-05-02 19:52 | P.PNID ---
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 Antibiotics: bactrim Allergies/Adverse Reactions: Allergies poornima Allergy (Mild, Verified 04/19/18 15:26) HIVES Objective Vital Signs 05/01/18 20:00 05/01/18 20:05 05/02/18 00:00 Temperature 98.3 F 97.3 F L Pulse Rate 87 94 H Respiratory Rate 17 18 18 Blood Pressure 140/89 152/99 H Pulse Oximetry 97 100 05/02/18 02:50 05/02/18 09:11 05/02/18 13:24 Temperature 98.1 F 98.5 F Pulse Rate 72 71 Respiratory Rate 16 18 Blood Pressure 148/86 H 139/86 125/59 L Pulse Oximetry 95 96 Intake & Output 05/02/18 05/02/18 05/03/18 06:59 18:59 06:59 Weight 43.8 kg Other: Date of Last Bowel Movement 04/28/18 04/28/18 Lab - Hematology Results 05/01/18 05/02/18 08:23 08:38 WBC 9.6 8.2 RBC 4.26 L 3.98 L Hgb 12.4 L D 11.4 L Hct 36.6 L 34.4 L MCV 85.9 86.3 MCH 29.0 28.6 MCHC 33.8 33.1 RDW 16.4 16.7 Plt Count 321 315 MPV 7.7 7.3 Prelim Diff (Auto) Slide review pending Slide review pending Neut % (Auto) 94.5 H 92.9 H Lymph % (Auto) 3.8 L 4.4 L [place] % (Auto) 1.4 2.6 Eos % (Auto) 0.0 0.0 Baso % (Auto) 0.3 0.1 Neut # (Auto) 9.1 H 7.6 Lymph # (Auto) 0.4 L 0.4 L [place] # (Auto) 0.1 0.2 Eos # (Auto) 0.0 0.0 Baso # (Auto) 0.0 0.0 WBC Differential Manual diff final Manual diff final Seg Neuts % (Manual) 80 H 77 H Band Neuts % (Manual) 10 H 13 H Lymphocytes % (Manual) 4 L 4 L Monocytes % (Manual) 2 3 Metamyelocytes % (Man) 2 H 3 H Myelocytes % (Man) 2 H Abs Neuts (Manual) 9.0 H 7.6 Differential Comment . . Toxic Granulation 1+ H Toxic Vacuolation Present H Platelet Estimate Normal Normal Platelet Morphology Normal Normal Ovalocytes 1+ H 2+ H Lab - Chemistry Results 05/01/18 05/01/18 05/01/18 08:23 11:45 16:45 Sodium 128 L Potassium 5.1 Chloride 92 L Carbon Dioxide 25.8 Anion Gap 10 BUN 17 Creatinine 0.74 Estimated GFR Greater than 89 POC Glucose Random Glucose 162 H Lactic Acid 3.4 H 2.0 Calcium 9.3 Total Bilirubin 0.2 AST 22 ALT 28 Alkaline Phosphatase 72 Total Protein 7.9 D Albumin 3.3 L 05/01/18 05/02/18 05/02/18 20:13 00:01 06:04 Sodium Potassium Chloride Carbon Dioxide Anion Gap BUN Creatinine Estimated GFR POC Glucose 143 H 113 H 128 H Random Glucose Lactic Acid Calcium Total Bilirubin AST ALT Alkaline Phosphatase Total Protein Albumin 05/02/18 05/02/18 05/02/18 08:38 11:56 17:47 Sodium 127 L Potassium 6.2 H D 5.7 H Chloride 92 L Carbon Dioxide 25.0 Anion Gap 10 BUN 21 H Creatinine 0.79 Estimated GFR Greater than 89 POC Glucose 108 Random Glucose 99 Lactic Acid Calcium 8.7 Total Bilirubin AST ALT Alkaline Phosphatase Total Protein Albumin Imaging: ITS Impressions Head CT 04/19/18 11:56 CONCLUSION: 1. 2 cm low-density masslike lesion in the left frontal region causing obscuration of the frontal horn and with less than 2 mm midline shift towards the right. Recommend further characterization of this abnormality with MRI of the brain with and without contrast. . Impressions Chest X-Ray 04/30/18 00:00 CONCLUSION: Negative examination. Spectroscopy MRI 05/01/18 00:00 CONCLUSION: MR spectroscopy appearance is not suggestive of MOLDER FLOOR infection Physical Exam: GENERAL: NAD appears very weak and ill SKIN: Warm and dry. Very dry with extensive excoriations HEAD: Atraumatic. Normocephalic. Alopecia EYES: Pupils equal and round. No scleral icterus. No injection or drainage. ENT: No nasal bleeding or discharge. Mucous membranes pink and moist. NECK: Trachea midline. No JVD. CARDIOVASCULAR: Regular rate and rhythm. RESPIRATORY: No accessory muscle use. Crackles/rhonchi to auscultation mosltly R side . Breath sounds equal bilaterally. GASTROINTESTINAL: Abdomen soft, non-tender, nondistended. Hepatic and splenic margins not palpable. MUSCULOSKELETAL: Extremities without clubbing, cyanosis, or edema. No obvious deformities. marked loss of muscle bulk NEUROLOGICAL: Awake and alert. No obvious cranial nerve deficits. Motor grossly within normal limits. Five out of 5 muscle strength in the arms and legs. 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 L axillae mases/ Lymphadenopathy Will treat empirically toxo with repeating MRI in 2 weeks dw pharmacists none of the 1st line agents (pyremethamine, sulfadiazine) are not available cont bactrim for now, max out the dose while awating for 1st line drugs toxo serologies negative and MR spectrometry not sugg of MOLDER FLOOR infx Fluconazole for oral thrush sputum/bnlood mycobacterial clx Overall prognosis seems to be extremely poor palliative care ff Overall, the treatment for lymphoma wikll be sterroids, and HAART ( Dolutegravir / tenofovir alafenamide/emtricitabine) I plan to start HAART in the next 24-48 hrs unless family wants to go with hospice Consult oncologist awaiting decision on bx convert bactrim to PCP profilaxis dose dw Dr Domenico Shelton
[2018-05-03] MEDS: Insulin NovoLOG Aspart Correctional Sugar Inj SQ SCH ×4 (01:19→18:04)
[2018-05-03] MEDS: SULFADIAZINE 500 MG PO SCH ×5 (01:29→20:24)
[2018-05-03] MEDS: Sod Chloride 0.9% Inj 1,000 ML IV.CONT SCH (01:30)
--- NOTE | 2018-05-03 08:31 | P.PN ---
Subjective Interval history: Follow-up on patient with HIV/AIDS, brain mass concerning for malignancy. Patient seen and examined. Patient is complaining of headache. He reports poor appetite this morning due to headache. He denies any vision changes, new onset weakness, numbness or tingling. Denies any fever or chills. He denies any chest pain or shortness of breath. Denies any nausea, vomiting or abdominal pain. Physical Exam Vital signs: Vital Signs 05/02/18 09:11 05/02/18 13:24 05/02/18 20:00 Temperature 98.1 F 98.5 F 97.7 F Pulse Rate 72 71 75 Respiratory Rate 16 18 18 Blood Pressure 139/86 125/59 L 131/84 Pulse Oximetry 95 96 100 05/03/18 00:00 05/03/18 04:00 Temperature 97.8 F 97.5 F L Pulse Rate 66 67 Respiratory Rate 18 17 Blood Pressure 162/88 H 163/87 H Pulse Oximetry 97 100 Intake & Output 05/02/18 05/03/18 05/03/18 18:59 06:59 18:59 Intake Total 1030 / 1030 Balance 1030 / 1030 Weight 85.8 kg Intake: IV 350 / 350 NS Inj 1,000 ML @ 75 mls/hr IV. 350 / 350 CONT .[id number] HAN Rx#:[id number] Oral 680 / 680 Other: # Voids 4 Date of Last Bowel Movement 04/28/18 05/03/18 # Bowel Movements 2 Narrative: GENERAL: This is a thin, frail, extremely cachectic appearing -British male patient, INAD. A&Ox2. Lying in bed awake. SKIN: Warm and extremely dry. HEENT: Normocephalic. EOMI. No sclera icterus. No nasal drainage. Airway patent. MMM. NECK: Supple, trachea midline. No lymphadenopathy. CARDIOVASCULAR: Regular rate and rhythm without murmurs, gallops, or rubs. RESPIRATORY: No accessory muscle use. Fair air entry. No wheezing noted. GASTROINTESTINAL: Abdomen soft, non-tender, nondistended. +BS. MUSCULOSKELETAL: No cyanosis or edema. NEURO: Awake. Oriented 2. Able to move all extremities spontaneously. No focal neurological deficits. Clear speech. PSYCHIATRIC: Calm and cooperative. Flat affect. - Urinary Catheter Management Indwelling Urethral Catheter Cath placed during this visit: yes Reason for continuing: Chronic Urinary Retention Insertion date: 04/26/18 Results - Labs CBC & Chem 7: 05/02/18 08:38 05/03/18 08:27 Laboratory Results - last 24 hr 05/02/18 05/02/18 05/02/18 08:38 08:38 11:56 WBC 8.2 RBC 3.98 L Hgb 11.4 L Hct 34.4 L MCV 86.3 MCH 28.6 MCHC 33.1 RDW 16.7 Plt Count 315 MPV 7.3 Prelim Diff (Auto) Slide review pending Neut % (Auto) 92.9 H Lymph % (Auto) 4.4 L [place] % (Auto) 2.6 Eos % (Auto) 0.0 Baso % (Auto) 0.1 Neut # (Auto) 7.6 Lymph # (Auto) 0.4 L [place] # (Auto) 0.2 Eos # (Auto) 0.0 Baso # (Auto) 0.0 WBC Differential Manual diff final Seg Neuts % (Manual) 77 H Band Neuts % (Manual) 13 H Lymphocytes % (Manual) 4 L Monocytes % (Manual) 3 Metamyelocytes % (Man) 3 H Abs Neuts (Manual) 7.6 Differential Comment . Platelet Estimate Normal Platelet Morphology Normal Ovalocytes 2+ H Sodium 127 L Potassium 6.2 H D Chloride 92 L Carbon Dioxide 25.0 Anion Gap 10 BUN 21 H Creatinine 0.79 Estimated GFR Greater than 89 POC Glucose 108 Random Glucose 99 Calcium 8.7 05/02/18 17:47 WBC RBC Hgb Hct MCV MCH MCHC RDW Plt Count MPV Prelim Diff (Auto) Neut % (Auto) Lymph % (Auto) [place] % (Auto) Eos % (Auto) Baso % (Auto) Neut # (Auto) Lymph # (Auto) [place] # (Auto) Eos # (Auto) Baso # (Auto) WBC Differential Seg Neuts % (Manual) Band Neuts % (Manual) Lymphocytes % (Manual) Monocytes % (Manual) Metamyelocytes % (Man) Abs Neuts (Manual) Differential Comment Platelet Estimate Platelet Morphology Ovalocytes Sodium Potassium 5.7 H Chloride Carbon Dioxide Anion Gap BUN Creatinine Estimated GFR POC Glucose Random Glucose Calcium - Imaging Impressions Spectroscopy MRI 05/01/18 00:00 CONCLUSION: MR spectroscopy appearance is not suggestive of KNOT BORER infection - Procedures None Assessment and Plan - Assessment (1) Brain mass Code(s): G93.9 - Disorder of brain, unspecified Status: Acute (2) Anorexia Code(s): R63.0 - Anorexia Status: Acute (3) HIV disease Code(s): B20 - Human immunodeficiency virus [HIV] disease Status: Acute (4) AIDS Code(s): B20 - Human immunodeficiency virus [HIV] disease Status: Acute - Plan 62-year-old -British male who was admitted to the hospital on 04/19/2018 due to altered mental status as well as generalized weakness. ED workup indicated a left frontal mass. 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 Plan to start HAART tx in next 24-48hrs unless family chooses hospice brain bx? awaiting patient and family's decision Oncology consulted, appreciate assistance Continue Decadron Continue Keppra MAC prophylaxis per ID supportive care Palliative care following, appreciate assistance. They are having a difficult time contacting patients brother who is the healthcare surrogate. Atypical chest mass, possible pneumonia ?atypical mycobacterial pulmonary infection No respiratory distress. Pulse Ox 99% on RA. CXR unremarkable. Continue Bactrim per ID Hyperkalemia Give additional dose of Kayexalate now and Albuterol Neb tx Repeat K level later today continuous cardiac monitoring obtain EKG low K diet repeat BMP in am Hypertensive, suspect 2/2 IV Decadron start on Norvasc 5mg daily Monitor and adjust tx accordingly Lactic acidosis, resolved Bandemia white count WNL. CXR unremarkable. Hyponatremia ?SIADH Na 126 today continue fluid restriction give salt tablets 1gm daily repeat BMP in am Hyperglycemia patient is on Decadron accucheks with low dose ISS monitor Oral candidiasis Diflucan started by ID Severe protein calorie malnutrition Deconditioned, generalized weakness [employer] Electrician Helper following continue Ensure with meals Continue with PT Constipation continue scheduled PeriColace monitor for BM DVT prophylaxis Heparin Code Status: DNR Discussed Condition With: patient, nursing staff, Dr. Hoang Discharge Planning: Not ready for discharge. Workup in progress. Discharge pending neurosurgery and ID clearance.
[2018-05-03] MEDS: Famotidine 20 MG Tablet PO SCH ×2 (08:35→20:23)
[2018-05-03] MEDS: Heparin - SQ 10,000 UNITS/ML Vial SQ SCH ×2 (08:35→20:23)
[2018-05-03] MEDS: Multivitamin/Minerals Therapeutic Tablet PO SCH (08:35)
[2018-05-03] MEDS: levETIRAcetam 500 MG Tablet PO SCH ×2 (08:35→20:23)
[2018-05-03] MEDS: Senna/Docusate Sodium 8.6/50 MG Tablet PO SCH ×2 (08:39→20:23)
[2018-05-03] MEDS ORDERED: Butalbital/APAP/Caff 50/325/40 MG Tablet PO ONE (10:00)
[2018-05-03 10:02] LABS: Anion Gap 12 meq/L (5-15); Blood Urea Nitrogen 32 mg/dL (7-18); Calcium 9.1 mg/dL (8.5-10.1); Carbon Dioxide 23.1 meq/L (21.0-32.0); Chloride 91 meq/L (98-107); Glomerular Filtration Rate Greater Than 89 mL/min (>89); Glucose,Random 78 mg/dL (74-106); Potassium 6.1 meq/L (3.5-5.1); Sodium 126 meq/L (136-145)
[2018-05-03] MEDS ORDERED: RESP: Albuterol Concentrated 2.5 MG/0.5 ML Neb NEB ONE (13:46)
[2018-05-03] MEDS: Sodium Chloride 1 GM Tablet PO SCH (13:52)
[2018-05-03] MEDS ORDERED: Sodium Polystyrene Sulfonate/Sorbitol Liq 15 GM/60 ML UDC PO ONE (14:00)
[2018-05-03] MEDS: amLODIPine 5 MG Tablet PO SCH (18:38)
[2018-05-04] MEDS: Insulin NovoLOG Aspart Correctional Sugar Inj SQ SCH ×5 (00:18→23:57)
[2018-05-04] MEDS: SULFADIAZINE 500 MG PO SCH ×4 (08:30→23:14)
[2018-05-04] MEDS: Multivitamin/Minerals Therapeutic Tablet PO SCH (08:31)
[2018-05-04] MEDS: levETIRAcetam 500 MG Tablet PO SCH ×2 (08:31→23:14)
[2018-05-04] MEDS: Heparin - SQ 10,000 UNITS/ML Vial SQ SCH ×2 (08:31→23:14)
[2018-05-04] MEDS: Famotidine 20 MG Tablet PO SCH ×2 (08:31→23:13)
[2018-05-04] MEDS: amLODIPine 5 MG Tablet PO SCH (08:31)
[2018-05-04] MEDS: Senna/Docusate Sodium 8.6/50 MG Tablet PO SCH ×2 (08:31→23:14)
[2018-05-04] MEDS: Sodium Chloride 1 GM Tablet PO SCH ×2 (08:31→23:14)
--- NOTE | 2018-05-04 08:58 | ECG ---
Date Performed: 05/03/2018 Time Performed: 14:11:21 PTAGE: 62 years EKG: Sinus rhythm SEPTAL MYOCARDIAL INFARCTION , OF INDETERMINATE AGE Nonspecific ST and T wave abnormalities Since e previous tracing, no significant change noted ABNORMAL ECG PREVIOUS TRACING : 04/19/2018 12.01 DOCTOR: Melody Rose Interpretating Date/Time 05/04/2018 08:56:42
[2018-05-04 09:29] LABS: Albumin 3.3 g/dL (3.4-5.0); Anion Gap 13 meq/L (5-15); Aspartate Aminotransferase 29 U/L (15-37); Blood Urea Nitrogen 32 mg/dL (7-18); Calcium 8.9 mg/dL (8.5-10.1); Carbon Dioxide 23.9 meq/L (21.0-32.0); Chloride 92 meq/L (98-107); Glomerular Filtration Rate Greater Than 89 mL/min (>89); Glucose,Random 107 mg/dL (74-106); Potassium 4.5 meq/L (3.5-5.1); Sodium 129 meq/L (136-145)
[2018-05-04 09:41] LABS: Alanine Aminotransferase 45 U/L (12-78); Alkaline Phosphatase 72 U/L (45-117); Total Protein 7.9 g/dL (6.4-8.2)
[2018-05-04] MEDS ORDERED: amLODIPine 5 MG Tablet PO ONE (11:00)
--- NOTE | 2018-05-04 15:32 | P.PN ---
Subjective Interval history: Follow-up on patient with HIV/AIDS, brain mass concerning for malignancy. Patient seen and examined. He continues to complain of headache. He diet has been poor today but he denies any N/V or abdominal pain. He denies any fever or chills. He states he is urinating well but not frequently. He reports normal BM. Discussed with nursing staff. Physical Exam Vital signs: Vital Signs 05/03/18 16:00 05/03/18 19:06 05/03/18 20:00 Temperature 98.3 F 97.8 F Pulse Rate 77 77 106 H Respiratory Rate 20 15 15 Blood Pressure 135/91 H 136/90 Pulse Oximetry 97 99 05/04/18 00:00 05/04/18 01:21 05/04/18 04:00 Temperature 97.8 F 97.5 F L Pulse Rate 78 75 Respiratory Rate 15 16 16 Blood Pressure 145/95 H 140/92 H Pulse Oximetry 98 99 05/04/18 08:00 05/04/18 09:00 05/04/18 12:00 Temperature 97.8 F 98.2 F Pulse Rate 80 83 85 Respiratory Rate 20 20 Blood Pressure 151/107 H 140/87 Pulse Oximetry Intake & Output 05/03/18 05/04/18 05/04/18 18:59 06:59 18:59 Output Total 5 / 5 50 / 50 Balance -5 / -5 -50 / -50 Weight 42.7 kg Output: Urine 5 / 5 50 / 50 Stool 0 / 0 Other: # Voids 2 Date of Last Bowel Movement 05/03/18 Narrative: GENERAL: This is a thin, frail, extremely cachectic appearing -[place] male patient, INAD. A&Ox2. Lying in bed asleep but easily awakens to voice. Appears listless today. SKIN: Warm and extremely dry. HEENT: Normocephalic. EOMI. No sclera icterus. No nasal drainage. Airway patent. MMM. NECK: Supple, trachea midline. No lymphadenopathy. CARDIOVASCULAR: Regular rate and rhythm without murmurs, gallops, or rubs. RESPIRATORY: No accessory muscle use. Fair air entry. No wheezing noted. GASTROINTESTINAL: Abdomen soft, non-tender, nondistended. +BS. MUSCULOSKELETAL: No cyanosis or edema. NEURO: Awake. Oriented 2. Able to move all extremities spontaneously. No focal neurological deficits. Clear speech. PSYCHIATRIC: Calm and cooperative. Flat affect. - Urinary Catheter Management Indwelling Urethral Catheter Cath placed during this visit: yes Reason for continuing: Chronic Urinary Retention Insertion date: 04/26/18 Results - Labs CBC & Chem 7: 05/02/18 08:38 05/04/18 08:41 Laboratory Results - last 24 hr 05/03/18 05/03/18 05/03/18 18:20 18:20 19:00 Sodium Potassium 5.7 H Chloride Carbon Dioxide Anion Gap BUN Creatinine Estimated GFR POC Glucose Random Glucose Osmolality Calcium Total Bilirubin AST ALT Alkaline Phosphatase Total Protein Albumin TSH Cortisol Urine Osmolality 634 Ur Random Sodium 117 05/03/18 05/04/18 05/04/18 23:23 00:15 05:22 Sodium Potassium 5.1 Chloride Carbon Dioxide Anion Gap BUN Creatinine Estimated GFR POC Glucose 114 H 117 H Random Glucose Osmolality Calcium Total Bilirubin AST ALT Alkaline Phosphatase Total Protein Albumin TSH Cortisol Urine Osmolality Ur Random Sodium 05/04/18 05/04/18 08:41 12:35 Sodium 129 L Potassium 4.5 Chloride 92 L Carbon Dioxide 23.9 Anion Gap 13 BUN 32 H Creatinine 0.83 Estimated GFR Greater than 89 POC Glucose Random Glucose 107 H Osmolality 287 Calcium 8.9 Total Bilirubin 0.4 AST 29 ALT 45 Alkaline Phosphatase 72 Total Protein 7.9 Albumin 3.3 L TSH 0.380 Cortisol 1.6 Urine Osmolality Ur Random Sodium - Imaging Chest X-Ray 04/19/18 11:56 CONCLUSION: No acute cardiopulmonary disease Head CT 04/19/18 11:56 CONCLUSION: 1. 2 cm low-density masslike lesion in the left frontal region causing obscuration of the frontal horn and with less than 2 mm midline shift towards the right. Recommend further characterization of this abnormality with MRI of the brain with and without contrast. . Head MRI 04/19/18 13:41 CONCLUSION: 1. Irregularly enhancing mass with epicenter in the head of the left caudate nucleus causing mild midline shift and with mild surrounding edema. Malignant tumors and neuroepithelial tumors are differential considerations. Abdomen/Pelvis CT 04/20/18 00:00 CONCLUSION: 1. 2 rounded hypodensities in the liver. The largest hypodensity likely represents a hemangioma. The second is too small to definitively characterize but is most likely to represent a cyst or hemangioma.. 2. Degenerative findings of the lower lumbar spine and sacroiliac joints. 3. Small amount of free fluid in the pelvis. 4. No enlarged lymph nodes in the abdomen and pelvis. Chest CT 04/20/18 00:00 CONCLUSION: 1. Tree in bud opacity in the left lower lobe along with bronchiectasis and bronchial plugging likely representing inflammatory process such as atypical mycobacterial infection. 2. Enlarged bilateral axillary lymph nodes. Right axillary surgical clips. Head/Brain Mag Res Venography 04/27/18 00:00 CONCLUSION: 1. Unremarkable study. Head MRI 04/28/18 00:00 CONCLUSION: 1. 2.7 x 2.5 x 1.6 cm heterogeneously enhancing mass involving the left side of the thalamus concerning for malignancy. 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 This is similar in appearance compared to previous examination of 04/19/2018. Chest X-Ray 04/30/18 00:00 CONCLUSION: Negative examination. Spectroscopy MRI 05/01/18 00:00 CONCLUSION: MR spectroscopy appearance is not suggestive of MANUFACTURING AUTOMATION ENGINEER infection - Procedures None Assessment and Plan - Assessment (1) Brain mass Code(s): G93.9 - Disorder of brain, unspecified Status: Acute (2) Anorexia Code(s): R63.0 - Anorexia Status: Acute (3) HIV disease Code(s): B20 - Human immunodeficiency virus [HIV] disease Status: Acute (4) AIDS Code(s): B20 - Human immunodeficiency virus [HIV] disease Status: Acute - Plan 62-year-old -[place] male who was admitted to the hospital on 04/19/2018 due to altered mental status as well as generalized weakness. ED workup indicated a left frontal mass. 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 Plan to start HAART tx in next 24-48hrs unless family chooses hospice brain bx? awaiting patient and family's decision Oncology consulted, appreciate assistance Continue Decadron Continue Keppra MAC prophylaxis per ID supportive care Palliative care following, appreciate assistance. They are having a difficult time contacting patients brother who is the healthcare surrogate. Atypical chest mass, possible pneumonia ?atypical mycobacterial pulmonary infection No respiratory distress. Pulse Ox 99% on RA. CXR unremarkable. Continue Bactrim per ID Hyperkalemia treated with albuterol and Kayexalate, K down to 4.5 continuous cardiac monitoring obtain EKG low K diet repeat CMP in am Hypertensive, suspect 2/2 IV Decadron, uncontrolled increase Norvasc to 10mg daily Monitor and adjust tx accordingly Lactic acidosis, resolved Bandemia white count WNL. CXR unremarkable. 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 Hoang Discharge Planning: Not ready for discharge. Workup in progress. Discharge pending neurosurgery and ID clearance.
[2018-05-04] MEDS ORDERED: Butalbital/APAP/Caff 50/325/40 MG Tablet PO PRN (16:18)
[2018-05-05] MEDS: Insulin NovoLOG Aspart Correctional Sugar Inj SQ SCH ×3 (05:18→18:07)
[2018-05-05 07:16] LABS: Baso % (Auto) 0.3 % (0.0-2.0); Hematocrit 37.9 % (39.0-51.0); Hemoglobin 12.5 gm/dL (13.0-17.0); Lymph # (Auto) 0.2 th/mm3 (1.0-4.8); Lymph % (Auto) 4.2 % (9.0-44.0); Mean Corpuscular Hemoglobin 28.8 pg (27.0-34.0); Mean Corpuscular Volume 87.3 fL (80.0-100.0); Mean Platelet Volume 7.6 fL (7.0-11.0); Mono # (Auto) 0.1 th/mm3 (0.0-0.9); Mono % (Auto) 2.4 % (0.0-8.0); Neut # (Auto) 3.8 th/mm3 (1.8-7.7); Neut % (Auto) 93.1 % (16.0-70.0); Platelet Count 311 th/mm3 (150-450); Red Blood Count 4.35 mil/mm3 (4.50-5.90); Red Cell Distribution Width 17.1 % (11.6-17.2)
[2018-05-05 07:57] LABS: Alanine Aminotransferase 56 U/L (12-78); Albumin 3.2 g/dL (3.4-5.0); Alkaline Phosphatase 73 U/L (45-117); Anion Gap 8 meq/L (5-15); Aspartate Aminotransferase 34 U/L (15-37); Blood Urea Nitrogen 43 mg/dL (7-18); Calcium 8.8 mg/dL (8.5-10.1); Carbon Dioxide 24.8 meq/L (21.0-32.0); Chloride 99 meq/L (98-107); Glomerular Filtration Rate Greater Than 89 mL/min (>89); Glucose,Random 110 mg/dL (74-106); Potassium 4.4 meq/L (3.5-5.1); Sodium 132 meq/L (136-145); Total Protein 7.7 g/dL (6.4-8.2)
[2018-05-05 08:12] LABS: Lymphocytes 9 % (9-44); Myelocytes 1 % (0-0); Platelet Estimate Normal (Normal); Platelet Morphology Normal (Normal)
[2018-05-05 08:13] LABS: Ovalocytes 1+
[2018-05-05] MEDS: Sodium Chloride 1 GM Tablet PO SCH ×2 (08:32→22:29)
[2018-05-05] MEDS: Famotidine 20 MG Tablet PO SCH ×2 (08:32→22:29)
[2018-05-05] MEDS: Multivitamin/Minerals Therapeutic Tablet PO SCH (08:32)
[2018-05-05] MEDS: Senna/Docusate Sodium 8.6/50 MG Tablet PO SCH ×2 (08:33→22:27)
[2018-05-05] MEDS: levETIRAcetam 500 MG Tablet PO SCH ×2 (08:33→22:26)
[2018-05-05] MEDS: amLODIPine 5 MG Tablet PO SCH (08:33)
[2018-05-05] MEDS: SULFADIAZINE 500 MG PO SCH ×4 (08:33→22:32)
[2018-05-05] MEDS: Heparin - SQ 10,000 UNITS/ML Vial SQ SCH ×2 (08:34→22:27)
--- NOTE | 2018-05-05 09:26 | P.PN ---
Subjective Interval history: Follow-up on patient with HIV/AIDS, brain mass concerning for malignancy. Patient seen and examined. He denies any headache, vision changes, new weakness. Patient complaining of burning when he urinates and sensation of incomplete emptying. He reports poor volumes. He denies any hematuria. He also reports small hard bowel movements and he feels constipated. He states his last BM was 4 days ago but nurse states he had on Saturday. He denies any nausea or vomiting but reports lower abdominal discomfort. He also reports a sore throat. He denies any fever or chills. He denies any chest pain or shortness of breath. Physical Exam Vital signs: Vital Signs 05/04/18 09:00 05/04/18 12:00 05/04/18 16:00 Temperature 98.2 F 97.9 F Pulse Rate 83 85 87 Respiratory Rate 20 20 Blood Pressure 140/87 114/81 Pulse Oximetry 05/04/18 20:00 05/05/18 00:00 05/05/18 01:21 Temperature 97.6 F 97.5 F L Pulse Rate 79 77 Respiratory Rate 16 18 16 Blood Pressure 126/76 137/84 Pulse Oximetry 98 96 05/05/18 04:00 Temperature 98.2 F Pulse Rate 81 Respiratory Rate 16 Blood Pressure 138/86 Pulse Oximetry 91 L Intake & Output 05/04/18 05/05/18 05/05/18 18:59 06:59 18:59 Intake Total 480 / 480 Balance 480 / 480 Weight 41.8 kg Intake: Oral 480 / 480 Other: # Voids 1 Narrative: GENERAL: This is a thin, frail, extremely cachectic appearing -[place]i male patient, INAD. A&Ox2-3. Sitting up in bed awake and alert. SKIN: Warm and extremely dry. HEENT: +Temporal wasting. Normocephalic. EOMI. No sclera icterus. No nasal drainage. Airway patent. MMM. No oral thrush. NECK: Supple, trachea midline. No lymphadenopathy. CARDIOVASCULAR: Regular rate and rhythm without murmurs, gallops, or rubs. RESPIRATORY: No accessory muscle use. Fair air entry. No wheezing noted. GASTROINTESTINAL: Abdomen soft, nondistended. +mild tenderness to palpation of lower abdomen. MUSCULOSKELETAL: No cyanosis or edema. NEURO: Awake and alert. Oriented 2. Able to move all extremities spontaneously. Clear speech. PSYCHIATRIC: Calm and cooperative. Flat affect. - Urinary Catheter Management Indwelling Urethral Catheter Cath placed during this visit: yes Reason for continuing: Chronic Urinary Retention Insertion date: 04/26/18 Results - Labs CBC & Chem 7: 05/05/18 06:01 05/05/18 06:01 Laboratory Results - last 24 hr 05/04/18 05/04/18 05/05/18 08:41 12:35 05:17 WBC RBC Hgb Hct MCV MCH MCHC RDW Plt Count MPV Prelim Diff (Auto) Neut % (Auto) Lymph % (Auto) [place] % (Auto) Eos % (Auto) Baso % (Auto) Neut # (Auto) Lymph # (Auto) [place] # (Auto) Eos # (Auto) Baso # (Auto) WBC Differential Seg Neuts % (Manual) Band Neuts % (Manual) Lymphocytes % (Manual) Myelocytes % (Man) Abs Neuts (Manual) Differential Comment Platelet Estimate Platelet Morphology Ovalocytes Sodium 129 L Potassium 4.5 Chloride 92 L Carbon Dioxide 23.9 Anion Gap 13 BUN 32 H Creatinine 0.83 Estimated GFR Greater than 89 POC Glucose 144 H Random Glucose 107 H Osmolality 287 Calcium 8.9 Total Bilirubin 0.4 AST 29 ALT 45 Alkaline Phosphatase 72 Total Protein 7.9 Albumin 3.3 L TSH 0.380 Cortisol 1.6 05/05/18 05/05/18 06:01 06:01 WBC 4.0 RBC 4.35 L Hgb 12.5 L Hct 37.9 L MCV 87.3 MCH 28.8 MCHC 33.0 RDW 17.1 Plt Count 311 MPV 7.6 Prelim Diff (Auto) Slide review pending Neut % (Auto) 93.1 H Lymph % (Auto) 4.2 L [place] % (Auto) 2.4 Eos % (Auto) 0.0 Baso % (Auto) 0.3 Neut # (Auto) 3.8 Lymph # (Auto) 0.2 L [place] # (Auto) 0.1 Eos # (Auto) 0.0 Baso # (Auto) 0.0 WBC Differential Manual diff final Seg Neuts % (Manual) 76 H Band Neuts % (Manual) 14 H Lymphocytes % (Manual) 9 Myelocytes % (Man) 1 H Abs Neuts (Manual) 3.6 Differential Comment . Platelet Estimate Normal Platelet Morphology Normal Ovalocytes 1+ H Sodium 132 L Potassium 4.4 Chloride 99 Carbon Dioxide 24.8 Anion Gap 8 BUN 43 H Creatinine 0.78 Estimated GFR Greater than 89 POC Glucose Random Glucose 110 H Osmolality Calcium 8.8 Total Bilirubin 0.3 AST 34 ALT 56 Alkaline Phosphatase 73 Total Protein 7.7 Albumin 3.2 L TSH Cortisol - Imaging Chest X-Ray 04/19/18 11:56 CONCLUSION: No acute cardiopulmonary disease Head CT 04/19/18 11:56 CONCLUSION: 1. 2 cm low-density masslike lesion in the left frontal region causing obscuration of the frontal horn and with less than 2 mm midline shift towards the right. Recommend further characterization of this abnormality with MRI of the brain with and without contrast. . Head MRI 04/19/18 13:41 CONCLUSION: 1. Irregularly enhancing mass with epicenter in the head of the left caudate nucleus causing mild midline shift and with mild surrounding edema. Malignant tumors and neuroepithelial tumors are differential considerations. Abdomen/Pelvis CT 04/20/18 00:00 CONCLUSION: 1. 2 rounded hypodensities in the liver. The largest hypodensity likely represents a hemangioma. The second is too small to definitively characterize but is most likely to represent a cyst or hemangioma.. 2. Degenerative findings of the lower lumbar spine and sacroiliac joints. 3. Small amount of free fluid in the pelvis. 4. No enlarged lymph nodes in the abdomen and pelvis. Chest CT 04/20/18 00:00 CONCLUSION: 1. Tree in bud opacity in the left lower lobe along with bronchiectasis and bronchial plugging likely representing inflammatory process such as atypical mycobacterial infection. 2. Enlarged bilateral axillary lymph nodes. Right axillary surgical clips. Head/Brain Mag Res Venography 04/27/18 00:00 CONCLUSION: 1. Unremarkable study. Head MRI 04/28/18 00:00 CONCLUSION: 1. 2.7 x 2.5 x 1.6 cm heterogeneously enhancing mass involving the left side of the thalamus concerning for malignancy. 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 This is similar in appearance compared to previous examination of 04/19/2018. Chest X-Ray 04/30/18 00:00 CONCLUSION: Negative examination. Spectroscopy MRI 05/01/18 00:00 CONCLUSION: MR spectroscopy appearance is not suggestive of PROMOTIONS COORDINATOR infection - Procedures None Assessment and Plan - Assessment (1) Brain mass Code(s): G93.9 - Disorder of brain, unspecified Status: Acute (2) Anorexia Code(s): R63.0 - Anorexia Status: Acute (3) HIV disease Code(s): B20 - Human immunodeficiency virus [HIV] disease Status: Acute (4) AIDS Code(s): B20 - Human immunodeficiency virus [HIV] disease Status: Acute - Plan 62-year-old -[place]i male who was admitted to the hospital on 04/19/2018 due to altered mental status as well as generalized weakness. ED workup indicated a left frontal mass. 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 Plan to start HAART tx in next 24-48hrs unless family chooses hospice brain bx? awaiting patient and family's decision Oncology consulted, appreciate assistance Continue Decadron Continue Keppra MAC prophylaxis per ID supportive care Palliative care following, appreciate assistance. They are having a difficult time contacting patients brother who is the healthcare surrogate. Atypical chest mass, possible pneumonia ?atypical mycobacterial pulmonary infection No respiratory distress. Pulse Ox 99% on RA. CXR unremarkable. Continue Bactrim per ID Hyperkalemia, resolved treated with albuterol and Kayexalate, K down to 4.4 EKG reviewed, no change continuous cardiac monitoring low K diet continue to monitor K as indicated Hypertensive, improved continue Norvasc to 10mg daily Monitor and adjust tx accordingly Clonidine prn Lactic acidosis, resolved Bandemia white count WNL. CXR unremarkable. Hyponatremia Na 132 today Nephrology consulted, appreciate assistance continue fluid restriction salt tablets 1gm BID repeat BMP in am Hyperglycemia patient is on Decadron accucheks with low dose ISS monitor Oral candidiasis 05/05 c/o persistently sore throat Diflucan started by ID add Magic Mouthwash Severe protein calorie malnutrition Deconditioned, generalized weakness [employer] following continue Ensure with meals Continue with PT Constipation continue scheduled PeriColace Add Miralax x 1 dose now check KUB monitor for BM Dysuria, low UOP UA requested 05/01, not done. DW nursing staff. UA to be sent today. strict I&Os check PVR DVT prophylaxis Heparin Code Status: DNR Discussed Condition With: patient, nursing staff, Dr. Hoang Discharge Planning: Not ready for discharge. Workup in progress. Discharge pending Oncology and ID clearance.
[2018-05-05] MEDS ORDERED: Polyethylene Glycol 3350 17 GM Packet PO ONE (09:30)
--- NOTE | 2018-05-05 11:08 | XR ---
EXAM DATE: 05/05/2018 10:45 AM EDT AGE/SEX: 62 years / Male INDICATIONS: Abdominal pain. CLINICAL DATA: This is the patient's initial encounter. Patient reports that signs and symptoms have been present for 1 day and indicates a pain score of 7/10. MEDICAL/SURGICAL HISTORY: . Hypertension. None. COMPARISON: [facility] [place], CT ABDOMEN & PELVIS W CONTRAST, 04/20/2018. . FINDINGS: There is some air and stool scattered throughout the colon in a nonobstructive pattern. No abnormal masses, calcifications, or organomegaly is seen. A metallic BB is seen just medial to the cecal tip . On the CT scan from March of this year, this sits just below the tendon of the transverse abdominis muscle complex on the right and just anterior to the right external iliac artery. The osseous structu res are unremarkable. CONCLUSION: 1. Some air and stool scattered throughout the colon in a nonobstructive pattern. This could represe nt an element of hypodynamic ileus, however. 2. Metallic BB in the right lower abdominal quadrant, juxtaposed between the right external iliac ar alfreda and anterior abdominal wall on the prior CT. Electronically signed by: Blade Guerrero MD 05/05/2018 11:07 AM EDT
[2018-05-05] MEDS: Nystatin/Diphenhydramine/Lidocaine Mouthwash (Adult) 120 ML Botttle SWISH-SWAL SCH ×3 (15:12→22:29)
[2018-05-05 15:48] LABS: Bilirubin,Urine Negative (Negative); Clarity,Urine Clear (Clear); Color,Urine Yellow (Yellw/Straw); Glucose,Urine (UA) Negative (Negative); Leukocyte Esterase,Urine Negative (Negative); Nitrite,Urine Negative (Negative); Specific Gravity,Urine 1.018 (1.002-1.035)
--- NOTE | 2018-05-05 17:19 | P.PNPAL ---
Reason for Visit Reason for visit: a. To assist with evaluation and management of symptoms including: fatigue b. To assist medical decision maker(s) with: better understanding of current medical conditions; weighing benefits/burdens of medical treatment options; making medical treatment decisions. Subjective Subjective/Interval History: Pt seen today to follow up on discomfort, fatigue, goals. s/p spectroscopy MR. Findings:Taken with the MRI appearance of the lesion, this is felt most likely to represent a relatively high-grade neoplasm with areas of necrosis.CONCLUSION: MR spectroscopy appearance is not suggestive of PEOPLE GREETER infection. S/p abdominal imaging: Some air and stool scattered throughout the colon in a nonobstructive pattern. This could represent an element of hypodynamic ileus, however ID continues to follow, notes that overall prognosis appears poor. If lymphoma treatment would be steroids, HAART, may start HAART. Oncology reconsulted to render opinion. No plans for biopsy at this point, pending oncology opinion on if there will be viable treatment options if positive for malignancy. Labs unremarkable, BUN rising, 43. Patient noted with urinary retention, required Oslen catheter basement today for urinary retention approximately 800 mL. Fair appetite. No GI complaints. Patient seen in room no visitors present. He is alert, oriented to person, hospital, family, city. He is confused to date. He has poor insight into hospitalization when asked why he is here he tells me because of that and keeps pointing to his head but is unable to further articulate. He has no complaints other than his bladder hurting today which indicates feels a little better since having a catheter placed. He denies any dyspnea denies any GI complaints. Continues to have what he describes as a mild sore throat. Review with him that he is hospitalized because of findings of a mass in his brain and that they are still working up to determine exact pathology. He tells me his brother will be coming tomorrow and that he will talk with his brother more. He is in agreement with me calling his brother today. Following exam call to brother Taj. Discussed with him condition, assessment , diagnostics thus far, oncology reevaluation pending. Brother asked questions about how his under AIDS disease will affect him going forward. Review with him that is quite debilitated, and with underlying advanced disease process, not clear that there will be any good treatment options to restore Mr. Yancey back to his prior health status. Advised that because of advanced disease process he remains very high risk for continued debility, infections and significantly limited life expectancy. Taj appears to have a simple but reasonable understanding of conditions. He indicates that family has been talking he was able to locate patient's daughter and they have been talking that hospice may be the best thing for Mr Yancey. They feel like he has not been his usual self, and that he would not want to continue to live in such a fashion, and that he would not want recurrent hospitalizations or invasive procedures. They are in agreement with hospice consultation to get more information, while we await oncology recommendations/reconsultations. They are not sure where he will be able to live after his hospitalization, as he can not live alone, was renting a room from someone. They are unable to care for him due to working. Taj will be in some time after 3pm tomorrow. . 1700 addendum, able to speak w oncology, not likely candidate for any type of aggressive treatment, likely GBM which has a very poor prognosis. May not be indicated to proceed with biopsy in light of adv AIDS/ not likely have good treatment options. Recommends hospice care. Discussed with medical attending OMAYRA. . Advance Directives Health Care Surrogate: Copy in medical record Advance Directives Date on File: 04/22/18 Health Care Surrogate Name and Number: Brother Taj Yancey Objective Vital Signs: Vital Signs 05/04/18 20:00 05/05/18 00:00 05/05/18 01:21 Temperature 97.6 F 97.5 F L Pulse Rate 79 77 Respiratory Rate 16 18 16 Blood Pressure 126/76 137/84 Pulse Oximetry 98 96 05/05/18 04:00 05/05/18 09:00 05/05/18 12:00 Temperature 98.2 F 97.4 F L Pulse Rate 81 81 82 Respiratory Rate 16 18 Blood Pressure 138/86 131/81 Pulse Oximetry 91 L 99 Intake & Output 05/04/18 05/05/18 05/05/18 18:59 06:59 18:59 Intake Total 480 / 480 Output Total 1400 / 1400 Balance 480 / 480 -1400 / -1400 Weight 41.8 kg Intake: Oral 480 / 480 Output: Urine Amount (Catheter) 1400 / 1400 Indwelling Urethral Catheter 1400 / 1400 Other: # Voids 1 Date of Last Bowel Movement 08/04/18 Physical Exam: CONSTITUTIONAL/GENERAL: This is a very thin, frail-appearing male. TUBES/LINES/DRAINS: Peripheral IV upper extremity SKIN: No jaundice. No visible lesions. Skin is very dry, flaking in areas of body. No wounds seen anteriorly. Skin warm and dry. ENT: Hearing grossly normal. Nose without bleeding or purulent drainage. Throat without visible erythema, exudates, masses. few small scattered white plaques to posterior tongue, upper palate, posterior pharynx ;improved from prior exams NECK: Trachea midline. Supple, nontender. No palpable thyroid enlargement or nodularity. CARDIOVASCULAR: Regular rate and rhythm without murmur. No JVD. Peripheral pulses symmetric. RESPIRATORY/CHEST: Symmetric, unlabored respirations. On room air. Clear to auscultation. Breath sounds equal bilaterally. GASTROINTESTINAL: Abdomen soft, flat, non-tender, nondistended. No hepato- splenomegaly, or palpable masses. No guarding. Bowel sounds present. MUSCULOSKELETAL: Extremities without clubbing, cyanosis, or edema. No joint tenderness or effusion noted. Extremities very thin with muscle atrophy evident. NEUROLOGICAL: Awake and alert. Oriented 2. Forgetful . Poor/limited insight. Cooperative and pleasant. Moves all extremities. PSYCHIATRIC: No obvious anxiety/depression. no apparent hallucinations or other psychotic thought process. Diagnostic Tests Laboratory: Laboratory Results - last 72 hr 05/02/18 05/03/18 05/03/18 17:47 08:27 18:20 WBC RBC Hgb Hct MCV MCH MCHC RDW Plt Count MPV Prelim Diff (Auto) Neut % (Auto) Lymph % (Auto) [place] % (Auto) Eos % (Auto) Baso % (Auto) Neut # (Auto) Lymph # (Auto) [place] # (Auto) Eos # (Auto) Baso # (Auto) WBC Differential Seg Neuts % (Manual) Band Neuts % (Manual) Lymphocytes % (Manual) Myelocytes % (Man) Abs Neuts (Manual) Differential Comment Platelet Estimate Platelet Morphology Ovalocytes Sodium 126 L Potassium 5.7 H 6.1 H Chloride 91 L Carbon Dioxide 23.1 Anion Gap 12 BUN 32 H Creatinine 1.02 Estimated GFR Greater than 89 POC Glucose Random Glucose 78 Osmolality Calcium 9.1 Total Bilirubin AST ALT Alkaline Phosphatase Total Protein Albumin TSH Cortisol Urine Color Urine Clarity Urine pH Ur Specific [place] Urine Protein Urine Glucose (UA) Urine Ketones Urine Occult Blood Urine Nitrate Urine Bilirubin Urine Urobilinogen Ur Leukocyte Esterase Urine WBC Micro UA Comment Urine Culture Comments Urine Osmolality 634 Ur Random Sodium 05/03/18 05/03/18 05/03/18 18:20 19:00 23:23 WBC RBC Hgb Hct MCV MCH MCHC RDW Plt Count MPV Prelim Diff (Auto) Neut % (Auto) Lymph % (Auto) [place] % (Auto) Eos % (Auto) Baso % (Auto) Neut # (Auto) Lymph # (Auto) [place] # (Auto) Eos # (Auto) Baso # (Auto) WBC Differential Seg Neuts % (Manual) Band Neuts % (Manual) Lymphocytes % (Manual) Myelocytes % (Man) Abs Neuts (Manual) Differential Comment Platelet Estimate Platelet Morphology Ovalocytes Sodium Potassium 5.7 H 5.1 Chloride Carbon Dioxide Anion Gap BUN Creatinine Estimated GFR POC Glucose Random Glucose Osmolality Calcium Total Bilirubin AST ALT Alkaline Phosphatase Total Protein Albumin TSH Cortisol Urine Color Urine Clarity Urine pH Ur Specific [place] Urine Protein Urine Glucose (UA) Urine Ketones Urine Occult Blood Urine Nitrate Urine Bilirubin Urine Urobilinogen Ur Leukocyte Esterase Urine WBC Micro UA Comment Urine Culture Comments Urine Osmolality Ur Random Sodium 117 05/04/18 05/04/18 05/04/18 00:15 05:22 08:41 WBC RBC Hgb Hct MCV MCH MCHC RDW Plt Count MPV Prelim Diff (Auto) Neut % (Auto) Lymph % (Auto) [place] % (Auto) Eos % (Auto) Baso % (Auto) Neut # (Auto) Lymph # (Auto) [place] # (Auto) Eos # (Auto) Baso # (Auto) WBC Differential Seg Neuts % (Manual) Band Neuts % (Manual) Lymphocytes % (Manual) Myelocytes % (Man) Abs Neuts (Manual) Differential Comment Platelet Estimate Platelet Morphology Ovalocytes Sodium 129 L Potassium 4.5 Chloride 92 L Carbon Dioxide 23.9 Anion Gap 13 BUN 32 H Creatinine 0.83 Estimated GFR Greater than 89 POC Glucose 114 H 117 H Random Glucose 107 H Osmolality 287 Calcium 8.9 Total Bilirubin 0.4 AST 29 ALT 45 Alkaline Phosphatase 72 Total Protein 7.9 Albumin 3.3 L TSH 0.380 Cortisol Urine Color Urine Clarity Urine pH Ur Specific [place] Urine Protein Urine Glucose (UA) Urine Ketones Urine Occult Blood Urine Nitrate Urine Bilirubin Urine Urobilinogen Ur Leukocyte Esterase Urine WBC Micro UA Comment Urine Culture Comments Urine Osmolality Ur Random Sodium 05/04/18 05/05/18 05/05/18 12:35 05:17 06:01 WBC 4.0 RBC 4.35 L Hgb 12.5 L Hct 37.9 L MCV 87.3 MCH 28.8 MCHC 33.0 RDW 17.1 Plt Count 311 MPV 7.6 Prelim Diff (Auto) Slide review pending Neut % (Auto) 93.1 H Lymph % (Auto) 4.2 L [place] % (Auto) 2.4 Eos % (Auto) 0.0 Baso % (Auto) 0.3 Neut # (Auto) 3.8 Lymph # (Auto) 0.2 L [place] # (Auto) 0.1 Eos # (Auto) 0.0 Baso # (Auto) 0.0 WBC Differential Manual diff final Seg Neuts % (Manual) 76 H Band Neuts % (Manual) 14 H Lymphocytes % (Manual) 9 Myelocytes % (Man) 1 H Abs Neuts (Manual) 3.6 Differential Comment . Platelet Estimate Normal Platelet Morphology Normal Ovalocytes 1+ H Sodium Potassium Chloride Carbon Dioxide Anion Gap BUN Creatinine Estimated GFR POC Glucose 144 H Random Glucose Osmolality Calcium Total Bilirubin AST ALT Alkaline Phosphatase Total Protein Albumin TSH Cortisol 1.6 Urine Color Urine Clarity Urine pH Ur Specific [place] Urine Protein Urine Glucose (UA) Urine Ketones Urine Occult Blood Urine Nitrate Urine Bilirubin Urine Urobilinogen Ur Leukocyte Esterase Urine WBC Micro UA Comment Urine Culture Comments Urine Osmolality Ur Random Sodium 05/05/18 05/05/18 06:01 12:45 WBC RBC Hgb Hct MCV MCH MCHC RDW Plt Count MPV Prelim Diff (Auto) Neut % (Auto) Lymph % (Auto) [place] % (Auto) Eos % (Auto) Baso % (Auto) Neut # (Auto) Lymph # (Auto) [place] # (Auto) Eos # (Auto) Baso # (Auto) WBC Differential Seg Neuts % (Manual) Band Neuts % (Manual) Lymphocytes % (Manual) Myelocytes % (Man) Abs Neuts (Manual) Differential Comment Platelet Estimate Platelet Morphology Ovalocytes Sodium 132 L Potassium 4.4 Chloride 99 Carbon Dioxide 24.8 Anion Gap 8 BUN 43 H Creatinine 0.78 Estimated GFR Greater than 89 POC Glucose Random Glucose 110 H Osmolality Calcium 8.8 Total Bilirubin 0.3 AST 34 ALT 56 Alkaline Phosphatase 73 Total Protein 7.7 Albumin 3.2 L TSH Cortisol Urine Color Yellow Urine Clarity Clear Urine pH 6.0 Ur Specific [place] 1.018 Urine Protein Negative Urine Glucose (UA) Negative Urine Ketones Negative Urine Occult Blood Negative Urine Nitrate Negative Urine Bilirubin Negative Urine Urobilinogen Less than 2 Ur Leukocyte Esterase Negative Urine WBC Less than 1 Micro UA Comment Culture not ind Urine Culture Comments Culture not ind Urine Osmolality Ur Random Sodium Result Diagrams: 05/05/18 06:01 05/05/18 06:01 Imaging: Impressions Abdomen X-Ray 05/05/18 00:00 CONCLUSION: 1. Some air and stool scattered throughout the colon in a nonobstructive pattern. This could represent an element of hypodynamic ileus, however. 2. Metallic BB in the right lower abdominal quadrant, juxtaposed between the right external iliac artery and anterior abdominal wall on the prior CT. Assessment and Plan - Disease Oriented Problem List (1) Asthma (2) COPD (chronic obstructive pulmonary disease) (3) Hypertension (4) Brain mass Pertinent Non-Medical Issues: Psychosocial: Patient born and raised in [place]. Has lived in [facility] for most of his life. Intermittently homeless. Has 3 adult children 2 daughters, one son who are local. Has several siblings himself his brothers except for Taj are and 2 of his sisters are . His parents are . He is . He has not been working for some time. He previously worked as a cook at a local restaurant. He is supported by his brother Taj locally, and a sister in [place] who he lived with about a year ago. Spiritual: Legal:Patient currently with mild confusion and forgetfulness. He is cooperative. He is not capacitated and able to make informed decisions at this time alone. Not clear if or when he will regain ability to make decisions. He is able to name his brother. He indicates he would want his brother called in an emergency. Ethical issues impacting care: No ethical issues identified Important Contacts: Brother / HEALTH CARE SURROGATE Taj Yancey [phone] home number, cell number [phone] . Prognosis: Hospice criteria for HIV/AIDs is t the following: CD4 coung <25 cells/mcl or viral Load >100,000 and at least 1 PEOPLE GREETER lymphoma, untreated refractory wasting ( loss of 33% lean body mass), MAC, PMLE, lymphoma, cryptosporitium and PPS of 50% . This patient was admitted for weakness and altered mental status. This has had some weight loss. There is concern for underlying lung infection such as Mycobacterium. He has findings of possible brain mass etiology not clear at this time malignancy versus possible infectious process. Concern for possibility of underlying immune deficiency, infectious process causing current issues. He is currently frail, malnourished and high risk for ongoing complications and continued physical decline due to this. Prophylactic treatments. Brain mass/lesion unknown what it is, on my discussion with Infectious disease, it makes prognostications/ course of treatment difficult. Radiology feels it is a mass, and id has indicate if it is cancer/tumor prognosis worsens. Pt would be appropriate for hospice and comfort treatment only if goals compatible. . Code Status: No Code DNR Plan: * Legal decision maker: Again I feel he can at the very least can participate in health care decision, and should not be isolated from health care decision making, but he needs the help of his healthcare surrogate in medical decision making. Pt has also expressed he wants his brother involve. His brother is designated health care surrogate. * Goals of care: Patient with limited insight today not able to make informed decision. Spoke again with his brother at length, brother indicates they have the family have been discussing hospice, open to meeting with hospice in the coming day while awaiting any additional recommendations from oncology. They feel patient would not want to continue with invasive measures if he would not have significant improvement in quality of life or life expectancy. HOSPICE CONSULT ORDERED, called to hospice admissions. * CODE STATUS:DNR * SYMPTOMS: --Anorexia/poor appetite-patient denies GI complaints however does endorse poor appetite may be for a few months. KUB today: Some air and stool scattered throughout the colon in a nonobstructive pattern. This could represent an element of hypodynamic ileus, however -- fatigue- general debility, hiv, infection vs mass. Oncology, ID following. Toxoplasmosis is negative * Palliative care will continue to follow during hospital course as condition evolves, to assist patient/decision-maker with understanding of medical conditions, weighing benefits/burdens of treatment options, for clarification of goals of treatment. Additionally will assist with any symptoms of palliative concern d/w medical attending, oncology Dr Israel Attestation Attestation: To help prompt me to consider important information that might be impacting today's encounter and assessment, information from prior notes written by myself or my colleagues may have been "brought forward" into today's note. My signature on this note, however, is an attestation that I personally performed the exam, history, and/or decision-making noted today, and, unless otherwise indicated, the interactions with patient, family, and staff as well as the review of records all occurred today. I also attest that the listed assessment and stated plan reflect my best clinical judgment today based on the combination of historical information, prior notes, and today's exam/ interactions. When time spent is documented, it refers only to time spent today by the signer, or if indicated, combined time spent today by collaborating physician/nurse practitioner.
--- NOTE | 2018-05-05 17:44 | P.PNADD ---
Addendum to Inpatient Note Additional information: pt will go to hospice will sign off
--- NOTE | 2018-05-05 18:19 | P.PNONC ---
Subjective Interval history: Patient is complaining of generalized weakness and unable to walk. Appetite is poor Objective Vital Signs/Intake & Output: Vital Signs 05/04/18 20:00 05/05/18 00:00 05/05/18 01:21 Temperature 97.6 F 97.5 F L Pulse Rate 79 77 Respiratory Rate 16 18 16 Blood Pressure 126/76 137/84 Pulse Oximetry 98 96 05/05/18 04:00 05/05/18 09:00 05/05/18 12:00 Temperature 98.2 F 97.4 F L Pulse Rate 81 81 82 Respiratory Rate 16 18 Blood Pressure 138/86 131/81 Pulse Oximetry 91 L 99 05/05/18 16:00 Temperature 97.5 F L Pulse Rate 77 Respiratory Rate 18 Blood Pressure 139/79 Pulse Oximetry 98 Intake & Output 05/04/18 05/05/18 05/05/18 18:59 06:59 18:59 Intake Total 480 / 480 Output Total 1400 / 1400 Balance 480 / 480 -1400 / -1400 Weight 41.8 kg Intake: Oral 480 / 480 Output: Urine Amount (Catheter) 1400 / 1400 Indwelling Urethral Catheter 1400 / 1400 Other: # Voids 1 Date of Last Bowel Movement 05/03/18 Result Diagrams: 05/05/18 06:01 05/05/18 06:01 Laboratory Results: Laboratory Results - last 24 hr 05/05/18 05/05/18 05/05/18 05:17 06:01 06:01 WBC 4.0 RBC 4.35 L Hgb 12.5 L Hct 37.9 L MCV 87.3 MCH 28.8 MCHC 33.0 RDW 17.1 Plt Count 311 MPV 7.6 Prelim Diff (Auto) Slide review pending Neut % (Auto) 93.1 H Lymph % (Auto) 4.2 L [place] % (Auto) 2.4 Eos % (Auto) 0.0 Baso % (Auto) 0.3 Neut # (Auto) 3.8 Lymph # (Auto) 0.2 L [place] # (Auto) 0.1 Eos # (Auto) 0.0 Baso # (Auto) 0.0 WBC Differential Manual diff final Seg Neuts % (Manual) 76 H Band Neuts % (Manual) 14 H Lymphocytes % (Manual) 9 Myelocytes % (Man) 1 H Abs Neuts (Manual) 3.6 Differential Comment . Platelet Estimate Normal Platelet Morphology Normal Ovalocytes 1+ H Sodium 132 L Potassium 4.4 Chloride 99 Carbon Dioxide 24.8 Anion Gap 8 BUN 43 H Creatinine 0.78 Estimated GFR Greater than 89 POC Glucose 144 H Random Glucose 110 H Calcium 8.8 Total Bilirubin 0.3 AST 34 ALT 56 Alkaline Phosphatase 73 Total Protein 7.7 Albumin 3.2 L Urine Color Urine Clarity Urine pH Ur Specific [place] Urine Protein Urine Glucose (UA) Urine Ketones Urine Occult Blood Urine Nitrate Urine Bilirubin Urine Urobilinogen Ur Leukocyte Esterase Urine WBC Micro UA Comment Urine Culture Comments 05/05/18 05/05/18 12:45 17:26 WBC RBC Hgb Hct MCV MCH MCHC RDW Plt Count MPV Prelim Diff (Auto) Neut % (Auto) Lymph % (Auto) [place] % (Auto) Eos % (Auto) Baso % (Auto) Neut # (Auto) Lymph # (Auto) [place] # (Auto) Eos # (Auto) Baso # (Auto) WBC Differential Seg Neuts % (Manual) Band Neuts % (Manual) Lymphocytes % (Manual) Myelocytes % (Man) Abs Neuts (Manual) Differential Comment Platelet Estimate Platelet Morphology Ovalocytes Sodium Potassium Chloride Carbon Dioxide Anion Gap BUN Creatinine Estimated GFR POC Glucose 117 H Random Glucose Calcium Total Bilirubin AST ALT Alkaline Phosphatase Total Protein Albumin Urine Color Yellow Urine Clarity Clear Urine pH 6.0 Ur Specific [place] 1.018 Urine Protein Negative Urine Glucose (UA) Negative Urine Ketones Negative Urine Occult Blood Negative Urine Nitrate Negative Urine Bilirubin Negative Urine Urobilinogen Less than 2 Ur Leukocyte Esterase Negative Urine WBC Less than 1 Micro UA Comment Culture not ind Urine Culture Comments Culture not ind Imaging Studies: Impressions Abdomen X-Ray 05/05/18 00:00 CONCLUSION: 1. Some air and stool scattered throughout the colon in a nonobstructive pattern. This could represent an element of hypodynamic ileus, however. 2. Metallic BB in the right lower abdominal quadrant, juxtaposed between the right external iliac artery and anterior abdominal wall on the prior CT. Medications: Active Medications Generic Name Dose Route Start Last Admin Trade Name Freq PRN Reason Stop Dose Admin Acetaminophen/Butalbital/Caffeine 1 tab 05/04/18 16:18 05/04/18 17:04 Fioricet 50-325-40 PO 1 tab Q8H PRN Administration HEADACHE Amlodipine Besylate 10 mg 05/05/18 09:00 05/05/18 08:33 Norvasc PO 10 mg DAILY HAN Administration Artificial Tears 1 applicatio 04/28/18 10:00 05/05/18 08:34 Eucerin Cream TOPICAL 1 applicatio BID HAN Administration Azithromycin 1,200 mg 04/27/18 15:00 05/04/18 14:31 Zithromax PO 1,200 mg Q7D HAN Administration Dexamethasone Sodium Phosphate 4 mg 04/19/18 21:00 05/05/18 15:23 Decadron Inj IV.PUSH 4 mg Q6HR HAN Administration Famotidine 20 mg 04/28/18 21:00 05/05/18 08:32 Pepcid PO 20 mg BID HAN Administration Fluconazole 200 mg 04/22/18 20:00 05/04/18 23:13 Diflucan PO 200 mg DAILY@2000 [facility] Administration Heparin Sodium (Porcine) 5,000 units 04/28/18 21:00 05/05/18 08:34 Heparin Inj SQ 5,000 units Q12HR HAN Administration Insulin Aspart 0 unit 05/01/18 18:00 05/05/18 18:07 Novolog Insulin Correctional Sugar Inj SQ Not Given Q6HR [facility] Protocol Levetiracetam 500 mg 04/27/18 21:00 05/05/18 08:33 Keppra PO 500 mg BID HAN Administration Multi-Ingredient Mouthwash/Gargle 5 ml 05/05/18 13:00 05/05/18 18:06 Magic Mouthwash Adult Liq SWISH-SWAL 05/10/18 12:59 5 ml QID [facility] Administration Multivitamins/Minerals 1 tab 04/30/18 09:00 05/05/18 08:32 Theragran-M PO 1 tab DAILY HAN Administration Nicotine 1 patch 04/19/18 17:45 05/05/18 08:34 Habitrol 14 Mg Patch.24 Hr T-DERMAL Not Given DAILY [facility] Nf:Sulfadiazine 500 0 each 04/23/18 09:00 05/05/18 18:07 Mg PO Not Given QID HAN Oxycodone/Acetaminophen 1 tab 04/19/18 15:36 04/28/18 20:55 Percocet 10/325 Mg PO 1 tab Q6H PRN Administration PAIN SCALE 6 TO 10 Patch Removal 1 each 04/20/18 09:00 05/05/18 08:35 Remove Old Patch T-DERMAL Not Given DAILY HAN Senna/Docusate Sodium 1 tab 04/19/18 21:00 05/05/18 08:33 [place]-Colace PO 1 tab BID HAN Administration Sodium Chloride 1 gm 05/04/18 21:00 05/05/18 08:32 Sodium Chloride PO 1 gm BID HAN Administration Objective Remarks: GENERAL: Cachectic patient. SKIN: Warm and dry. HEAD: Normocephalic. EYES: No scleral icterus. No injection or drainage. NECK: Supple, trachea midline. No JVD or lymphadenopathy. LYMPHATIC: No adenopathy. CARDIOVASCULAR: Regular rate and rhythm without murmurs. RESPIRATORY: Breath sounds equal bilaterally. No accessory muscle use. GASTROINTESTINAL: Abdomen soft, non-tender, nondistended. EXTREMITIES: No cyanosis, or edema. NEUROLOGICAL: No obvious focal deficit. Awake, alert, and oriented x2. Assessment/Plan (1) Brain mass Code(s): G93.9 - Disorder of brain, unspecified Status: Acute - Plan I have been reconsulted to see the patient regarding the brain mass Chart reviewed, patient examined and discussed with palliative care. MRI of the brain with spectroscopy showed that he has solid brain mass consistent with high-grade neoplasm with central necrosis. This is most likely consistent with glioblastoma multiforme. This is on the clinical basis. Patient is not a candidate for treatment given his cachexia homeless and very poor performance status. He is bedridden and unable to walk around due to extreme weakness in his legs. Do not recommend biopsy as he is not a good candidate for any treatment for his brain mass. My recommendation is hospice for best supportive care. I have discussed the case with palliative care nurse practitioner Mary Grace. I have also discussed the case with infectious disease Dr. Dimas. Case has been discussed with admitting physician Dr. Hoang. Recommend hospice for best supportive care.
[2018-05-06] MEDS: Insulin NovoLOG Aspart Correctional Sugar Inj SQ SCH ×4 (00:13→20:11)
[2018-05-06 08:34] LABS: Anion Gap 8 meq/L (5-15); Blood Urea Nitrogen 31 mg/dL (7-18); Calcium 8.4 mg/dL (8.5-10.1); Carbon Dioxide 28.4 meq/L (21.0-32.0); Chloride 100 meq/L (98-107); Glomerular Filtration Rate Greater Than 89 mL/min (>89); Glucose,Random 103 mg/dL (74-106); Potassium 4.4 meq/L (3.5-5.1); Sodium 136 meq/L (136-145)
[2018-05-06] MEDS: Multivitamin/Minerals Therapeutic Tablet PO SCH (10:04)
[2018-05-06] MEDS: Senna/Docusate Sodium 8.6/50 MG Tablet PO SCH ×2 (10:05→22:30)
[2018-05-06] MEDS: Famotidine 20 MG Tablet PO SCH ×2 (10:05→22:29)
[2018-05-06] MEDS: amLODIPine 5 MG Tablet PO SCH (10:05)
[2018-05-06] MEDS: Sodium Chloride 1 GM Tablet PO SCH ×2 (10:05→22:29)
[2018-05-06] MEDS: levETIRAcetam 500 MG Tablet PO SCH ×2 (10:05→22:31)
[2018-05-06] MEDS: Nystatin/Diphenhydramine/Lidocaine Mouthwash (Adult) 120 ML Botttle SWISH-SWAL SCH ×4 (10:06→22:33)
[2018-05-06] MEDS: Heparin - SQ 10,000 UNITS/ML Vial SQ SCH ×2 (10:07→22:32)
--- NOTE | 2018-05-06 11:02 | P.PNIM ---
Subjective Interval history: Follow-up for brain mass Patient is mildly confused and forgetful. Denies any pain, denies any headache. Physical Exam Vital signs: Vital Signs 05/05/18 12:00 05/05/18 16:00 05/05/18 23:00 Temperature 97.4 F L 97.5 F L 98.7 F Pulse Rate 82 77 67 Respiratory Rate 18 18 16 Blood Pressure 131/81 139/79 116/66 Pulse Oximetry 99 98 96 05/06/18 00:20 05/06/18 03:00 05/06/18 08:00 Temperature 98.1 F 97.8 F 97.7 F Pulse Rate 66 62 73 Respiratory Rate 16 17 17 Blood Pressure 110/69 118/69 121/80 Pulse Oximetry 96 96 97 Intake & Output 05/05/18 05/06/18 05/06/18 18:59 06:59 18:59 Intake Total 1100 / 1100 Output Total 1400 / 1400 1000 / 1000 Balance -1400 / -1400 100 / 100 Weight 40.6 kg Intake: Oral 1100 / 1100 Output: Urine Amount (Catheter) 1400 / 1400 1000 / 1000 Indwelling Urethral Catheter 1400 / 1400 1000 / 1000 Other: # Incontinent Voids 2 Date of Last Bowel Movement 05/03/18 05/03/18 # Bowel Movements 0 # Incontinent Bowel Movements 1 Narrative: GENERAL: This is a thin, frail, extremely cachectic appearing -Welsh male patient, INAD. A&Ox2. Lying in bed asleep but easily awakens to voice. CARDIOVASCULAR: Regular rate and rhythm without murmurs, gallops, or rubs. RESPIRATORY: No accessory muscle use. Fair air entry. No wheezing noted. GASTROINTESTINAL: Abdomen soft, non-tender, nondistended. +BS. MUSCULOSKELETAL: No cyanosis or edema. NEURO: Awake. Oriented 2. Able to move all extremities spontaneously. No focal neurological deficits. Clear speech. PSYCHIATRIC: Calm and cooperative. Flat affect. - Urinary Catheter Management Indwelling Urethral Catheter Cath placed during this visit: yes Reason for continuing: Chronic Urinary Retention Insertion date: 04/26/18 Results - Labs CBC & Chem 7: 05/05/18 06:01 05/06/18 07:40 Laboratory Results - last 24 hr 05/05/18 05/05/18 05/05/18 12:45 17:26 20:42 Sodium Potassium Chloride Carbon Dioxide Anion Gap BUN Creatinine Estimated GFR POC Glucose 117 H 124 H Random Glucose Calcium Urine Color Yellow Urine Clarity Clear Urine pH 6.0 Ur Specific [place] 1.018 Urine Protein Negative Urine Glucose (UA) Negative Urine Ketones Negative Urine Occult Blood Negative Urine Nitrate Negative Urine Bilirubin Negative Urine Urobilinogen Less than 2 Ur Leukocyte Esterase Negative Urine WBC Less than 1 Micro UA Comment Culture not ind Urine Culture Comments Culture not ind 05/06/18 05/06/18 07:08 07:40 Sodium 136 Potassium 4.4 Chloride 100 Carbon Dioxide 28.4 Anion Gap 8 BUN 31 H Creatinine 0.57 L Estimated GFR Greater than 89 POC Glucose 101 Random Glucose 103 Calcium 8.4 L Urine Color Urine Clarity Urine pH Ur Specific [place] Urine Protein Urine Glucose (UA) Urine Ketones Urine Occult Blood Urine Nitrate Urine Bilirubin Urine Urobilinogen Ur Leukocyte Esterase Urine WBC Micro UA Comment Urine Culture Comments - Imaging Impressions Abdomen X-Ray 05/05/18 00:00 CONCLUSION: 1. Some air and stool scattered throughout the colon in a nonobstructive pattern. This could represent an element of hypodynamic ileus, however. 2. Metallic BB in the right lower abdominal quadrant, juxtaposed between the right external iliac artery and anterior abdominal wall on the prior CT. - Procedures None Assessment and Plan - Assessment (1) Brain mass Code(s): G93.9 - Disorder of brain, unspecified Status: Acute (2) Anorexia Code(s): R63.0 - Anorexia Status: Acute (3) HIV disease Code(s): B20 - Human immunodeficiency virus [HIV] disease Status: Acute (4) AIDS Code(s): B20 - Human immunodeficiency virus [HIV] disease Status: Acute - Plan 62-year-old -Welsh male who was admitted to the hospital on 04/19/2018 due to altered mental status as well as generalized weakness. ED workup indicated a left frontal mass. 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 Plan to start HAART tx in next 24-48hrs unless family chooses hospice brain bx? awaiting patient and family's decision Oncology consulted, likely glioblastoma multiforme, biopsy not recommended since not a good candidate for treatment for his brain mass, recommends hospice for supportive care. ID has signed off. Continue Decadron, Continue Keppra MAC prophylaxis per ID Atypical chest mass, possible pneumonia ?atypical mycobacterial pulmonary infection No respiratory distress. Pulse Ox 99% on RA. CXR unremarkable. Continue Bactrim per ID Hyperkalemia, resolved treated with albuterol and Kayexalate, K down to 4.4 EKG reviewed, no change continuous cardiac monitoring low K diet continue to monitor K as indicated Hypertensive, improved continue Norvasc to 10mg daily Monitor and adjust tx accordingly Clonidine prn Lactic acidosis, resolved Bandemia white count WNL. CXR unremarkable. Hyponatremia-resolved. Consult tablets, nephrology following Hyperglycemia patient is on Decadron accucheks with low dose ISS monitor Oral candidiasis 05/05 c/o persistently sore throat Diflucan started by ID add Magic Mouthwash Severe protein calorie malnutrition Deconditioned, generalized weakness Senior Media Buyer following continue Ensure with meals Continue with PT Constipation continue scheduled PeriColace Add Miralax x 1 dose now Dysuria, low UOP UA requested 05/01, not done. DW nursing staff. Urinalysis negative. DVT prophylaxis Heparin Code Status: DNR Discussed Condition With: patient, nursing staff, Dr. Hoang Discharge Planning: Likely discharge to hospice, brother agreed, will talk to hospice today.
[2018-05-06] MEDS: SULFADIAZINE 500 MG PO SCH ×4 (11:44→22:30)
[2018-05-07] MEDS: Insulin NovoLOG Aspart Correctional Sugar Inj SQ SCH ×3 (00:13→14:23)
[2018-05-07] MEDS: Multivitamin/Minerals Therapeutic Tablet PO SCH (09:52)
[2018-05-07] MEDS: Famotidine 20 MG Tablet PO SCH (09:53)
[2018-05-07] MEDS: amLODIPine 5 MG Tablet PO SCH (09:53)
[2018-05-07] MEDS: levETIRAcetam 500 MG Tablet PO SCH (09:53)
[2018-05-07] MEDS: Senna/Docusate Sodium 8.6/50 MG Tablet PO SCH (09:54)
[2018-05-07] MEDS: Sodium Chloride 1 GM Tablet PO SCH (09:54)
[2018-05-07] MEDS: Heparin - SQ 10,000 UNITS/ML Vial SQ SCH (09:54)
[2018-05-07] MEDS: SULFADIAZINE 500 MG PO SCH ×2 (09:55→14:24)
[2018-05-07] MEDS: Nystatin/Diphenhydramine/Lidocaine Mouthwash (Adult) 120 ML Botttle SWISH-SWAL SCH ×2 (09:56→14:23)
[2018-05-07 10:20] VITALS: RESP 18
--- NOTE | 2018-05-07 11:54 | P.PNPAL ---
Reason for Visit Reason for visit: a. To assist with evaluation and management of symptoms including: fatigue b. To assist medical decision maker(s) with: better understanding of current medical conditions; weighing benefits/burdens of medical treatment options; making medical treatment decisions. Subjective Subjective/Interval History: Pt seen today to follow up on discomfort, fatigue, goals following meeting with hospice yesterday. s/p spectroscopy MR. Findings:Taken with the MRI appearance of the lesion, this is felt most likely to represent a relatively high-grade neoplasm with areas of necrosis.CONCLUSION: MR spectroscopy appearance is not suggestive of SUPERVISOR SHOP infection. S/p oncology eval , likely GBM poor prognosis. Rec. comfort /supportive care. No new labs or imaging. Pt, family met w hospice yesterday. They elected to proceed with hospice enrollment, comfort measures only. Pt needs discharge planning to determine location of safe d/c, unable to return to rented room, does not currently have funding for snf placement. hospice, CM working on potential placement options. D/w primary nurse, CM, medical attending Dr Whitman. D/w hospice admissions nurse. Pt seen in room. He is alert, pleasant. Partially oriented. He is aware of [facility]. Indicates family was in to see him yesterday. Knows he is in hospital because he "is very sick" though does not have further insight. Gently explore brain lesion dx, HIV/AIDS dx. He reports feeling generally ok. Endorses throat pain improving. Denies any other pain. Denies GI complaints. Denies shortness of breath. Endorses overall weakness, says difficult to get out of bed. . Advance Directives Health Care Surrogate: Copy in medical record Advance Directives Date on File: 04/22/18 Health Care Surrogate Name and Number: Brother Taj Yancey Objective Vital Signs: Vital Signs 05/06/18 12:00 05/06/18 16:00 05/06/18 21:45 Temperature 97.4 F L 98.4 F 98 F Pulse Rate 82 105 H 69 Respiratory Rate 17 20 19 Blood Pressure 130/75 119/63 120/66 Pulse Oximetry 97 99 94 L 05/07/18 00:30 05/07/18 03:00 05/07/18 03:48 Temperature 97.7 F 97.5 F L Pulse Rate 66 66 71 Respiratory Rate 18 16 Blood Pressure 118/60 125/69 Pulse Oximetry 98 95 05/07/18 08:00 Temperature 97.8 F Pulse Rate 65 Respiratory Rate 18 Blood Pressure 124/79 Pulse Oximetry 100 Intake & Output 05/06/18 05/07/18 05/07/18 18:59 06:59 18:59 Intake Total 1600 / 1600 Output Total 300 / 300 900 / 900 Balance -300 / -300 700 / 700 Weight 40.5 kg Intake: Oral 1600 / 1600 Output: Urine 300 / 300 Urine Amount (Catheter) 900 / 900 Indwelling Urethral Catheter 900 / 900 Other: # Voids 2 Date of Last Bowel Movement 05/03/18 05/07/18 # Bowel Movements 1 Physical Exam: CONSTITUTIONAL/GENERAL: This is a very thin, frail-appearing male. TUBES/LINES/DRAINS: Peripheral IV upper extremity SKIN: No jaundice. No visible lesions. Skin is very dry, flaking in areas of body. No wounds seen anteriorly. Skin warm and dry. ENT: Hearing grossly normal. Nose without bleeding or purulent drainage. Throat without visible erythema, exudates, masses. few small scattered white plaques to posterior tongue, upper palate, posterior pharynx ;improved from prior exams NECK: Trachea midline. Supple, nontender. No palpable thyroid enlargement or nodularity. CARDIOVASCULAR: Regular rate and rhythm without murmur. No JVD. Peripheral pulses symmetric. RESPIRATORY/CHEST: Symmetric, unlabored respirations. On room air. Clear to auscultation. Breath sounds equal bilaterally. GASTROINTESTINAL: Abdomen soft, flat, non-tender, nondistended. No hepato- splenomegaly, or palpable masses. No guarding. Bowel sounds present. MUSCULOSKELETAL: Extremities without clubbing, cyanosis, or edema. No joint tenderness or effusion noted. Extremities very thin with muscle atrophy evident. NEUROLOGICAL: Awake and alert. Oriented 2. Forgetful . Poor/limited insight. Cooperative and pleasant. Moves all extremities. PSYCHIATRIC: No obvious anxiety/depression. no apparent hallucinations or other psychotic thought process. Diagnostic Tests Laboratory: Laboratory Results - last 72 hr 05/04/18 05/05/18 05/05/18 12:35 05:17 06:01 WBC 4.0 RBC 4.35 L Hgb 12.5 L Hct 37.9 L MCV 87.3 MCH 28.8 MCHC 33.0 RDW 17.1 Plt Count 311 MPV 7.6 Prelim Diff (Auto) Slide review pending Neut % (Auto) 93.1 H Lymph % (Auto) 4.[address] % (Auto) 2.4 Eos % (Auto) 0.0 Baso % (Auto) 0.3 Neut # (Auto) 3.8 Lymph # (Auto) 0.[address] [place] # (Auto) 0.1 Eos # (Auto) 0.0 Baso # (Auto) 0.0 WBC Differential Manual diff final Seg Neuts % (Manual) 76 H Band Neuts % (Manual) 14 H Lymphocytes % (Manual) 9 Myelocytes % (Man) 1 H Abs Neuts (Manual) 3.6 Differential Comment . Platelet Estimate Normal Platelet Morphology Normal Ovalocytes 1+ H Sodium Potassium Chloride Carbon Dioxide Anion Gap BUN Creatinine Estimated GFR POC Glucose 144 H Random Glucose Calcium Total Bilirubin AST ALT Alkaline Phosphatase Total Protein Albumin Cortisol 1.6 Urine Color Urine Clarity Urine pH Ur Specific [place] Urine Protein Urine Glucose (UA) Urine Ketones Urine Occult Blood Urine Nitrate Urine Bilirubin Urine Urobilinogen Ur Leukocyte Esterase Urine WBC Micro UA Comment Urine Culture Comments 05/05/18 05/05/18 05/05/18 06:01 12:45 17:26 WBC RBC Hgb Hct MCV MCH MCHC RDW Plt Count MPV Prelim Diff (Auto) Neut % (Auto) Lymph % (Auto) [facility] % (Auto) Eos % (Auto) Baso % (Auto) Neut # (Auto) Lymph # (Auto) [facility] # (Auto) Eos # (Auto) Baso # (Auto) WBC Differential Seg Neuts % (Manual) Band Neuts % (Manual) Lymphocytes % (Manual) Myelocytes % (Man) Abs Neuts (Manual) Differential Comment Platelet Estimate Platelet Morphology Ovalocytes Sodium 132 L Potassium 4.4 Chloride 99 Carbon Dioxide 24.8 Anion Gap 8 BUN 43 H Creatinine 0.78 Estimated GFR Greater than 89 POC Glucose 117 H Random Glucose 110 H Calcium 8.8 Total Bilirubin 0.3 AST 34 ALT 56 Alkaline Phosphatase 73 Total Protein 7.7 Albumin 3.2 L Cortisol Urine Color Yellow Urine Clarity Clear Urine pH 6.0 Ur Specific [place] 1.018 Urine Protein Negative Urine Glucose (UA) Negative Urine Ketones Negative Urine Occult Blood Negative Urine Nitrate Negative Urine Bilirubin Negative Urine Urobilinogen Less than 2 Ur Leukocyte Esterase Negative Urine WBC Less than 1 Micro UA Comment Culture not ind Urine Culture Comments Culture not ind 05/05/18 05/06/18 05/06/18 20:42 07:08 07:40 WBC RBC Hgb Hct MCV MCH MCHC RDW Plt Count MPV Prelim Diff (Auto) Neut % (Auto) Lymph % (Auto) [facility] % (Auto) Eos % (Auto) Baso % (Auto) Neut # (Auto) Lymph # (Auto) [facility] # (Auto) Eos # (Auto) Baso # (Auto) WBC Differential Seg Neuts % (Manual) Band Neuts % (Manual) Lymphocytes % (Manual) Myelocytes % (Man) Abs Neuts (Manual) Differential Comment Platelet Estimate Platelet Morphology Ovalocytes Sodium 136 Potassium 4.4 Chloride 100 Carbon Dioxide 28.4 Anion Gap 8 BUN 31 H Creatinine 0.57 L Estimated GFR Greater than 89 POC Glucose 124 H 101 Random Glucose 103 Calcium 8.4 L Total Bilirubin AST ALT Alkaline Phosphatase Total Protein Albumin Cortisol Urine Color Urine Clarity Urine pH Ur Specific [place] Urine Protein Urine Glucose (UA) Urine Ketones Urine Occult Blood Urine Nitrate Urine Bilirubin Urine Urobilinogen Ur Leukocyte Esterase Urine WBC Micro UA Comment Urine Culture Comments 05/06/18 05/06/18 05/06/18 12:57 12:59 17:01 WBC RBC Hgb Hct MCV MCH MCHC RDW Plt Count MPV Prelim Diff (Auto) Neut % (Auto) Lymph % (Auto) [facility] % (Auto) Eos % (Auto) Baso % (Auto) Neut # (Auto) Lymph # (Auto) [facility] # (Auto) Eos # (Auto) Baso # (Auto) WBC Differential Seg Neuts % (Manual) Band Neuts % (Manual) Lymphocytes % (Manual) Myelocytes % (Man) Abs Neuts (Manual) Differential Comment Platelet Estimate Platelet Morphology Ovalocytes Sodium Potassium Chloride Carbon Dioxide Anion Gap BUN Creatinine Estimated GFR POC Glucose 156 H 240 H 109 Random Glucose Calcium Total Bilirubin AST ALT Alkaline Phosphatase Total Protein Albumin Cortisol Urine Color Urine Clarity Urine pH Ur Specific [place] Urine Protein Urine Glucose (UA) Urine Ketones Urine Occult Blood Urine Nitrate Urine Bilirubin Urine Urobilinogen Ur Leukocyte Esterase Urine WBC Micro UA Comment Urine Culture Comments 05/07/18 05/07/18 00:11 06:08 WBC RBC Hgb Hct MCV MCH MCHC RDW Plt Count MPV Prelim Diff (Auto) Neut % (Auto) Lymph % (Auto) [facility] % (Auto) Eos % (Auto) Baso % (Auto) Neut # (Auto) Lymph # (Auto) [facility] [place] # (Auto) Eos # (Auto) Baso # (Auto) WBC Differential Seg Neuts % (Manual) Band Neuts % (Manual) Lymphocytes % (Manual) Myelocytes % (Man) Abs Neuts (Manual) Differential Comment Platelet Estimate Platelet Morphology Ovalocytes Sodium Potassium Chloride Carbon Dioxide Anion Gap BUN Creatinine Estimated GFR POC Glucose 127 H 110 Random Glucose Calcium Total Bilirubin AST ALT Alkaline Phosphatase Total Protein Albumin Cortisol Urine Color Urine Clarity Urine pH Ur Specific [place] Urine Protein Urine Glucose (UA) Urine Ketones Urine Occult Blood Urine Nitrate Urine Bilirubin Urine Urobilinogen Ur Leukocyte Esterase Urine WBC Micro UA Comment Urine Culture Comments Result Diagrams: 05/05/18 06:01 05/06/18 07:40 Assessment and Plan - Disease Oriented Problem List (1) Asthma (2) COPD (chronic obstructive pulmonary disease) (3) Hypertension (4) Brain mass Pertinent Non-Medical Issues: Psychosocial: Patient born and raised in [place]. Has lived in [facility] for most of his life. Intermittently homeless. Has 3 adult children 2 daughters, one son who are local. Has several siblings himself his brothers except for Taj are and 2 of his sisters are . His parents are . He is . He has not been working for some time. He previously worked as a cook at a local restaurant. He is supported by his brother Taj locally, and a sister in [place] who he lived with about a year ago. Spiritual: Legal:Patient currently with mild confusion and forgetfulness. He is cooperative. He is not capacitated and able to make informed decisions at this time alone. Not clear if or when he will regain ability to make decisions. He is able to name his brother. He indicates he would want his brother called in an emergency. Ethical issues impacting care: No ethical issues identified Important Contacts: Brother / HEALTH CARE SURROGATE Taj Yancey [phone] home number, cell number [phone] . Prognosis: Hospice criteria for HIV/AIDs is t the following: CD4 coung <25 cells/mcl or viral Load >100,000 and at least 1 SUPERVISOR SHOP lymphoma, untreated refractory wasting ( loss of 33% lean body mass), MAC, PMLE, lymphoma, cryptosporitium and PPS of 50% . This patient was admitted for weakness and altered mental status. This has had some weight loss. There is concern for underlying lung infection such as Mycobacterium. He has findings of possible brain mass etiology not clear at this time malignancy versus possible infectious process. Concern for possibility of underlying immune deficiency, infectious process causing current issues. He is currently frail, malnourished and high risk for ongoing complications and continued physical decline due to this. Prophylactic treatments. Brain mass/lesion unknown what it is, on my discussion with Infectious disease, it makes prognostications/ course of treatment difficult. Radiology feels it is a mass, and id has indicate if it is cancer/tumor prognosis worsens. Pt would be appropriate for hospice and comfort treatment only if goals compatible. . Code Status: No Code DNR Plan: * Legal decision maker: Again I feel he can at the very least can participate in health care decision, and should not be isolated from health care decision making, but he needs the help of his healthcare surrogate in medical decision making. Pt has also expressed he wants his brother involve. His brother is designated health care surrogate. * Goals of care: Patient with limited insight today not able to make informed decision. pt , brother, met with hospice 05/06/18. Elected to proceed with HOSPICE and comfort tx only. Will need placement in facility for shift mechanic care , cannot return to prior private rented room. Has no funding currently for placement. Hospice, case management working on discharge placement options. * CODE STATUS:DNR * SYMPTOMS: --Anorexia/poor appetite-patient denies GI complaints however does endorse poor appetite may be for a few months. KUB today: Some air and stool scattered throughout the colon in a nonobstructive pattern. This could represent an element of hypodynamic ileus, however. Pt eating some. Asking for icecream today , nursing to assist to order. -- fatigue- general debility, hiv, brain mass. Oncology, ID following. Poor prognosis. Toxoplasmosis is negative. Expected to continue to decline due to disease process. * Palliative care will continue to follow during hospital course as condition evolves, to assist patient/decision-maker with understanding of medical conditions, weighing benefits/burdens of treatment options, for clarification of goals of treatment. Additionally will assist with any symptoms of palliative concern d/w medical attending, oncology Dr Israel Attestation Attestation: To help prompt me to consider important information that might be impacting today's encounter and assessment, information from prior notes written by myself or my colleagues may have been "brought forward" into today's note. My signature on this note, however, is an attestation that I personally performed the exam, history, and/or decision-making noted today, and, unless otherwise indicated, the interactions with patient, family, and staff as well as the review of records all occurred today. I also attest that the listed assessment and stated plan reflect my best clinical judgment today based on the combination of historical information, prior notes, and today's exam/ interactions. When time spent is documented, it refers only to time spent today by the signer, or if indicated, combined time spent today by collaborating physician/nurse practitioner.
[2018-05-07 13:44] VITALS: BP 109/67; PULSE 79; TEMP 97.9; O2SAT 95
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
== END 2018-05-07 16:20 | disposition hospice, home (50) ==
LOC: NEPC 11:40 → NEDA 15:28 → N05 17:46
PROVIDERS: ADMIT Hospitalist; ATTEND Hospitalist